=== PATIENT | female | born 1945 | race Caucasian/White ===

== ENCOUNTER 2018-07-18 12:03 | Inpatient (IN) | payer MEDICARE, OTHER, SELFPAY ==
[2018-07-18 12:04] VITALS: BP 119/90; PULSE 65; RESP 17; TEMP 36.8; O2SAT 100; BMI 24.7
--- NOTE | 2018-07-18 13:07 | ED.DCSUM_ITS ---
- ER Visit Summary Date of Service: 07/18/18 Chief Complaint: Weakness History of Present Illness: The patient is a 72 F who presents with general weakness that is been getting worse over the past month. Patient states she had labs drawn yesterday and showed a low hemoglobin. Patient denies any melena or hematochezia. Patient denies any abdominal pain. Patient does admit to some nausea and vomiting. Patient denies any fevers or chills. Patient denies any chest pain but admits to occasional palpitations and some shortness of breath at times. Patient states her weakness and shortness of breath are worse with any exertion. Physical Examination: Vital signs are stable. Patient is afebrile. Patient is in no acute distress. Oral mucosa is pink and moist. Neck is supple. Trachea is midline. There is no JVD noted. Heart was regular rate and rhythm. Lungs are clear and equal bilateral. Abdomen is soft. Bowel sounds are normal. There is no tenderness. There is no guarding noted. Rectal exam showed brown stool. There is no tenderness or masses noted. Skin is warm dry. Cranial nerves II through XII are intact. There are no focal motor or sensory deficits noted. The remaining physical exam is within normal limits. Test Results: CBC showed hemoglobin of 6.8 and hematocrit 25.1. Comprehensive metabolic profile was within normal limits. INR and PTT were normal. Troponin was normal. Emergency Department Course and Treatment: Type and screen was ordered. Case was discussed with the hospitalist. She will admit the patient to her service. Patient was typed and crossed for 1 unit. Patient will be infused with 1 unit of packed red blood cells to be started in the emergency department. Disposition: Admit for observation Impression: Anemia This note was generated with [employer] dictation software. It may contain incorrect words, spelling, and punctuation that were not noted in review of the chart prior to signing ED Disposition - Plan for ED Patient: Disposition: Acute Care Hospital [facility] Diagnosis: Anemia Referrals: Ariadne Miranda MD [Primary Care Provider] -
[2018-07-18 13:39] LABS: International Normalized Ratio 1.1
[2018-07-18 13:40] LABS: Partial Thromboplast Time 31.4 Seconds (24.1-36.2)
[2018-07-18 13:46] LABS: Absolute Lymphocyte Count 0.87 X10^3/ul (0.83-4.51); Absolute Neutrophil Count 4.2 X10^3/uL (2.0-7.7); Basophil# 0.04 X10^3/uL; Basophil% 0.7 % (0-1); Eosinophil# 0.17 X10^3/uL; Eosinophils% 2.8 % (0-5); Hematocrit 25.1 % (37-47); Hemoglobin 6.8 g/dl (12.0-15.0); Lymphocyte # 0.87 X10^3/ul (4.0); Lymphocyte % 14.5 % (19-41); Mean Corp Hgb Conc 27.1 g/gl (32-36); Mean Corpuscular Hgb 16.6 pg (27.0-32.0); Mean Corpuscular Volume 61.4 fL (81-99); Monocyte# 0.73 X10^3/uL; Monocyte% 12.2 % (0-10); Neutrophil # 4.18 X10^3/uL (2.7-7.7); Neutrophil % 69.8 % (47-70); Platelet Count 255 K/mm3 (150-450); RBC Distribution Width CV 20.5 % (11.6-14.6); RBC Distribution Width SD 44.9 fl (35.1-43.9); Red Blood Count 4.09 M/mm3 (4.2-5.4)
[2018-07-18 13:48] LABS: Differential Indicated SCAN CRITERIA MET; POSITIVE COUNT NO; POSITIVE DIFFERENTIAL NO; POSITIVE MORPHOLOGY YES
[2018-07-18 13:56] LABS: ALB/GLOB Ratio 0.9 RATIO (0.9-2.4); AST(SGOT) 25 U/L (15-37); Alanine Aminotransfer ALT/SGPT 29 U/L (13-56); Albumin, Serum 3.5 g/dL (3.2-5.0); Alkaline Phosphatase 99 U/L (45-117); Anion Gap 5 (5-15); BUN 9 mg/dL (7-18); BUN/Creat Ratio 13.4 RATIO (10-20); Calcium,Total 8.9 mg/dL (8.5-10.1); Chloride 107 mmol/L (98-107); Creatinine, Serum 0.67 mg/dL (0.55-1.02); EST Glomerular Filtration Rate 92 mL/min (>60); Est Glom Filt Rate - Afr Amer 111 mL/min (>60); Estimated Creatinine Clearance 43.91 ml/min; Globulin 3.9 g/dL (2.2-4.2); Glucose 107 mg/dL (74-106); Potassium 3.7 mmol/L (3.5-5.1); Protein, Total 7.4 g/dL (6.4-8.2); Sodium Level 139 mmol/L (136-145)
[2018-07-18 14:19] LABS: Anisocytosis 3+; Hypochromasia 1+; Macrocytosis 1+; Microcytosis 2+; Ovalocyte 1+; Platelet Estimate ADEQUATE (ADEQ); Platelet Morphology LARGE; Target Cells 1+
[2018-07-18 15:01] VITALS: BP 168/103; PULSE 84; RESP 22; O2SAT 99
--- NOTE | 2018-07-18 15:15 | ED.RN ---
MD AWARE PT HAS NOT GIVEN UA, SAID TO GIVE THE PT SOMETHING TO DRINK.
[2018-07-18 16:06] LABS: Red Blood Cells-Urine 0 SEEN /hpf (0-5); Squamous Epithelial Cells - UA 0 SEEN /hpf (5-10)
[2018-07-18 16:09] LABS: Color, Urine Yellow (Yellow); Glucose, Dipstick Normal (Normal); Ketone-Dipstick Negative (Negative); Leukocyte Esterase-Dipstick 25 /ul (Negative); Nitrite-Dipstick Positive (Negative); Occult Blood-Urine Negative /ul (Negative); Protein-Dipstick Negative (Negative); Specific Gravity, Urine 1.015 (1.002-1.030); Urine Bilirubin Dipstick Negative (Negative); Urine Clarity Clear (Clear); Urine Urobilinogen Normal (Normal)
[2018-07-18 16:15] VITALS: BMI 24.7
[2018-07-18 16:16] LABS: Bacteria 3+ /hpf (None Seen); Mucous, Urine RARE /hpf (<or=2+)
[2018-07-18 16:17] LABS: White Blood Cells 0-5 SEEN /hpf (0-5)
--- NOTE | 2018-07-18 16:40 | HP.PCM_ITS ---
Problem List (1) Anemia Status: Acute Qualifiers: Anemia type: unspecified type Qualified Code(s): D64.9 - Anemia, unspecified (2) Depression Status: Chronic Qualifiers: Depression Type: unspecified Qualified Code(s): F32.9 - Major depressive disorder, single episode, unspecified (3) GERD (gastroesophageal reflux disease) Status: Chronic Qualifiers: Esophagitis presence: esophagitis presence not specified Qualified Code(s): K21.9 - Gastro-esophageal reflux disease without esophagitis (4) Multiple sclerosis Status: Chronic (5) Osteoporosis Status: Chronic Qualifiers: Osteoporosis type: unspecified Encounter type: subsequent encounter Fracture healing: with routine healing History of Present Illness Date of Admission: 07/18/18 Chief Complaint: Abnormal lab work The patient is a 72 year old F with past medical history of multiple sclerosis, osteoporosis on denosumab, depression who comes referred from her primary care doctor's office with abnormal blood work. Patient admits to having upper respiratory symptoms which she thought was the flu, a month ago. She attributes all her symptoms of generalized malaise, nausea, poor appetite, weight loss, dry and sore lips, intermittent palpitations, dizziness and shortness of breath with exertion. Her admitting vitals in ED showed blood pressure 119/90, temperature of 98.2 F, heart rate 65, respiratory rate 70, SPO2 100% on room air. Her white cell count is 6.0, hemoglobin 6.8, hemoglobin was 11.1 in 2017, platelet count was 255, INR 1.1, APTT 31.4, CMP unremarkable. Past Medical History Past Medical History (Chronic Problems): Chronic Problems Depression (Chronic) Muscle spasm (Chronic) GERD (gastroesophageal reflux disease) (Chronic) Neuropathic pain (Chronic) Multiple sclerosis (Chronic) Osteoporosis (Chronic) Allergies Sulfa (Sulfonamide Antibiotics) Adverse Reaction (Verified 07/18/18 16:14) Vomiting sulfamethoxazole [From Bactrim] Adverse Reaction (Verified 07/18/18 12:03) Vomiting trimethoprim [From Bactrim] Adverse Reaction (Verified 07/18/18 12:03) Vomiting Home Medications: Ambulatory Orders Medication Instructions Recorded Calcium Carbonate/Vitamin D3 1 each PO BID 10/21/16 [Caltrate 600 Plus D3 Tablet] Gabapentin [Neurontin] 100 mg PO QHS 10/21/16 Glucosa [place] 2Kcl/Chondroitin [place] 2 each PO DAILY 10/21/16 [Glucosamine-Chondroitin Tablet] Lactobacillus Rhamnosus GG 1 each PO DAILY 10/21/16 [Culturelle] Pantoprazole Sodium [Protonix] 40 mg PO BID 10/21/16 Venlafaxine XR [Effexor Xr] 150 mg PO DAILY 10/21/16 Albuterol Sulfate [Ventolin Hfa] 2 inhaler PO Q4H PRN PRN 07/18/18 Bmx Liquid 5 ml PO PRN PRN 07/18/18 Cholecalciferol (VIT D3) [Vitamin 1,000 unit PO DAILY 07/18/18 D] Denosumab [Prolia] 60 mg SQ 07/18/18 Multivitamins,Therapeutic 1 tablet PO DAILY 07/18/18 [Multivitamin] Potassium Chloride 10 meq PO DAILY 07/18/18 Surgical History: cataract, tonsillectomy, - - Left IM nailing for left hip fracture Psychiatric History: Depression 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 Paternal History Items: - - father with rheumatoid arthritis, scleroderma Review of Systems Constitutional: Reports: Weakness, Fatigue. Denies: Anorexia, Chills, Fever, Malaise, Weight Change Eyes: Denies: Blurred vision, Cataracts, Conjunctivae Inflammation, Double vision, Eyelid Inflammation HEENT: Denies: Difficulty Hearing, Difficulty Swallowing, Head Aches, Hearing Changes, Sinus Congestion, Sinus Drainage Cardiovascular: Reports: Light Headedness. Denies: Chest Pain, Claudication, Orthopnea, Palpitations Respiratory: Reports: Shortness of Breath, Shortness of breath at rest, Shortness of breath upon exertion. Denies: Cough, Sputum production Gastrointestinal: Denies: Abdominal Pain, Hematemesis, Hematochezia, Nausea, Melena, Vomiting Genitourinary: Denies: Dysuria, Frequency, Incontinence Gynecological: Denies: Breast symptoms, Excessively long or heavy periods, Vaginal discharge, Vaginal itching Musculoskeletal: Denies: Joint Pain, Joint stiffness, Joint swelling, Joint Tenderness Skin: Denies: Pruritis, Rash, Wounds Neurological: Denies: Numbness, Tingling, Focal weakness Psychiatric: Denies: Anxiety, Depression, Homicidal Ideations, Suicidal Ideations Hematologic/ Lymphatic: Denies: Easy Bruising, Easy Bleeding VTE Information - Inpt Only VTE Present on Admission: No VTE Pharm Prophylaxis ordered?: Yes Patient Problems: Active and Suspected Problems Anemia (Acute) - Physical Exam General: Alert, Oriented x3, Cooperative, No apparent distress HEENT: Atraumatic, PERRLA, EOMI, Normocephalic Oral: Moist Mucosa, - - redness and peeling of lips Neck: Supple Lungs: Clear to auscultation, Normal air movement Cardiovascular: Regular rate, Regular Rhythm, Normal S1, Normal S2, No murmurs Abdomen: Bowel Sounds Present, Soft, Non Tender, Non-Distended, No Hepato- splenomegaly Extremities: No edema Skin: No rashes, No breakdown Musculoskeletal: No Tenderness to Palpation of Joints or Extremities Lymphatic: No Cervical, Supraclavicular, or Inguinal Adenopathy Neurological: Cranial nerves II-XII grossly intact, Neuro grossly intact Psych/Mental Status: Normal Affect, Appropriate Vital Signs Temp Pulse Resp BP Pulse Ox 98.2 F 84 22 H 168/103 H 99 07/18/18 12:04 07/18/18 15:01 07/18/18 15:01 07/18/18 15:01 07/18/18 15:01 Oxygen Delivery Method Room Air Weight: 65.317 kg Body Mass Index (BMI) 24.7 Microbiology Past 72 Hours 07/18/18 16:00 Stool Occult Blood (TENA) - Final Stool Laboratory Tests Past 24 Hrs 07/18/18 07/18/18 07/18/18 13:26 13:26 13:26 WBC 6.0 RBC 4.09 L Hgb 6.8 L Hct 25.1 L MCV 61.4 L MCH 16.6 L MCHC 27.1 L RDW 20.5 H RDW Differential 44.9 H Plt Count 255 Immature Gran % (Auto) 0.000 Neut % (Auto) 69.8 Lymph % (Auto) 14.5 L [place] % (Auto) 12.2 H Eos % (Auto) 2.8 Baso % (Auto) 0.7 Absolute Neuts (auto) 4.2 Absolute Lymphs (auto) 0.87 Total Counted Not Reportable Platelet Estimate ADEQUATE Plt Morphology Comment LARGE Hypochromasia 1+ Anisocytosis 3+ Microcytosis 2+ Macrocytosis 1+ Target Cells 1+ Ovalocytes 1+ PT 14.0 INR 1.1 APTT 31.4 Sodium 139 Potassium 3.7 Chloride 107 Carbon Dioxide 27.0 Anion Gap 5 BUN 9 Creatinine 0.67 Estim Creat Clear Calc 43.91 Est GFR (MDRD) Af Amer 111 Est GFR (MDRD) Non-Af 92 BUN/Creatinine Ratio 13.4 Glucose 107 H Calcium 8.9 Total Bilirubin 0.70 AST 25 ALT 29 Alkaline Phosphatase 99 Troponin I < 0.015 Total Protein 7.4 Albumin 3.5 Globulin 3.9 Albumin/Globulin Ratio 0.9 Urine Color Urine Clarity Urine pH Ur Specific [place] Urine Protein Urine Glucose (UA) Urine Ketones Urine Occult Blood Urine Nitrite Urine Bilirubin Urine Urobilinogen Ur Leukocyte Esterase Urine RBC Urine WBC Ur Squamous Epith Cells Urine Bacteria Urine Mucus Blood Type Antibody Screen 07/18/18 07/18/18 16:00 16:30 WBC RBC Hgb Hct MCV MCH MCHC RDW RDW Differential Plt Count Immature Gran % (Auto) Neut % (Auto) Lymph % (Auto) [place] % (Auto) Eos % (Auto) Baso % (Auto) Absolute Neuts (auto) Absolute Lymphs (auto) Total Counted Platelet Estimate Plt Morphology Comment Hypochromasia Anisocytosis Microcytosis Macrocytosis Target Cells Ovalocytes PT INR APTT Sodium Potassium Chloride Carbon Dioxide Anion Gap BUN Creatinine Estim Creat Clear Calc Est GFR (MDRD) Af Amer Est GFR (MDRD) Non-Af BUN/Creatinine Ratio Glucose Calcium Total Bilirubin AST ALT Alkaline Phosphatase Troponin I Total Protein Albumin Globulin Albumin/Globulin Ratio Urine Color Yellow Urine Clarity Clear Urine pH 6.0 Ur Specific [place] 1.015 Urine Protein Negative Urine Glucose (UA) Normal Urine Ketones Negative Urine Occult Blood Negative Urine Nitrite Positive H Urine Bilirubin Negative Urine Urobilinogen Normal Ur Leukocyte Esterase 25 H Urine RBC 0 SEEN Urine WBC 0-5 SEEN Ur Squamous Epith Cells 0 SEEN Urine Bacteria 3+ Urine Mucus RARE Blood Type Pending Antibody Screen Pending Assessment/Plan All Active Problems Anemia (Acute) Rib fractures (Acute) Fall (Acute) Closed fracture of left hip requiring operative repair (Acute) 72 year old F with past medical history of multiple sclerosis, osteoporosis on denosumab, depression who comes referred from her primary care doctor's office with abnormal blood work. 1. Severe anemia, symptomatic, unclear etiology, admitting Hb is 6.8, previous Hb 11.1, FOBT is negative Plan: Admit to Medsurg, Iron profile, Retic count, LDH, Vitamin B12, folate, direct Coomb's test, Transfuse 1 unit of packed RBC, trend H&H, continue on PPI BID Discussed with Hematology - Dr. See, recommends discharging patient if stable tomorrow morning, follow-up in the outpatient with him within a week 2. Multiple sclerosis 3. Osteoporosis, on denosumab 4. Depression, on Venlafaxine 5. DVT PPx- SCDs on account of severe anemia Code Visit Inpatient E&M: 97855 Init Hosp L3
--- NOTE | 2018-07-18 17:07 | CASEMGMT ---
RN CM Assessment Introduced role of RN CM to patient and Krzysztof at bedside.? Patient is alert, oriented and able?to participate in RN CM Assessment. ?Care providers, pharmacy, and demographics verified. Presentation: Generalized Weakness, SOB, Had labs drawn yesterday and showed low Hgb Admit Dx: Severe Anemia Re-Admit: No Barriers/Issues: None PCP: Ariadne Miranda Specialists: None Preferred Pharmacy: [facility] Insurance: [facility] A[facility], MMO Rx Benefit:?Yes LNOK: Krzysztof Robb LW/HPOA: Yes, HPOA- Krzysztof Robb Living Arrangements:? Lives with in a Condo, no steps to enter home ADL?s: Independent with ambulation and ADL's Transportation: Patient drives, Krzysztof to transport on [place] DME: None HHC: Past [facility] SNF: None Goal: Home and back to volunteering here at [facility] DC PLAN: Home with no anticipated needs identifies at this time. REN Santiago
[2018-07-18 17:11] VITALS: BMI 25.4
[2018-07-18 18:42] LABS: Hematocrit 25.5 % (37-47); Hemoglobin 6.8 g/dl (12.0-15.0); Immature Platelet Fraction 9.9 % (1.0-7.9); RET-HE 14.1 pg (30-35); Reticulocyte Count 1.23 % (0.5-1.5)
[2018-07-18 19:08] VITALS: BP 159/63; PULSE 88; RESP 18; TEMP 36.8; O2SAT 99
[2018-07-18 19:19] LABS: Ferritin 10 ng/mL (8-252); Iron 12 ug/dL (50-170); Iron Binding Capacity,Total 409 ug/dL (250-450); LDH 207 U/L (84-246); PERCENT IRON SATURATION 2.9 % (15.0-55.0)
[2018-07-18 19:40] LABS: Vitamin B12 531 pg/mL (211-911)
[2018-07-18 20:20] VITALS: BP 154/57; PULSE 96; RESP 18; TEMP 36.9; O2SAT 98
[2018-07-18 21:15] VITALS: BP 148/65; PULSE 86; RESP 16; TEMP 36.6; O2SAT 99
[2018-07-18] MEDS: Pantoprazole Sodium 40 MG Tablet PO (21:18)
[2018-07-18] MEDS: Gabapentin 100 MG Capsule PO (21:19)
[2018-07-18 22:15] VITALS: BP 138/76; BP 140/64; PULSE 79; PULSE 82; RESP 18; TEMP 36.9; TEMP 37.6; O2SAT 100
[2018-07-18 23:49] LABS: Hematocrit 27.4 % (37-47); Hemoglobin 7.7 g/dl (12.0-15.0)
[2018-07-19 05:09] VITALS: BP 143/67; PULSE 74; RESP 18; TEMP 37.5; O2SAT 100
[2018-07-19 05:46] LABS: Absolute Neutrophil Count 2.8 X10^3/uL (2.0-7.7); Basophil# 0.03 X10^3/uL; Basophil% 0.6 % (0-1); Eosinophils% 4.1 % (0-5); Hematocrit 28.5 % (37-47); Hemoglobin 8.1 g/dl (12.0-15.0); Lymphocyte % 26.6 % (19-41); Mean Corp Hgb Conc 28.4 g/gl (32-36); Mean Corpuscular Hgb 18.4 pg (27.0-32.0); Mean Corpuscular Volume 64.8 fL (81-99); Monocyte# 0.59 X10^3/uL; Monocyte% 12.1 % (0-10); Neutrophil # 2.77 X10^3/uL (2.7-7.7); Neutrophil % 56.6 % (47-70); Platelet Count 240 K/mm3 (150-450); RBC Distribution Width CV 23.9 % (11.6-14.6); RBC Distribution Width SD 54.8 fl (35.1-43.9); White Blood Count 4.9 K/mm3 (4.4-11.0)
[2018-07-19 05:47] LABS: Differential Indicated SCAN CRITERIA MET; POSITIVE COUNT NO; POSITIVE DIFFERENTIAL NO; POSITIVE MORPHOLOGY YES
[2018-07-19 05:51] LABS: Anion Gap 5 (5-15); BUN 8 mg/dL (7-18); BUN/Creat Ratio 12.7 RATIO (10-20); Calcium,Total 8.8 mg/dL (8.5-10.1); Chloride 109 mmol/L (98-107); Creatinine, Serum 0.63 mg/dL (0.55-1.02); EST Glomerular Filtration Rate 98 mL/min (>60); Est Glom Filt Rate - Afr Amer 119 mL/min (>60); Estimated Creatinine Clearance 43.91 ml/min; Glucose 99 mg/dL (74-106); Potassium 4.1 mmol/L (3.5-5.1); Sodium Level 140 mmol/L (136-145)
[2018-07-19 06:04] LABS: Anisocytosis 2+; Differential Comment SCANNED; Platelet Estimate ADEQUATE (ADEQ); Platelet Morphology LARGE
[2018-07-19 06:05] LABS: Hypochromasia 3+; Ovalocyte 1+; Polychromasia RARE; Target Cells RARE
[2018-07-19 07:50] VITALS: BP 138/66; PULSE 76; RESP 18; TEMP 37.7; O2SAT 95
[2018-07-19] MEDS: Venlafaxine XR 150 MG Capsule PO (08:06)
[2018-07-19] MEDS: Multivitamins,Therapeutic Tablet 1 TABLET PO (08:06)
[2018-07-19] MEDS: Calcium Carb/Vitamin D 1 TABLET Tablet PO ×2 (08:06→17:42)
[2018-07-19] MEDS: Pantoprazole Sodium 40 MG Tablet PO (08:07)
--- NOTE | 2018-07-19 12:34 | CHAPLAIN ---
Type of Pastoral Visit _x__ Initial Visit ___ Follow-up Visit ___ On-call Visit ___ General Patient Visit ___ Spiritual Assessment ___ Family Conference ___ Bereavement ___ Rapid Response ___ Code Blue ___ Other (describe below) Pastoral Care Referral From _x__ Patient ___ Family ___ Nurse ___ Physician ___ Forging Operator ___ Process Controller ___ Other (describe below) Sacrament/Intervention _x__ Active listening ___ Anointing ___ Anglican ___ Bereavement ___ Communion ___ Mei exploration ___ _x__ Life review _x__ Prayer ___ Reconciliation ___ Sacrament of Sick _x__ Supportive presence ___ Wedding ___ Other (describe below) Pastoral Comments
[2018-07-19 13:55] VITALS: BP 138/68; PULSE 81; RESP 18; TEMP 37.1; O2SAT 95
[2018-07-19 14:10] VITALS: BP 130/64; PULSE 88; RESP 18; TEMP 36.6; O2SAT 96
--- NOTE | 2018-07-19 14:10 | PCM.CONS.GEN ---
Problem List (1) Anemia Status: Acute Qualifiers: Anemia type: iron deficiency Iron deficiency anemia type: chronic blood loss Qualified Code(s): D50.0 - Iron deficiency anemia secondary to blood loss (chronic) Reason for Consult Date of Consultation: 07/19/18 History of Present Illness: The patient is a 72 year old F with past medical history of multiple sclerosis, osteoporosis on denosumab, depression who comes referred from her primary care doctor's office with abnormal blood work. Patient admits to having upper respiratory symptoms which she thought was the flu, a month ago. She attributes all her symptoms of generalized malaise, nausea, poor appetite, weight loss, dry and sore lips, intermittent palpitations, dizziness and shortness of breath with exertion. Her admitting vitals in ED showed blood pressure 119/90, temperature of 98.2 F, heart rate 65, respiratory rate 70, SPO2 100% on room air. Her white cell count is 6.0, hemoglobin 6.8, hemoglobin was 11.1 in 2017, platelet count was 255, INR 1.1, APTT 31.4, CMP unremarkable. The patient has never noticed any dark stools, she has had some nausea vomiting but nothing that has had coffee grounds in it. She is not complaining of any abdominal pain. Her last upper endoscopy was more than 10 years ago and she has not had a colonoscopy. Past Medical History Past Medical History (Chronic Problems): Chronic Problems Depression (Chronic) Muscle spasm (Chronic) GERD (gastroesophageal reflux disease) (Chronic) Neuropathic pain (Chronic) Multiple sclerosis (Chronic) Osteoporosis (Chronic) Allergies Sulfa (Sulfonamide Antibiotics) Adverse Reaction (Verified 07/18/18 16:14) Vomiting sulfamethoxazole [From Bactrim] Adverse Reaction (Verified 07/18/18 12:03) Vomiting trimethoprim [From Bactrim] Adverse Reaction (Verified 07/18/18 12:03) Vomiting Home Medications: Ambulatory Orders Medication Instructions Recorded Calcium Carbonate/Vitamin D3 1 each PO BID 10/21/16 [Caltrate 600 Plus D3 Tablet] Gabapentin [Neurontin] 100 mg PO QHS 10/21/16 Glucosa [place] 2Kcl/Chondroitin [place] 2 each PO DAILY 10/21/16 [Glucosamine-Chondroitin Tablet] Lactobacillus Rhamnosus GG 1 each PO DAILY 10/21/16 [Culturelle] Pantoprazole Sodium [Protonix] 40 mg PO BID 10/21/16 Venlafaxine XR [Effexor Xr] 150 mg PO DAILY 10/21/16 Albuterol Sulfate [Ventolin Hfa] 2 inhaler PO Q4H PRN PRN 07/18/18 Bmx Liquid 5 ml PO PRN PRN 07/18/18 Cholecalciferol (VIT D3) [Vitamin 1,000 unit PO DAILY 07/18/18 D] Denosumab [Prolia] 60 mg SQ 07/18/18 Multivitamins,Therapeutic 1 tablet PO DAILY 07/18/18 [Multivitamin] Potassium Chloride 10 meq PO DAILY 07/18/18 Surgical History: cataract, tonsillectomy, - - Left IM nailing for left hip fracture Psychiatric History: Depression DIRECT SELLING COUNSELOR History: No pertinent DIRECT SELLING COUNSELOR history Lives: Spouse/ Significant Other Smoking Status: Former smoker Tobacco Use: Cigarettes - *Family History Maternal History Items: - - mother with a stroke. Paternal History Items: - - father with rheumatoid arthritis, scleroderma Review of Systems Constitutional: Reports: Malaise, Fatigue Cardiovascular: Reports: Palpitations Respiratory: Denies: Cough, Hemoptysis, Shortness of breath at rest, Shortness of breath upon exertion, Wheezing Gastrointestinal: Denies: Abdominal Pain, Constipation, Diarrhea, Hematemesis, Nausea, Melena, Vomiting Patient Problems: Active and Suspected Problems Anemia (Acute) - Physical Exam General: Alert, Oriented x3 Lungs: Clear to auscultation Cardiovascular: Regular rate, Regular Rhythm, No murmurs Abdomen: Bowel Sounds Present, Soft, Non Tender, Non-Distended Vital Signs Temp Pulse Resp BP Pulse Ox 99.9 F H 76 18 138/66 H 95 07/19/18 07:50 07/19/18 07:50 07/19/18 07:50 07/19/18 07:50 07/19/18 07:50 Oxygen Delivery Method Room Air Weight: 147 lb 14.883 oz Body Mass Index (BMI) 25.4 Intake and Output for Last 24 Hours 07/17/18 07/18/18 07/19/18 23:59 23:59 23:59 Intake Total 650 / 650 730 / 730 Balance 650 / 650 730 / 730 Microbiology Past 72 Hours 07/18/18 16:00 Stool Occult Blood (TENA) - Final Stool Laboratory Tests Past 24 Hrs 07/18/18 07/18/18 07/18/18 13:26 13:26 13:26 WBC RBC Hgb 6.8 L Hct 25.5 L MCV MCH MCHC RDW RDW Differential Plt Count MPV Immature Gran % (Auto) Neut % (Auto) Lymph % (Auto) [place] % (Auto) Eos % (Auto) Baso % (Auto) Absolute Neuts (auto) Absolute Lymphs (auto) Total Counted Not Reportable Differential Comment Platelet Estimate ADEQUATE Immature Plt Fraction 9.9 H Plt Morphology Comment LARGE Polychromasia Hypochromasia 1+ Anisocytosis 3+ Microcytosis 2+ Macrocytosis 1+ Target Cells 1+ Ovalocytes 1+ Retic Count 1.23 Immature Retic Fraction 15.30 Retic Hgb Equivalent 14.1 L Sodium Potassium Chloride Carbon Dioxide Anion Gap BUN Creatinine Estim Creat Clear Calc Est GFR (MDRD) Af Amer Est GFR (MDRD) Non-Af BUN/Creatinine Ratio Glucose Calcium Iron 12 L TIBC 409 Iron Saturation 2.9 L Ferritin 10 Lactate Dehydrogenase 207 Vitamin B12 Folate 36.50 Urine Color Urine Clarity Urine pH Ur Specific [place] Urine Protein Urine Glucose (UA) Urine Ketones Urine Occult Blood Urine Nitrite Urine Bilirubin Urine Urobilinogen Ur Leukocyte Esterase Urine RBC Urine WBC Ur Squamous Epith Cells Urine Bacteria Urine Mucus Blood Type Antibody Screen Direct Antiglob Test Crossmatch 07/18/18 07/18/18 07/18/18 13:26 16:00 16:30 WBC RBC Hgb Hct MCV MCH MCHC RDW RDW Differential Plt Count MPV Immature Gran % (Auto) Neut % (Auto) Lymph % (Auto) [place] % (Auto) Eos % (Auto) Baso % (Auto) Absolute Neuts (auto) Absolute Lymphs (auto) Total Counted Differential Comment Platelet Estimate Immature Plt Fraction Plt Morphology Comment Polychromasia Hypochromasia Anisocytosis Microcytosis Macrocytosis Target Cells Ovalocytes Retic Count Immature Retic Fraction Retic Hgb Equivalent Sodium Potassium Chloride Carbon Dioxide Anion Gap BUN Creatinine Estim Creat Clear Calc Est GFR (MDRD) Af Amer Est GFR (MDRD) Non-Af BUN/Creatinine Ratio Glucose Calcium Iron TIBC Iron Saturation Ferritin Lactate Dehydrogenase Vitamin B12 Folate Urine Color Yellow Urine Clarity Clear Urine pH 6.0 Ur Specific [place] 1.015 Urine Protein Negative Urine Glucose (UA) Normal Urine Ketones Negative Urine Occult Blood Negative Urine Nitrite Positive H Urine Bilirubin Negative Urine Urobilinogen Normal Ur Leukocyte Esterase 25 H Urine RBC 0 SEEN Urine WBC 0-5 SEEN Ur Squamous Epith Cells 0 SEEN Urine Bacteria 3+ Urine Mucus RARE Blood Type O NEGATIVE Antibody Screen NEGATIVE Direct Antiglob Test NEG w/POLYSPECIFIC Crossmatch 07/18/18 07/18/18 07/18/18 16:30 16:30 18:45 WBC RBC Hgb Hct MCV MCH MCHC RDW RDW Differential Plt Count MPV Immature Gran % (Auto) Neut % (Auto) Lymph % (Auto) [place] % (Auto) Eos % (Auto) Baso % (Auto) Absolute Neuts (auto) Absolute Lymphs (auto) Total Counted Differential Comment Platelet Estimate Immature Plt Fraction Plt Morphology Comment Polychromasia Hypochromasia Anisocytosis Microcytosis Macrocytosis Target Cells Ovalocytes Retic Count Immature Retic Fraction Retic Hgb Equivalent Sodium Potassium Chloride Carbon Dioxide Anion Gap BUN Creatinine Estim Creat Clear Calc Est GFR (MDRD) Af Amer Est GFR (MDRD) Non-Af BUN/Creatinine Ratio Glucose Calcium Iron TIBC Iron Saturation Ferritin Lactate Dehydrogenase Vitamin B12 531 Folate Urine Color Urine Clarity Urine pH Ur Specific [place] Urine Protein Urine Glucose (UA) Urine Ketones Urine Occult Blood Urine Nitrite Urine Bilirubin Urine Urobilinogen Ur Leukocyte Esterase Urine RBC Urine WBC Ur Squamous Epith Cells Urine Bacteria Urine Mucus Blood Type Antibody Screen Direct Antiglob Test Crossmatch See Detail See Detail 07/18/18 07/19/18 07/19/18 23:27 05:20 05:20 WBC 4.9 RBC 4.40 Hgb 7.7 L 8.1 L Hct 27.4 L 28.5 L MCV 64.8 L MCH 18.4 L MCHC 28.4 L RDW 23.9 H RDW Differential 54.8 H Plt Count 240 MPV TNP Immature Gran % (Auto) 0.000 Neut % (Auto) 56.6 Lymph % (Auto) 26.6 [place] % (Auto) 12.1 H Eos % (Auto) 4.1 Baso % (Auto) 0.6 Absolute Neuts (auto) 2.8 Absolute Lymphs (auto) 1.30 Total Counted Not Reportable Differential Comment SCANNED Platelet Estimate ADEQUATE Immature Plt Fraction Plt Morphology Comment LARGE Polychromasia RARE Hypochromasia 3+ Anisocytosis 2+ Microcytosis Macrocytosis Target Cells RARE Ovalocytes 1+ Retic Count Immature Retic Fraction Retic Hgb Equivalent Sodium 140 Potassium 4.1 Chloride 109 H Carbon Dioxide 26.0 Anion Gap 5 BUN 8 Creatinine 0.63 Estim Creat Clear Calc 43.91 Est GFR (MDRD) Af Amer 119 Est GFR (MDRD) Non-Af 98 BUN/Creatinine Ratio 12.7 Glucose 99 Calcium 8.8 Iron TIBC Iron Saturation Ferritin Lactate Dehydrogenase Vitamin B12 Folate Urine Color Urine Clarity Urine pH Ur Specific [place] Urine Protein Urine Glucose (UA) Urine Ketones Urine Occult Blood Urine Nitrite Urine Bilirubin Urine Urobilinogen Ur Leukocyte Esterase Urine RBC Urine WBC Ur Squamous Epith Cells Urine Bacteria Urine Mucus Blood Type Antibody Screen Direct Antiglob Test Crossmatch Assessment/Plan All Active Problems Anemia (Acute) Rib fractures (Acute) Fall (Acute) Closed fracture of left hip requiring operative repair (Acute) At this point I am going to see the patient in an outpatient setting and then get her scheduled for both an upper and lower endoscopy.
--- NOTE | 2018-07-19 16:29 | DCINST_ITS ---
- Discharge Diagnoses Current Active Problems: Current Active and Chronic Problems Anemia (Acute) You will use the following diet at home:: No restrictions Your food should be the consistency of: Regular Your liquids should be the consistency of: Regular/Thin Discharge Activity: Return to Normal Activity Weight Bearing Status: Full weight bearing Allergies/Adverse Reactions: Allergies Sulfa (Sulfonamide Antibiotics) Adverse Reaction (Verified 07/18/18 16:14) Vomiting sulfamethoxazole [From Bactrim] Adverse Reaction (Verified 07/18/18 12:03) Vomiting trimethoprim [From Bactrim] Adverse Reaction (Verified 07/18/18 12:03) Vomiting Medications to take at Discharge Calcium Carbonate/Vitamin D3 [Caltrate 600 Plus D3 Tablet] 1 each PO BID 10/21/16 Gabapentin [Neurontin] 100 mg PO QHS 10/21/16 Glucosa [place] 2Kcl/Chondroitin [place] [Glucosamine-Chondroitin Tablet] 2 each PO DAILY 10/21/16 Lactobacillus Rhamnosus GG [Culturelle] 1 each PO DAILY 10/21/16 Pantoprazole Sodium [Protonix] 40 mg PO BID 10/21/16 Venlafaxine XR [Effexor Xr] 150 mg PO DAILY 10/21/16 Albuterol Sulfate [Ventolin Hfa] 2 inhaler PO Q4H PRN PRN 07/18/18 Bmx Liquid 5 ml PO PRN PRN 07/18/18 Cholecalciferol (VIT D3) [Vitamin D3] 1,000 unit PO DAILY 07/18/18 Denosumab [Prolia] 60 mg SQ 07/18/18 Multivitamins,Therapeutic [Multivitamin] 1 tablet PO DAILY 07/18/18 Potassium Chloride 10 meq PO DAILY 07/18/18 Ferrous Sulfate 325 mg PO BIDCM #60 tablet 07/19/18 The following prescriptions were given: Ferrous Sulfate 325 mg PO BIDCM #60 tablet Primary Care Physician: Ariadne Miranda MD [Primary Care Provider] - Please follow up with your Primary Care Physician in: in 2 weeks Test Results: Test results from this visit will be discussed in further detail at your follow- up appointment, if applicable. Please Follow Up With: Carlton Tyler MD When: in one week-call for appointment
[2018-07-19 17:32] VITALS: BP 140/61; PULSE 89; RESP 18; TEMP 37.4; O2SAT 94
[2018-07-19 18:30] VITALS: BP 138/66; PULSE 76; RESP 18; TEMP 37.7; O2SAT 95
--- NOTE | 2018-07-22 16:46 | PCM.DC.SUM ---
Discharge Date and Diagnosis Date of Admission: 07/18/18 Date of Discharge: 07/19/18 - Primary Discharge Diagnosis #1 severe anemia, iron deficiency, believed to be secondary to occult blood loss in the gastrointestinal tract requiring blood transfusion #2 multiple sclerosis #3 osteoporosis #4 depression - Secondary Discharge Diagnosis Chronic Problems Depression (Chronic) Muscle spasm (Chronic) GERD (gastroesophageal reflux disease) (Chronic) Neuropathic pain (Chronic) Multiple sclerosis (Chronic) Osteoporosis (Chronic) Hospital Course and Treatment Operations: None Procedures: Blood transfusion Summary of Care Provided: The patient is a 72 year old F was seen in the emergency room at [facility] with complaints of generalized weakness. Labs were done as an outpatient the day prior showed anemia and the patient was told to go to the emergency room for evaluation. Labs obtained in the emergency room showed the patient to have a hemoglobin of 6.8, conference of metabolic profile was within normal limits. Patient was admitted to [place] [address], she was given 2 units of packed red blood cells, and further labs were obtained which indicated she had an iron deficiency anemia felt to probably secondary to occult blood loss from the GI tract. Patient was seen in consultation by general surgery who recommended that the patient undergo an outpatient colonoscopy and EGD. Patient had never had a colonoscopy. On 07/18/2018, patient was seen and examined and felt to be in stable condition for discharge home. Physical exam: On examination she appeared in good health and spirits. Vital signs as documented. Skin warm and dry and without overt rashes. Neck without JVD. Lungs clear. Heart exam notable for regular rhythm, normal sounds and absence of murmurs, rubs or gallops. Abdomen unremarkable and without evidence of organomegaly, masses, or abdominal aortic enlargement. Extremities nonedematous. Neuro: Cranial nerves II through XII are grossly intact, no focal motor deficits were noted, sensation to light touch and pinprick is intact. Psych: Patient is alert and oriented x3, she does not appear anxious or depressed - Physical Exam Vital Signs Temp Pulse Resp BP Pulse Ox 99.9 F H 76 18 138/66 H 95 07/19/18 18:30 07/19/18 18:30 07/19/18 18:30 07/19/18 18:30 07/19/18 18:30 Oxygen Delivery Method Room Air Weight: 67.1 kg Body Mass Index (BMI) 25.4 Discharge Activity: Return to Normal Activity Weight Bearing Status: Full weight bearing Home Medications: Medications to take at Discharge Gabapentin [Neurontin] 100 mg PO QHS 10/21/16 Glucosa [place] 2Kcl/Chondroitin [place] [Glucosamine-Chondroitin Tablet] 1 tab PO BID 10/21/16 Lactobacillus Rhamnosus GG [Culturelle] 1 each PO DAILY 10/21/16 Pantoprazole Sodium [Protonix] 40 mg PO BID 10/21/16 Venlafaxine XR [Effexor Xr] 150 mg PO DAILY 10/21/16 Albuterol Sulfate [Ventolin Hfa] 2 inhaler PO Q4H PRN PRN 07/18/18 Bmx Liquid 5 ml PO PRN PRN 07/18/18 Cholecalciferol (VIT D3) [Vitamin D3] 1,000 unit PO BID 07/18/18 Denosumab [Prolia] 60 mg SQ UD 07/18/18 Multivitamins,Therapeutic [Multivitamin] 1 tablet PO DAILY 07/18/18 Potassium Chloride 10 meq PO DAILY 07/18/18 Ferrous Sulfate 325 mg PO BIDCM #60 tablet 07/19/18 Calcium Carbonate/Vitamin D3 [Calcium 500-Vit D3 200 Tablet] 1 tab PO DAILY 07/22/18 Following Prescrptions Were Given to Patient: Ferrous Sulfate 325 mg PO BIDCM #60 tablet Primary Care Physician: Ariadne Miranda MD [Primary Care Provider] - Please follow up with your Primary Care Physician in: in 2 weeks Please Follow Up With: Carlton Tyler MD When: in one week-call for appointment Disposition: Home Minutes spent on discharge:: 32 Patient Condition:: Stable Medical Necessity - Tobacco Use Smoking Status: Former smoker Tobacco Use: Cigarettes Meaningful Use Info Meaningful Use Diagnoses (Choose all that apply): None applicable Code Visit Inpatient E&M: 34122 Disch Hosp
== END 2018-07-19 18:23 | disposition home or self-care (01) | DRG 812 ==
LOC: ED 16:42 → MS3 17:15
PROVIDERS: Admitting Provider Internal Medicine; Emergency Provider Emergency Medicine; Family Provider Internal Medicine; PCP Internal Medicine; Referring Provider Internal Medicine; Visit Provider Internal Medicine
DX: D64.9 Anemia, unspecified (principal); G35 Multiple sclerosis; F32.9 Major depressive disorder, single episode, unspecified; M81.0 Age-related osteoporosis without current pathological fracture
CPT/HCPCS: 36415; 80048; 80053; 81001; 82274; 82607; 82728; 82746; 83540; 83550; 83615; 84484; 85014; 85018; 85025; 85045; 85610; 85730; 86850; 86880; 86900; 86920; 86922; 97802; 99285; J1756; J7040; P9016; P9612; A4216

== ENCOUNTER 2018-07-22 13:20 | Inpatient (IN) | payer MEDICARE, OTHER, SELFPAY ==
[2018-07-22 13:21] VITALS: BP 141/84; PULSE 82; RESP 17; TEMP 37.2; O2SAT 97; BMI 24.9
--- NOTE | 2018-07-22 15:00 | VDLE_ITS ---
Reason For Study: LUE pain/erythema Left Proximal Left jugular vein is spontaneous, widely patent, phasic, with no intraluminal echogenicity noted. Left subclavian vein is spontaneous, widely patent, phasic, with no intraluminal echogenicity noted. Left Arm Left axillary vein is spontaneous, patent, phasic, competent, compressible and demonstrates augmentation. Left brachial vein is compressible. Cephalic v is dilated and non-compressible from wrist to mid upper arm. Left basilic vein is compressible. Left Lower Arm Left radial vein is compressible. Left ulnar vein is compressible. Interpretation Summary There is no evidence of left upper extremity deep vein thrombosis. Superficial thrombophlebitis left cephalic vein from the wrist to the mid upper arm. Ordering Physician: Baljit Willard Referring Physician: Ariadne Miranda Performed By: Rosanna Waller RVT ?
--- NOTE | 2018-07-22 15:02 | ED.DCSUM_ITS ---
History of Present Illness Chief Complaint: Cellulitis Detail of Chief Complaint: After IV Informant: Patient, Family Onset: Days - First noted swelling Sunday late evening Context: Sudden Onset Timing: Continuous Quality: Tightness, redness Location: Proximal left forearm, elbow and arm volar surface Current Severity: Moderate Maximum Severity: Moderate Worsened by: IV infusion Relieved by: Nothing Associated Symptoms: No constitutional symptoms Narrative: Patient is a 72-year-old woman with past medical history of MS. She is presently on no medication for her MS. She was seen last week and had 2 units of blood transfused left upper extremity. She noted after leaving that the left arm was slightly red and swollen. The redness and swelling have gotten worse. She denies fever, chills night sweats. She is on no immunosuppressive therapy. She denies history rheumatic fever, murmur, SBE, or any infectious problems. She denies history of prior blood clot. Prior similar symptoms: No Recent Illness/Hospitalization: Yes - Past Medical History (1) Anemia Status: Chronic (2) Closed fracture of left hip requiring operative repair Status: Acute (3) Rib fractures Status: Acute (4) Depression Status: Chronic (5) GERD (gastroesophageal reflux disease) Status: Chronic (6) Multiple sclerosis Status: Chronic Past Medical History - Allergies and Home Meds Allergies/Adverse Reactions: Allergies Sulfa (Sulfonamide Antibiotics) Adverse Reaction (Verified 07/18/18 16:14) Vomiting sulfamethoxazole [From Bactrim] Adverse Reaction (Verified 07/18/18 12:03) Vomiting trimethoprim [From Bactrim] Adverse Reaction (Verified 07/18/18 12:03) Vomiting Primary Care Physician: Ariadne Miranda MD [Primary Care Provider] - Prior records reviewed: Yes Surgical History: cataract, tonsillectomy, - - Left IM nailing for left hip fracture Lives: Spouse/ Significant Other Smoking Status: Former smoker Alcohol: Rare Drugs: None - Family History Maternal Family History: Reports: - - mother with a stroke. Paternal Family History: Reports: - - father with rheumatoid arthritis, scleroderma Review of Systems General: Denies: Chills, Fever, Malaise, Subjective, Sweats, Weight loss Eyes: Denies: Visual changes - bilaterally, Diplopia ENT: Denies: Rhinorrhea, Sore throat Cardiovascular: Denies: Chest pain, Palpitations Respiratory: Denies: Dyspnea, Cough, Dyspnea on exertion Gastrointestinal: Denies: Abdominal pain, Nausea, Vomiting, Diarrhea, Melena, Hematochezia Genitourinary: Denies: Dysuria, Hematuria, Frequency Musculoskeletal: Denies: Back pain, Extremity Pain Skin: Reports: Rash - Left upper extremity. Denies: Abscess, Abrasions, Wounds Neurological: Denies: Headache, Weakness, Numbness Hematologic: Denies: Easy bruising, Easy bleeding Allergy: Denies: Uticaria, Swelling of the mouth Physical Exam Vital Signs/Narrative: Vital Signs Temp Pulse Resp BP Pulse Ox 07/22/18 13:21 98.9 F 82 17 141/84 H 97 Inital Vital Signs reviewed: Yes General: Well nourished, Well developed, No Acute Distress Head: Normocephalic, Atraumatic Eyes: Perrl, EOMI ENT: Moist mucous membranes, No rhinorrhea Neck: Supple, Nontender Cardiovascular: Regular rate, Regular rhythm, No murmurs, Normal S1, Normal S2 Respiratory: No distress, CTA bilaterally, Chest nontender Abdomen: Soft, Nontender, Nondistended, Normal bowel sounds Back: Nontender, Normal Inspection. Negative for: CVA tenderness Extremities: Tenderness, Edema, - - There is a palpable cord. Skin: Normal color, Rash - There is evidence of cellulitis involving the volar proximal left forearm, elbow and distal half of the left arm. Neurological: Alert, Oriented x3, Cranial nerves II-XII grossly intact, Normal Strength, Normal Sensation, Normal Gait Psychological: Normal affect, Normal Mood Diagnostic/Tx/Re-eval Laboratory Results 07/22/18 07/22/18 16:55 16:55 WBC 8.4 RBC 4.94 Hgb 9.8 L Hct 34.1 L MCV 69.0 L MCH 19.8 L MCHC 28.7 L RDW 28.4 H RDW Differential 67.1 H Plt Count 220 MPV TNP Immature Gran % (Auto) 0.200 Neut % (Auto) 68.9 Lymph % (Auto) 15.8 L Coke % (Auto) 13.0 H Eos % (Auto) 1.7 Baso % (Auto) 0.4 Absolute Neuts (auto) 5.8 Absolute Lymphs (auto) 1.32 Sodium 136 Potassium 3.9 Chloride 107 Carbon Dioxide 24.0 Anion Gap 5 BUN 8 Creatinine 0.60 Estim Creat Clear Calc 43.91 Est GFR (MDRD) Af Amer 127 Est GFR (MDRD) Non-Af 105 BUN/Creatinine Ratio 13.4 Glucose 90 Calcium 9.2 - Rhythm Strip Rhythm Strip: Sinus Rhythm Rate: 74 Ectopy: None - Medical Decision Making Concern patient has septic phlebitis. There is evidence of cellulitis. Since she is not tachycardic, febrile or tachypneic lactate was not ordered. She was administered 50 mg/kg of vancomycin. Venous duplex confirms superficial phlebitis from the wrist to mid left arm. The cephalic vein is dilated and noncompressible from wrist to mid upper arm. Patient's white count and electric panel is normal. Hospitalist was paged for admission ED Disposition - Plan for ED Patient: Disposition: Acute Care Hospital [facility] Diagnosis: Cellulitis of left upper extremity, Septic phlebitis of upper extremities Referrals: Ariadne Miranda MD [Primary Care Provider] -
[2018-07-22] MEDS: Vancomycin IV 1,000 MG/200 ML BAG 200 MG IV (16:59)
--- NOTE | 2018-07-22 17:05 | HP.PCM_ITS ---
Problem List (1) Cellulitis Status: Acute (2) Superficial thrombophlebitis of arm Status: Acute (3) Anemia Status: Chronic Qualifiers: Anemia type: iron deficiency Iron deficiency anemia type: chronic blood loss Qualified Code(s): D50.0 - Iron deficiency anemia secondary to blood loss (chronic) (4) GERD (gastroesophageal reflux disease) Status: Chronic Qualifiers: Esophagitis presence: esophagitis presence not specified Qualified Code(s): K21.9 - Gastro-esophageal reflux disease without esophagitis (5) Multiple sclerosis Status: Chronic (6) Osteoporosis Status: Chronic Qualifiers: Osteoporosis type: unspecified Encounter type: subsequent encounter Fracture healing: with routine healing History of Present Illness Date of Admission: 07/22/18 Chief Complaint: left arm swelling The patient is a 72 year old F with pmhx of MS, osteoporosis, anemia, who presents to the ER with c/o left arm swelling. The patient is being workup up for anemia as an outpatient by her PCP and was sent to the ER for blood transfu sions and Sunday with 1 unit transfused per day. On Sunday the patient started having swelling, pain, and redness of the left arm centered around the AC area where she had an IV for the blood. She came to the ER and it appeared cellulitic. Labs are pending. An ultrasound was performed which showed superficial vein thrombophlebitis. She has no fever or chills. She has no nausea/vomiting/diarrhea/cough/SOB. She otherwise feels well. She is hesitant about going home. [] Past Medical History Past Medical History (Chronic Problems): Chronic Problems Anemia (Chronic) Depression (Chronic) Muscle spasm (Chronic) GERD (gastroesophageal reflux disease) (Chronic) Neuropathic pain (Chronic) Multiple sclerosis (Chronic) Osteoporosis (Chronic) Allergies Sulfa (Sulfonamide Antibiotics) Adverse Reaction (Verified 07/18/18 16:14) Vomiting sulfamethoxazole [From Bactrim] Adverse Reaction (Verified 07/18/18 12:03) Vomiting trimethoprim [From Bactrim] Adverse Reaction (Verified 07/18/18 12:03) Vomiting Home Medications: Ambulatory Orders Medication Instructions Recorded Gabapentin [Neurontin] 100 mg PO QHS 10/21/16 Glucosa [place] 2Kcl/Chondroitin [place] 1 tab PO BID 10/21/16 [Glucosamine-Chondroitin Tablet] Lactobacillus Rhamnosus GG 1 each PO DAILY 10/21/16 [Culturelle] Pantoprazole Sodium [Protonix] 40 mg PO BID 10/21/16 Venlafaxine XR [Effexor Xr] 150 mg PO DAILY 10/21/16 Albuterol Sulfate [Ventolin Hfa] 2 inhaler PO Q4H PRN PRN 07/18/18 Bmx Liquid 5 ml PO PRN PRN 07/18/18 Cholecalciferol (VIT D3) [Vitamin 1,000 unit PO BID 07/18/18 D3] Denosumab [Prolia] 60 mg SQ UD 07/18/18 Multivitamins,Therapeutic 1 tablet PO DAILY 07/18/18 [Multivitamin] Potassium Chloride 10 meq PO DAILY 07/18/18 Ferrous Sulfate 325 mg PO BIDCM #60 tablet 07/19/18 Calcium Carbonate/Vitamin D3 1 tab PO DAILY 07/22/18 [Calcium 500-Vit D3 200 Tablet] Surgical History: cataract, tonsillectomy, - - Left IM nailing for left hip fracture Psychiatric History: No pertinent psych hx [employer] History: No pertinent [employer] history Lives: Spouse/ Significant Other Smoking Status: Former smoker Tobacco Use: Non-smoker Alcohol: Rare Drugs: None - *Family History Maternal History Items: - - mother with a stroke. Paternal History Items: - - father with rheumatoid arthritis, scleroderma Review of Systems Constitutional: Denies: Chills, Fever, Weight Change HEENT: Denies: Head Aches, Sinus Congestion, Sinus Drainage Cardiovascular: Denies: Chest Pain, Palpitations Respiratory: Denies: Cough, Shortness of breath at rest, Sputum production Gastrointestinal: Denies: Abdominal Pain, Nausea, Vomiting Genitourinary: Denies: Dysuria Musculoskeletal: Denies: Joint Pain, Joint Tenderness Skin: Reports: Rash. Denies: Wounds Neurological: Denies: Numbness, Tingling, Focal weakness Psychiatric: Denies: Anxiety, Depression, Homicidal Ideations, Suicidal Ideations Hematologic/ Lymphatic: Denies: Easy Bruising, Easy Bleeding VTE Information - Inpt Only VTE Present on Admission: No VTE Mechan Device Prophylaxis: SCD's VTE Pharm Prophylaxis ordered?: No Patient Problems: Active and Suspected Problems Superficial thrombophlebitis of arm (Acute) Cellulitis (Acute) - Physical Exam General: Alert, Oriented x3, Cooperative HEENT: Atraumatic, PERRLA, EOMI, Normocephalic Neck: Supple, No JVD, Negative Carotid Bruits Lungs: Clear to auscultation, Normal air movement Cardiovascular: Regular rate, No murmurs Abdomen: Bowel Sounds Present, Soft, Non Tender Extremities: No edema, Capillary Refill Less than 3 Seconds Skin: No rashes, No breakdown, - - erythematous annular rash with warmth and tenderness surrounding the AC, left side, demarcated. Mild induraton at AC. No lymphatic stranding. No palpable veins proximally or distally. No numbness or tingling. All distal areas warm. Musculoskeletal: No Tenderness to Palpation of Joints or Extremities Neurological: Cranial nerves II-XII grossly intact Psych/Mental Status: Normal Affect, Appropriate, Alert and oriented to time, place, person, mood and affect Vital Signs Temp Pulse Resp BP Pulse Ox 98.9 F 82 17 141/84 H 97 07/22/18 13:21 07/22/18 13:21 07/22/18 13:21 07/22/18 13:21 07/22/18 13:21 Oxygen Delivery Method Room Air Weight: 145 lb Body Mass Index (BMI) 24.9 Assessment/Plan All Active Problems Superficial thrombophlebitis of arm (Acute) Cellulitis (Acute) Rib fractures (Acute) Fall (Acute) Closed fracture of left hip requiring operative repair (Acute) 1. Acute cellulitis left arm 2/2 IV site reaction - continue vanco. Await blood counts. She appears nontoxic and has no fever. 2. Superficial thrombophlebitis 2/2 IV - continue cool compresses prn 3. Iron deficiency anemia - unclear etiology. Has colonoscopy arranged with Dr. Tyler as outpatient. Had 2 units PRBC last week. Await CBC. 4. Hx GERD, MS, Osteoporosis DVT ppx: SCDs DC planning: likely home tomorrow This patient was seen by Juan Alberto Mathew under the supervision of Dr. Espino.
[2018-07-22 17:24] LABS: Absolute Lymphocyte Count 1.32 X10^3/ul (0.83-4.51); Absolute Neutrophil Count 5.8 X10^3/uL (2.0-7.7); Basophil# 0.03 X10^3/uL; Basophil% 0.4 % (0-1); Eosinophil# 0.14 X10^3/uL; Eosinophils% 1.7 % (0-5); Hematocrit 34.1 % (37-47); Hemoglobin 9.8 g/dl (12.0-15.0); Lymphocyte # 1.32 X10^3/ul (4.0); Lymphocyte % 15.8 % (19-41); Mean Corp Hgb Conc 28.7 g/gl (32-36); Mean Corpuscular Hgb 19.8 pg (27.0-32.0); Monocyte# 1.09 X10^3/uL; Neutrophil # 5.78 X10^3/uL (2.7-7.7); Neutrophil % 68.9 % (47-70); Platelet Count 220 K/mm3 (150-450); RBC Distribution Width CV 28.4 % (11.6-14.6); RBC Distribution Width SD 67.1 fl (35.1-43.9); Red Blood Count 4.94 M/mm3 (4.2-5.4); White Blood Count 8.4 K/mm3 (4.4-11.0)
[2018-07-22 17:26] LABS: Anion Gap 5 (5-15); BUN 8 mg/dL (7-18); BUN/Creat Ratio 13.4 RATIO (10-20); Calcium,Total 9.2 mg/dL (8.5-10.1); Chloride 107 mmol/L (98-107); Differential Indicated SCAN CRITERIA MET; EST Glomerular Filtration Rate 105 mL/min (>60); Est Glom Filt Rate - Afr Amer 127 mL/min (>60); Estimated Creatinine Clearance 43.91 ml/min; Glucose 90 mg/dL (74-106); POSITIVE COUNT NO; POSITIVE DIFFERENTIAL NO; POSITIVE MORPHOLOGY YES; Potassium 3.9 mmol/L (3.5-5.1); Sodium Level 136 mmol/L (136-145)
[2018-07-22 18:34] VITALS: BP 146/86; PULSE 80; RESP 16; TEMP 36.8; O2SAT 99
[2018-07-22 18:38] VITALS: BMI 24.8
--- NOTE | 2018-07-22 18:46 | PCM.RX.CS ---
Consult Pharmacy has been consulted to manage selected antiobiotic: Vancomycin Type of Consult: New start Suspected Infection: Skin/Soft tissue Labs: Sodium 136 mmol/L (136-145) 07/22/18 16:55 Potassium 3.9 mmol/L (3.5-5.1) 07/22/18 16:55 Chloride 107 mmol/L (98-107) 07/22/18 16:55 Carbon Dioxide 24.0 mmol/L (21.0-32.0) 07/22/18 16:55 Anion Gap 5 (5-15) 07/22/18 16:55 BUN 8 mg/dL (7-18) 07/22/18 16:55 Creatinine 0.60 mg/dL (0.55-1.02) 07/22/18 16:55 Est GFR (MDRD) Af Amer 127 mL/min (>60) 07/22/18 16:55 Est GFR (MDRD) Non-Af 105 mL/min (>60) 07/22/18 16:55 BUN/Creatinine Ratio 13.4 RATIO (10-20) 07/22/18 16:55 Glucose 90 mg/dL (74-106) 07/22/18 16:55 Weight used for dosin lb 4.807 oz Estimated Creatinine Clearance: 43.9 Goal Trough: 10-15 mcg/mL Pharmacy Plan for Drug Dosing: Pharmacy Service will continue to monitor and adjust dosing as required. Loading dose of 1000mg given in ED 07/22 at 1554 Calculated dose of 750mg q24h to maintain trough of 10-15 start 07/23 at 1600 Trough will be obtained 07/24 at 1530 Follow-Up Labs: Trough Vancomycin - 07/24 AT 1530
[2018-07-22 18:54] VITALS: BMI 24.9
[2018-07-22 19:44] VITALS: BP 160/89; PULSE 82; RESP 16; TEMP 37.1; O2SAT 98
[2018-07-22 19:45] VITALS: BP 160/89; PULSE 82; RESP 16; TEMP 37.1; O2SAT 98
[2018-07-22] MEDS: Gabapentin 100 MG Capsule PO (22:10)
[2018-07-22] MEDS: Pantoprazole Sodium 40 MG Tablet PO (22:10)
[2018-07-23 01:57] VITALS: BP 118/62; PULSE 82; RESP 16; TEMP 37.2; O2SAT 97
[2018-07-23 06:54] LABS: Anion Gap 6 (5-15); BUN 8 mg/dL (7-18); Chloride 106 mmol/L (98-107); Creatinine, Serum 0.66 mg/dL (0.55-1.02); EST Glomerular Filtration Rate 93 mL/min (>60); Est Glom Filt Rate - Afr Amer 112 mL/min (>60); Estimated Creatinine Clearance 43.91 ml/min; Glucose 95 mg/dL (74-106); Potassium 4.2 mmol/L (3.5-5.1); Sodium Level 138 mmol/L (136-145)
[2018-07-23 07:11] LABS: Absolute Lymphocyte Count 1.48 X10^3/ul (0.83-4.51); Absolute Neutrophil Count 4.7 X10^3/uL (2.0-7.7); Basophil# 0.02 X10^3/uL; Basophil% 0.3 % (0-1); Eosinophils% 2.7 % (0-5); Hematocrit 34.3 % (37-47); Hemoglobin 9.9 g/dl (12.0-15.0); Lymphocyte # 1.48 X10^3/ul (4.0); Lymphocyte % 19.9 % (19-41); Mean Corp Hgb Conc 28.9 g/gl (32-36); Mean Corpuscular Volume 69.4 fL (81-99); Monocyte# 0.98 X10^3/uL; Monocyte% 13.2 % (0-10); Neutrophil # 4.73 X10^3/uL (2.7-7.7); Neutrophil % 63.8 % (47-70); Platelet Count 240 K/mm3 (150-450); RBC Distribution Width CV 28.9 % (11.6-14.6); RBC Distribution Width SD 69.5 fl (35.1-43.9); Red Blood Count 4.94 M/mm3 (4.2-5.4); White Blood Count 7.4 K/mm3 (4.4-11.0)
[2018-07-23 07:12] LABS: Differential Indicated SCAN CRITERIA MET; POSITIVE COUNT NO; POSITIVE DIFFERENTIAL NO; POSITIVE MORPHOLOGY YES
[2018-07-23 07:13] LABS: Platelet Estimate ADEQUATE (ADEQ)
[2018-07-23 07:14] LABS: Anisocytosis 1+; Hypochromasia RARE; Microcytosis 1+; Ovalocyte RARE; Polychromasia RARE
[2018-07-23 07:28] VITALS: BP 133/76; PULSE 77; RESP 18; TEMP 37.1; O2SAT 95
[2018-07-23] MEDS: Multivitamins,Therapeutic Tablet 1 TABLET PO (07:35)
[2018-07-23] MEDS: Pantoprazole Sodium 40 MG Tablet PO ×2 (07:35→22:06)
[2018-07-23] MEDS: Venlafaxine XR 150 MG Capsule PO (07:35)
[2018-07-23] MEDS: Ferrous Sulfate 325 MG Tablet PO ×2 (07:35→17:06)
[2018-07-23] MEDS: Senna Tablet 1 TABLET PO ×2 (09:51→22:12)
--- NOTE | 2018-07-23 11:41 | PCM.PN.HOSP ---
Patient Problems: Active and Suspected Problems Superficial thrombophlebitis of arm (Acute) Cellulitis (Acute) Cellulitis of left upper extremity (Acute) Septic phlebitis of upper extremities (Acute) Subjective: Patient is a 72-year-old lady with history of iron deficiency anemia who is currently undergoing evaluation as outpatient who presented with left arm swelling. Patient had apparently received blood transfusion a day prior to her admission and assessment of acute left arm cellulitis as well as superficial thrombophlebitis was made admitted to regular nursing floor for subsequent management Objective: GENERAL: cooperative HEENT: Atraumatic; EYES; Anicteric, Normal Conjunctiva NECK; supple, normal thyroid, RESPIRATORY: Diminished to auscultation bilaterally, CARDIOVASCULAR: Regular S1 S2, GI: soft, non-tender, normoactive bowel sounds, : No Renal angle tenderness; EXTREMITIES: Swelling and erythema left antecubital fossa MUSCULOSKELETAL: No Joint Tenderness; no muscle waisting NEURO: Awake; no lateralizing signs. SKIN: Described above PSYCH; Normal affect Vitals/I&O's: Vital Signs Temp Pulse Resp BP Pulse Ox 98.8 F 77 18 133/76 H 95 07/23/18 07:28 07/23/18 07:28 07/23/18 07:28 07/23/18 07:28 07/23/18 07:28 Oxygen Delivery Method Room Air Weight: 66.8 kg Body Mass Index (BMI) 24.8 Intake and Output for Last 24 Hours 07/21/18 07/22/18 07/23/18 23:59 23:59 23:59 Intake Total 600 / 600 Output Total 0 / 0 Balance 600 / 600 Laboratory Results 07/22/18 16:55: WBC 8.4, RBC 4.94, Hgb 9.8 L, Hct 34.1 L, MCV 69.0 L, MCH 19.8 L, MCHC 28.7 L, RDW 28.4 H, RDW Differential 67.1 H, Plt Count 220, MPV TNP, Immature Gran % (Auto) 0.200, Neut % (Auto) 68.9, Lymph % (Auto) 15.8 L, [place] % (Auto) 13.0 H, Eos % (Auto) 1.7, Baso % (Auto) 0.4, Absolute Neuts (auto) 5.8, Absolute Lymphs (auto) 1.32, Total Counted Not Reportable, Differential Comment 07/22/18 16:55: Sodium 136, Potassium 3.9, Chloride 107, Carbon Dioxide 24.0, Anion Gap 5, BUN 8, Creatinine 0.60, Estim Creat Clear Calc 43.91, Est GFR (MDRD) Af Amer 127, Est GFR (MDRD) Non-Af 105, BUN/Creatinine Ratio 13.4, Glucose 90, Calcium 9.2 07/23/18 06:00: WBC 7.4, RBC 4.94, Hgb 9.9 L, Hct 34.3 L, MCV 69.4 L, MCH 20.0 L, MCHC 28.9 L, RDW 28.9 H, RDW Differential 69.5 H, Plt Count 240, MPV TNP, Immature Gran % (Auto) 0.100, Neut % (Auto) 63.8, Lymph % (Auto) 19.9, [place] % (Auto) 13.2 H, Eos % (Auto) 2.7, Baso % (Auto) 0.3, Absolute Neuts (auto) 4.7, Absolute Lymphs (auto) 1.48, Total Counted Not Reportable, Platelet Estimate ADEQUATE, Polychromasia RARE, Hypochromasia RARE, Anisocytosis 1+, Microcytosis 1+, Ovalocytes RARE 07/23/18 06:00: Sodium 138, Potassium 4.2, Chloride 106, Carbon Dioxide 26.0, Anion Gap 6, BUN 8, Creatinine 0.66, Estim Creat Clear Calc 43.91, Est GFR (MDRD) Af Amer 112, Est GFR (MDRD) Non-Af 93, BUN/Creatinine Ratio 12.0, Glucose 95, Calcium 9.0 Current Medications Acetaminophen (Tylenol) 650 mg PO Q6H PRN PRN PRN Reason: Non-cardiac pain (mod-severe) Hydrocodone Bitart/Acetaminophen ([place] 5mg-325mg) 1 - 2 tablet PO Q6H PRN PRN PRN Reason: MOD-SEVERE PAIN (4-10/10) Al Hydroxide/Mg Hydroxide (Mylanta Ii) 15 - 30 ml PO Q4H PRN PRN PRN Reason: INDIGESTION Albuterol Sulfate (Ventolin Aerosols) 2.5 mg INHALATION Q2H PRN PRN PRN Reason: dyspnea, wheezing Ferrous Sulfate (Ferrous Sulfate) 325 mg PO BIDCM VIKAS Last Admin: 07/23/18 07:35 Dose: 325 mg Gabapentin (Neurontin) 100 mg PO QHS [facility] Last Admin: 07/22/18 22:10 Dose: 100 mg Hydralazine HCl (Apresoline Iv) 10 mg IV Q4H PRN PRN PRN Reason: SBP > 160 Vancomycin IV Pharmacy to Dose (1 ea/ Sodium Chloride) 500 mls @ 250 mls/hr IV X1 PRN; Protocol PRN Reason: Rx to Dose Vancomycin HCl 750 mg/ Sodium (Chloride) 265 mls @ 250 mls/hr IV Q24H [facility] Morphine Sulfate () 1 - 2 mg IV Q4H PRN PRN PRN Reason: PAIN Multivitamins (Multivitamin) 1 tablet PO DAILY [facility] Last Admin: 07/23/18 07:35 Dose: 1 tablet Ondansetron HCl (Zofran) 4 mg IV Q8H PRN PRN PRN Reason: NAUSEA/VOMITING Pantoprazole Sodium (Protonix) 40 mg PO BID [facility] Last Admin: 07/23/18 07:35 Dose: 40 mg Potassium Chloride (K-Dur) 10 meq PO DAILY [facility] Last Admin: 07/23/18 07:35 Dose: 10 meq Senna (Senokot) 1 tablet PO BID [facility] Last Admin: 07/23/18 09:51 Dose: 1 tablet Sodium Chloride () 5 - 15 ml IV UD PRN PRN Reason: SALINE FLUSH Venlafaxine HCl (Effexor Xr) 150 mg PO DAILY [facility] Last Admin: 07/23/18 07:35 Dose: 150 mg Medical Necessity - Tobacco Use Smoking Status: Former smoker Tobacco Use: Non-smoker Assessment/Plan All Active Problems Superficial thrombophlebitis of arm (Acute) Cellulitis (Acute) Cellulitis of left upper extremity (Acute) Septic phlebitis of upper extremities (Acute) Rib fractures (Acute) Fall (Acute) Closed fracture of left hip requiring operative repair (Acute) Patient is a 72-year-old lady with history of iron deficiency anemia who is currently undergoing evaluation as outpatient who presented with left arm swelling. Patient had apparently received blood transfusion a day prior to her admission and assessment of acute left arm cellulitis as well as superficial thrombophlebitis was made admitted to regular nursing floor for subsequent management 1. Cellulitis involving the left at the site of previous IV insertion. Admitted to regular nursing floor patient was started on vancomycin on admission added cefazolin 2. Superficial thrombophlebitis treated symptomatically with cold compress as well as NSAIDs and management as discussed above 3. Iron deficiency anemia currently undergoing outpatient workup. Patient is scheduled to undergo evaluation by Dr. Tyler for an outpatient colonoscopy patient receives blood transfusion as well as iron infusion as outpatient 4. Osteoporosis patient is on calcium with vitamin D 5. GERD 6. Depression with anxiety on SNRI 7. Multiple sclerosis 8. DVT prophylaxis SCDs for now Active Medications Acetaminophen (Tylenol) 650 mg PO Q6H PRN PRN PRN Reason: Non-cardiac pain (mod-severe) Hydrocodone Bitart/Acetaminophen ([place] 5mg-325mg) 1 - 2 tablet PO Q6H PRN PRN PRN Reason: MOD-SEVERE PAIN (-01/09) Al Hydroxide/Mg Hydroxide (Mylanta Ii) 15 - 30 ml PO Q4H PRN PRN PRN Reason: INDIGESTION Albuterol Sulfate (Ventolin Aerosols) 2.5 mg INHALATION Q2H PRN PRN PRN Reason: dyspnea, wheezing [facility] Last Admin: 07/23/18 07:35 Dose: 325 mg Gabapentin (Neurontin) 100 mg PO QHS [facility] Last Admin: 07/22/18 22:10 Dose: 100 mg Hydralazine HCl (Apresoline Iv) 10 mg IV Q4H PRN PRN PRN Reason: SBP > 160 Vancomycin IV Pharmacy to Dose (1 ea/ Sodium Chloride) 500 mls @ 250 mls/hr IV X1 PRN; Protocol PRN Reason: Rx to Dose Vancomycin HCl 750 mg/ Sodium (Chloride) 265 mls @ 250 mls/hr IV Q24H [facility] Morphine Sulfate () 1 - 2 mg IV Q4H PRN PRN PRN Reason: PAIN Multivitamins (Multivitamin) 1 tablet PO DAILY [facility] Last Admin: 07/23/18 07:35 Dose: 1 tablet Ondansetron HCl (Zofran) 4 mg IV Q8H PRN PRN PRN Reason: NAUSEA/VOMITING Pantoprazole Sodium (Protonix) 40 mg PO BID [facility] Last Admin: 07/23/18 07:35 Dose: 40 mg Potassium Chloride (K-Dur) 10 meq PO DAILY [facility] Last Admin: 07/23/18 07:35 Dose: 10 meq Senna (Senokot) 1 tablet PO BID [facility] Last Admin: 07/23/18 09:51 Dose: 1 tablet Sodium Chloride () 5 - 15 ml IV UD PRN PRN Reason: SALINE FLUSH Venlafaxine HCl (Effexor Xr) 150 mg PO DAILY [facility] Last Admin: 07/23/18 07:35 Dose: 150 mg Code Visit OBSV E&M: 49902 Subsequent observation care L3
--- NOTE | 2018-07-23 11:46 | PN_ITS ---
Patient Problems: Active and Suspected Problems Superficial thrombophlebitis of arm (Acute) Cellulitis (Acute) Cellulitis of left upper extremity (Acute) Septic phlebitis of upper extremities (Acute) Subjective: Patient is a 72-year-old lady with history of iron deficiency anemia who is currently undergoing evaluation as outpatient who presented with left arm swelling. Patient had apparently received blood transfusion a day prior to her admission and assessment of acute left arm cellulitis as well as superficial thrombophlebitis was made admitted to regular nursing floor for subsequent management Objective: GENERAL: cooperative HEENT: Atraumatic; EYES; Anicteric, Normal Conjunctiva NECK; supple, normal thyroid, RESPIRATORY: Diminished to auscultation bilaterally, CARDIOVASCULAR: Regular S1 S2, GI: soft, non-tender, normoactive bowel sounds, : No Renal angle tenderness; EXTREMITIES: Swelling and erythema left antecubital fossa MUSCULOSKELETAL: No Joint Tenderness; no muscle waisting NEURO: Awake; no lateralizing signs. SKIN: Described above PSYCH; Normal affect Vitals/I&O's: Vital Signs Temp Pulse Resp BP Pulse Ox 98.8 F 77 18 133/76 H 95 07/23/18 07:28 07/23/18 07:28 07/23/18 07:28 07/23/18 07:28 07/23/18 07:28 Oxygen Delivery Method Room Air Weight: 66.8 kg Body Mass Index (BMI) 24.8 Intake and Output for Last 24 Hours 07/21/18 07/22/18 07/23/18 23:59 23:59 23:59 Intake Total 600 / 600 Output Total 0 / 0 Balance 600 / 600 Laboratory Results 07/22/18 16:55: WBC 8.4, RBC 4.94, Hgb 9.8 L, Hct 34.1 L, MCV 69.0 L, MCH 19.8 L , MCHC 28.7 L, RDW 28.4 H, RDW Differential 67.1 H, Plt Count 220, MPV TNP, Immature Gran % (Auto) 0.200, Neut % (Auto) 68.9, Lymph % (Auto) 15.8 L, [place] % (Auto) 13.0 H, Eos % (Auto) 1.7, Baso % (Auto) 0.4, Absolute Neuts (auto) 5.8, Absolute Lymphs (auto) 1.32, Total Counted Not Reportable, Differential Comment 07/22/18 16:55: Sodium 136, Potassium 3.9, Chloride 107, Carbon Dioxide 24.0, Anion Gap 5, BUN 8, Creatinine 0.60, Estim Creat Clear Calc 43.91, Est GFR (MDRD) Af Amer 127, Est GFR (MDRD) Non-Af 105, BUN/Creatinine Ratio 13.4, Glucose 90, Calcium 9.2 07/23/18 06:00: WBC 7.4, RBC 4.94, Hgb 9.9 L, Hct 34.3 L, MCV 69.4 L, MCH 20.0 L , MCHC 28.9 L, RDW 28.9 H, RDW Differential 69.5 H, Plt Count 240, MPV TNP, Immature Gran % (Auto) 0.100, Neut % (Auto) 63.8, Lymph % (Auto) 19.9, [place] % (Auto) 13.2 H, Eos % (Auto) 2.7, Baso % (Auto) 0.3, Absolute Neuts (auto) 4.7, Absolute Lymphs (auto) 1.48, Total Counted Not Reportable, Platelet Estimate ADEQUATE, Polychromasia RARE, Hypochromasia RARE, Anisocytosis 1+, Microcytosis 1+, Ovalocytes RARE 07/23/18 06:00: Sodium 138, Potassium 4.2, Chloride 106, Carbon Dioxide 26.0, Anion Gap 6, BUN 8, Creatinine 0.66, Estim Creat Clear Calc 43.91, Est GFR (MDRD) Af Amer 112, Est GFR (MDRD) Non-Af 93, BUN/Creatinine Ratio 12.0, Glucose 95, Calcium 9.0 Current Medications Acetaminophen (Tylenol) 650 mg PO Q6H PRN PRN PRN Reason: Non-cardiac pain (mod-severe) Hydrocodone Bitart/Acetaminophen ([place] 5mg-325mg) 1 - 2 tablet PO Q6H PRN PRN PRN Reason: MOD-SEVERE PAIN (4-10/10) Al Hydroxide/Mg Hydroxide (Mylanta Ii) 15 - 30 ml PO Q4H PRN PRN PRN Reason: INDIGESTION Albuterol Sulfate (Ventolin Aerosols) 2.5 mg INHALATION Q2H PRN PRN PRN Reason: dyspnea, wheezing Ferrous Sulfate (Ferrous Sulfate) 325 mg PO BIDCM VIKAS Last Admin: 07/23/18 07:35 Dose: 325 mg Gabapentin (Neurontin) 100 mg PO QHS [facility] Last Admin: 07/22/18 22:10 Dose: 100 mg Hydralazine HCl (Apresoline Iv) 10 mg IV Q4H PRN PRN PRN Reason: SBP > 160 Vancomycin IV Pharmacy to Dose (1 ea/ Sodium Chloride) 500 mls @ 250 mls/hr IV X1 PRN; Protocol PRN Reason: Rx to Dose Vancomycin HCl 750 mg/ Sodium (Chloride) 265 mls @ 250 mls/hr IV Q24H [facility] Morphine Sulfate () 1 - 2 mg IV Q4H PRN PRN PRN Reason: PAIN Multivitamins (Multivitamin) 1 tablet PO DAILY [facility] Last Admin: 07/23/18 07:35 Dose: 1 tablet Ondansetron HCl (Zofran) 4 mg IV Q8H PRN PRN PRN Reason: NAUSEA/VOMITING Pantoprazole Sodium (Protonix) 40 mg PO BID [facility] Last Admin: 07/23/18 07:35 Dose: 40 mg Potassium Chloride (K-Dur) 10 meq PO DAILY [facility] Last Admin: 07/23/18 07:35 Dose: 10 meq Senna (Senokot) 1 tablet PO BID [facility] Last Admin: 07/23/18 09:51 Dose: 1 tablet Sodium Chloride () 5 - 15 ml IV UD PRN PRN Reason: SALINE FLUSH Venlafaxine HCl (Effexor Xr) 150 mg PO DAILY [facility] Last Admin: 07/23/18 07:35 Dose: 150 mg Medical Necessity - Tobacco Use Smoking Status: Former smoker Tobacco Use: Non-smoker Assessment/Plan All Active Problems Superficial thrombophlebitis of arm (Acute) Cellulitis (Acute) Cellulitis of left upper extremity (Acute) Septic phlebitis of upper extremities (Acute) Rib fractures (Acute) Fall (Acute) Closed fracture of left hip requiring operative repair (Acute) Patient is a 72-year-old lady with history of iron deficiency anemia who is currently undergoing evaluation as outpatient who presented with left arm swelling. Patient had apparently received blood transfusion a day prior to her admission and assessment of acute left arm cellulitis as well as superficial thrombophlebitis was made admitted to regular nursing floor for subsequent management 1. Cellulitis involving the left at the site of previous IV insertion. Admitted to regular nursing floor patient was started on vancomycin on admission added cefazolin 2. Superficial thrombophlebitis treated symptomatically with cold compress as well as NSAIDs and management as discussed above 3. Iron deficiency anemia currently undergoing outpatient workup. Patient is scheduled to undergo evaluation by Dr. Tyler for an outpatient colonoscopy patient receives blood transfusion as well as iron infusion as outpatient 4. Osteoporosis patient is on calcium with vitamin D 5. GERD 6. Depression with anxiety on SNRI 7. Multiple sclerosis 8. DVT prophylaxis SCDs for now Active Medications Acetaminophen (Tylenol) 650 mg PO Q6H PRN PRN PRN Reason: Non-cardiac pain (mod-severe) Hydrocodone Bitart/Acetaminophen ([place] 5mg-325mg) 1 - 2 tablet PO Q6H PRN PRN PRN Reason: MOD-SEVERE PAIN (-01/09) Al Hydroxide/Mg Hydroxide (Mylanta Ii) 15 - 30 ml PO Q4H PRN PRN PRN Reason: INDIGESTION Albuterol Sulfate (Ventolin Aerosols) 2.5 mg INHALATION Q2H PRN PRN PRN Reason: dyspnea, wheezing Ferrous S[facility]ate [facility]) [facility] Last Admin: 07/23/18 07:35 Dose: 325 mg Gabapentin (Neurontin) 100 mg PO QHS [facility] Last Admin: 07/22/18 22:10 Dose: 100 mg Hydralazine HCl (Apresoline Iv) 10 mg IV Q4H PRN PRN PRN Reason: SBP > 160 Vancomycin IV Pharmacy to Dose (1 ea/ Sodium Chloride) 500 mls @ 250 mls/hr IV X1 PRN; Protocol PRN Reason: Rx to Dose Vancomycin HCl 750 mg/ Sodium (Chloride) 265 mls @ 250 mls/hr IV Q24H [facility] Morphine Sulfate () 1 - 2 mg IV Q4H PRN PRN PRN Reason: PAIN Multivitamins (Multivitamin) 1 tablet PO DAILY [facility] Last Admin: 07/23/18 07:35 Dose: 1 tablet Ondansetron HCl (Zofran) 4 mg IV Q8H PRN PRN PRN Reason: NAUSEA/VOMITING Pantoprazole Sodium (Protonix) 40 mg PO BID [facility] Last Admin: 07/23/18 07:35 Dose: 40 mg Potassium Chloride (K-Dur) 10 meq PO DAILY [facility] Last Admin: 07/23/18 07:35 Dose: 10 meq Senna (Senokot) 1 tablet PO BID [facility] Last Admin: 07/23/18 09:51 Dose: 1 tablet Sodium Chloride () 5 - 15 ml IV UD PRN PRN Reason: SALINE FLUSH Venlafaxine HCl (Effexor Xr) 150 mg PO DAILY [facility] Last Admin: 07/23/18 07:35 Dose: 150 mg Code Visit OBSV E&M: 79803 Subsequent observation care L3
[2018-07-23] MEDS: 0.9% NaCl Peripheral Flush Adult/Peds IV ×4 (13:52→22:08)
[2018-07-23] MEDS: Cefazolin 1 GM/50 ML BAG IV ×2 (13:53→22:06)
[2018-07-23 13:55] VITALS: BP 131/69; PULSE 82; RESP 18; TEMP 37; O2SAT 99
--- NOTE | 2018-07-23 15:50 | CHAPLAIN ---
Type of Pastoral Visit _x__ Initial Visit ___ Follow-up Visit ___ On-call Visit ___ General Patient Visit ___ Spiritual Assessment ___ Family Conference ___ Bereavement ___ Rapid Response ___ Code Blue ___ Other (describe below) Pastoral Care Referral From _x__ Patient ___ Family ___ Nurse ___ Physician ___ Customer Solutions Representative ___ Tower Excavator Operator ___ Other (describe below) Sacrament/Intervention _x__ Active listening ___ Anointing ___ Jehovah'S Witness ___ Bereavement ___ Communion ___ Mei exploration ___ ___ Life review _x__ Prayer ___ Reconciliation ___ Sacrament of Sick _x__ Supportive presence ___ Wedding ___ Other (describe below) Pastoral Comments
[2018-07-23 20:07] VITALS: BP 144/68; PULSE 86; RESP 16; TEMP 37.1; O2SAT 94
[2018-07-23] MEDS: Gabapentin 100 MG Capsule PO (22:06)
[2018-07-24 03:35] VITALS: BP 126/86; PULSE 73; RESP 16; TEMP 36.8; O2SAT 97
[2018-07-24] MEDS: Cefazolin 1 GM/50 ML BAG IV (05:33)
[2018-07-24] MEDS: 0.9% NaCl Peripheral Flush Adult/Peds IV (05:33)
[2018-07-24 06:25] LABS: Anion Gap 8 (5-15); BUN 6 mg/dL (7-18); BUN/Creat Ratio 10.1 RATIO (10-20); Chloride 109 mmol/L (98-107); EST Glomerular Filtration Rate 105 mL/min (>60); Est Glom Filt Rate - Afr Amer 127 mL/min (>60); Estimated Creatinine Clearance 43.91 ml/min; Glucose 95 mg/dL (74-106); Magnesium 2.2 mg/dL (1.6-2.6); Potassium 4.2 mmol/L (3.5-5.1); Sodium Level 141 mmol/L (136-145)
[2018-07-24 06:31] LABS: Absolute Lymphocyte Count 1.23 X10^3/ul (0.83-4.51); Absolute Neutrophil Count 3.7 X10^3/uL (2.0-7.7); Basophil# 0.03 X10^3/uL; Basophil% 0.5 % (0-1); Eosinophil# 0.23 X10^3/uL; Eosinophils% 3.9 % (0-5); Hematocrit 35.1 % (37-47); Hemoglobin 10.2 g/dl (12.0-15.0); Lymphocyte # 1.23 X10^3/ul (4.0); Lymphocyte % 20.7 % (19-41); Mean Corp Hgb Conc 29.1 g/gl (32-36); Mean Corpuscular Hgb 20.2 pg (27.0-32.0); Mean Corpuscular Volume 69.6 fL (81-99); Monocyte# 0.71 X10^3/uL; Monocyte% 11.9 % (0-10); Neutrophil # 3.74 X10^3/uL (2.7-7.7); Neutrophil % 62.8 % (47-70); Platelet Count 216 K/mm3 (150-450); RBC Distribution Width SD 69.5 fl (35.1-43.9); Red Blood Count 5.04 M/mm3 (4.2-5.4)
[2018-07-24 06:39] LABS: Differential Indicated SCAN CRITERIA MET; POSITIVE COUNT NO; POSITIVE DIFFERENTIAL NO; POSITIVE MORPHOLOGY YES
[2018-07-24 07:02] LABS: Anisocytosis 2+; Differential Comment SCAN; Hypochromasia 1+; Microcytosis 1+; Platelet Estimate ADEQUATE (ADEQ); Platelet Morphology LARGE; Polychromasia 1+
[2018-07-24 07:19] VITALS: BP 136/75; PULSE 80; RESP 14; TEMP 37.1; O2SAT 92
--- NOTE | 2018-07-24 07:33 | PCM.DC ---
- Discharge Diagnoses Current Active Problems: Current Active and Chronic Problems Superficial thrombophlebitis of arm (Acute) Cellulitis (Acute) Cellulitis of left upper extremity (Acute) Septic phlebitis of upper extremities (Acute) You will use the following diet at home:: No restrictions Allergies/Adverse Reactions: Allergies Sulfa (Sulfonamide Antibiotics) Adverse Reaction (Verified 07/18/18 16:14) Vomiting sulfamethoxazole [From Bactrim] Adverse Reaction (Verified 07/18/18 12:03) Vomiting trimethoprim [From Bactrim] Adverse Reaction (Verified 07/18/18 12:03) Vomiting Medications to take at Discharge Gabapentin [Neurontin] 100 mg PO QHS 10/21/16 Glucosa [place] 2Kcl/Chondroitin [place] [Glucosamine-Chondroitin Tablet] 1 tab PO BID 10/21/16 Lactobacillus Rhamnosus GG [Culturelle] 1 each PO DAILY 10/21/16 Pantoprazole Sodium [Protonix] 40 mg PO BID 10/21/16 Venlafaxine XR [Effexor Xr] 150 mg PO DAILY 10/21/16 Albuterol Sulfate [Ventolin Hfa] 2 inhaler PO Q4H PRN PRN 07/18/18 Bmx Liquid 5 ml PO PRN PRN 07/18/18 Cholecalciferol (VIT D3) [Vitamin D3] 1,000 unit PO BID 07/18/18 Denosumab [Prolia] 60 mg SQ UD 07/18/18 Multivitamins,Therapeutic [Multivitamin] 1 tablet PO DAILY 07/18/18 Potassium Chloride 10 meq PO DAILY 07/18/18 Ferrous Sulfate 325 mg PO BIDCM #60 tablet 07/19/18 Calcium Carbonate/Vitamin D3 [Calcium 500-Vit D3 200 Tablet] 1 tab PO DAILY 07/22/18 Cephalexin [Keflex] 500 mg PO Q8 #15 capsule 07/24/18 The following prescriptions were given: Cephalexin [Keflex] 500 mg PO Q8 #15 capsule Primary Care Physician: Ariadne Miranda MD [Primary Care Provider] - Please follow up with your Primary Care Physician in: [place] 5-7 DAYS Test Results: Test results from this visit will be discussed in further detail at your follow-up appointment, if applicable. Please Follow Up With: Carlton Tyler MD When: @ 9AM 07/24/2018 Proposed Discharge Date: 07/24/18
[2018-07-24] MEDS: Pantoprazole Sodium 40 MG Tablet PO (07:37)
[2018-07-24] MEDS: Ferrous Sulfate 325 MG Tablet PO (07:37)
[2018-07-24] MEDS: Venlafaxine XR 150 MG Capsule PO (07:37)
[2018-07-24] MEDS: Multivitamins,Therapeutic Tablet 1 TABLET PO (07:37)
--- NOTE | 2018-07-24 07:37 | DS.PCM_ITS ---
Discharge Date and Diagnosis - Problem List Patient Problems: Active and Suspected Problems Superficial thrombophlebitis of arm (Acute) Cellulitis (Acute) Cellulitis of left upper extremity (Acute) Septic phlebitis of upper extremities (Acute) Date of Admission: 07/22/18 Date of Discharge: 07/24/18 - Primary Discharge Diagnosis Active and Suspected Problems Superficial thrombophlebitis of arm (Acute) Cellulitis (Acute) Cellulitis of left upper extremity (Acute) Septic phlebitis of upper extremities (Acute) - Secondary Discharge Diagnosis Chronic Problems Anemia (Chronic) Depression (Chronic) Muscle spasm (Chronic) GERD (gastroesophageal reflux disease) (Chronic) Neuropathic pain (Chronic) Multiple sclerosis (Chronic) Osteoporosis (Chronic) Hospital Course and Treatment Summary of Care Provided: Patient is a 72-year-old lady with history of iron deficiency anemia who is currently undergoing evaluation as outpatient who presented with left arm swelling. Patient had apparently received blood transfusion a day prior to her admission and assessment of acute left arm cellulitis as well as superficial thrombophlebitis was made admitted to regular nursing floor for subsequent management 1. Cellulitis involving the left at the site of previous IV insertion. Admitted to regular nursing floor patient was started on vancomycin on admission added cefazolin. Patient condition did improve with therapy discharged home advised to elevate the left. Prescription was written for cefazolin 500 mg p.o. 3 times daily for 5 days 2. Superficial thrombophlebitis treated symptomatically with cold compress as well as NSAIDs and management as discussed above 3. Iron deficiency anemia currently undergoing outpatient workup. Patient is scheduled to undergo evaluation by Dr. Tyler for an outpatient colonoscopy patient receives blood transfusion as well as iron infusion as outpatient 4. Osteoporosis patient is on calcium with vitamin D 5. GERD 6. Depression with anxiety on SNRI 7. Multiple sclerosis 8. DVT prophylaxis SCDs for now Patient Problems: Active and Suspected Problems Superficial thrombophlebitis of arm (Acute) Cellulitis (Acute) Cellulitis of left upper extremity (Acute) Septic phlebitis of upper extremities (Acute) Objective: GENERAL: cooperative HEENT: Atraumatic; EYES; Anicteric, Normal Conjunctiva NECK; supple, normal thyroid, RESPIRATORY: Diminished to auscultation bilaterally, CARDIOVASCULAR: Regular S1 S2, PSYCH; Normal affect - Physical Exam Vital Signs Temp Pulse Resp BP Pulse Ox 98.7 F 80 14 136/75 H 92 07/24/18 07:19 07/24/18 07:19 07/24/18 07:19 07/24/18 07:19 07/24/18 07:19 Oxygen Delivery Method Room Air Weight: 66.8 kg Body Mass Index (BMI) 24.8 Intake and Output for Last 24 Hours 07/22/18 07/23/18 07/24/18 23:59 23:59 23:59 Intake Total 1100 / 1100 Output Total 0 / 0 Balance 1100 / 1100 Laboratory Tests Past 24 Hrs 07/24/18 07/24/18 05:30 05:30 WBC 6.0 RBC 5.04 Hgb 10.2 L Hct 35.1 L MCV 69.6 L MCH 20.2 L MCHC 29.1 L RDW 29.0 H RDW Differential 69.5 H Plt Count 216 Immature Gran % (Auto) 0.200 Neut % (Auto) 62.8 Lymph % (Auto) 20.7 [place] % (Auto) 11.9 H Eos % (Auto) 3.9 Baso % (Auto) 0.5 Absolute Neuts (auto) 3.7 Absolute Lymphs (auto) 1.23 Total Counted Not Reportable Differential Comment SCAN Platelet Estimate ADEQUATE Plt Morphology Comment LARGE Polychromasia 1+ Hypochromasia 1+ Anisocytosis 2+ Microcytosis 1+ Sodium 141 Potassium 4.2 Chloride 109 H Carbon Dioxide 24.0 Anion Gap 8 BUN 6 L Creatinine 0.60 Estim Creat Clear Calc 43.91 Est GFR (MDRD) Af Amer 127 Est GFR (MDRD) Non-Af 105 BUN/Creatinine Ratio 10.1 Glucose 95 Calcium 9.0 Magnesium 2.2 Discharge Diet: No Restrictions Discharge Activity: Return to Normal Activity Home Medications: Medications to take at Discharge Gabapentin [Neurontin] 100 mg PO QHS 10/21/16 Glucosa [place] 2Kcl/Chondroitin [place] [Glucosamine-Chondroitin Tablet] 1 tab PO BID 10/21/16 Lactobacillus Rhamnosus GG [Culturelle] 1 each PO DAILY 10/21/16 Pantoprazole Sodium [Protonix] 40 mg PO BID 10/21/16 Venlafaxine XR [Effexor Xr] 150 mg PO DAILY 10/21/16 Albuterol Sulfate [Ventolin Hfa] 2 inhaler PO Q4H PRN PRN 07/18/18 Bmx Liquid 5 ml PO PRN PRN 07/18/18 Cholecalciferol (VIT D3) [Vitamin D3] 1,000 unit PO BID 07/18/18 Denosumab [Prolia] 60 mg SQ UD 07/18/18 Multivitamins,Therapeutic [Multivitamin] 1 tablet PO DAILY 07/18/18 Potassium Chloride 10 meq PO DAILY 07/18/18 Ferrous Sulfate 325 mg PO BIDCM #60 tablet 07/19/18 Calcium Carbonate/Vitamin D3 [Calcium 500-Vit D3 200 Tablet] 1 tab PO DAILY 07/22/18 Cephalexin [Keflex] 500 mg PO Q8 #15 capsule 07/24/18 Following Prescrptions Were Given to Patient: Cephalexin [Keflex] 500 mg PO Q8 #15 capsule Primary Care Physician: Ariadne Miranda MD [Primary Care Provider] - Please follow up with your Primary Care Physician in: [place] 5-7 DAYS Please Follow Up With: Carlton Tyler MD When: @ 9AM 07/24/2018 Disposition: Home Minutes spent on discharge:: 35 Patient Condition:: Stable Medical Necessity - Tobacco Use Smoking Status: Former smoker Tobacco Use: Non-smoker Meaningful Use Info Meaningful Use Diagnoses (Choose all that apply): None applicable Code Visit Inpatient E&M: 53175 Disch Hosp
[2018-07-24] MEDS: Senna Tablet 1 TABLET PO (07:39)
== END 2018-07-24 09:04 | disposition home or self-care (01) | DRG 300 ==
LOC: ED 17:33 → MS3 17:50
PROVIDERS: Admitting Provider Family Medicine; Emergency Provider Emergency Medicine; Family Provider Internal Medicine; PCP Internal Medicine; Referring Provider Family Medicine; Visit Provider Internal Medicine
DX: T81.72XA Complication of vein following a procedure, not elsewhere classified, initial encounter (principal); T80.1XXA Vascular complications following infusion, transfusion and therapeutic injection, initial encounter; I82.612 Acute embolism and thrombosis of superficial veins of left upper extremity; L03.114 Cellulitis of left upper limb; I80.8 Phlebitis and thrombophlebitis of other sites; Y84.8 Other medical procedures as the cause of abnormal reaction of the patient, or of later complication, without mention of misadventure at the time of the procedure; D50.9 Iron deficiency anemia, unspecified; G35 Multiple sclerosis; M81.0 Age-related osteoporosis without current pathological fracture; K21.9 Gastro-esophageal reflux disease without esophagitis; G62.9 Polyneuropathy, unspecified; F41.8 Other specified anxiety disorders
CPT/HCPCS: 36415; 80048; 83735; 85025; 93971; 99285; J7040; J7050; A4216

== ENCOUNTER 2018-07-31 09:01 | Day surgery (SDC) | payer MEDICARE, OTHER, SELFPAY ==
[2018-07-24 09:35] VITALS: BMI 24.8
--- NOTE | 2018-07-26 07:51 | HP_ITS ---
Intake Vital Signs 07/24/18 Body Mass Index (BMI) 24.8 07/24/18 Height 5 ft 3 in 07/24/18 Weight: 145 lb 07/24/18 Body Mass Index (BMI) 25.7 07/24/18 Blood Pressure 112/76 07/24/18 Respiratory Rate 18 Intake Visit Reasons: Seen [facility] anemia Discuss Upper & Lower Scope Chief Complaint: LUE CELLULITIS Medical Recruiter Required: No Is patient in pain?: No Allergies Sulfa (Sulfonamide Antibiotics) Adverse Reaction (Verified 07/25/18 10:33) Vomiting sulfamethoxazole [From Bactrim] Adverse Reaction (Verified 07/25/18 10:33) Vomiting trimethoprim [From Bactrim] Adverse Reaction (Verified 07/25/18 10:33) Vomiting Medications Gabapentin [Neurontin] 100 mg PO QHS 10/21/16 [History Confirmed 07/25/18] Glucosa [place] 2Kcl/Chondroitin [place] [Glucosamine-Chondroitin Tablet] 1 tab PO BID 10/21/16 [History Confirmed 07/25/18] Lactobacillus Rhamnosus GG [Culturelle] 1 ea PO DAILY 10/21/16 [History Confirmed 07/25/18] Pantoprazole Sodium [Protonix] 40 mg PO BID 10/21/16 [History Confirmed 07/25/18] Venlafaxine XR [Effexor Xr] 150 mg PO DAILY 10/21/16 [History Confirmed 07/25/18] Albuterol Sulfate [Ventolin Hfa] 2 inhaler PO Q4H PRN PRN 07/18/18 [History Confirmed 07/25/18] Cholecalciferol (VIT D3) [Vitamin D3] 500 unit PO BID 07/18/18 [History Confirmed 07/25/18] Denosumab [Prolia] 60 mg SQ UD 07/18/18 [History Confirmed 07/25/18] Multivitamins,Therapeutic [Multivitamin] 1 tab PO DAILY 07/18/18 [History Confirmed 07/25/18] Potassium Chloride 10 meq PO DAILY 07/18/18 [History Confirmed 07/25/18] Ferrous Sulfate 325 mg PO BIDCM #60 tab 07/19/18 [Rx Confirmed 07/25/18] Calcium Carbonate/Vitamin D3 [Calcium 500-Vit D3 200 Tablet] 1 tab PO DAILY 07/22/18 [History Confirmed 07/25/18] Cephalexin [Keflex] 500 mg PO Q8 #15 cap 07/24/18 [Rx Confirmed 07/25/18] [facility] Medical History Anemia (Chronic) Superficial thrombophlebitis of arm (Acute) Cellulitis (Acute) Cellulitis of left upper extremity (Acute) Septic phlebitis of upper extremities (Acute) Depression (Chronic) Muscle spasm (Chronic) GERD (gastroesophageal reflux disease) (Chronic) Neuropathic pain (Chronic) Rib fractures (Acute) Fall (Acute) Multiple sclerosis (Chronic) Osteoporosis (Chronic) Closed fracture of left hip requiring operative repair (Acute) Surgical History s/p left femur surgery (Acute) Social History Smoking Status: Former smoker HPI HPI HPI: TIAN FRANCISCO, is a 72 F who presents to the office today for HPI HPI Surgical H&P: Yes HPI: TIAN FRANCISCO, is a 72 F who presents to the office today for that evaluation endoscopy.. I originally saw this patient in [facility] on 07/19/2018. She was admitted to the hospital with a presumptive flu she was having malaise nausea poor appetite weight loss vomiting shortness of breath with exertion. She was noted to have a hemoglobin of 6.8. The patient had never noticed any dark stools, she had some nausea vomiting but nothing that was coffee grounds in nature. She is never been complaining of any abdominal pain. Her last upper endoscopy was more than 10 years ago and she has never had a colonoscopy. ROS General General: Yes fatigue and weakness; no weight change, appetite, colon cancer or breast cancer HEENT HEENT: Yes eye surgery; no difficulty swallowing, eye injury, swollen glands or hoarseness Endo Endocrine: No thyroid disease, diabetes mellitus, thyroid cancer, Hair loss, heat intolerance or cold intolerance Skin Skin: No rash or changing moles Breast Breast: No left breast lump, right breast lump, nipple discharge, breast pain, abnormal mammogram, abnormal US or breast enlargement Musc Musculoskeletal: Yes arthritis and joint pain; no back problems, rheumatoid arthritis or gout Cardio Cardiovascular: No murmur, pacemaker, heart disease, atrial fibrillation, high blood pressure, heart attack, heart stent, palpitations, shortness of breat with exertion or chest pain Psych Psychiatric: Yes depression and anxiety; no hearing voices Resp Respiratory: No shortness of breath, No sleep apnea, No cough, No COPD, No asthma, No emphysema, No wheezing Gastro Gastrointestinal: No abdominal pain, No nausea or vomiting, No diarrhea, Yes constipation, No blood in stool, No acid reflux, No hemorrhoids, No ulcers, No gallbladder problem, No black,tarry stools Ghassan Hematologic: No blood thinners, No blood disorders, No bleeding, Yes anemia, No blood clots Neuro Neurologic: No system reviewed and no additional complaints, except as docu, No as per HPI, No abnormal walking, No abnormal hearing, No abnormal movements, No abnormal speech, No behavioral changes, No burning sensations, No confusion, No seizure-like activity, No unsteadiness, No dizziness, No localized weakness, No frequent falls, No headache(s), No lack of coordination, No loss of vision, No memory loss, Yes numbness, No other visual disturbances, No radiating pain, No restless legs, No sensory deficit, Yes fainting, No tingling, No tremor(s), Yes weakness, No other Exam Const General: no acute distress, well developed, well hydrated Orientation: oriented to person, oriented to place, oriented to time [facility] Head: normocephalic, atraumatic Ears: external ears normal Mouth: moist mucous membranes Eyes Sclera: sclerae normal Pupils: normal by confrontation Neck Neck: no lymphadenopathy noted Neck mass: No Thyroid: thyroid normal, symmetrical Chest Chest palpation & inspection: normal inspection of the chest Breast Palpation: No nipple discharge Resp Effort & Inspection: normal respiratory effort Auscultation: clear to auscultation bilaterally Percussion: percussion normal Cardio Rate: regular rate Rhythm: regular rhythm Heart Sounds: no murmurs GI Palpation: soft, no hepatosplenomegaly, no masses, nontender Rectal Exam: other Other: Rectal exam deferred. Extrem General: normal to inspection, no clubbing, cyanosis or edema Assessment & Plan Problems 1. Iron deficiency anemia due to chronic blood loss D50.0 Plan I have discussed the above with the patient. I have offered the patient colonoscopy as well EGD for evaluation. I have explained the risks/benefits of the procedure and described the procedure. I have discussed the risks with the patient, including but not limited to: infection, bleeding, perforation of the GI tract requiring emergency surgery, inability to complete the procedure, injury to any internal organs, complications of anesthesia, etc. - the patient understands and agrees to proceed. I have answered all the patient's questions to the patient's satisfaction and the patient has no further questions. The patient has been given instructions for the colon cleansing preparation. Coding Level of Care Code Off vis,est,level 3 Diagnoses Iron deficiency anemia due to chronic blood loss D50.0 ??Anemia type: iron deficiency ??Iron deficiency anemia type: chronic blood loss I have re-examined the patient. There are no clinical changes since date of exam.
[2018-07-31 09:30] VITALS: BP 127/66; PULSE 90; RESP 16; TEMP 36.9; O2SAT 97; BMI 24.3
--- NOTE | 2018-07-31 10:00 | EGD_PTH ---
PATIENT: TIAN FRANCISCO LOC: EN U#:[id number] AGE/SX: 72/F ROOM: RE07/31/[address]: Dr. Carlton Tyler MD : 1945 BED: DIS: 07/31/2018 SPEC #: [id number] RECD: 07/31/18 13:05 STATUS: ALYSHA ISAURO #: [id number] PEGGY: 07/31/18 10:[address]: Carlton Tyler DEPT: SURGICAL PATHOLOGY RECD BY: Roman Martinez ENTERED: 07/31/18 13:57 SP TYPE: EGD BIOPSY OT DR: Dr. Ariadne Miranda MD Tissues: A - Gastric mucous membrane B - POLYP Procedures: Surgery Specimen Level IV HEADER OPERATION: Colonoscopy, EGD ([facility] [place]) PRE-OP DIAGNOSIS: Iron deficiency anemia TISSUE SUBMITTED: A. Antrum biopsy, histo and H. Pylori, B. Biopsy of fundic gland polyp MICROSCOPIC DIAGNOSIS A. Antrum body: Gastric fundic gland polyp. Minimal chronic gastritis. B. Fundic gland polyp, biopsy: Gastric fundic mucosa showing features compatible with gastric fundic gland polyp. CE:alex 08/01/18 COMMENT A. The results of immunohistochemistry for Helicobacter pylori will be reported separately ([id number]). MICROSCOPIC DESCRIPTION Slides are reviewed. GROSS DESCRIPTION A - Received in fixative is one container labeled with the patient's name and designated antrum body, histo and H. pylori. The specimen consists of one irregular fragment of light noriega soft tissue that measures 0.7 x 0.2 x 0.1 cm. The specimen is totally submitted in one cassette. B - Received in fixative is one container labeled with the patient's name and designated biopsy fundic gland. The specimen consists of one irregular fragment of light noriega soft tissue that measures 0.5 x 0.3 x 0.1 cm. The specimen is totally submitted in one cassette. / SJ:alex 07/31/18 TC:1 CPT: 36436 x2
--- NOTE | 2018-07-31 10:00 | IMM_PTH ---
PATIENT: TIAN FRANCISCO LOC: EN U#:[id number] AGE/SX: 72/F ROOM: RE07/31/[address]: Dr. Carlton Tyler MD : 1945 BED: DIS: 07/31/2018 SPEC #: [id number] RECD: 07/31/18 15:16 STATUS: SOUChelsie REQ #: [id number] PEGGY: 07/31/18 10:[address]: Carlton Tyler DEPT: IMMUNOHISTOCHEMISTRY RECD BY: Greer Dickerson ENTERED: 07/31/18 15:16 SP TYPE: IMMUNO OTHR DR: Dr. Ariadne Miranda MD Tissues: A - Stomach, NOS Procedures: H Pylori (initial) PHYSICIAN & INSTITUTION [place] [id number] SPECIMEN INFORMATION: Tissue Source: A - Antrum biopsy Clinical Info: Iron deficiency anemia Specimen Number: CPT code: 48225 METHODOLOGY: Deparaffinized sections of prefer/formalin-fixed tissue or PAP/DQ stained slides are incubated with monoclonal/polyclonal antibodies/oligonucleotide probes. Localization is made via biotin free immunoperoxidase method. Appropriate controls are performed and reacted as expected. Results on target cell population are indicated in the following table: RESULTS: ANTIBODY / CLONE RESULT Block A H Pylori (polyclonal) negative These tests were developed and their performance characteristics determined by [facility]. They may not have been cleared or approved by the U.S. Food and Drug Administration. The FDA has determined that such clearance or approval is not necessary. INTERPRETATION: A. Antrum biopsy: Immunohistochemical stain with appropriate control is negative for Helicobacter organisms. CE:alex 08/01/18
[2018-07-31 11:01] VITALS: BP 127/66; BP 133/72; PULSE 75; RESP 16; TEMP 36.1; O2SAT 100
[2018-07-31 11:05] VITALS: BP 123/73; BP 127/66; PULSE 75; RESP 16; O2SAT 100
--- NOTE | 2018-07-31 11:05 | OP.ENDO_ITS ---
07/31/2018 Ariadne Miranda [address] [id number] Re : Upper GI endoscopy procedure for Duyen Robb Dear Dr. Miranda This procedure was performed on Tuesday, July 31, 2018. My impressions and recommendations are as follows: Impressions : - Large hiatal hernia. No specimens collected. - A few gastric polyps. Resected and retrieved. - Normal stomach. Biopsied. - Normal examined duodenum. No specimens collected. - Large hiatal hernia. Recommendations : - Discharge patient to home. - Resume previous diet. - Continue present medications. - Await pathology results. - Repeat upper endoscopy (date not yet determined) per protocol. - Return to my office in 1 week. My findings are described in the full procedure note, which is enclosed. If I can be of further assistance, please feel free to contact me at Doctor phone number(s): , Fax: [phone], Work: . Sincerely, MD Carlton Brenner MD 07/31/2018 11:05:20 AM This report has been signed electronically.
--- NOTE | 2018-07-31 11:07 | OP.ENDO_ITS ---
07/31/2018 Ariadne Miranda [address] [id number] Re : Colonoscopy procedure for Duyen Robb Dear Dr. Miranda This procedure was performed on Tuesday, July 31, 2018. My impressions and recommendations are as follows: Impressions : - The entire examined colon is normal on direct and retroflexion views. - No specimens collected. Recommendations : - Discharge patient to home. - Resume previous diet. - Continue present medications. - Repeat colonoscopy in 10 years for screening purposes. - Return to my office in 1 week. My findings are described in the full procedure note, which is enclosed. If I can be of further assistance, please feel free to contact me at Doctor phone number(s): , Fax: [phone], Work: . Sincerely, MD Carlton Brenner MD 07/31/2018 11:07:40 AM This report has been signed electronically.
[2018-07-31 11:10] VITALS: BP 127/66; BP 128/70; PULSE 72; RESP 16; O2SAT 99
[2018-07-31 11:15] VITALS: BP 127/66; BP 132/74; PULSE 72; RESP 16; TEMP 36.1; O2SAT 99
[2018-07-31 11:48] VITALS: BP 127/66
== END 2018-07-31 11:49 | disposition home or self-care (01) ==
LOC: EN 09:01 → AC 09:02
PROVIDERS: Family Provider Internal Medicine; PCP Internal Medicine; Referring Provider Internal Medicine; Visit Provider Surgery
PROC: 0DJD8ZZ Inspection of Lower Intestinal Tract, Via Natural or Artificial Opening Endoscopic (ICD-10-PCS; CPT 45378; principal; 2018-07-31 09:55)
DX: K29.50 Unspecified chronic gastritis without bleeding (principal); K31.7 Polyp of stomach and duodenum; D50.0 Iron deficiency anemia secondary to blood loss (chronic); K44.9 Diaphragmatic hernia without obstruction or gangrene; K21.9 Gastro-esophageal reflux disease without esophagitis; F32.9 Major depressive disorder, single episode, unspecified; G35 Multiple sclerosis; F41.9 Anxiety disorder, unspecified; Z87.891 Personal history of nicotine dependence; Z79.51 Long term (current) use of inhaled steroids; Z79.899 Other long term (current) drug therapy
CPT/HCPCS: 43239; 45378; 88305; 88342; J7120

== ENCOUNTER 2021-09-24 09:33 | Outpatient (CLI) | payer MEDICARE, OTHER, SELFPAY ==
[2021-09-24 10:24] VITALS: BP 151/59; PULSE 74; RESP 16; TEMP 36.9; O2SAT 98
[2021-09-24 10:43] VITALS: BP 157/73; PULSE 72; RESP 16; TEMP 36.7; O2SAT 97
[2021-09-24 11:44] VITALS: BP 162/83; PULSE 72; RESP 18; TEMP 36.8; O2SAT 100
[2021-09-24 12:30] VITALS: BP 173/82; PULSE 71; RESP 18; TEMP 36.8; O2SAT 96
--- NOTE | 2021-09-24 14:43 | NURSING ---
BP taken manually 196/90.
--- NOTE | 2021-09-24 14:44 | NURSING ---
Charge nurse aware and she let warehouse technician know and they are going to contract provider of pt
--- NOTE | 2021-09-24 14:52 | NURSING ---
call from [facility], pt's B/P trending upward. Call made to Karina Zhong ROUTE AGENT , instructed by Marian to hold 2nd unit of blood, observe patient x1hr after completion of 1st unit, ok to DC as long as pt has no SxS of transfusion reaction, and no c/o. Have pt follow up Sunday for previously ordered CBC. [facility]iana NARANJO made aware.
--- NOTE | 2021-09-24 15:06 | NURSING ---
BP 186/90 HR 81 pulse ox 96%
== END 2021-09-24 15:14 | disposition home or self-care (01) ==
LOC: MEDOUTP 09:33 → PCU 09:35
PROVIDERS: PCP Internal Medicine; Referring Provider Nurse Practitioner; Visit Provider Nurse Practitioner
DX: D64.9 Anemia, unspecified (principal)
CPT/HCPCS: 36415; 36430; 86850; 86900; 86901; 86920; 86922; J7040; P9016

== ENCOUNTER 2021-11-21 09:17 | Day surgery (SDC) | payer MEDICARE, OTHER, SELFPAY ==
--- NOTE | 2021-11-21 | IMM_PTH ---
PATIENT: TIAN FRANCISCO LOC: EN U#:[id number] AGE/SX: 76/F ROOM: RE11/21/[address]: Dr. Jai Rowland DO : 1945 BED: DIS: 11/21/2021 SPEC #: [id number] RECD: 11/22/21 12:46 STATUS: ALYSHA RERosalinda #: [id number] PEGGY: 11/21/21 00:[address]: Jai Rowland DEPT: IMMUNOHISTOCHEMISTRY RECD BY: Greer Dickerson ENTERED: 11/22/21 12:47 SP TYPE: IMMUNO OTHR DR: Dr. Ariadne Miranda MD Tissues: B - Esophageal mucous membrane Procedures: P53 (initial) KI-67 (add) PHYSICIAN & INSTITUTION [place] [id number] SPECIMEN INFORMATION: Tissue Source: B ? Distal esophagus biopsy Clinical Info: GERD, anemia Specimen Number: [id number] CPT code: 55607, 68784 METHODOLOGY: Deparaffinized sections of prefer/formalin-fixed tissue or PAP/DQ stained slides are incubated with monoclonal/polyclonal antibodies/oligonucleotide probes. Localization is made via biotin free immunoperoxidase method. Appropriate controls are performed and reacted as expected. Results on target cell population are indicated in the following table: RESULTS: ANTIBODY / CLONE RESULT Block B P53 (DO-7) negative Ki-67 (30-9) positive, very low These tests were developed and their performance characteristics determined by [facility]. They may not have been cleared or approved by the U.S. Food and Drug Administration. The FDA has determined that such clearance or approval is not necessary. The above immunohistochemical/dualISH markers are ordered and reviewed by the Pathologist. INTERPRETATION: B. Distal esophagus, biopsy: Negative for dysplasia. MARIO:alex 11/23/2021
--- NOTE | 2021-11-21 | EGD_PTH ---
PATIENT: TIAN FRANCISCO LOC: PINO U#:[id number] AGE/SX: 76/F ROOM: RE11/21/[address]: Dr. Jai Rowland DO : 1945 BED: DIS: 11/21/2021 SPEC #: [id number] RECD: 11/21/21 14:07 STATUS: ALYSHA ISAURO #: [id number] PEGGY: 11/21/21 00:[address]: Jai Rowland DEPT: SURGICAL PATHOLOGY RECD BY: Reggie Duffy ENTERED: 11/21/21 14:08 SP TYPE: EGD BIOPSY CARLA DR: Dr. Ariadne Miranda MD Tissues: A - Duodenum, NOS B - Esophageal mucous membrane Procedures: Special Stain Group II Surgery Specimen Level IV Alcian Blue/PAS (control) HEADER OPERATION[place] [place] PRE-OP DIAGNOSIS: GERD, anemia TISSUE SUBMITTED: A ? Duodenum biopsy, B ? Distal esophagus biopsy MICROSCOPIC DIAGNOSIS A. Duodenum, biopsy: Fragments of duodenal mucosa with Jack gland hyperplasia. B. 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 Chronic inflammation. Negative for dysplasia. See comment. SJ:alex 11/22/2021 COMMENT B. Alcian blue/PAS stain with matched control is used in the evaluation of the specimen. Immunohistochemistry ([id number]) for P53 and Ki-67 will be performed and results will be reported separately. MICROSCOPIC DESCRIPTION Slides are reviewed. GROSS DESCRIPTION A - Received in fixative is one container labeled with the patient's name and designated duodenum biopsy. The specimen consists of two irregular fragments of light noriega soft tissue that in aggregate measure 0.6 x 0.3 x 0.1 cm. The specimen is totally submitted in one cassette. B - Received in fixative is one container labeled with the patient's name and designated distal esophagus. The specimen consists of two irregular fragments of light noriega soft tissue that in aggregate measure 0.6 x 0.3 x 0.1 cm. The specimen is totally submitted in one cassette. / MARIO:alex 11/21/2021 TC:3 CPT: 37458 x2, 75954
[2021-11-21 09:33] VITALS: BP 154/91; PULSE 86; RESP 16; TEMP 36.6; O2SAT 95; BMI 26.1
--- NOTE | 2021-11-21 09:42 | HP.PCM_ITS ---
History and Physical Date of Admission: 11/21/21 DUYEN FRANCISCO, is a 76 F who presents to the office today for chronic acid reflux Duyen has has acid reflux which is controlled with PPI therapy.? Better control of symptoms if she takes pantoprazole 40 mg twice a day, however she was concerned about side effects considering her history of osteoporosis, so she is now taking pantoprazole 40 mg QAM and famotidine 20 mg QPM, reflux is mostly controlled although was better on BID pantoprazole.? She notes symptoms if she eats tomato products. She denies nausea, vomiting, dysphagia, abdominal pain, diarrhea, constipation Hx of EGD and colonoscopy 07/31/[address] Tyler for iron deficiency anemia due to chronic blood loss--large hiatal hernia, fundic gland polyps, gastritis, negative for H pylori, normal colon. These were her first endoscopies.? Her past medical history notes a history of Anderson's esophagus in 2016, however she does not recall her prior EGD. She did see railroad dining car steward/stewardess Dr. West at [facility], she believes in 2019.? She required blood transfusion in 2019 when hemoglobin was in the 6 range.? There was no definite source for GI bleed.? She required a blood transfusion just over a month ago again.? She reports stool test negative for blood recently.? She denies hematemesis, hematuria, hematochezia, melena. Takes Aleve 1 tab QAM and 2 tabs QPM. She has multiple sclerosis but is no longer on treatment for that.? Comorbidities also include osteoporosis, vitamin D deficiency, depression Past surgical history left hip fracture surgery ROS Const Constitutional: Positive for fatigue ENT ENT: No difficulty swallowing Cardio Cardiology: Positive for leg pain with exertion Gastro GI: Positive for heartburn; No abdominal pain, belching, bloating, change in bowel habits, change in stool character, coffee ground emesis, constipation, cramping, diarrhea, difficulty swallowing, feeling full early, excessive flatus, incontinent of stools, Vomiting blood/hematemesis, Blood in stool, loose stools, Black,tarry stools, nausea/dyspepsia, pain with swallowing, vomiting or other Musc Musculoskeletal: Positive for abnormal gait, joint pain, back pain, joint swelling, muscle cramps, muscle weakness, stiffness, Arthritis and leg pain with exertion Skin Skin: No yellowing of the eye or itchy eyes Neuro Neurology: Positive for abnormal gait Psych Psychiatric: Positive for anxiety and Positive for depression Endo Endocrine: Positive for fatigue Aller/Imm Allergy/Immunologic: No itchy eyes Ghassan/Lymp Hematologic/Lymphatic: No easy bleeding or easy bruising Exam Const General: cooperative and comfortable Other: Uses a cane HENMT Head: normal to inspection Eyes General: appearance normal, both eyes and all related structures Resp Effort & Inspection: normal respiratory effort GI Inspection: normal to inspection Palpation: soft and nontender Quality Reporting Tobacco Screening ([facility] 138) Smoking Status: Former smoker Assessment and Plan Assessment and Plan (1) GERD (gastroesophageal reflux disease): ?Status:?Chronic ?Qualifiers: ?Esophagitis presence:?esophagitis presence not specified? Qualified Code(s):?K21.9 - Gastro-esophageal reflux disease without esophagitis ?Plan: 76-year-old female with GERD, large hiatal hernia, questionable history of Anderson's esophagus (although patient denies prior EGD when this diagnosis was made).? She has anemia, required recent blood transfusion.? Continue pantoprazole 40 mg every morning and famotidine 20 mg every afternoon Schedule EGD w/ f/u 2 wks later Will get capsule endoscopy to eval small bowel for bleed (2) Anemia: ?Status:?Chronic ?Qualifiers: ?Anemia type:?iron deficiency??Iron deficiency anemia type:?chronic blood loss? Qualified Code(s):?D50.0 - Iron deficiency anemia secondary to blood loss (chronic) ?Plan: She needed a blood transfusion just over a month ago, need to determine source of bleed [facility] and prior hematology note from Dr West I have re-examined the patient. There are no clinical changes since date of exam.
[2021-11-21] MEDS: Lactated Ringers 1,000 ML 15 ML IV (09:53)
[2021-11-21 10:44] VITALS: BP 115/67; BP 154/91; PULSE 71; RESP 14; TEMP 36.7; O2SAT 93
--- NOTE | 2021-11-21 10:44 | OP.EGD_ITS ---
Patient Name: Duyen Robb Procedure Date: 11/21/2021 10:14 AM Date of : 1945 Age: 76 Procedure: Upper GI endoscopy Indications: Iron deficiency anemia, Suspected esophageal reflux Providers: Jai Rowland DO Referring MD: Ariadne Miranda Medicines: Monitored Anesthesia Care Patient Profile: This is a 76 year old female. Refer to note in patient chart for documentation of history and physical. Patient has symptoms. Complications: No immediate complications. Procedure: Pre-Anesthesia Assessment: - Prior to the procedure, a History and Physical was performed, and patient medications and allergies were reviewed. The patient is competent. The risks and benefits of the procedure and the sedation options and risks were discussed with the patient. All questions were answered and informed consent was obtained. Patient identification and proposed procedure were verified by the physician in the pre-procedure area. Mental Status Examination: alert and oriented. Airway Examination: normal oropharyngeal airway and neck mobility. Respiratory Examination: clear to auscultation. CV Examination: normal. Prophylactic Antibiotics: The patient does not require prophylactic antibiotics. Prior Anticoagulants: The patient has taken no previous anticoagulant or antiplatelet agents. ASA Grade Assessment: II - A patient with mild systemic disease. After reviewing the risks and benefits, the patient was deemed in satisfactory condition to undergo the procedure. The anesthesia plan was to use moderate sedation / analgesia (conscious sedation). Immediately prior to administration of medications, the patient was re-assessed for adequacy to receive sedatives. The heart rate, respiratory rate, oxygen saturations, blood pressure, adequacy of pulmonary ventilation, and response to care were monitored throughout the procedure. The physical status of the patient was re-assessed after the procedure. After obtaining informed consent, the endoscope was passed under direct vision. Throughout the procedure, the patient's blood pressure, pulse, and oxygen saturations were monitored continuously. The Endoscope was introduced through the mouth, and advanced to the second part of duodenum. The upper GI endoscopy was accomplished without difficulty. The patient tolerated the procedure well. Scope In: 10:33:40 AM Scope Out: 10:39:29 AM Total Procedure Duration Time 0 hours 5 minutes 49 seconds Findings: The Z-line was irregular and was found 39 cm from the incisors. Biopsies were taken with a cold forceps for histology. Verification of patient identification for the specimen was done. Estimated blood loss was minimal. A large hiatal hernia was present. The exam of the stomach was otherwise normal. The cardia and gastric fundus were normal on retroflexion. Patchy mildly erythematous mucosa without active bleeding and with no stigmata of bleeding was found in the duodenal bulb. Biopsies were taken with a cold forceps for histology. Verification of patient identification for the specimen was done. Estimated blood loss was minimal. Impression: - Z-line irregular, 39 cm from the incisors. Biopsied. - Large hiatal hernia. - Erythematous duodenopathy. Biopsied. Recommendation: - Discharge patient to home. - Resume previous diet. - Continue present medications. - Await pathology results. Procedure Code(s): --- Professional --- 55526, Esophagogastroduodenoscopy, flexible, transoral; with biopsy, single or multiple CPT copyright 2017 [employer]. All rights reserved. The codes documented in this report are preliminary and upon liquefied petroleum gasfitter review may be revised to meet current compliance requirements. Jai Rowland DO 11/21/2021 10:43:54 AM This report has been signed electronically. Number of Addenda: 1 Note Initiated On: 11/21/2021 10:14 AM Addendum Number: 1 Addendum Date: 01/05/2022 6:09:11 AM MAC was used as sedation for this procedure. Jai Rowland DO 01/05/2022 6:09:15 AM This report has been signed electronically.
--- NOTE | 2021-11-21 10:45 | OP.CCLET_ITS ---
01/05/2022 Ariadne Miranda [address] [id number] Re : Upper GI endoscopy procedure for Duyen Robb Dear Dr. Miranda This procedure was performed on Sunday, November 21, 2021. My impressions and recommendations are as follows: Impressions : - Z-line irregular, 39 cm from the incisors. Biopsied. - Large hiatal hernia. - Erythematous duodenopathy. Biopsied. Recommendations : - Discharge patient to home. - Resume previous diet. - Continue present medications. - Await pathology results. My findings are described in the full procedure note, which is enclosed. If I can be of further assistance, please feel free to contact me at . Sincerely, Jai Rowland, 11/21/2021 10:43:54 AM This report has been signed electronically.
[2021-11-21 10:50] VITALS: BP 127/80; BP 154/91; PULSE 71; RESP 14; O2SAT 93
[2021-11-21 10:55] VITALS: BP 122/97; BP 154/91; PULSE 72; RESP 16; O2SAT 93
[2021-11-21 11:02] VITALS: BP 127/73; BP 154/91; PULSE 71; RESP 16; TEMP 36.8; O2SAT 92
[2021-11-21 11:22] VITALS: BP 154/91
== END 2021-11-21 11:35 | disposition home or self-care (01) ==
LOC: EN 09:18 → AC 09:19
PROVIDERS: PCP Internal Medicine; Referring Provider Internal Medicine; Visit Provider Internal Medicine Gastroenterology
PROC: 0DJ08ZZ Inspection of Upper Intestinal Tract, Via Natural or Artificial Opening Endoscopic (ICD-10-PCS; CPT 43235; principal; 2021-11-21 10:10)
DX: K22.70 Barrett's esophagus without dysplasia (principal); G35 Multiple sclerosis; K44.9 Diaphragmatic hernia without obstruction or gangrene; K31.89 Other diseases of stomach and duodenum; K21.9 Gastro-esophageal reflux disease without esophagitis; D50.0 Iron deficiency anemia secondary to blood loss (chronic); E55.9 Vitamin D deficiency, unspecified; M81.0 Age-related osteoporosis without current pathological fracture; F32.A Depression, unspecified; Z79.899 Other long term (current) drug therapy; Z87.891 Personal history of nicotine dependence
CPT/HCPCS: 43239; 88305; 88313; 88341; 88342; J7120; J2405

== ENCOUNTER → 2021-11-30 | Outpatient (CLI) | payer MEDICARE, OTHER, SELFPAY ==
--- NOTE | 2021-11-30 10:45 | RAD_ITS ---
STUDY: X-RAY - ABDOMEN/PELVIS REASON FOR EXAM: Female, 76 years old. Possible Retained Pillcam TECHNIQUE: PA or AP COMPARISON: None. FINDINGS: Normal visualized lung bases. There is an unremarkable bowel gas pattern. There is no demonstrated free abdominal air. The visualized liver, spleen and kidneys are grossly normal in size and morphology. Normal soft tissue structures. Status post ORIF left hip fracture. Status post ORIF left hip fracture with compression screw and interlocking intramedullary clif. RAD/Abdomen Single View IMPRESSION: Status post left hip open reduction internal fixation. No evidence of retained pill cam. Electronically Signed: Fabián Fernandez MD, TYRONE at 16:56 EDT ,
== END | disposition home or self-care (01) ==
LOC: RAD 10:43
PROVIDERS: PCP Internal Medicine; Visit Provider Internal Medicine Gastroenterology
DX: K21.9 Gastro-esophageal reflux disease without esophagitis (principal)
CPT/HCPCS: 74018

== ENCOUNTER → 2022-01-05 | Outpatient (CLI) | payer MEDICARE, OTHER, SELFPAY ==
--- NOTE | 2022-01-05 12:09 | NM_ITS ---
CLINICAL: 76-year-old female with history of clinically suspected gastroparesis. SEMI-SOLID PHASE 99m Tc SULFUR COLLOID GASTRIC EMPTYING STUDY COMPARISON: None available FINDINGS: The patient was administered 1.0 mCi of 99m Tc sulfur colloid mixed with oatmeal and consumed per os. Image acquisitions in the anterior-posterior projections were obtained for 60 minutes. There is prompt visualization of the stomach. There is no gastroesophageal reflux identified. The T ? emptying was calculated to be 38.87 minutes, (Normal: 12-56 minutes). NM/Gastric Emptying Study IMPRESSION: 1. NORMAL 99m Tc sulfur colloid semi-solid phase (oatmeal) gastric emptying imaging examination. A. There is normal and preserved semi-solid phase gastric emptying compared to normal controls. (Jeny et al, J Nucl Med Tech 38: 186, 2010). Electronically Signed: Guillermo Vegas, at 21:02 EDT ,
== END | disposition home or self-care (01) ==
LOC: NM 12:08
PROVIDERS: PCP Internal Medicine; Referring Provider Internal Medicine Gastroenterology; Visit Provider Internal Medicine Gastroenterology
DX: K31.84 Gastroparesis (principal)
CPT/HCPCS: 78264; A9541

== ENCOUNTER → 2022-01-12 | Outpatient (CLI) | payer MEDICARE, OTHER, SELFPAY ==
[2022-01-12 11:18] LABS: Absolute Lymphocyte Count 0.95 X10^3/uL (0.83-4.51); Absolute Neutrophil Count 3.8 X10^3/uL (2.0-7.7); Basophil# 0.04 X10^3/uL; Basophil% 0.7 % (0-1); Eosinophil# 0.24 X10^3/uL; Eosinophils% 4.2 % (0-5); Hematocrit 38.2 % (37-47); Hemoglobin 11.3 g/dL (12.0-15.0); Lymphocyte # 0.95 X10^3/ul (0.83-4.51); Lymphocyte % 16.6 % (19-41); Mean Corp Hgb Conc 29.6 g/dL (32-36); Mean Corpuscular Hgb 24.3 pg (27.0-32.0); Mean Corpuscular Volume 82.2 fL (81-99); Mean Platelet Vol. 11.3 fl (6.2-12.0); Monocyte# 0.65 X10^3/uL; Monocyte% 11.3 % (0-10); NRBC Flagged by Analyzer 0 % (0-5); Neutrophil # 3.84 X10^3/uL (2.7-7.7); Neutrophil % 66.9 % (47-70); Platelet Count 193 K/mm3 (150-450); RBC Distribution Width CV 16.8 % (11.6-14.6); Red Blood Count 4.65 M/mm3 (4.2-5.4); White Blood Count 5.7 K/mm3 (4.4-11.0)
[2022-01-12 11:52] LABS: Ferritin 10 ng/mL (8-252); Iron 26 ug/dL (50-170); Iron Binding Capacity,Total 469 ug/dL (250-450); PERCENT IRON SATURATION 5.5 % (15.0-55.0)
== END | disposition home or self-care (01) ==
LOC: LAB 11:01
PROVIDERS: Nurse Practitioner Adult Health; PCP Nurse Practitioner; Referring Provider Internal Medicine Gastroenterology; Visit Provider Internal Medicine Gastroenterology
DX: K21.9 Gastro-esophageal reflux disease without esophagitis (principal); D50.0 Iron deficiency anemia secondary to blood loss (chronic); K22.70 Barrett's esophagus without dysplasia
CPT/HCPCS: 36415; 82728; 83540; 83550; 85025

== ENCOUNTER 2022-12-22 22:44 | Emergency (ER) | payer MEDICARE, OTHER, SELFPAY ==
[2022-12-22 22:45] VITALS: BP 130/86; PULSE 91; RESP 16; TEMP 37.1; O2SAT 95; BMI 26.9
--- NOTE | 2022-12-22 23:26 | CT_ITS ---
INDICATION: head injury EXAMINATION: CT BRAIN - CT Head or Brain W/O Contrast Injection TECHNIQUE: Multiple axial images were obtained of the head without intravenous contrast. A radiation dose optimization technique was used for this scan. IV Contrast dosage and agent: None. RADIATION DOSAGE (If Supplied By Facility): CTDIvol = ( 44.99 ) mGy, DLP = ( 779.24 ) mGycm COMPARISON: None. FINDINGS: BRAIN: No acute bleed. No edema. Mild decreased attenuation in the periventricular white matter bilaterally. Lugo-white matter differentiation is maintained. Arterial calcifications. VENTRICLES AND SULCI: Not dilated. EXTRA-AXIAL: No hemorrhage, fluid collection, or mass. CALVARIUM / SKULL BASE: Unremarkable. FACE/SINUSES: The right and left maxillary sinuses are partially opacified with mucosal thickening and air-fluid levels. SOFT TISSUES: Unremarkable. CT/Brain/Head without Contrast IMPRESSION: No evidence of acute intracranial injury. Chronic microvascular ischemic disease. Air-fluid levels in the maxillary sinuses can be seen with acute sinusitis and trauma. If there is facial trauma, CT facial bones may be helpful to rule out fracture. Electronically Signed: Marla Wild MD at 0:20 EDT ,
[2022-12-22] MEDS: oxyCODONE 5 MG Tablet PO (23:30)
--- NOTE | 2022-12-22 23:34 | RAD_ITS ---
STUDY: X-RAY - PELVIS AND RIGHT HIP REASON FOR EXAM: Female, 77 years old. Acute pain after a fall TECHNIQUE: 3 views of the pelvis and hip. COMPARISON: None. FINDINGS: There is a non-specific bowel gas pattern. Normal visualized soft tissue structures. There is diffuse demineralization of the osseous structures. There is narrowing with cortical sclerosis and osteophyte formation of the sacroiliac joint consistent with degenerative osteoarthritic changes. Normal bilateral superior and inferior pubic rami. Normal pubic symphysis. Normal bilateral ischial tuberosities. Normal visualized femoral head. Normal acetabulum. There is moderate articular joint space narrowing of the hip. Similar arthritic changes noted in the left hip joint. Surgical hardware in the left femur free of complication RAD/HIP, UNI W/ Pelvis 2-3 Views IMPRESSION: Demineralization of the osseous structures with age consistent right hip and SI joint arthrosis. No demonstrated acute fracture. However, hip and pelvic fractures in patients of this age can be subtle, if there is strong clinical suspicion of a fracture, recommend further evaluation with CT Electronically Signed: Tyrell Pollock MD at 23:51 EDT ,
--- NOTE | 2022-12-23 01:01 | EDS_ITS ---
HPI History of Present Illness Chief Complaint: Fall Informant: patient and spouse/S.O. Narrative Narrative: Patient is a 77-year-old female with past medical history of multiple sclerosis and osteoporosis. She states that roughly 3 to 4 hours prior to arrival she was trying to move the pee pad for her dog when she lost her balance and fell. She states she struck her head but denies any loss of consciousness or history of bleeding disorder or blood thinner use. She states she could not get up after the fall and required help from her . She states that since that time she has had pain in the right hip and pelvic region and has concern for fracture and therefore comes in for evaluation. [facility] Medical History (Updated 12/23/22 @ 08:[address] Kendrick Lazaro, DO) Anemia Barretts esophagus Benign neoplasm of duodenum, jejunum, and ileum Cellulitis Cellulitis of left upper extremity Closed fracture of left hip requiring operative repair Depression Elevated blood sugar Fall GERD (gastroesophageal reflux disease) Hiatal hernia Multiple sclerosis Muscle spasm Neuropathic pain Osteoporosis Rib fractures Septic phlebitis of upper extremities Superficial thrombophlebitis of arm Vitamin D deficiency Vomiting Home Medications Lactobacillus rhamnosus GG 10 billion cell capsule 1 ea PO DAILY SUPPLEMENT 10/21/16 [History Last Taken 07/22/18] glucosamine sulf dipotassium Cl 500 mg-chondroitin sulf 400 mg tablet 1 tab PO BID SUPPLEMENT 10/21/16 [History Last Taken 07/22/18] pantoprazole 40 mg tablet,delayed release 40 mg PO BID gerd 10/21/16 [History Last Taken 07/31/18 40 MG] venlafaxine 150 mg capsule,extended release 24 hr 150 mg PO DAILY MENTAL HEALTH 10/21/16 [History Last Taken 07/22/18 150 MG] cholecalciferol (vitamin D3) 25 mcg (1,000 unit) tablet 500 unit PO BID supplement 07/18/18 [History Last Taken 07/22/18] denosumab 60 mg/mL subcutaneous syringe 60 mg SQ bone health 07/18/18 [History Last Taken 05/03/18] multivitamin with folic acid 400 mcg tablet 1 tab PO DAILY SUPPLEMENT 07/18/18 [History Last Taken 07/22/18] potassium chloride 10 mEq capsule,extended release 10 meq PO DAILY SUPPLEMENT 07/18/18 [History Last Taken 07/22/18] ferrous sulfate 325 mg (65 mg iron) tablet 325 mg PO BIDCM #60 tabs 07/19/18 [Rx Last Taken 07/24/18] calcium carbonate 500 mg-vitamin D3 5 mcg (200 unit) tablet 1 tab PO DAILY SUPPLEMENT 07/22/18 [History Last Taken 07/22/18] oxycodone 5 mg tablet 5 mg PO Q6H PRN pain 3 days #12 tabs 12/23/22 [Rx Last Taken Unknown] Allergy/AdvReac Type Severity Reaction Status Date / Time Sulfa (Sulfonamide AdvReac Vomiting Verified 01/12/22 10:14 Antibiotics) sulfamethoxazole AdvReac Vomiting Verified 01/12/22 10:14 [From Bactrim] trimethoprim [From Bactrim] AdvReac Vomiting Verified 01/12/22 10:14 Surgical History s/p left femur surgery Social History Smoking Status: Former smoker alcohol intake: current ROS ROS ED Constitutional Constitutional ED: Denies chills or fever(s) Eyes Eyes: Denies change in vision ENT ENT ED: Denies sore throat Cardiovascular Cardiovascular: Denies chest pain Respiratory/Chest Respiratory/Chest: Denies cough or dyspnea Gastrointestinal Gastrointestinal: Denies abdominal pain, diarrhea, nausea or vomiting Genitourinary Genitourinary ED: Denies dysuria Musculoskeletal Musculoskeletal: Reports other Details: Positive right hip and pelvis pain Integumentary Reports Abrasions Neurologic Neurologic: Reports headache(s) Hematologic/Lymphatic Hematologic/Lymphatic: Denies easy bleeding or easy bruising EXAM Physical Exam Const Vital Signs: 12/22/22 22:45 Temperature 98.7 F Temperature Source Temporal Pulse Rate 91 Respiratory Rate 16 Blood Pressure 130/86 H Blood Pressure Mean 100 Pulse Ox 95 Positive well nourished and well developed General Appearance ED: well developed HEENT HEENT Narrative: Patient has a 1 x 2 hematoma over top the occipital portion of the scalp without signs of depressed or basilar skull fracture Eyes PERRL and EOMs intact bilaterally Neck supple Neck Narrative: No bony deformity or step-off of the cervical spine no midline pain with palpation Chest Wall palpation of chest normal Chest Narrative: No bony deformity or crepitance noted Resp normal respiratory effort and clear to auscultation bilaterally Cardio regular rate and regular rhythm GI normal to inspection, nondistended, normoactive bowel sounds, non-tender, non- distended and no masses Auscultation: normoactive bowel sounds Palpation: soft Back/Spine Back/Spine Narrative: No bony deformity or step-off of the thoracic or lumbar spine no midline pain with palpation Extremity Extremity Narrative: Pelvis is stable there is no shortening or external rotation of either lower extremity. Patient has increased pain with palpation over top of the right greater trochanter region. There is also pain on palpation in the right and left inguinal regions of the pelvis concerning for pubic rami fracture. No obvious signs of trauma or pain on palpation to the long bones of the legs or upper extremities Neuro oriented x3 and CN's II-XII intact bilaterally Sensorium / Orientation: alert Psych mental status grossly normal Skin no rashes or lesions noted MDM MDM MDM Narrative Medical decision making narrative: Patient presented to the ER with stable vitals. She reported mechanical fall therefore there is no need for cardiac or syncope work-up. Differential diagnosis is for skull fracture versus epidural or subdural hematoma versus right hip fracture versus pubic rami fracture versus bone contusion. CT of the head was obtained which revealed no acute traumatic finding. Plain film x-rays also revealed no acute fracture or dislocation. Patient was given an oxycodone and then was road tested with a walker which she does use at home. Patient was able to ambulate with a steady gait using her walker and pain was controlled with oxycodone. Therefore at this time I do not feel there is a need for a CT scan as patient is able to ambulate with steady gait and pain is well controlled. Therefore she will be discharged home with symptomatic care and can follow-up with her physician on an outpatient basis if necessary if symptoms persist History & Record Review Discussion w/independent historian: Patient and Significant other Radiography Diagnostic Testing: Clinical Impression(s) from Imaging Studies Brain CT 12/22/22 23:26 IMPRESSION: No evidence of acute intracranial injury. Chronic microvascular ischemic disease. Air-fluid levels in the maxillary sinuses can be seen with acute sinusitis and trauma. If there is facial trauma, CT facial bones may be helpful to rule out fracture. Electronically Signed: Marla Wild MD at 0:20 EDT , Hip/Pelvis X-Ray 12/22/22 23:34 IMPRESSION: Demineralization of the osseous structures with age consistent right hip and SI joint arthrosis. No demonstrated acute fracture. However, hip and pelvic fractures in patients of this age can be subtle, if there is strong clinical suspicion of a fracture, recommend further evaluation with CT Electronically Signed: Tyrell Pollock MD at 23:51 EDT , Right hip with 1 view pelvis x-ray as interpreted by the emergency medicine physician reveals osteoporotic changes with arthritis but no acute fracture or dislocation Discharge Plan Triage Chief Complaint: Fall ED Provider: Kendrick Lazaro Dx/Rx/DC Orders Clinical Impression: Contusion of hip, Osteoporosis, Accidental fall, Multiple sclerosis Instructions: Osteoporosis Bone Loss, Bone Contusion Prescriptions: New oxycodone 5 mg tablet 5 mg PO Q6H PRN (Reason: pain) 3 Days Qty: 12 0RF No Action venlafaxine 150 MG capsule 150 mg PO DAILY Patient Comments: ANTIDEPRESSANT pantoprazole 40 MG tablet 40 mg PO BID Patient Comments: [employer] Lactobacillus rhamnosus GG 1 EACH capsule 1 ea PO DAILY Patient Comments: [employer] glucosamine doherty 2KCl-chondroit 1 EACH tablet 1 tab PO BID Patient Comments: [facility] potassium chloride 10 MEQ capsule, extended release 10 meq PO DAILY denosumab 60 MG/ML syringe 60 mg SQ UD Patient Comments: Pt gets injection q6 months-due in October cholecalciferol (vitamin D3) 1,000 UNIT tablet 500 unit PO BID multivitamin with folic acid 1 TABLET tablet 1 tab PO DAILY ferrous sulfate 325 MG tablet 325 mg PO BIDCM Qty: 60 0RF calcium carbonate-vitamin D3 1 EACH tablet 1 tab PO DAILY Primary Care Provider: TRACE SANCHEZ Referrals: TRACE SANCHEZ NP-C [Primary Care Provider] - Activity Restrictions/Additional Instructions: Please use your walker to help with ambulation. Take the oxycodone as directed for improved pain control and you may take Tylenol and/or Motrin on top of this if needed. Symptoms should improve over the next few days but if pain persist please return to the ER or see your family doctor to discuss need for CT or MRI to assess for potential fracture that was not seen on x-ray. Disposition Disposition: Home, Self Care Discharge Date/Time: 12/23/22 01:30
== END 2022-12-23 01:30 | disposition home or self-care (01) ==
PROVIDERS: Emergency Provider Emergency Medicine; PCP Nurse Practitioner; Visit Provider Emergency Medicine
DX: S70.01XA Contusion of right hip, initial encounter (principal); G35 Multiple sclerosis; M81.0 Age-related osteoporosis without current pathological fracture; Z87.891 Personal history of nicotine dependence; W19.XXXA Unspecified fall, initial encounter
CPT/HCPCS: 70450; 73502; 99284

== ENCOUNTER 2022-12-27 14:09 | Emergency (ER) | payer MEDICARE, OTHER, SELFPAY ==
[2022-12-27 14:10] VITALS: BP 138/88; PULSE 95; RESP 16; TEMP 36.9; O2SAT 94; BMI 26.4
--- NOTE | 2022-12-27 14:28 | CT_ITS ---
STUDY: CT PELVIS WITHOUT CONTRAST REASON FOR EXAM: Female, 77 years old. Pelvic pain following injury. RADIATION DOSAGE (If Supplied By Facility): CTDIvol = ( 20.23 ) mGy, DLP = ( 717.39 ) mGycm TECHNIQUE: Transaxial imaging of the pelvis was performed with oral contrast, and without intravenous administration of contrast material. Individualized dose optimization techniques were used for this CT. COMPARISON: None. FINDINGS: Distended urinary bladder. Normal visualized small intestine. Normal visualized colon. There is no pelvic fluid. There is no pelvic mass lesion or lymphadenopathy. There is diffuse atherosclerotic calcification of the pelvic arteries. Normal abdominal wall. There is evidence of a healed fracture of the right superior pubic ramus and inferior pubic ramus. Prior intramedullary clif and screw fixation of the left intertrochanteric fracture. No acute fracture is seen. Degenerative changes of the sacroiliac joints. CT/Pelvis without IV Contrast IMPRESSION: No acute fracture is seen. Healed right superior and inferior pubic rami fractures. Electronically Signed: Freddie Gold MD at 15:16 EDT ,
--- NOTE | 2022-12-27 14:28 | CM.ED ---
Social Work SW performed chart review; LW and HCPOA documents on file as of 2016. Patient's HCPOA is patient's , Krzysztof and alternate is patient's daughter, Zehra. Isabella DIAZ, MARIAMA
--- NOTE | 2022-12-27 14:30 | EX.ED.GENINJ ---
HPI History of Present Illness Chief Complaint: Back Informant: patient and spouse/S.O. Narrative Narrative: Patient represents with pelvic pain after a fall on Sunday. Patient went home from work Sunday. She felt fine. She used her foot to move something on the ground. When she did this she just lost her balance and fell. She fell back onto the left hip area. She did roll back and hit her head but never lost consciousness. She was seen and evaluated here. X-rays were normal. She went home. She has been taking oxycodone. She does not think it is really helping. Her and her states that she cannot bear weight. He has to lift her up out of the bed or chair. He has now gotten a wheelchair. If he gets or standing with a walker she can very slowly rotate and get in position over a toilet. But he has to lower her. The only thing she can really do is stand and then very slowly rotate. She states if she moves right or left leg forward to her back she gets a lot of pain that makes it hard to stand. The pain is in the left inguinal area and the left SI joint. No nausea vomiting. No change in bowel habits. No urinary difficulties. No fevers or chills. She is not hurting anywhere else. Her head neck or back are actually not hurting. It is her lower left pelvis anteriorly and posteriorly. She is on no blood thinners. She has had no repeat falls. [facility] Medical History Anemia Barretts esophagus Benign neoplasm of duodenum, jejunum, and ileum Cellulitis Cellulitis of left upper extremity Closed fracture of left hip requiring operative repair Depression Elevated blood sugar Fall GERD (gastroesophageal reflux disease) Hiatal hernia Multiple sclerosis Muscle spasm Neuropathic pain Osteoporosis Rib fractures Septic phlebitis of upper extremities Superficial thrombophlebitis of arm Vitamin D deficiency Vomiting Home Medications glucosamine sulf dipotassium Cl 500 mg-chondroitin sulf 400 mg tablet 1 tab PO BID SUPPLEMENT 10/21/16 [History Last Taken 12/27/22] pantoprazole 40 mg tablet,delayed release 40 mg PO BID ACID REFLUX 10/21/16 [History Last Taken 12/27/22] venlafaxine 150 mg capsule,extended release 24 hr 150 mg PO DAILY DEPRESSION 10/21/16 [History Last Taken 12/27/22] cholecalciferol (vitamin D3) 25 mcg (1,000 unit) tablet 1,000 unit PO DAILY SUPPLEMENT 07/18/18 [History Last Taken 12/27/22] denosumab 60 mg/mL subcutaneous syringe 60 mg subcut UD OSTEOPEROSIS 07/18/18 [History Last Taken 05/03/18] multivitamin with folic acid 400 mcg tablet 1 tab PO DAILY SUPPLEMENT 07/18/18 [History Last Taken 12/27/22] potassium chloride 10 mEq capsule,extended release 10 meq PO DAILY SUPPLEMENT 07/18/18 [History Last Taken 12/27/22] calcium carbonate 500 mg-vitamin D3 5 mcg (200 unit) tablet 1 tab PO DAILY SUPPLEMENT 07/22/18 [History Last Taken 12/27/22] oxycodone 5 mg tablet 5 mg PO Q6H PRN PAIN 3 days #12 tabs 12/23/22 [Rx Last Taken Unknown] acetaminophen 650 mg tablet,extended release (Arthritis Pain Reliever) 1,300 mg PO BID PAIN 12/27/22 [History Last Taken 12/26/22] ascorbic acid (vitamin C) 1,000 mg tablet (C-1000) 1 g PO DAILY 12/27/22 [History Last Taken 12/27/22] gabapentin 100 mg capsule 100 mg PO QHS PRN RESTLESS LEGS 12/27/22 [History Last Taken Unknown] oxycodone-acetaminophen 5 mg-325 mg tablet 1 tab PO Q6H PRN PRN Pain 3 days #12 TABLETS 12/27/22 [Rx Last Taken Unknown] vitamin B complex (B Complex-Vitamin B12 tablet) 1 tab PO DAILY SUPPLEMENT 12/27/22 [History Last Taken 12/27/22] vitamin E 400 unit tablet 45 mg PO DAILY SUPPLEMENT 12/27/22 [History Last Taken 12/27/22] Allergy/AdvReac Type Severity Reaction Status Date / Time Sulfa (Sulfonamide AdvReac Vomiting Verified 12/27/22 14:14 Antibiotics) sulfamethoxazole AdvReac Vomiting Verified 12/27/22 14:14 [From Bactrim] trimethoprim [From Bactrim] AdvReac Vomiting Verified 12/27/22 14:14 Surgical History s/p left femur surgery Social History Smoking Status: Former smoker alcohol intake: current ROS ROS ED ROS Narrative A complete review of systems was performed and is negative except as documented in the history of present illness. Some specific details below. Constitutional: No recent fevers or chills. Days. Other than the areas of pain she feels fine. EYE: No visual complaints or pain. No visual field cut. ENT: No difficulty swallowing. No swelling. No pain. To her head but states it does not hurt. CV: No chest pain or palpitations. Was mechanical and not syncopal. Respiratory: No dyspnea. No hemoptysis. No difficulty taking breaths. GI: Being drinking and moving bowels normally. : No frequency dysuria or hematuria. Incontinence or retention. Musculoskeletal: See history of present illness. Skin: No rash. Nondiaphoretic. Neuro: No weakness or numbness. Endocrine: No polyuria or polydipsia. EXAM Physical Exam Narrative Exam Narrative: Patient awake alert sitting comfortably in the bed pleasant and a very good detailed informant. HEENT shows no sign of trauma. Neck is supple and nontender. Heart is regular. Lungs are clear and saturations are normal at 94% on room air. Abdomen is soft nondistended normal bowel sounds and nontender. She does have a little bit of tenderness over the pubic bones on the left but not markedly. Back: No tenderness along the cervical thoracic or lumbar spine. She does have some tenderness on the left SI region. Extremities: No tenderness or bruising. I can rotate her hips well. Note she does have history of prior femoral clif on the left but she is not having any pain with motion or palpation there. Const Vital Signs: 12/27/22 14:10 Temperature 98.4 F Temperature Source Temporal Pulse Rate 95 Respiratory Rate 16 Blood Pressure 138/88 H Blood Pressure Mean 104 Pulse Ox 94 Oxygen Delivery Method Room Air MDM MDM MDM Narrative Medical decision making narrative: CBC is overall normal. Patient's electrolytes show no marked abnormalities. Patient's urine shows some bacteria and nitrites but she has no symptoms. This will be sent for culture but not acutely treated. My independent her potation patient's CT of the pelvis does show a left sided pubic rami fracture. Final reading was negative. We contacted radiology and they did amend the results. We attempted to walk the patient but this did not go well. Contacted the hospitalist about admission. Hospitalist talk to the patient. Because the patient has no illness that would require admission she would have to come in and is observation status. This was clarified with other people. Because she is in observation, she cannot stay for 3 midnights as an admission. Because she cannot be here for 3 midnights, she cannot get rehab covered by her Medicare. Because of this her and her have chosen to go home and manage this to the best of their ability at home. I will write for some more pain meds. They do have a wheelchair available. Lab Data Attestation: I reviewed the patient's lab results. Labs: Laboratory Results - last 24 hr 12/27/22 12/27/22 14:40 15:25 WBC 6.9 RBC 4.73 Hgb 14.3 Hct 44.3 MCV 93.7 MCH 30.2 MCHC 32.3 RDW Std Deviation 41.1 RDW Coeff of Kamla 11.8 Plt Count 239 MPV 10.9 Immature Gran % (Auto) 0.400 Neut % (Auto) 70.8 H Lymph % (Auto) 16.9 L [place] % (Auto) 9.6 Eos % (Auto) 1.7 Baso % (Auto) 0.6 Absolute Neuts (auto) 4.9 Absolute Lymphs (auto) 1.16 Nucleated RBC % 0 Sodium 136 Potassium 4.3 Chloride 104 Carbon Dioxide 28.0 Anion Gap 4 L BUN 11 Creatinine 0.67 Estim Creat Clear Calc 40.68 Est GFR (MDRD) Af Amer 109 Est GFR (MDRD) Non-Af 90 BUN/Creatinine Ratio 16.4 Glucose 96 Calcium 10.3 H Urine Color Yellow Urine Clarity Sl. Cloudy Urine pH 6.0 Ur Specific [place] 1.015 Urine Protein Negative Urine Glucose (UA) Normal Urine Ketones Negative Urine Occult Blood Negative Urine Nitrite Positive H Urine Bilirubin Negative Urine Urobilinogen Normal Ur Leukocyte Esterase 100 H Urine RBC 0 SEEN Urine WBC 0-5 SEEN Ur Squamous Epith Cells 0 SEEN Urine Bacteria 3+ Urine Mucus 0 SEEN Radiography Diagnostic Testing: Clinical Impression(s) from Imaging Studies Pelvis CT 12/27/22 14:28 IMPRESSION: No acute fracture is seen. Healed right superior and inferior pubic rami fractures. Electronically Signed: Freddie Gold MD at 15:16 EDT , ADDENDUM: 12/27/22 1542 IMPRESSION: undefined Discharge Plan Triage Chief Complaint: Back Other Complaint: Fall ED Provider: Beau Smith Dx/Rx/DC Orders Clinical Impression: Fall at home, Closed fracture of ramus of left pubis Instructions: ED Pelvic Fracture Prescriptions: New oxycodone-acetaminophen [oxycodone-acetaminophen] 5-325 mg tablet 1 tab PO Q6H PRN PRN (Reason: Pain) 3 Days Qty: 12 0RF No Action venlafaxine 150 MG capsule 150 mg PO DAILY pantoprazole 40 MG tablet 40 mg PO BID glucosamine doherty 2KCl-chondroit 1 EACH tablet 1 tab PO BID potassium chloride 10 MEQ capsule, extended release 10 meq PO DAILY denosumab 60 MG/ML syringe 60 mg subcut UD Patient Comments: PT STATES THAT THEY DECIDED TO STOP THIS INJECTION DUE TO COMPLICATIONS FROM IT. cholecalciferol (vitamin D3) 1,000 UNIT tablet 1,000 unit PO DAILY multivitamin with folic acid 1 TABLET tablet 1 tab PO DAILY calcium carbonate-vitamin D3 1 EACH tablet 1 tab PO DAILY oxycodone 5 mg tablet 5 mg PO Q6H PRN (Reason: PAIN ) 3 Days Qty: 12 0RF gabapentin 100 mg capsule 100 mg PO QHS PRN (Reason: RESTLESS LEGS) Patient Comments: PT STATES TAKES NEEDED FOR RESTLESS LEGS BUT DOESN'T TYPICALLY NEED IT. ascorbic acid (vitamin C) [C-1000] 1,000 mg tablet 1 g PO DAILY vitamin B complex [B Complex-Vitamin B12] Tablet 1 tab PO DAILY acetaminophen [Arthritis Pain Reliever] 650 mg tablet extended release 1,300 mg PO BID vitamin E 400 unit tablet 45 mg PO DAILY Primary Care Provider: TRACE SANCHEZ Referrals: TRACE SANCHEZ NP-C [Primary Care Provider] - 3-5 Days Disposition Disposition: Home, Self Care
[2022-12-27 14:55] LABS: Absolute Lymphocyte Count 1.16 X10^3/uL (0.83-4.51); Absolute Neutrophil Count 4.9 X10^3/uL (2.0-7.7); Basophil# 0.04 X10^3/uL; Basophil% 0.6 % (0-1); Eosinophil# 0.12 X10^3/uL; Eosinophils% 1.7 % (0-5); Hematocrit 44.3 % (37-47); Hemoglobin 14.3 g/dL (12.0-15.0); Lymphocyte # 1.16 X10^3/ul (0.83-4.51); Lymphocyte % 16.9 % (19-41); Mean Corp Hgb Conc 32.3 g/dL (32-36); Mean Corpuscular Hgb 30.2 pg (27.0-32.0); Mean Corpuscular Volume 93.7 fL (81-99); Mean Platelet Vol. 10.9 fl (6.2-12.0); Monocyte# 0.66 X10^3/uL; Monocyte% 9.6 % (0-10); NRBC Flagged by Analyzer 0 % (0-5); Neutrophil # 4.86 X10^3/uL (2.7-7.7); Neutrophil % 70.8 % (47-70); Platelet Count 239 K/mm3 (150-450); RBC Distribution Width CV 11.8 % (11.6-14.6); RBC Distribution Width SD 41.1 fl (35.1-43.9); Red Blood Count 4.73 M/mm3 (4.2-5.4); White Blood Count 6.9 K/mm3 (4.4-11.0)
[2022-12-27 15:08] LABS: Anion Gap 4 (5-15); BUN 11 mg/dL (7-18); BUN/Creat Ratio 16.4 RATIO (10-20); Calcium,Total 10.3 mg/dL (8.5-10.1); Chloride 104 mmol/L (98-107); Creatinine, Serum 0.67 mg/dL (0.55-1.02); EST Glomerular Filtration Rate 90 mL/min (>60); Est Glom Filt Rate - Afr Amer 109 mL/min (>60); Estimated Creatinine Clearance 40.68 ml/min; Glucose 96 mg/dL (74-106); Potassium 4.3 mmol/L (3.5-5.1); Sodium Level 136 mmol/L (136-145)
[2022-12-27 15:35] LABS: Mucous, Urine 0 SEEN /hpf (<or=2+); Red Blood Cells-Urine 0 SEEN /hpf (0-5); Squamous Epithelial Cells - UA 0 SEEN /hpf (5-10)
[2022-12-27 15:42] LABS: Color, Urine Yellow (Yellow); Glucose, Dipstick Normal (Normal); Ketone-Dipstick Negative (Negative); Leukocyte Esterase-Dipstick 100 /ul (Negative); Nitrite-Dipstick Positive (Negative); Occult Blood-Urine Negative /ul (Negative); Protein-Dipstick Negative (Negative); Specific Gravity, Urine 1.015 (1.002-1.030); Urine Bilirubin Dipstick Negative (Negative); Urine Clarity Sl. Cloudy (Clear); Urine Urobilinogen Normal (Normal)
[2022-12-27] MEDS: Morphine 4 MG/ML Syringe IV (16:00)
[2022-12-27] MEDS: Ondansetron 4 MG/2 ML Vial IV (16:00)
[2022-12-27 16:33] LABS: Bacteria 3+ /hpf (None Seen); White Blood Cells 0-5 SEEN /hpf (0-5)
--- NOTE | 2022-12-27 17:24 | ED.RN ---
pt had output of 1400 ml of urine with straight cath. pt states that she did not feel the urge to void at that time.
[2022-12-27 19:59] VITALS: BP 146/72; PULSE 91; RESP 15
== END 2022-12-27 20:00 | disposition home or self-care (01) ==
PROVIDERS: Emergency Provider Emergency Medicine; PCP Nurse Practitioner; Visit Provider Emergency Medicine
DX: S32.592A Other specified fracture of left pubis, initial encounter for closed fracture (principal); E55.9 Vitamin D deficiency, unspecified; K21.9 Gastro-esophageal reflux disease without esophagitis; F32.A Depression, unspecified; Z87.891 Personal history of nicotine dependence; Z79.899 Other long term (current) drug therapy; W19.XXXA Unspecified fall, initial encounter
CPT/HCPCS: 72192; 80048; 81001; 85025; 87077; 87086; 87088; 87186; 96374; 96375; 99285; A4216; J2405

== ENCOUNTER → 2023-02-20 | Outpatient (CLI) | payer MEDICARE, OTHER, SELFPAY ==
[2023-02-20 11:27] LABS: Absolute Lymphocyte Count 1.19 X10^3/uL (0.83-4.51); Absolute Neutrophil Count 6.6 X10^3/uL (2.0-7.7); Basophil# 0.05 X10^3/uL; Basophil% 0.6 % (0-1); Eosinophils% 2.3 % (0-5); Hematocrit 44.2 % (37-47); Hemoglobin 14.4 g/dL (12.0-15.0); Lymphocyte # 1.19 X10^3/ul (0.83-4.51); Lymphocyte % 13.6 % (19-41); Mean Corp Hgb Conc 32.6 g/dL (32-36); Mean Corpuscular Hgb 30.6 pg (27.0-32.0); Mean Platelet Vol. 10.8 fl (6.2-12.0); Monocyte# 0.69 X10^3/uL; Monocyte% 7.9 % (0-10); NRBC Flagged by Analyzer 0 % (0-5); Neutrophil % 75.5 % (47-70); Platelet Count 251 K/mm3 (150-450); RBC Distribution Width CV 12.9 % (11.6-14.6); RBC Distribution Width SD 44.5 fl (35.1-43.9); White Blood Count 8.7 K/mm3 (4.4-11.0)
[2023-02-20 11:31] LABS: Erythrocyte Sedimentation Rate 8 mm/hr (0-30)
[2023-02-20 11:59] LABS: AST(SGOT) 17 U/L (15-37); Alanine Aminotransfer ALT/SGPT 15 U/L (13-56); Albumin, Serum 3.9 g/dL (3.2-5.0); Alkaline Phosphatase 120 U/L (45-117); Anion Gap 6 (5-15); BUN 9 mg/dL (7-18); BUN/Creat Ratio 12.1 RATIO (10-20); CRP < 2.90 mg/L (0.0-3.0); Calcium,Total 9.6 mg/dL (8.5-10.1); Chloride 105 mmol/L (98-107); Creatinine, Serum 0.75 mg/dL (0.55-1.02); EST Glomerular Filtration Rate 80 mL/min (>60); Est Glom Filt Rate - Afr Amer 97 mL/min (>60); Globulin 3.8 g/dL (2.2-4.2); Glucose 103 mg/dL (74-106); Potassium 3.9 mmol/L (3.5-5.1); Protein, Total 7.7 g/dL (6.4-8.2); Sodium Level 138 mmol/L (136-145)
[2023-02-20 12:42] LABS: Hepatitis B Surface Antibody Non-Reactive; Hepatitis B Surface Antigen Non-Reactive (Nonreactive); Hepatitis C Antibody Non-Reactive (Nonreactive)
[2023-02-20 13:10] LABS: Rheumatoid Factor < 10.0 IU/mL (<15)
[2023-02-21 12:09] LABS: ANTINUCLEAR ANTIBODIES DIRECT Positive (Negative); CCP IgG Antibodies 4 units (0-19)
== END | disposition home or self-care (01) ==
LOC: LAB 11:07
PROVIDERS: PCP Nurse Practitioner; Visit Provider Internal Medicine Rheumatology
DX: M06.4 Inflammatory polyarthropathy (principal); G35 Multiple sclerosis; M19.041 Primary osteoarthritis, right hand; M18.12 Unilateral primary osteoarthritis of first carpometacarpal joint, left hand; M47.897 Other spondylosis, lumbosacral region; M81.0 Age-related osteoporosis without current pathological fracture; K22.70 Barrett's esophagus without dysplasia; G25.81 Restless legs syndrome; F32.A Depression, unspecified; K44.9 Diaphragmatic hernia without obstruction or gangrene
CPT/HCPCS: 36415; 80053; 85025; 85652; 86038; 86140; 86200; 86431; 86706; 86803; 87340

== ENCOUNTER 2023-03-09 11:15 | Outpatient (CLI) | payer MEDICARE, OTHER, SELFPAY ==
[2023-03-09 14:05] LABS: Partial Thromboplast Time 30.4 Seconds (24.1-36.2)
[2023-03-09 14:16] LABS: Phosphorus 3.6 mg/dL (2.5-4.9)
[2023-03-09 14:19] LABS: EXAGEN MAILED SPECIMEN
== END 2023-03-09 23:59 | disposition home or self-care (01) ==
LOC: LAB 11:19
PROVIDERS: PCP Nurse Practitioner; Referring Provider Internal Medicine Rheumatology; Visit Provider Internal Medicine Rheumatology
DX: M06.4 Inflammatory polyarthropathy (principal); G35 Multiple sclerosis; M19.041 Primary osteoarthritis, right hand; M18.12 Unilateral primary osteoarthritis of first carpometacarpal joint, left hand; M47.897 Other spondylosis, lumbosacral region; M81.0 Age-related osteoporosis without current pathological fracture; K22.70 Barrett's esophagus without dysplasia; G25.81 Restless legs syndrome; F32.A Depression, unspecified; K44.9 Diaphragmatic hernia without obstruction or gangrene
CPT/HCPCS: 36415; 81002; 82570; 84100; 84156; 85610; 85670; 85730

== ENCOUNTER → 2023-03-12 | Outpatient (CLI) | payer MEDICARE, OTHER, SELFPAY ==
[2023-03-12 12:51] LABS: Color, Urine Yellow (Yellow); Glucose, Dipstick Normal (Normal); Ketone-Dipstick Negative (Negative); Leukocyte Esterase-Dipstick 500 /ul (Negative); Nitrite-Dipstick Positive (Negative); Occult Blood-Urine 10 /ul (Negative); Protein, Urine (Random) 7.9 mg/dL (<11.9); Protein-Dipstick Negative (Negative); Protein:Creat Ratio 128 mg/g CRE (0-200); Specific Gravity, Urine 1.015 (1.002-1.030); Urine Bilirubin Dipstick Negative (Negative); Urine Clarity Sl. Cloudy (Clear); Urine Urobilinogen Normal (Normal)
== END | disposition home or self-care (01) ==
LOC: LABSPEC 11:10
PROVIDERS: PCP Nurse Practitioner; Referring Provider Internal Medicine Rheumatology; Visit Provider Internal Medicine Rheumatology
DX: M06.4 Inflammatory polyarthropathy (principal); G35 Multiple sclerosis; M19.041 Primary osteoarthritis, right hand; M18.12 Unilateral primary osteoarthritis of first carpometacarpal joint, left hand; M47.897 Other spondylosis, lumbosacral region; M81.0 Age-related osteoporosis without current pathological fracture; K22.70 Barrett's esophagus without dysplasia; G25.81 Restless legs syndrome; F32.A Depression, unspecified; K44.9 Diaphragmatic hernia without obstruction or gangrene
CPT/HCPCS: 81002; 82570; 84156

== ENCOUNTER → 2023-05-09 | Outpatient (CLI) | payer MEDICARE, OTHER, SELFPAY ==
[2023-05-09 12:08] LABS: PTHIN 37.8 pg/mL (18.4-80.1)
[2023-05-09 12:14] LABS: Vitamin D,25 Hydroxy 75.6 ng/mL
[2023-05-09 14:19] LABS: Color, Urine Yellow (Yellow); Glucose, Dipstick Normal (Normal); Ketone-Dipstick Negative (Negative); Leukocyte Esterase-Dipstick 100 /ul (Negative); Nitrite-Dipstick Positive (Negative); Occult Blood-Urine 10 /ul (Negative); Protein-Dipstick Negative (Negative); Urine Bilirubin Dipstick Negative (Negative); Urine Clarity Clear (Clear); Urine Urobilinogen Normal (Normal)
[2023-05-09 15:04] LABS: Calcium, Urine (Random) < 5.0 mg/dL (Not Estab.)
[2023-05-09 19:02] LABS: AST(SGOT) 26 U/L (15-37); Alanine Aminotransfer ALT/SGPT 14 U/L (13-56); Albumin, Serum 3.9 g/dL (3.2-5.0); Alkaline Phosphatase 123 U/L (45-117); Anion Gap 8 (5-15); BUN 6 mg/dL (7-18); BUN/Creat Ratio 7.4 RATIO (10-20); Calcium,Total 10.2 mg/dL (8.5-10.1); Chloride 110 mmol/L (98-107); Creatinine, Serum 0.82 mg/dL (0.55-1.02); EST Glomerular Filtration Rate 72 mL/min (>60); Est Glom Filt Rate - Afr Amer 87 mL/min (>60); Free T3 2.8 pg/mL (2.18-3.98); Globulin 3.8 g/dL (2.2-4.2); Glucose 99 mg/dL (74-106); Magnesium 1.9 mg/dL (1.6-2.6); Potassium 3.9 mmol/L (3.5-5.1); Protein, Total 7.7 g/dL (6.4-8.2); Sodium Level 138 mmol/L (136-145); T4 Free Direct 1.03 ng/dL (0.76-1.46); Thyroid Stim Hormone (TSH) 0.73 uIU/mL (0.358-3.74)
[2023-05-12 15:08] LABS: Vitamin D 1,25-Dihydroxy 55.5 pg/mL (24.8-81.5)
== END | disposition home or self-care (01) ==
PROVIDERS: PCP Nurse Practitioner; Referring Provider Internal Medicine Endocrinology, Diabetes & Metabolism; Visit Provider Internal Medicine Endocrinology, Diabetes & Metabolism
DX: E55.9 Vitamin D deficiency, unspecified (principal); G35 Multiple sclerosis; M06.4 Inflammatory polyarthropathy; M81.0 Age-related osteoporosis without current pathological fracture; N39.0 Urinary tract infection, site not specified; Z87.81 Personal history of (healed) traumatic fracture; Z79.899 Other long term (current) drug therapy
CPT/HCPCS: 80053; 81002; 82306; 82340; 82570; 82652; 83735; 83970; 84439; 84443; 84481; 87077; 87086; 87088; 87186

== ENCOUNTER 2023-08-06 12:21 | Inpatient (IN) | payer MEDICARE, OTHER, SELFPAY ==
[2023-08-06] VITALS (7 sets, daily range): BP systolic 128–196; BP diastolic 74–110; PULSE 84–92; RESP 16–18; TEMP 36.6–36.9; O2SAT 92–98; BMI 25.9; BMI 26.1
--- NOTE | 2023-08-06 12:41 | EX.ED.DYSGE1 ---
HPI <MARILEE Berumen - Last Filed: 08/06/23 14:36> History of Present Illness Chief Complaint: Fall Narrative Narrative: Patient is a 77-year-old female with history of osteoporosis, multiple sclerosis, frequent falls, depression presents the emergency department after mechanical fall. Patient is working here at the [facility] [employer] [facility]?, she lost her balance falling to her right side landing on her right hip. She states she did slightly hit her head however the most of the pain is in her right hip, right leg and she was unable to get up on her own. Patient denies being on any blood thinners. Patient is here for evaluation. [facility] <MARILEE Berumen - Last Filed: 08/06/23 14:36> [facility] Medical History (Updated 08/06/23 @ 15:09 by Samara Alberto) Anemia Anxiety Barretts esophagus Benign neoplasm of duodenum, jejunum, and ileum Cellulitis Cellulitis of left upper extremity Closed fracture of left hip requiring operative repair Depression DVT (deep venous thrombosis) Elevated blood sugar Fall Former smoker GERD (gastroesophageal reflux disease) Hiatal hernia Hypertension Multiple sclerosis Muscle spasm Neuropathic pain Osteoporosis Rib fractures Seizures Septic phlebitis of upper extremities Superficial thrombophlebitis of arm Vitamin D deficiency Vomiting Home Medications glucosamine sulf dipotassium Cl 500 mg-chondroitin sulf 400 mg tablet 1 tab PO BID SUPPLEMENT 10/21/16 [History Last Taken 12/27/22] pantoprazole 40 mg tablet,delayed release 40 mg PO BID ACID REFLUX 10/21/16 [History Last Taken 12/27/22] venlafaxine 150 mg capsule,extended release 24 hr 150 mg PO DAILY DEPRESSION 10/21/16 [History Last Taken 12/27/22] cholecalciferol (vitamin D3) 25 mcg (1,000 unit) tablet 1,000 unit PO DAILY SUPPLEMENT 07/18/18 [History Last Taken 12/27/22] multivitamin with folic acid 400 mcg tablet 1 tab PO DAILY SUPPLEMENT 07/18/18 [History Last Taken 12/27/22] potassium chloride 10 mEq capsule,extended release 10 meq PO DAILY SUPPLEMENT 07/18/18 [History Last Taken 12/27/22] calcium carbonate 500 mg-vitamin D3 5 mcg (200 unit) tablet 1 tab PO DAILY SUPPLEMENT 07/22/18 [History Last Taken 12/27/22] acetaminophen 650 mg tablet,extended release (Arthritis Pain Reliever) 1,300 mg PO BID PAIN 12/27/22 [History Last Taken 12/26/22] ascorbic acid (vitamin C) 1,000 mg tablet (C-1000) 1 g PO DAILY 12/27/22 [History Last Taken 12/27/22] gabapentin 100 mg capsule 100 mg PO QHS PRN RESTLESS LEGS 12/27/22 [History Last Taken Unknown] Allergy/AdvReac Type Severity Reaction Status Date / Time Sulfa (Sulfonamide AdvReac Vomiting Verified 08/06/23 12:28 Antibiotics) sulfamethoxazole AdvReac Vomiting Verified 08/06/23 12:28 [From Bactrim] trimethoprim [From Bactrim] AdvReac Vomiting Verified 08/06/23 12:28 Surgical History s/p left femur surgery Social History Smoking Status: Former smoker alcohol intake: current ROS <MARILEE Berumen - Last Filed: 08/06/23 14:36> ROS ED ROS Narrative Constitutional: Negative for fever, chills, weight loss, weakness Eyes: Negative for vision loss, vision change, double vision ENT: Negative for any sore throat, ear pain, congestion Cardiovascular: Negative for any chest pain, tightness, palpitations Respiratory: Negative for any cough, sputum production, hemoptysis, dyspnea, dyspnea on exertion, orthopnea Gastrointestinal: Negative for any abdominal pain, nausea, vomiting, diarrhea, constipation, blood in stool, blood in vomit : Negative for any urinary frequency, dysuria, retention, blood in urine Muscle skeletal: Negative for any neck pain, back pain. Positive for right hip, right femur pain Neurological: Negative for any headache, syncope, dizziness Skin: Negative for any rashes, itching, abrasions, lacerations Psychiatric: Negative for any depression, anxiety, stress, suicidal ideation, homicidal ideation Hematologic: Negative for any excessive bruising, easy bleeding EXAM <MARILEE Berumen - Last Filed: 08/06/23 14:36> Physical Exam Narrative Exam Narrative: Vital signs reviewed. HEET: Head normocephalic atraumatic, TMs clear bilaterally. Posterior pharynx is clear, moist mucous membranes. Nares clear bilaterally. Pupils are equal round reactive to light. Negative for any hemotympanum, septal hematoma. Neck: Supple with no lymphadenopathy or tenderness. No signs of meningismus. Cardiac: Regular rate and rhythm no murmurs gallops or rubs, equal peripheral pulses bilaterally. Respiratory: Lungs clear to auscultation bilaterally. No chest tenderness. Abdomen: Soft, nontender, nondistended. No abdominal bruit or pulsatile masses. No hepatosplenomegaly Extremities: No peripheral edema, patient's right leg does have some shortening, rotation. Positive logroll test. Patient does have +2 pedal pulse. Patient is unable to move and anytime movement does happen it hurts into the mid femur as well as to the right groin. Neuro: Cranial nerves II through XII intact, no focal neurological deficits. Skin: Clean dry and intact with no rash, purpura, petechiae, vesicles or pustules. Backs/flank: No CVA tenderness, no midline spinal tenderness, no deformity. Psych: Normal mood and affect. No SI, HI or acute psychosis. Const Vital Signs: 08/06/23 12:22 08/06/23 12:28 Temperature 98.4 F Temperature Source Oral Pulse Rate 84 Respiratory Rate 16 Respiratory Effort Normal Non-Labored Respiratory Depth Normal Respiratory Pattern Normal Blood Pressure 196/106 H Blood Pressure Mean 136 Pulse Ox 97 97 Oxygen Delivery Method Room Air Room Air <Dr. Pascual Vasquez DO - Last Filed: 08/06/23 15:16> Physical Exam Const Vital Signs: 08/06/23 12:22 08/06/23 12:28 Temperature 98.4 F Temperature Source Oral Pulse Rate 84 Respiratory Rate 16 Respiratory Effort Normal Non-Labored Respiratory Depth Normal Respiratory Pattern Normal Blood Pressure 196/106 H Blood Pressure Mean 136 Pulse Ox 97 97 Oxygen Delivery Method Room Air Room Air [facility] <MARILEE Berumen - Last Filed: 08/06/23 14:36> [facility] Lab Data Labs: Laboratory Results - last 24 hr 08/06/23 08/06/23 08/06/23 13:10 13:10 14:00 WBC Cancelled 8.3 Corrected WBC Cancelled RBC Cancelled 4.64 Hgb Cancelled 13.4 Hct Cancelled 42.8 MCV Cancelled 92.2 MCH Cancelled 28.9 MCHC Cancelled 31.3 L RDW Std Deviation Cancelled 43.4 RDW Coeff of Kamla Cancelled 12.9 Plt Count Cancelled 222 MPV Cancelled 11.2 Immature Gran % (Auto) Cancelled 0.500 Neut % (Auto) Cancelled 81.6 H Lymph % (Auto) Cancelled 10.2 L [place] % (Auto) Cancelled 5.9 Eos % (Auto) Cancelled 1.2 Baso % (Auto) Cancelled 0.6 Absolute Neuts (auto) Cancelled 6.7 Absolute Lymphs (auto) Cancelled 0.84 Total Counted Cancelled Neutrophils % (Manual) Cancelled Band Neutrophils % Cancelled Lymphocytes % (Manual) Cancelled Monocytes % (Manual) Cancelled Eosinophils % (Manual) Cancelled Basophils % (Manual) Cancelled Metamyelocytes % Cancelled Myelocytes % Cancelled Promyelocytes % Cancelled Blast Cells % Cancelled Plasma Cell % (Manual) Cancelled Other Cells % Cancelled Nucleated RBC % Cancelled 0 Nucleated RBCs/100 WBC Cancelled Differential Comment Cancelled Diff Path Review Cancelled Hypersegmented Neuts Cancelled Atypical Lymphocytes Cancelled Reactive Lymphocytes Cancelled Smudge Cells Cancelled Toxic Granulation Cancelled Toxic Vacuolation Cancelled Dohle Bodies Cancelled Vanessa Rods Cancelled Platelet Estimate Cancelled Plt Morphology Comment Cancelled RBC Morphology Cancelled Cancelled Polychromasia Cancelled Hypochromasia Cancelled Basophilic Stippling Cancelled Anisocytosis Cancelled Microcytosis Cancelled Macrocytosis Cancelled Spherocytes Cancelled Sickle Cells Cancelled Target Cells Cancelled Tear Drop Cells Cancelled Ovalocytes Cancelled Stomatocytes Cancelled Cuevas-Nambe Bodies Cancelled Rashawn Cells Cancelled Bite Cells Cancelled Crenated Cell Cancelled Acanthocytes (Spur) Cancelled Rouleaux Cancelled Schistocytes Cancelled PT 13.9 INR 1.1 Sodium 139 Potassium 3.6 Chloride 110 H Carbon Dioxide 24.0 Anion Gap 5 BUN 9 Creatinine 0.65 Estim Creat Clear Calc 56.02 Est GFR (MDRD) Af Amer 113 Est GFR (MDRD) Non-Af 93 BUN/Creatinine Ratio 13.8 Glucose 124 H Calcium 9.5 Radiography Diagnostic Testing: Clinical Impression(s) from Imaging Studies Femur X-Ray 08/06/23 13:30 IMPRESSION: Nondisplaced comminuted right intertrochanteric fracture with cephalic migration of the distal fracture fragment. Soft tissue swelling. Electronically Signed: Freddie Gold MD at 13:56 EDT , Pelvis X-Ray 08/06/23 13:30 IMPRESSION: Acute comminuted nondisplaced fracture of the intertrochanteric region of the right femur with cephalic migration of the distal fracture fragments. Electronically Signed: Freddie Gold MD at 13:54 EDT , Chest X-Ray 08/06/23 13:44 IMPRESSION: Mild degree of increased markings at the lung bases suggesting mild scarring. Scattered calcified granulomatous disease. Small hiatal hernia. Electronically Signed: Freddie Gold MD at 13:55 EDT , Treatment and Re-Evaluation :: Differential diagnosis includes however is not limited to: Pelvic fracture, hip fracture, femur fracture, hematoma, bone bruise, concussion Patient appears to be in no obvious respiratory distress, patient's vital signs are stable. Patient presents to the emergency department with complaints of pain to the right hip, right leg. Physical examination is concerning for a hip fracture, pelvic fracture or femur fracture. Patient has higher risk secondary to osteoporosis. Patient is prone to fall secondary to her multiple sclerosis. Patient received x-rays of the right hip, this will include the pelvis as well as the femur secondary to her osteoporosis. Patient be given IV fluids Zofran and morphine. Patient's patient reevaluation was feeling better after pain medicine. Patient's x-rays of the pelvis does show acute comminuted nondisplaced fracture of the intertrochanteric region of the right femur with cephalic migration of the distal fracture fragments. Secondary to this fracture, I did reach out to Dr. Ortega from orthopedics, he states that surgery be likely tomorrow. I will admit to the hospitalist. I did order basic laboratory values as well. Patient was made aware and will follow up and will be admitted to the hospital. Patient's x-ray of the femur shows nondisplaced comminuted right intertrochanteric fracture. Chest x-ray shows some lung markings however no acute process. I spoke with Dr. Ortega, patient will be admitted to medicine. Spoke with hospitalist. I spoke with the patient as well as the patient's family, all in agreement. Chemistries were unremarkable. PT/INR was unremarkable. Patient is stable for discharge. <Dr. Pascual Vasquez, DO - Last Filed: 08/06/23 15:16> [facility] Narrative Medical decision making narrative: Differential diagnosis includes however is not limited to: Pelvic fracture, hip fracture, femur fracture, hematoma, bone bruise, concussion Patient appears to be in no obvious respiratory distress, patient's vital signs are stable. Patient presents to the emergency department with complaints of pain to the right hip, right leg. Physical examination is concerning for a hip fracture, pelvic fracture or femur fracture. Patient has higher risk secondary to osteoporosis. Patient is prone to fall secondary to her multiple sclerosis. Patient received x-rays of the right hip, this will include the pelvis as well as the femur secondary to her osteoporosis. Patient be given IV fluids Zofran and morphine. Patient's patient reevaluation was feeling better after pain medicine. Patient's x-rays of the pelvis does show acute comminuted nondisplaced fracture of the intertrochanteric region of the right femur with cephalic migration of the distal fracture fragments. Secondary to this fracture, I did reach out to Dr. Ortega from orthopedics, he states that surgery be likely tomorrow. I will admit to the hospitalist. I did order basic laboratory values as well. Patient was made aware and will follow up and will be admitted to the hospital. Patient's x-ray of the femur shows nondisplaced comminuted right intertrochanteric fracture. Chest x-ray shows some lung markings however no acute process. I spoke with Dr. Ortega, patient will be admitted to medicine. Spoke with hospitalist. I spoke with the patient as well as the patient's family, all in agreement. Chemistries were unremarkable. PT/INR was unremarkable. This patient was seen with a PA/CHAIR FRAME BUILDER Individually assessed they patient including history and physical. I have reviewed everything on the chart that is available and agree with the documentation provided by the PA/CHAIR FRAME BU[employer]DER including discussion about the assessment, treatment plan, discussion, and return precautions. Patient presenting after fall. 25. X-rays of the right hip show nondisplaced intertrochanteric fracture on my interpretation. Radiology interprets this and agrees. Due to this basic lab work was obtained and is unremarkable. Chest x-ray obtained on my interpretation shows no acute process. Case was discussed with orthopedics and patient will be admitted to the hospital for hip fracture and surgical repair. Lab Data Attestation: I reviewed the patient's lab results. Labs: Laboratory Results - last 24 hr 08/06/23 08/06/23 08/06/23 13:10 13:10 14:00 WBC Cancelled 8.3 Corrected WBC Cancelled RBC Cancelled 4.64 Hgb Cancelled 13.4 Hct Cancelled 42.8 MCV Cancelled 92.2 MCH Cancelled 28.9 MCHC Cancelled 31.3 L RDW Std Deviation Cancelled 43.4 RDW Coeff of Kamla Cancelled 12.9 Plt Count Cancelled 222 MPV Cancelled 11.2 Immature Gran % (Auto) Cancelled 0.500 Neut % (Auto) Cancelled 81.6 H Lymph % (Auto) Cancelled 10.2 L [place] % (Auto) Cancelled 5.9 Eos % (Auto) Cancelled 1.2 Baso % (Auto) Cancelled 0.6 Absolute Neuts (auto) Cancelled 6.7 Absolute Lymphs (auto) Cancelled 0.84 Total Counted Cancelled Neutrophils % (Manual) Cancelled Band Neutrophils % Cancelled Lymphocytes % (Manual) Cancelled Monocytes % (Manual) Cancelled Eosinophils % (Manual) Cancelled Basophils % (Manual) Cancelled Metamyelocytes % Cancelled Myelocytes % Cancelled Promyelocytes % Cancelled Blast Cells % Cancelled Plasma Cell % (Manual) Cancelled Other Cells % Cancelled Nucleated RBC % Cancelled 0 Nucleated RBCs/100 WBC Cancelled Differential Comment Cancelled Diff Path Review Cancelled Hypersegmented Neuts Cancelled Atypical Lymphocytes Cancelled Reactive Lymphocytes Cancelled Smudge Cells Cancelled Toxic Granulation Cancelled Toxic Vacuolation Cancelled Dohle Bodies Cancelled Vanessa Rods Cancelled Platelet Estimate Cancelled Plt Morphology Comment Cancelled RBC Morphology Cancelled Cancelled Polychromasia Cancelled Hypochromasia Cancelled Basophilic Stippling Cancelled Anisocytosis Cancelled Microcytosis Cancelled Macrocytosis Cancelled Spherocytes Cancelled Sickle Cells Cancelled Target Cells Cancelled Tear Drop Cells Cancelled Ovalocytes Cancelled Stomatocytes Cancelled Cuevas-Nambe Bodies Cancelled [place] Cells Cancelled Bite Cells Cancelled Crenated Cell Cancelled Acanthocytes (Spur) Cancelled Rouleaux Cancelled Schistocytes Cancelled PT 13.9 INR 1.1 Sodium 139 Potassium 3.6 Chloride 110 H Carbon Dioxide 24.0 Anion Gap 5 BUN 9 Creatinine 0.65 Estim Creat Clear Calc 56.02 Est GFR (MDRD) Af Amer 113 Est GFR (MDRD) Non-Af 93 BUN/Creatinine Ratio 13.8 Glucose 124 H Calcium 9.5 Radiography Diagnostic Testing: Clinical Impression(s) from Imaging Studies Femur X-Ray 08/06/23 13:30 IMPRESSION: Nondisplaced comminuted right intertrochanteric fracture with cephalic migration of the distal fracture fragment. Soft tissue swelling. Electronically Signed: rFeddie Gold MD at 13:56 EDT , Pelvis X-Ray 08/06/23 13:30 IMPRESSION: Acute comminuted nondisplaced fracture of the intertrochanteric region of the right femur with cephalic migration of the distal fracture fragments. Electronically Signed: Freddie Gold MD at 13:54 EDT , Chest X-Ray 08/06/23 13:44 IMPRESSION: Mild degree of increased markings at the lung bases suggesting mild scarring. Scattered calcified granulomatous disease. Small hiatal hernia. Electronically Signed: Freddie Gold MD at 13:55 EDT , Discharge Plan Dx/Rx/DC Orders Clinical Impression: Closed intertrochanteric fracture, History of multiple sclerosis, History of osteoporosis, Fall Disposition Disposition: Acute Care Hospital [facility] Discharge Date/Time: 08/06/23 15:12
[2023-08-06] MEDS: 0.9% Normal Saline (1000mL) 1,000 ML 125 ML IV ×2 (13:19→23:44)
[2023-08-06] MEDS: Ondansetron 4 MG/2 ML Vial IV (13:19)
[2023-08-06] MEDS: Morphine 4 MG/ML Syringe IV ×2 (13:19→15:31)
--- NOTE | 2023-08-06 13:30 | RAD_ITS ---
STUDY: X-RAY - RIGHT FEMUR REASON FOR STUDY: Female, 77 years old. Fall TECHNIQUE: 4 view(s) of the femur. COMPARISON: None. FINDINGS: Nondisplaced comminuted right intertrochanteric fracture with cephalic migration of the distal fracture fragment. Soft tissue swelling. RAD/Femur Min 2 Views IMPRESSION: Nondisplaced comminuted right intertrochanteric fracture with cephalic migration of the distal fracture fragment. Soft tissue swelling. Electronically Signed: Freddie Gold MD at 13:56 EDT ,
--- NOTE | 2023-08-06 13:30 | RAD_ITS ---
STUDY: X-RAY - PELVIS REASON FOR EXAM: Female, 77 years old. Pain following a fall. TECHNIQUE: One view of the pelvis was obtained. COMPARISON: Comparison is made with prior study dated December 22, 2022. FINDINGS: There is a non-specific bowel gas pattern. Normal visualized soft tissue structures. There is narrowing with cortical sclerosis and osteophyte formation of the sacroiliac joint consistent with degenerative osteoarthritic changes. Healed right superior and inferior pubic rami fractures. There are degenerative changes of the pubic symphysis with articular narrowing and sclerosis. Normal ischial tuberosities. There is evidence of a comminuted nondisplaced right intertrochanteric fracture with a cephalic migration of the distal fracture fragment. Prior ORIF of the left intertrochanteric fracture. RAD/Pelvis 1 or 2 Views IMPRESSION: Acute comminuted nondisplaced fracture of the intertrochanteric region of the right femur with cephalic migration of the distal fracture fragments. Electronically Signed: Freddie Gold MD at 13:54 EDT ,
--- NOTE | 2023-08-06 13:44 | RAD_ITS ---
STUDY: X-RAY CHEST REASON FOR EXAM: Female, 77 years old. HIP FX, PRE OP TECHNIQUE: Single AP portable view of the chest. COMPARISON: Comparison is made with prior study dated October 27, 2016. FINDINGS: EKG electrodes are seen. Scattered calcified granulomas. Stable mild increased linear markings at the lung bases suggest some mild bibasilar scarring. There is no demonstrated pleural abnormality. Normal size heart. Normal mediastinum and marcus. Normal visualized pulmonary arteries. There is atherosclerotic calcification of the aortic arch with tortuosity. There are diffuse degenerative changes of the visualized thoracic spine. There is degenerative osteoarthritis of the bilateral shoulders. Small hiatal hernia. RAD/Chest 1 View IMPRESSION: Mild degree of increased markings at the lung bases suggesting mild scarring. Scattered calcified granulomatous disease. Small hiatal hernia. Electronically Signed: Freddie Gold MD at 13:55 EDT ,
--- NOTE | 2023-08-06 13:56 | HP.PCM_ITS ---
HPI - General General Date of Admission: 08/06/23 Date of Service: 08/06/23 Chief Complaint: mechanical fall HPI Narrative TIAN FRANCISCO, is a 77 F with a PMH as outlined who presents via the ED on 08/06/2023 with a complaint of mechanical fall. She was working at the [employer] at [facility] and lost her balance, falling on her right side. She landed on her right hip. She subsequently had pain in her right hip and right leg and was unable to weight-bear on the affected leg. She does have a history of left hip replacement due to osteoporosis. Pain is well-controlled at time of review. She denied any fever or chills, palpitations, nausea vomiting or any other symptoms. Review of systems otherwise negative. Vitals in the ED with temperature of 98.4 Fahrenheit, pulse rate of 84 and blood pressure 196/106 with respirate rate of 16. She was saturating at 97% on room air. EKG showed normal sinus rhythm with no acute ST changes and evidence of left ventricular hypertrophy. Chest x-ray showed mild degree of increased markings at the lung base suggesting mild scarring and scattered calcified granulomatous disease with a small hiatal hernia. Pelvic x-ray showed an acute comminuted nondisplaced fracture of the intertrochanteric region of the right femur with cephalad migration of the distal fracture fragments. She has been a dmitted to be managed for debility due to right comminuted femoral fracture as a result of mechanical fall. [facility] Medical History (Updated 08/06/23 @ 16:[address] Derek Ortega, DO) Anemia Anxiety Barretts esophagus Benign neoplasm of duodenum, jejunum, and ileum Cellulitis Cellulitis of left upper extremity Closed fracture of left hip requiring operative repair Depression DVT (deep venous thrombosis) Elevated blood sugar Fall Former smoker GERD (gastroesophageal reflux disease) Hiatal hernia Hypertension Multiple sclerosis Muscle spasm Neuropathic pain Osteoporosis Rib fractures Seizures Septic phlebitis of upper extremities Superficial thrombophlebitis of arm Vitamin D deficiency Vomiting Home Medications glucosamine sulf dipotassium Cl 500 mg-chondroitin sulf 400 mg tablet 1 tab PO BID SUPPLEMENT 10/21/16 [History Last Taken 12/27/22] pantoprazole 40 mg tablet,delayed release 40 mg PO BID ACID REFLUX 10/21/16 [History Last Taken 12/27/22] venlafaxine 150 mg capsule,extended release 24 hr 150 mg PO DAILY DEPRESSION 10/21/16 [History Last Taken 12/27/22] cholecalciferol (vitamin D3) 25 mcg (1,000 unit) tablet 1,000 unit PO DAILY SUPPLEMENT 07/18/18 [History Last Taken 12/27/22] multivitamin with folic acid 400 mcg tablet 1 tab PO DAILY SUPPLEMENT 07/18/18 [History Last Taken 12/27/22] potassium chloride 10 mEq capsule,extended release 10 meq PO DAILY SUPPLEMENT 07/18/18 [History Last Taken 12/27/22] calcium carbonate 500 mg-vitamin D3 5 mcg (200 unit) tablet 1 tab PO DAILY SUPPLEMENT 07/22/18 [History Last Taken 12/27/22] acetaminophen 650 mg tablet,extended release (Arthritis Pain Reliever) 1,300 mg PO BID PAIN 12/27/22 [History Last Taken 12/26/22] ascorbic acid (vitamin C) 1,000 mg tablet (C-1000) 1 g PO DAILY supplement 12/27/22 [History Last Taken 12/27/22] gabapentin 100 mg capsule 100 mg PO QHS PRN RESTLESS LEGS 12/27/22 [History Last Taken Unknown] Allergy/AdvReac Type Severity Reaction Status Date / Time Sulfa (Sulfonamide AdvReac Vomiting Verified 08/06/23 12:28 Antibiotics) sulfamethoxazole AdvReac Vomiting Verified 08/06/23 12:28 [From Bactrim] trimethoprim [From Bactrim] AdvReac Vomiting Verified 08/06/23 12:28 Surgical History s/p left femur surgery Social History Smoking Status: Former smoker alcohol intake: current Vital Signs Vital Signs Vital Signs: 08/06/23 12:22 08/06/23 12:28 Temperature 98.4 F Temperature Source Oral Pulse Rate 84 Respiratory Rate 16 Respiratory Effort Normal Non-Labored Respiratory Depth Normal Respiratory Pattern Normal Blood Pressure 196/106 H Blood Pressure Mean 136 Pulse Ox 97 97 Oxygen Delivery Method Room Air Room Air Weight Weight: 151 lb 3.794 oz Body Mass Index (BMI) 25.9 Physical Exam Const alert, oriented x3, no apparent distress and well nourished General Appearance: cooperative and well developed HEENT normocephalic, head/scalp atraumatic, moist oral mucous membranes and oropharynx normal Eyes PERRL and EOMs intact bilaterally Neck no lymphadenopathy and supple Lymph Lymphatic: no lymphadenopathy noted and no lymphedema noted Resp normal respiratory effort, normal air movement and clear to auscultation bila terally Cardio regular rate, regular rhythm, S1 normal heart sound, S2 normal heart sound and no murmurs GI normal to inspection, nondistended, normoactive bowel sounds, soft to palpation, non-tender and non-distended Extremity Extremity Narrative: Right lower extremity shortened and externally rotated. Skin General Skin Exam: no breakdown Neuro CN's II-XII intact bilaterally, no focal motor deficits, no sensory deficits noted and deep tendon reflexes 2+ bilaterally Motor Exam: general weakness Psych thought process normal, cooperative and affect normal Appearance: appropriate Results Lab / Micro Data 08/06/23 14:00 08/06/23 17:11 Labs: Laboratory Results - last 24 hr 08/06/23 13:10: WBC Cancelled, Corrected WBC Cancelled, RBC Cancelled, Hgb Cancelled, Hct Cancelled, MCV Cancelled, MCH Cancelled, MCHC Cancelled, RDW Std Deviation Cancelled, RDW Coeff of Kamla Cancelled, Plt Count Cancelled, MPV Cancelled, Immature Gran % (Auto) Cancelled, Neut % (Auto) Cancelled, Lymph % (Auto) Cancelled, [place] % (Auto) Cancelled, Eos % (Auto) Cancelled, Baso % (Auto) Cancelled, Absolute Neuts (auto) Cancelled, Absolute Lymphs (auto) Cancelled, Total Counted Cancelled, Neutrophils % (Manual) Cancelled, Band Neutrophils % Cancelled, Lymphocytes % (Manual) Cancelled, Monocytes % (Manual) Cancelled, Eosinophils % (Manual) Cancelled, Basophils % (Manual) Cancelled, Metamyelocytes % Cancelled, Myelocytes % Cancelled, Promyelocytes % Cancelled, Blast Cells % Cancelled, Plasma Cell % (Manual) Cancelled, Other Cells % Cancelled, Nucleated RBC % Cancelled, Nucleated RBCs/100 WBC Cancelled, Differential Comment Cancelled, Diff Path Review Cancelled, Hypersegmented Neuts Cancelled, Atypical Lymphocytes Cancelled, Reactive Lymphocytes Cancelled, Smudge Cells Cancelled, Toxic Granulation Cancelled, Toxic Vacuolation Cancelled, Dohle Bodies Cancelled, Vanessa Rods Cancelled, Platelet Estimate Cancelled, Plt Morphology Comment Cancelled, RBC Morphology Cancelled 08/06/23 13:10: RBC Morphology Cancelled, Polychromasia Cancelled, Hypochromasia Cancelled, Basophilic Stippling Cancelled, Anisocytosis Cancelled, Microcytosis Cancelled, Macrocytosis Cancelled, Spherocytes Cancelled, Sickle Cells Cancelled, Target Cells Cancelled, Tear Drop Cells Cancelled, Ovalocytes Cancelled, Stomatocytes Cancelled, [place]ue[place] Bodies Cancelled, [place] Cells Cancelled, Bite Cells Cancelled, Crenated Cell Cancelled, Acanthocytes (Spur) Cancelled, Rouleaux Cancelled, Schistocytes Cancelled Imaging Radiology Impression Pelvis X-Ray 08/06/23 13:30 IMPRESSION: Acute comminuted nondisplaced fracture of the intertrochanteric region of the right femur with cephalic migration of the distal fracture fragments. Electronically Signed: Freddie Gold MD at 13:54 EDT , Chest X-Ray 08/06/23 13:44 IMPRESSION: Mild degree of increased markings at the lung bases suggesting mild scarring. Scattered calcified granulomatous disease. Small hiatal hernia. Electronically Signed: Freddie Gold MD at 13:55 EDT , Assessment & Plan Assessment/Plan (1) Closed intertrochanteric fracture: (2) Fall: PLAN: Plan #Right comminuted intertrochanteric fracture due ot mechanical fall * admit to med surg * had a mechanical fall today and landed on her right hip> was unable to weight bear * Imaging showed a right comminuted intrtrochanteric fracture * consult orthopedic surgery * PO tylenol, PO oxycodone nad IV morphine prn for pain * hydrate gently with iVF NS @ 125cc/hr x 2 bags * keep NPO past midnight * fall precautions * NSQP score:she is at below average risk for serious complication (8/15), any complication (9/4%) and cardiac comlication (1%) * EKG showed no acute ST changes. * #Debility due to mechanical fall: as above # Elevated blood pressure: Blood pressure was in the 190s systolic. Likely due to pain. IV hydralazine as needed. #History of osteoporosis: Has already had her left hip replaced previously. But due to suboptimal subcu shots #Depression: On venlafaxine DVT prophylaxis: Lovenox CODE STATUS: Full code * Patient and counseled extensively about different types of CODE STATUS including full code, DNR CCA and DNR CCA. Patient elects to be full code. * Total [id number] time 16 minutes. Charges/Coding Visit Charges Inpatient E&M: 22384 Init Hosp L3 Procedures Hospitalists Procedures: 90904 Advncd Care Plan 30 Min
[2023-08-06 14:14] LABS: Absolute Lymphocyte Count 0.84 X10^3/uL (0.83-4.51); Absolute Neutrophil Count 6.7 X10^3/uL (2.0-7.7); Basophil# 0.05 X10^3/uL; Basophil% 0.6 % (0-1); Eosinophils% 1.2 % (0-5); Hematocrit 42.8 % (37-47); Hemoglobin 13.4 g/dL (12.0-15.0); Lymphocyte # 0.84 X10^3/ul (0.83-4.51); Lymphocyte % 10.2 % (19-41); Mean Corp Hgb Conc 31.3 g/dL (32-36); Mean Corpuscular Hgb 28.9 pg (27.0-32.0); Mean Corpuscular Volume 92.2 fL (81-99); Mean Platelet Vol. 11.2 fl (6.2-12.0); Monocyte# 0.49 X10^3/uL; Monocyte% 5.9 % (0-10); NRBC Flagged by Analyzer 0 % (0-5); Neutrophil # 6.73 X10^3/uL (2.7-7.7); Neutrophil % 81.6 % (47-70); Platelet Count 222 K/mm3 (150-450); RBC Distribution Width CV 12.9 % (11.6-14.6); RBC Distribution Width SD 43.4 fl (35.1-43.9); Red Blood Count 4.64 M/mm3 (4.2-5.4); White Blood Count 8.3 K/mm3 (4.4-11.0)
[2023-08-06 14:31] LABS: Anion Gap 5 (5-15); BUN 9 mg/dL (7-18); BUN/Creat Ratio 13.8 RATIO (10-20); Calcium,Total 9.5 mg/dL (8.5-10.1); Chloride 110 mmol/L (98-107); Creatinine, Serum 0.65 mg/dL (0.55-1.02); EST Glomerular Filtration Rate 93 mL/min (>60); Est Glom Filt Rate - Afr Amer 113 mL/min (>60); Estimated Creatinine Clearance 56.02 ml/min; Glucose 124 mg/dL (74-106); International Normalized Ratio 1.1; Potassium 3.6 mmol/L (3.5-5.1); Prothrombin Time (Protime)PT. 13.9 SECONDS (11.7-14.9); Sodium Level 139 mmol/L (136-145)
[2023-08-06] MEDS: 0.9% Saline Lock 10 ML Syringe IV (15:30)
[2023-08-06] MEDS: cloNIDine HCl 0.1 MG Tablet PO (15:30)
--- NOTE | 2023-08-06 15:47 | CHAPLAIN ---
Type of Pastoral Visit _x__ Initial Visit ___ Follow-up Visit ___ On-call Visit ___ General Patient Visit ___ Spiritual Assessment ___ Family Conference ___ Bereavement ___ Rapid Response ___ Code Blue ___ Other (describe below) Pastoral Care Referral From _x__ Patient ___ Family ___ Nurse ___ Physician ___ Flight Surgeon ___ Ambulatory Care Coordinator ___ Other (describe below) Sacrament/Intervention _x__ Active listening ___ Anointing ___ Orthodox ___ Bereavement ___ Communion ___ Mei exploration ___ ___ Life review ___ Prayer ___ Reconciliation ___ Sacrament of Sick _x__ Supportive presence ___ Wedding ___ Other (describe below) Pastoral Comments 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
--- NOTE | 2023-08-06 16:01 | CT_ITS ---
STUDY: CT BRAIN WITHOUT CONTRAST REASON FOR EXAM: Female, 77 years old. mechanical fall RADIATION DOSAGE (If Supplied By Facility): CTDIvol = ( 44.99 ) mGy, DLP = ( 796.11 ) mGycm TECHNIQUE: Transaxial CT imaging of the brain was performed without administration of intravenous contrast material. Individualized dose optimization techniques were used for this CT. COMPARISON: No relevant priors. FINDINGS: Normal soft tissue structures. Normal calvarium. Normal size ventricles and extra-axial spaces for the patient''s age. There are areas of decreased attenuation within the white matter tracts of the supratentorial brain, consistent with microvascular disease changes. There are small punctate calcifications of the basal ganglia which are seen in the aging brain as a normal variant. Normal brainstem. Normal cerebellum. There is no intracranial hemorrhage. There are no findings of an acute ischemic infarction. Normal visualized paranasal sinuses. CT/Brain/Head without Contrast IMPRESSION: Chronic involutional changes of the brain. No acute abnormalities. Electronically Signed: Moi Kline MD at 16:36 EDT ,
--- NOTE | 2023-08-06 16:40 | CON.PCM.OR_ITS ---
HPI Consult Data Date of Consult: 08/06/23 HPI Narrative Reason for Consultation: Right intertrochanteric hip fracture HPI Narrative: TIAN FRANCISCO, is a 77 F who works at the [employer]? at [employer]. She was working earlier today lost her balance and fell onto her right side. She believes she hit her head. She denies any LOC, syncopal or presyncopal symptoms. Of note, of her multiple comorbidities, patient has a history of osteoporosis and multiple sclerosis. Patient uses a front wheel walker due to her balance issues. She was brought to the emergency department where x-rays revealed a displaced right intertrochanteric femur fracture. She was admitted under the service to hospitalist. I saw patient in consultation. At time my examination, patient denies any fevers, chills, nausea vomiting, chest pain or shortness of breath. She denies any antecedent right hip or groin pain. [facility] Medical History (Updated 08/06/23 @ 16:[address] Derek Ortega, ) Anemia Anxiety Barretts esophagus Benign neoplasm of duodenum, jejunum, and ileum Cellulitis Cellulitis of left upper extremity Closed fracture of left hip requiring operative repair Depression DVT (deep venous thrombosis) Elevated blood sugar Fall Former smoker GERD (gastroesophageal reflux disease) Hiatal hernia Hypertension Multiple sclerosis Muscle spasm Neuropathic pain Osteoporosis Rib fractures Seizures Septic phlebitis of upper extremities Superficial thrombophlebitis of arm Vitamin D deficiency Vomiting Home Medications glucosamine sulf dipotassium Cl 500 mg-chondroitin sulf 400 mg tablet 1 tab PO BID SUPPLEMENT 10/21/16 [History Last Taken 12/27/22] pantoprazole 40 mg tablet,delayed release 40 mg PO BID ACID REFLUX 10/21/16 [History Last Taken 12/27/22] venlafaxine 150 mg capsule,extended release 24 hr 150 mg PO DAILY DEPRESSION 10/21/16 [History Last Taken 12/27/22] cholecalciferol (vitamin D3) 25 mcg (1,000 unit) tablet 1,000 unit PO DAILY SUPPLEMENT 07/18/18 [History Last Taken 12/27/22] multivitamin with folic acid 400 mcg tablet 1 tab PO DAILY SUPPLEMENT 07/18/18 [History Last Taken 12/27/22] potassium chloride 10 mEq capsule,extended release 10 meq PO DAILY SUPPLEMENT 07/18/18 [History Last Taken 12/27/22] calcium carbonate 500 mg-vitamin D3 5 mcg (200 unit) tablet 1 tab PO DAILY SUPPLEMENT 07/22/18 [History Last Taken 12/27/22] acetaminophen 650 mg tablet,extended release (Arthritis Pain Reliever) 1,300 mg PO BID PAIN 12/27/22 [History Last Taken 12/26/22] ascorbic acid (vitamin C) 1,000 mg tablet (C-1000) 1 g PO DAILY supplement 12/27/22 [History Last Taken 12/27/22] gabapentin 100 mg capsule 100 mg PO QHS PRN RESTLESS LEGS 12/27/22 [History Last Taken Unknown] Allergy/AdvReac Type Severity Reaction Status Date / Time Sulfa (Sulfonamide AdvReac Vomiting Verified 08/06/23 12:28 Antibiotics) sulfamethoxazole AdvReac Vomiting Verified 08/06/23 12:28 [From Bactrim] trimethoprim [From Bactrim] AdvReac Vomiting Verified 08/06/23 12:28 Surgical History s/p left femur surgery Social History Smoking Status: Former smoker alcohol intake: current ROS ROS Narrative 12 point review systems obtained, negative unless otherwise noted in HPI. Vital Signs Vital Signs Vital Signs: 08/06/23 12:22 08/06/23 12:28 08/06/23 15:09 Temperature 98.4 F 98.2 F Temperature Source Oral Pulse Rate 84 90 Respiratory Rate 16 17 Respiratory Effort Normal Non-Labored Respiratory Depth Normal Respiratory Pattern Normal Blood Pressure 196/106 H 183/100 H Blood Pressure Mean 136 127 Blood Pressure Source Blood Pressure Position Blood Pressure Location Pulse Ox 97 97 98 Oxygen Delivery Method Room Air Room Air 08/06/23 15:00 08/06/23 15:40 08/06/23 15:30 Temperature 97.8 F 97.9 F Temperature Source Oral Temporal Pulse Rate 84 90 Respiratory Rate 18 18 Respiratory Effort Normal Respiratory Depth Normal Respiratory Pattern Normal Blood Pressure 188/110 H 166/94 H Blood Pressure Mean 136 118 Blood Pressure Source Monitor Monitor Blood Pressure Position Semi-Fowlers Semi-Fowlers Blood Pressure Location Right Arm Left Arm Pulse Ox 94 94 Oxygen Delivery Method Room Air Room Air Room Air Weight Weight: 152 lb 1.903 oz Body Mass Index (BMI) 26.1 Physical Exam Narrative General -A&Ox3, NAD, appears stated age. Vital signs stable, afebrile. Respiratory -normal work of breathing, no intercostal retractions. CV -pulses regular, brisk capillary refill ?4 limbs. Abdomen-soft, nontender, nondistended. No guarding, rigidity, rebound tenderne ss. Musculoskeletal/neurologic -full range of motion nontender throughout bilateral upper extremities, left lower extremity with full sensation and strength in all dermatomes and myotomes. No midline cervical tenderness. Right lower extremity-no obvious deformity. Pain with logroll of the right lo wer extremity. Nontender throughout the right knee femoral shaft, tibial shaft and left foot/ankle. Brisk capillary refill. Sensation intact light touch L3- S1 dermatomes. DF, PF, EHL intact. DP, PT 2+. Pelvis is stable, nontender. Skin is intact without lacerations, abrasions. No ecchymosis noted. Lab / Micro Data 08/06/23 14:00 08/06/23 14:00 Labs: Laboratory Results - last 24 hr 08/06/23 13:10: WBC Cancelled, Corrected WBC Cancelled, RBC Cancelled, Hgb Cancelled, Hct Cancelled, MCV Cancelled, MCH Cancelled, MCHC Cancelled, RDW Std Deviation Cancelled, RDW Coeff of Kamla Cancelled, Plt Count Cancelled, MPV Cancelled, Immature Gran % (Auto) Cancelled, Neut % (Auto) Cancelled, Lymph % (Auto) Cancelled, [place] % (Auto) Cancelled, Eos % (Auto) Cancelled, Baso % (Auto) Cancelled, Absolute Neuts (auto) Cancelled, Absolute Lymphs (auto) Cancelled, Total Counted Cancelled, Neutrophils % (Manual) Cancelled, Band Neutrophils % Cancelled, Lymphocytes % (Manual) Cancelled, Monocytes % (Manual) Cancelled, Eosinophils % (Manual) Cancelled, Basophils % (Manual) Cancelled, Metamyelocytes % Cancelled, Myelocytes % Cancelled, Promyelocytes % Cancelled, Blast Cells % Cancelled, Plasma Cell % (Manual) Cancelled, Other Cells % Cancelled, Nucleated RBC % Cancelled, Nucleated RBCs/100 WBC Cancelled, Differential Comment Cancelled, Diff Path Review Cancelled, Hypersegmented Neuts Cancelled, Atypical Lymphocytes Cancelled, Reactive Lymphocytes Cancelled, Smudge Cells Cancelled, Toxic Granulation Cancelled, Toxic Vacuolation Cancelled, Dohle Bodies Cancelled, Vanessa Rods Cancelled, Platelet Estimate Cancelled, Plt Morphology Comment Cancelled, RBC Morphology Cancelled 08/06/23 13:10: RBC Morphology Cancelled, Polychromasia Cancelled, Hypochromasia Cancelled, Basophilic Stippling Cancelled, Anisocytosis Cancelled, Microcytosis Cancelled, Macrocytosis Cancelled, Spherocytes Cancelled, Sickle Cells Cancelled, Target Cells Cancelled, Tear Drop Cells Cancelled, Ovalocytes Cancelled, Stomatocytes Cancelled, [place] Bodies Cancelled, [place] Cells Cancelled, Bite Cells Cancelled, Crenated Cell Cancelled, Acanthocytes (Spur) Cancelled, Rouleaux Cancelled, Schistocytes Cancelled 08/06/23 14:00: WBC 8.3, RBC 4.64, Hgb 13.4, Hct 42.8, MCV 92.2, MCH 28.9, MCHC 31.3 L, RDW Std Deviation 43.4, RDW Coeff of Kamla 12.9, Plt Count 222, MPV 11.2, Immature Gran % (Auto) 0.500, Neut % (Auto) 81.6 H, Lymph % (Auto) 10.2 L, [place] % (Auto) 5.9, Eos % (Auto) 1.2, Baso % (Auto) 0.6, Absolute Neuts (auto) 6.7, Absolute Lymphs (auto) 0.84, Nucleated RBC % 0, PT 13.9, INR 1.1, Sodium 139, Potassium 3.6, Chloride 110 H, Carbon Dioxide 24.0, Anion Gap 5, BUN 9, Creatinine 0.65, Estim Creat Clear Calc 56.02, Est GFR (MDRD) Af Amer 113, Est GFR (MDRD) Non-Af 93, BUN/Creatinine Ratio 13.8, Glucose 124 H, Calcium 9.5 Imaging Radiology Impression Femur X-Ray 08/06/23 13:30 IMPRESSION: Nondisplaced comminuted right intertrochanteric fracture with cephalic migration of the distal fracture fragment. Soft tissue swelling. Electronically Signed: Freddie Gold MD at 13:56 EDT , Pelvis X-Ray 08/06/23 13:30 IMPRESSION: Acute comminuted nondisplaced fracture of the intertrochanteric region of the right femur with cephalic migration of the distal fracture fragments. Electronically Signed: Freddie Gold MD at 13:54 EDT , Chest X-Ray 08/06/23 13:44 IMPRESSION: Mild degree of increased markings at the lung bases suggesting mild scarring. Scattered calcified granulomatous disease. Small hiatal hernia. Electronically Signed: Freddie Gold MD at 13:55 EDT , Brain CT 08/06/23 16:01 IMPRESSION: Chronic involutional changes of the brain. No acute abnormalities. Electronically Signed: Moi Kline MD at 16:36 EDT , Assessment & Plan Assessment/Plan (1) Closed intertrochanteric fracture: QUALIFIERS: Encounter type: initial encounter Fracture alignment: displaced Laterality: right Qualified Code(s): S72.141A - Displaced inte rtrochanteric fracture of right femur, initial encounter for closed fracture PLAN: Patient sustained a right intertrochanteric proximal femur fracture. -Closed, neurovascularly intact -Recommending surgical intervention in the form of right femur cephalomedullary nailing -I discussed the procedure-its risks, benefits and alternative. Risks include but are not limited to bleeding, infection, loss of life or limb, risk of anesthesia, persistent pain or disability, need for additional surgery, nonunion, malunion, failure of orthopedic hardware, neurovascular injury, DVT or PE. Patient expressed understanding these risks and wished to proceed with surgery. -Maintenance IV fluids, clear liquid diet after midnight n.p.o. at 2 hours prior to surgery -Type and screen -2 g Ancef on-call to the OR -Bedrest, heel protectors -Plan to proceed with surgery tomorrow afternoon when OR becomes available Thank you for this consultation.
[2023-08-06] MEDS: amLODIPine 10 MG Tablet PO (17:20)
[2023-08-06 17:53] LABS: Vitamin D,25 Hydroxy 72.6 ng/mL
[2023-08-06 17:56] LABS: ALB/GLOB Ratio 0.9 RATIO (0.9-2.4); AST(SGOT) 16 U/L (15-37); Alanine Aminotransfer ALT/SGPT 12 U/L (13-56); Albumin, Serum 3.4 g/dL (3.2-5.0); Alkaline Phosphatase 121 U/L (45-117); Anion Gap 5 (5-15); BUN 8 mg/dL (7-18); BUN/Creat Ratio 10.7 RATIO (10-20); Calcium,Total 9.2 mg/dL (8.5-10.1); Chloride 110 mmol/L (98-107); Creatinine, Serum 0.75 mg/dL (0.55-1.02); EST Glomerular Filtration Rate 80 mL/min (>60); Est Glom Filt Rate - Afr Amer 97 mL/min (>60); Estimated Creatinine Clearance 56.17 ml/min; Globulin 3.6 g/dL (2.2-4.2); Glucose 171 mg/dL (74-106); Potassium 3.7 mmol/L (3.5-5.1); Sodium Level 138 mmol/L (136-145)
[2023-08-06] MEDS: oxyCODONE 5 MG Tablet PO (21:07)
[2023-08-06] MEDS: Acetaminophen 325 MG Tablet 650 MG PO (21:08)
[2023-08-06] MEDS: Senna/Docusate Sodium 1 Tablet 2 TABLET PO (21:09)
[2023-08-07] VITALS (21 sets, daily range): BP systolic 119–178; BP diastolic 56–84; PULSE 74–98; RESP 16–92; TEMP 36.8–38.9; O2SAT 16–98; BMI 26.1
[2023-08-07] MEDS: oxyCODONE 5 MG Tablet PO ×3 (01:47→21:26)
[2023-08-07] MEDS: Acetaminophen 325 MG Tablet 650 MG PO (04:52)
--- NOTE | 2023-08-07 06:00 | EKG12_ITS ---
Test Reason : PRE-OP Blood Pressure : / mmHG Vent. Rate : 081 BPM Atrial Rate : 081 BPM P-R Int : 188 ms QRS Dur : 140 ms QT Int : 458 ms P-R-T Axes : 034 -56 -36 degrees QTc Int : 532 ms Normal sinus rhythm Right bundle branch block Left anterior fascicular block Bifascicular block T wave abnormality, consider lateral ischemia Abnormal ECG Confirmed by Andrea Hood ([id number]), fashion editor ZOIE LAY ([id number]) on 08/07/2023 10:08:25 AM Referred By: TREY Confirmed By:Andrea Hood
[2023-08-07] MEDS: 0.9% Normal Saline (1000mL) 1,000 ML 125 ML IV (06:17)
[2023-08-07 07:24] LABS: Absolute Neutrophil Count 5.7 X10^3/uL (2.0-7.7); Basophil# 0.03 X10^3/uL; Basophil% 0.4 % (0-1); Eosinophil# 0.04 X10^3/uL; Eosinophils% 0.6 % (0-5); Hematocrit 37.8 % (37-47); Hemoglobin 11.8 g/dL (12.0-15.0); Lymphocyte % 9.8 % (19-41); Mean Corp Hgb Conc 31.2 g/dL (32-36); Mean Corpuscular Hgb 28.9 pg (27.0-32.0); Mean Corpuscular Volume 92.4 fL (81-99); Mean Platelet Vol. 10.8 fl (6.2-12.0); Monocyte# 0.62 X10^3/uL; Monocyte% 8.7 % (0-10); NRBC Flagged by Analyzer 0 % (0-5); Neutrophil # 5.72 X10^3/uL (2.7-7.7); Neutrophil % 80.1 % (47-70); Platelet Count 188 K/mm3 (150-450); RBC Distribution Width CV 12.9 % (11.6-14.6); RBC Distribution Width SD 43.9 fl (35.1-43.9); Red Blood Count 4.09 M/mm3 (4.2-5.4); White Blood Count 7.1 K/mm3 (4.4-11.0)
[2023-08-07 07:53] LABS: Anion Gap 5 (5-15); BUN 5 mg/dL (7-18); BUN/Creat Ratio 9.1 RATIO (10-20); Chloride 111 mmol/L (98-107); Creatinine, Serum 0.55 mg/dL (0.55-1.02); EST Glomerular Filtration Rate 113 mL/min (>60); Est Glom Filt Rate - Afr Amer 137 mL/min (>60); Estimated Creatinine Clearance 56.17 ml/min; Glucose 129 mg/dL (74-106); Potassium 3.9 mmol/L (3.5-5.1); Sodium Level 139 mmol/L (136-145)
[2023-08-07] MEDS: amLODIPine 10 MG Tablet PO (08:02)
--- NOTE | 2023-08-07 09:10 | CASEMGMT ---
Social Work- SW verified that pt has HCPOA scanned into her chart, naming Roma Leo, daughter, HCPOA. NORMA Lopez
--- NOTE | 2023-08-07 11:15 | CASEMGMT ---
JOSE A KAT Assessment: Face to Face with pt for initial transition planning/care coordination assessment. JOSE A KAT introduced self and role at [facility], pt voices understanding and consents to assessment. Pt is A&O x4 and answers all questions appropriately at this time. Pt lying in bed with oxygen on in no distress. Care providers, pharmacy, and demographics verified/updated. Admitting Dx:R hip fx d/t mechanical fall PCP:Karina Zhong, COMPUTER GRAPHIC DESIGNER Specialists:ezekiel Sen Preferred Pharmacy:[facility] Insurance:OBWC; MCR, MMO Prescription Benefit: yes LNOK:Krzysztof Robb, ; Zehra Leo, dtr Living Arrangements: Pt lives with in a single story condo with 2 steps to enter through the garage with a grab bar and 3 steps to enter through the front. Pt reports prior to fall she was I in ADL's and IADL's. Pt denies concerns at home. Transportation: Pt drives self and denies concerns with transportation. DME:cane, FWW, shower bench HHC/SNF:[facility] in the past and denies SNF stays. Pt states she is interested in [facility], she is aware this is not a possibility as they do not accept workers comp. Pt is interested in staying at [facility], pt may qualify for IR pending bed availability and pt would like this if needed. Pt aware therapy will work with her after surgery and make recommendations. SW updated. Pt states she did not complete FROI for Workers Comp, JOSE A KAT to verify. Pt states no further concerns/needs. CM to follow. Advised pt to ask CM if any further question/concerns/needs arise, voices understanding. Pt Goal:[facility] IR Plan:TBD pending surgery and therapy evals.
--- NOTE | 2023-08-07 12:10 | NURSING ---
pt to surgery
--- NOTE | 2023-08-07 12:34 | CHAPLAIN ---
Type of Pastoral Visit _x__ Initial Visit ___ Follow-up Visit ___ On-call Visit ___ General Patient Visit ___ Spiritual Assessment ___ Family Conference ___ Bereavement ___ Rapid Response ___ Code Blue ___ Other (describe below) Pastoral Care Referral From _x__ Patient ___ Family ___ Nurse ___ Physician ___ Finishing Department Supervisor ___ Cook Pie ___ Other (describe below) Sacrament/Intervention _x__ Active listening ___ Anointing ___ Bahai ___ Bereavement ___ Communion ___ Mei exploration ___ ___ Life review _x__ Prayer ___ Reconciliation ___ Sacrament of Sick _x__ Supportive presence ___ Wedding ___ Other (describe below) Pastoral Comments patient is a known acquaintance from hospital; pt welcomes presence and prayer for support; pt admits to apprehension and feelings of fear but I know I'll come through it alright; pt acknowledges good support from friends and co-workers; pt has some tears as she talks about the situation and unknown future;
--- NOTE | 2023-08-07 13:15 | CASEMGMT ---
Addendum entered by Agnes Mora 08/07/23 15:20: Received FROI from ER, completed rest of form and faxed to the [facility]. Filed form in pt chart. Original Note: RN CM to pt surgical holding room, pt lying in bed with family present at bedside. Pt asks to answer questions and RN CM write on FROI, pt signed. Pt agreeable to complete with family present. Gave form to ER charge nurse for completion by physician.
--- NOTE | 2023-08-07 13:35 | PCM.PN.HOSP ---
Reason for Visit Reason for Visit: Mechanical fall with resultant right hip pain Subjective Subjective Patient is a 77-year-old white female who presents emergency department after a rapid response was called in the hospital for a fall. The patient works at the [employer] at [facility] and lost her balance while working and fell onto her right side. When she fell she landed on her right hip and subsequently had immediate right hip pain and the inability to ambulate or bear weight. She does have a history of a left hip arthroplasty due to osteoarthritis. Vital signs on presentation the emergency department were unremarkable other than marked blood pressure elevation related the pain. Blood pressure was initially 196/106 but improved with time and treatment of her pain. EKG was unremarkable for any acute findings but did show evidence of LVH. Her chest x-ray was overtly unremarkable. Pelvic x-ray showed a comminuted nondisplaced fracture of the the left femur in the intertrochanteric region with cephalad migration of the distal fracture fragment. Her CBC was unremarkable. Coags were normal. Her chemistry panel was unremarkable other than mild hyperglycemia with a blood glucose level of 124. She was admitted to the medical floor and consultation to Dr. Ortega was made with plans to take her to the OR today for a right femoral cephalomedullary nailing. Patient currently states that the only time she is really having that is if she moves around otherwise she is pain-free. States she would like to go to the TCU. Patient denies any chest pain or shortness of breath. She states when she fell she just had a mechanical fall when she lost her balance. Objective Data Objective Data Vital Signs: Vital Signs Temp Pulse Resp BP Pulse Ox O2 Del Method O2 Flow Rate 99.2 F H 81 16 147/70 H 94 Nasal Cannula 3 08/07/23 11:17 08/07/23 12:14 08/07/23 11:17 08/07/23 11:17 08/07/23 11:17 08/07/23 11:17 08/07/23 11:17 Oxygen Flow Rate (L/min) 3 Oxygen Delivery Method Nasal Cannula Weight: 69 kg Body Mass Index (BMI) 26.1 Intake & Output: Intake and Output for Last 24 Hours 08/05/23 08/06/23 08/07/23 23:59 23:59 23:59 Intake Total 1200 / 1200 1554.17 / 1554.17 Output Total 200 / 200 Balance 1200 / 1200 1354.17 / 1354.17 Lab / Micro Data 08/07/23 07:04 08/07/23 07:04 Labs: Laboratory Results - last 24 hr 08/06/23 13:10: WBC Cancelled, Corrected WBC Cancelled, RBC Cancelled, Hgb Cancelled, Hct Cancelled, MCV Cancelled, MCH Cancelled, MCHC Cancelled, RDW Std Deviation Cancelled, RDW Coeff of Kamla Cancelled, Plt Count Cancelled, MPV Cancelled, Immature Gran % (Auto) Cancelled, Neut % (Auto) Cancelled, Lymph % (Auto) Cancelled, [place] % (Auto) Cancelled, Eos % (Auto) Cancelled, Baso % (Auto) Cancelled, Absolute Neuts (auto) Cancelled, Absolute Lymphs (auto) Cancelled, Total Counted Cancelled, Neutrophils % (Manual) Cancelled, Band Neutrophils % Cancelled, Lymphocytes % (Manual) Cancelled, Monocytes % (Manual) Cancelled, Eosinophils % (Manual) Cancelled, Basophils % (Manual) Cancelled, Metamyelocytes % Cancelled, Myelocytes % Cancelled, Promyelocytes % Cancelled, Blast Cells % Cancelled, Plasma Cell % (Manual) Cancelled, Other Cells % Cancelled, Nucleated RBC % Cancelled, Nucleated RBCs/100 WBC Cancelled, Differential Comment Cancelled, Diff Path Review Cancelled, Hypersegmented Neuts Cancelled, Atypical Lymphocytes Cancelled, Reactive Lymphocytes Cancelled, Smudge Cells Cancelled, Toxic Granulation Cancelled, Toxic Vacuolation Cancelled, Dohle Bodies Cancelled, Vanessa Rods Cancelled, Platelet Estimate Cancelled, Plt Morphology Comment Cancelled, RBC Morphology Cancelled 08/06/23 13:10: RBC Morphology Cancelled, Polychromasia Cancelled, Hypochromasia Cancelled, Basophilic Stippling Cancelled, Anisocytosis Cancelled, Microcytosis Cancelled, Macrocytosis Cancelled, Spherocytes Cancelled, Sickle Cells Cancelled, Target Cells Cancelled, Tear Drop Cells Cancelled, Ovalocytes Cancelled, Stomatocytes Cancelled, [place] Bodies Cancelled, Mccoll Cells Cancelled, Bite Cells Cancelled, Crenated Cell Cancelled, Acanthocytes (Spur) Cancelled, Rouleaux Cancelled, Schistocytes Cancelled 08/06/23 14:00: WBC 8.3, RBC 4.64, Hgb 13.4, Hct 42.8, MCV 92.2, MCH 28.9, MCHC 31.3 L, RDW Std Deviation 43.4, RDW Coeff of Kamla 12.9, Plt Count 222, MPV 11.2, Immature Gran % (Auto) 0.500, Neut % (Auto) 81.6 H, Lymph % (Auto) 10.2 L, [place] % (Auto) 5.9, Eos % (Auto) 1.2, Baso % (Auto) 0.6, Absolute Neuts (auto) 6.7, Absolute Lymphs (auto) 0.84, Nucleated RBC % 0, PT 13.9, INR 1.1, Sodium 139, Potassium 3.6, Chloride 110 H, Carbon Dioxide 24.0, Anion Gap 5, BUN 9, Creatinine 0.65, Estim Creat Clear Calc 56.02, Est GFR (MDRD) Af Amer 113, Est GFR (MDRD) Non-Af 93, BUN/Creatinine Ratio 13.8, Glucose 124 H, Calcium 9.5 08/06/23 17:11: Sodium 138, Potassium 3.7, Chloride 110 H, Carbon Dioxide 23.0, Anion Gap 5, BUN 8, Creatinine 0.75, Estim Creat Clear Calc 56.17, Est GFR (MDRD) Af Amer 97, Est GFR (MDRD) Non-Af 80, BUN/Creatinine Ratio 10.7, Glucose 171 H, Calcium 9.2, Total Bilirubin 0.50, AST 16, ALT 12 L, Alkaline Phosphatase 121 H, Total Protein 7.0, Albumin 3.4, Globulin 3.6, Albumin/Globulin Ratio 0.9, Vitamin D 25-Hydroxy 72.6, Blood Type O NEGATIVE, Antibody Screen NEGATIVE 08/07/23 07:04: WBC 7.1, RBC 4.09 L, Hgb 11.8 L, Hct 37.8, MCV 92.4, MCH 28.9, MCHC 31.2 L, RDW Std Deviation 43.9, RDW Coeff of Kamla 12.9, Plt Count 188, MPV 10.8, Immature Gran % (Auto) 0.400, Neut % (Auto) 80.1 H, Lymph % (Auto) 9.8 L, [place] % (Auto) 8.7, Eos % (Auto) 0.6, Baso % (Auto) 0.4, Absolute Neuts (auto) 5.7, Absolute Lymphs (auto) 0.70 L, Nucleated RBC % 0, Sodium 139, Potassium 3.9, Chloride 111 H, Carbon Dioxide 23.0, Anion Gap 5, BUN 5 L, Creatinine 0.55, Estim Creat Clear Calc 56.17, Est GFR (MDRD) Af Amer 137, Est GFR (MDRD) Non-Af 113, BUN/Creatinine Ratio 9.1 L, Glucose 129 H, Calcium 9.0 Radiography Diagnostic Testing: Radiology Impression Femur X-Ray 08/06/23 13:30 IMPRESSION: Nondisplaced comminuted right intertrochanteric fracture with cephalic migration of the distal fracture fragment. Soft tissue swelling. Electronically Signed: Freddie Gold MD at 13:56 EDT , Pelvis X-Ray 08/06/23 13:30 IMPRESSION: Acute comminuted nondisplaced fracture of the intertrochanteric region of the right femur with cephalic migration of the distal fracture fragments. Electronically Signed: Freddie Gold MD at 13:54 EDT , Chest X-Ray 08/06/23 13:44 IMPRESSION: Mild degree of increased markings at the lung bases suggesting mild scarring. Scattered calcified granulomatous disease. Small hiatal hernia. Electronically Signed: Freddie Gold MD at 13:55 EDT , Brain CT 08/06/23 16:01 IMPRESSION: Chronic involutional changes of the brain. No acute abnormalities. Electronically Signed: Moi Kline MD at 16:36 EDT , Physical Exam Const alert, oriented x3, no apparent distress, average body habitus and well nourished Constitutional Narrative: Elderly, white female, appears to be frail at baseline, nontoxic, pleasant and appears comfortable at this time HEENT head/scalp atraumatic and moist oral mucous membranes HEENT Narrative: Mallampati 2, no thrush Head and Scalp: normocephalic Resp normal respiratory effort, no retractions, no use of accessory muscles and clear to auscultation bilaterally Auscultation: Negative for rales, rhonchi or wheezes Cardio regular rate, regular rhythm, S1 normal heart sound, S2 normal heart sound, no murmurs, no rub, no gallops and no clicks GI normal to inspection, nondistended, normoactive bowel sounds, soft to palpation and non-tender Extremity no clubbing, cyanosis or edema Extremity Narrative: Right lower extremity is shortened and externally rotated Neuro oriented x3 and no focal motor deficits Neuro Narrative: Unable to move right lower extremity this time due to pain in the hip region Speech: speech normal Psych affect normal Psych Narrative: Very pleasant, eye contact is good and patient interacts appropriately Assessment & Plan Assessment/Plan (1) Closed intertrochanteric fracture: QUALIFIERS: Encounter type: initial encounter Fracture alignment: displaced Laterality: right Qualified Code(s): S72.141A - Displaced intertrochanteric fracture of right femur, initial encounter for closed fracture (2) Fall: (3) Elevated blood pressure reading: PLAN: Plan Right closed intertrochanteric fracture -Plan is for OR later today with orthopedic surgery -Transition Tylenol from as needed to scheduled 1 g every 8 hours -Continue as needed morphine -Continue as needed oxycodone -Continue scheduled bowel regimen -PT/OT consultation postoperatively -Check vitamin D level -Anticipate patient will be weightbearing as tolerated -Discharge DVT prophylaxis per orthopedic surgery Mechanical fall -Continue PT/OT Abnormal EKG -EKG from this morning showed some lateral T wave flattening and a right bundle branch block -patient is asymptomatic with no chest pain or shortness of breath and has no cardiac history Elevated blood pressure -Patient without diagnosis of hypertension but had markedly elevated blood pressure in the emergency department -patient was given clonidine x 1 dose and started on amlodipine 10 mg daily -Blood pressure is better today -For now we will continue to monitor and uptitrate or add medications as needed -Continue as needed hydralazine Mild anemia -Hemoglobin 11.8 -Appears like hemoglobin has been running between 13 and 14 -Suspect related to fall and IV fluids -discontinue LR -Repeat CBC in a.m. -Will follow postoperatively GERD/Anderson's esophagus -Continue Protonix 40 mg Restless leg syndrome/neuropathic pain -Continue home gabapentin Multiple sclerosis -patient does not appear to be in any baseline medication -Likely contributes to her falls and generalized weakness Osteoporosis -Continued outpatient follow-up Depression -Continue home venlafaxine DVT prophylaxis Enoxaparin 40 mg subcu daily CODE STATUS Full code Charges/Coding Visit Charges Inpatient E&M: 59255 Subs Hosp L2
[2023-08-07 14:04] LABS: Troponin-I HS 44 pg/mL (3.0-54.0)
--- NOTE | 2023-08-07 14:19 | RAD_ITS ---
STUDY: X-RAY - RIGHT FEMUR REASON FOR STUDY: Female, 77 years old. PAIN TECHNIQUE: 2 view(s) of the femur. COMPARISON: 08/06/2023 FINDINGS: 128 seconds of fluoroscopy of the right hip was utilized operating room during open reduction internal fixation of fracture of the intertrochanteric femur with a femoral neck compression screw and a long intramedullary clif in 8 images are limited for interpretation. . RAD/Femur Min 2 Views IMPRESSION: Fluoroscopy during open reduction internal fixation of fracture of the intertrochanteric femur. Electronically Signed: Guillermo Tavarez MD at 19:46 EDT ,
[2023-08-07] MEDS: Cefazolin 2 GM in 0.9% Normal Saline (100mL Bag) 100 ML IV ×2 (14:30→21:00)
[2023-08-07] MEDS: TRANEXAMIC ACID 1,000 MG in 0.9% Normal Saline (100mL Bag) 100 ML 440 MG IV (15:06)
[2023-08-07] MEDS: hydrALAZINE 20 MG/ML Vial 10 MG IV (16:22)
--- NOTE | 2023-08-07 16:42 | EKG12_ITS ---
Test Reason : postop Blood Pressure : / mmHG Vent. Rate : 092 BPM Atrial Rate : 092 BPM P-R Int : 150 ms QRS Dur : 134 ms QT Int : 386 ms P-R-T Axes : 027 -59 -31 degrees QTc Int : 477 ms Normal sinus rhythm Right bundle branch block Left anterior fascicular block Bifascicular block Abnormal ECG When compared with ECG of 07-AUG-2023 05:29, QT has shortened Confirmed by GORGE BILLY, STEPHANE ([id number]), videotape editor SYDNEE THOMAS ([id number]) on 08/08/2023 1:12:20 PM Referred By: Nitin Confirmed By:STEPHANE PENNINGTON MD
--- NOTE | 2023-08-07 17:09 | OP.PCM_ITS ---
Report of Operation Date of Procedure: 08/07/23 Description of Surgical Findings:: Preoperative diagnosis: Right intertrochanteric proximal femur fracture Postoperative diagnosis: Right intertrochanteric proximal femur fracture Procedure: Treatment of intertrochanteric hip fracture with intramedullary nail right femur Surgeon: Derek Ortega DO Anesthesia: General endotracheal Anesthesiologist: Dr. 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 Rapid response was called. Patient was unable to ambulate was brought to the emergency department. X-rays revealed a displaced right intertrochanteric femur fracture. Patient does not have a history of multiple sclerosis and osteoporosis. Patient was admitted under the service to hospitalist. Orthopedics was consulted for surgical recommendations.I recommended cephalomedullary nail fixation of her right intertrochanteric proximal femur fracture. The risks, benefits, alternatives to procedure reviewed with the patient. The risks of the surgery included bleeding, infection, loss of life or limb, malunion, nonunion, damage to vital structures, neurovascular injury, failure of orthopedic hardware, need for additional surgery, persistent pain or disability, risk of anesthesia. The patient expressed understanding of these risks and agreed to proceed with surgery. Blood consent was also obtained. Description of procedure: Patient was seen in preoperative holding area. She was identified by name, medical record number, date of . The operative extremity was marked with a surgical marker. We confirmed informed consent with the patient and questions were answered to her satisfaction. Patient was brought to the operative suite, and general anesthesia was induced on her hospital bed. Endotracheal tube was secured. After adequate anesthesia, patient was transferred to a fracture table with all bony prominences being well-padded. A perineal post was placed to secure the patient on the table. We then applied a ski boot which was well-padded to the operative extremity. The well leg was dropped into extension and secured to the axial post of the fracture table with a pillow and Coban. The right arm was brought across patient's chest with a blanket on her chest. We then performed a closed reduction maneuver with external rotation, traction, internal rotation and adduction. Fluoroscopic images were obtained. Fracture appeared to be acceptably reduced following closed reduction. We then prepped and draped the right lower extremity in normal, sterile orthopedic fashion. A timeout was performed with all parties in attendance in agreement with the side, site, and operation be performed. 2 g Ancef and 1 g IV TXA was administered prior to incision. No concerns were voiced and we elected to proceed. I first used fluoroscopy to wander the level of the fracture and planned incision for insertion of the cephalomedullary nail device. In line with the long axis of the femur, 4 fingerbreadths proximal to the tip of the greater trochanter, a full-thickness skin incision was planned.. Skin was sharply incised with 10 blade scalpel, carried into the subcutaneous tissues. The IT band was encountered and split and planned trajectory of the nail placement. The greater trochanter was then able to be palpated digitally. I then placed a threaded guidewire just medial to the tip of the greater trochanter and in the anterior third of it on the lateral. Opening reamer was then placed over top of the guidewire after placement was confirmed on C arm. Reduction was again confirmed. Ball-tipped guidewire was then placed. I sequentially reamed to a final diameter of 11.5 mm. We measured the length of the nail to be 380 mm. A 10 x 380 mm 125 degree nail was selected. Intramedullary device was then impacted to appropriate depth. Rotation was confirmed on the lateral projection. Drill sleeve was placed through the targeting guide. We drilled the pin for the lag screw at an appropriate position and depth, tip to apex distance less than 25 mm on AP and lateral combined. Depth gauge was used to measure the length of the screw, 95 mm. We then used the cannulated drill to drill to an appropriate depth. Drill was removed, drill pin left in place. Lag screw was placed over top of the drill pin and tightened to an appropriate depth. Setscrew was then placed and tightened, and then turned back a quarter turn to allow the lag screw to slide. I then proceeded with interlocking screw placement distally utilizing perfect tejon technique. Stab incision was made and blunt dissection was carried down to the bone. I drilled bicortically through the oblong slot in the nail. Screw was measured and placed in standard fashion with excellent bicortical purchase. Instruments were removed as well as the outrigger for the nail. Final fluoroscopic images were obtained at the hip. Final fluoroscopic images were obtained. We irrigated the wounds copiously with normal saline solution. Hemostasis was excellent at this point. We then closed the deeper layers, IT band with 0 Vicryl. Intradermal buried stitches of 2-0 Vicryl were utilized and skin finally reapproximated with skin clint. Sterile compression dressing of Xeroform, 4 x 4's, and Tegaderm was applied. Patient tolerated procedure well without complication. She was transferred back to her hospital bed and subsequently to PACU in stable condition. Intraoperative medications: 2 g Ancef IV, 1 g IV TXA Post Operative Plan: Weightbearing: Weightbearing as tolerated right lower extremity with a walker Antibiotics: Ancef 2 g x 3 doses postoperatively, 1 dose given preoperatively DVT Prophylaxis: Lovenox to start tomorrow morning Cline: None Dressing: Dry sterile dressing changes daily and as needed for saturation X-Rays: 2 weeks postop in the office Follow-up: 2 weeks post-operatively with me in the office
[2023-08-07] MEDS: Calcium Carbonate 500 MG Tablet PO (17:23)
[2023-08-07] MEDS: Acetaminophen 500 MG Tablet 1000 MG PO (18:50)
[2023-08-07] MEDS: Senna/Docusate Sodium 1 Tablet 2 TABLET PO (21:00)
[2023-08-07] MEDS: Pantoprazole Sodium 40 MG Tablet PO (21:39)
[2023-08-07] MEDS: Magnesium Sulfate 1 GM in Dextrose 5%-Water (100mL Bag) 100 ML IV (22:40)
[2023-08-07 23:33] LABS: Magnesium 1.5 mg/dL (1.6-2.6)
[2023-08-08] VITALS (17 sets, daily range): BP systolic 109–142; BP diastolic 51–70; PULSE 76–102; RESP 16–20; TEMP 36.7–37.3; O2SAT 83–98
[2023-08-08] MEDS: oxyCODONE 5 MG Tablet PO ×5 (02:10→20:16)
[2023-08-08] MEDS: Acetaminophen 500 MG Tablet 1000 MG PO ×3 (02:10→18:13)
[2023-08-08] MEDS: Cefazolin 2 GM in 0.9% Normal Saline (100mL Bag) 100 ML IV ×2 (06:02→13:54)
[2023-08-08] MEDS: 0.9% Saline Lock 10 ML Syringe IV ×4 (06:02→20:15)
[2023-08-08] MEDS: Senna/Docusate Sodium 1 Tablet 2 TABLET PO ×2 (07:38→20:15)
[2023-08-08] MEDS: Enoxaparin 40 MG/0.4 ML Syringe SC (07:38)
[2023-08-08] MEDS: amLODIPine 10 MG Tablet PO (07:39)
[2023-08-08] MEDS: Calcium Carbonate 500 MG Tablet PO ×3 (07:41→16:09)
[2023-08-08] MEDS: Pantoprazole Sodium 40 MG Tablet PO ×2 (07:41→20:16)
[2023-08-08 08:35] LABS: Absolute Lymphocyte Count 0.65 X10^3/uL (0.83-4.51); Absolute Neutrophil Count 9.6 X10^3/uL (2.0-7.7); Basophil# 0.01 X10^3/uL; Basophil% 0.1 % (0-1); Hematocrit 32.5 % (37-47); Lymphocyte # 0.65 X10^3/ul (0.83-4.51); Lymphocyte % 5.6 % (19-41); Mean Corp Hgb Conc 30.8 g/dL (32-36); Mean Corpuscular Hgb 28.9 pg (27.0-32.0); Mean Corpuscular Volume 93.9 fL (81-99); Mean Platelet Vol. 11.9 fl (6.2-12.0); NRBC Flagged by Analyzer 0 % (0-5); Platelet Count 202 K/mm3 (150-450); RBC Distribution Width SD 44.6 fl (35.1-43.9); Red Blood Count 3.46 M/mm3 (4.2-5.4); White Blood Count 11.7 K/mm3 (4.4-11.0)
[2023-08-08 09:10] LABS: Anion Gap 5 (5-15); BUN 8 mg/dL (7-18); BUN/Creat Ratio 11.3 RATIO (10-20); Calcium,Total 9.1 mg/dL (8.5-10.1); Chloride 109 mmol/L (98-107); Creatinine, Serum 0.71 mg/dL (0.55-1.02); EST Glomerular Filtration Rate 85 mL/min (>60); Est Glom Filt Rate - Afr Amer 102 mL/min (>60); Estimated Creatinine Clearance 56.17 ml/min; Glucose 166 mg/dL (74-106); Potassium 3.9 mmol/L (3.5-5.1); Sodium Level 138 mmol/L (136-145)
--- NOTE | 2023-08-08 12:02 | CASEMGMT ---
Social Work SW met with pt and spouse and introduced self and role of SW. Pt is requesting placement for short term rehab prior to return home. Pt is aware that TCU is unable to accept Workers Comp. Pt stating she does not want to go to a SNF. SW spoke with pt regarding an Inpatient Rehab Unit. A list of [facility] providers including quality and resource use data and consistent with the patient?s preferred geographic region, medical needs, and insurance network were provided from the [employer] Guide. Pt's preferred provider is [facility]. Referral made to [facility] and they are able to accept pt. C9 will be needed for admission to [facility]. SW will work on submitting C9 to Workers Comp. Plan: [facility], pending approval from Workers NORMA Ferrell
--- NOTE | 2023-08-08 13:41 | PCM.PN.HOSP ---
Reason for Visit Reason for Visit: Right hip pain after mechanical fall Subjective Subjective Patient states overall her pain is much better. She had just gotten up with therapy to go to the bathroom and had significant difficulty. We did discuss that were not quite sure on her discharge plan as of yet since this is a Workmen's Comp. case it makes things a more complicated. She would like to go home if possible however at this point I am not sure that that is going to be feasible. Objective Data Objective Data Vital Signs: Vital Signs Temp Pulse Resp BP Pulse Ox O2 Del Method O2 Flow Rate 98.2 F 96 16 127/59 H 94 Nasal Cannula 2 08/08/23 11:17 08/08/23 11:17 08/08/23 11:17 08/08/23 11:17 08/08/23 13:07 08/08/23 13:07 08/08/23 13:07 Oxygen Flow Rate (L/min) 2 Oxygen Delivery Method Nasal Cannula Weight: 69 kg Body Mass Index (BMI) 26.1 Intake & Output: Intake and Output for Last 24 Hours 08/06/23 08/07/23 08/08/23 23:59 23:59 23:59 Intake Total 1200 / 1200 1983.1983.17 462 / 462 Output Total 200 / 700 900 / 900 Balance 1200 / 1200 1784.17 / 1284.17 -438 / -438 Lab / Micro Data 08/08/23 07:15 08/08/23 07:15 Labs: Laboratory Results - last 24 hr 08/07/23 07:04: Troponin I High Sens 44 08/07/23 22:55: Magnesium 1.5 L 08/08/23 07:15: WBC 11.7 H, RBC 3.46 L, Hgb 10.0 L, Hct 32.5 L, MCV 93.9, MCH 28.9, MCHC 30.8 L, RDW Std Deviation 44.6 H, RDW Coeff of Kamla 13.0, Plt Count 202, MPV 11.9, Immature Gran % (Auto) 0.300, Neut % (Auto) 82.0 H, Lymph % (Auto) 5.6 L, [place] % (Auto) 12.0 H, Eos % (Auto) 0.0, Baso % (Auto) 0.1, Absolute Neuts (auto) 9.6 H, Absolute Lymphs (auto) 0.65 L, Nucleated RBC % 0, Sodium 138, Potassium 3.9, Chloride 109 H, Carbon Dioxide 24.0, Anion Gap 5, BUN 8, Creatinine 0.71, Estim Creat Clear Calc 56.17, Est GFR (MDRD) Af Amer 102, Est GFR (MDRD) Non-Af 85, BUN/Creatinine Ratio 11.3, Glucose 166 H, Calcium 9.1 Radiography Diagnostic Testing: Radiology Impression Femur X-Ray 08/07/23 14:19 IMPRESSION: Fluoroscopy during open reduction internal fixation of fracture of the intertrochanteric femur. Electronically Signed: Guillermo Tavarez MD at 19:46 EDT , Physical Exam Const alert, oriented x3, no apparent distress, average body habitus and well nourished Constitutional Narrative: Elderly, white female, frail, sitting up in a chair at the bedside, family at bedside, nontoxic, pleasant and appears comfortable at this time General Appearance: cooperative and well developed HEENT normocephalic, head/scalp atraumatic, moist oral mucous membranes and oropharynx normal HEENT Narrative: Mallampati 2, no thrush Resp normal respiratory effort, normal air movement, no retractions, no use of accessory muscles and clear to auscultation bilaterally Auscultation: Negative for rales, rhonchi or wheezes Cardio regular rate, regular rhythm, S1 normal heart sound, S2 normal heart sound, no murmurs, no rub, no gallops and no clicks GI normal to inspection, nondistended, normoactive bowel sounds, soft to palpation and non-tender Extremity no clubbing, cyanosis or edema Skin General Skin Exam: no breakdown Neuro oriented x3, moves all extremities and no focal motor deficits Neuro Narrative: Able to move right leg with some pain Speech: speech normal Psych thought process normal, cooperative and affect normal Psych Narrative: Very pleasant, eye contact is good and patient interacts appropriately Appearance: appropriate Assessment & Plan Assessment/Plan (1) Closed intertrochanteric fracture: QUALIFIERS: Encounter type: initial encounter Fracture alignment: displaced Laterality: right Qualified Code(s): S72.141A - Displaced intertrochanteric fracture of right femur, initial encounter for closed fracture (2) Fall: (3) Elevated blood pressure reading: PLAN: Plan Right closed intertrochanteric fracture -Unknown if this fracture is related osteoporosis or not -Postop day 1 cephalomedullary nail right hip -Continue Tylenol from as needed to scheduled 1 g every 8 hours -Continue as needed morphine -Continue as needed oxycodone -Continue scheduled bowel regimen -PT/OT following -Vitamin D level is pending -Weightbearing as tolerated -Ortho would like Lovenox subcu for DVT prophylaxis -Plan is discharge to rehab once medically stable and okay from insurance standpoint Postoperative hypoxia -Continue to encourage incentive spirometry -Lasix 20 mg IV push x 1 dose -Currently on 2 L-wean as able Mechanical fall -Continue PT/OT Abnormal EKG -EKG from this morning showed some lateral T wave flattening and a right bundle branch block -Patient has been asymptomatic her entire hospitalization -Consider outpatient stress test when this acute event is over Elevated blood pressure -Patient without diagnosis of hypertension but had markedly elevated blood pressure in the emergency department -patient was given clonidine x 1 dose and started on amlodipine 10 mg daily -Blood pressure is better today -For now we will continue to monitor and uptitrate or add medications as needed -Continue as needed hydralazine Mild anemia -Relatively stable -Appears like hemoglobin has been running between 13 and 14 -Suspect related to fall and IV fluids -Repeat CBC in a.m. -Will follow postoperatively GERD/Anderson's esophagus -Continue Protonix 40 mg Restless leg syndrome/neuropathic pain -Continue home gabapentin Multiple sclerosis -patient does not appear to be in any baseline medication -Likely contributes to her falls and generalized weakness Osteoporosis -Continued outpatient follow-up Depression -Continue home venlafaxine DVT prophylaxis Enoxaparin 40 mg subcu daily CODE STATUS Full code Charges/Coding Visit Charges Inpatient E&M: 15121 Subs Hosp L2
[2023-08-08] MEDS: Furosemide 20 MG/2 ML VIAL IV (13:54)
[2023-08-08 14:36] LABS: Vitamin D,25 Hydroxy 66.8 ng/mL
--- NOTE | 2023-08-08 17:16 | PCM.PN.ORT ---
Subjective Subjective Patient seen and examined. Out of bed with nursing staff and PT. She states her pain is well-controlled. She denies any fevers, chills, nausea vomiting, chest pain or shortness of breath. Objective Data Objective Data Vital Signs: Vital Signs Temp Pulse Resp BP Pulse Ox O2 Del Method O2 Flow Rate 98.2 F 91 16 131/66 H 97 Nasal Cannula 2 08/08/23 16:02 08/08/23 16:05 08/08/23 16:02 08/08/23 16:02 08/08/23 16:02 08/08/23 16:02 08/08/23 16:02 Oxygen Flow Rate (L/min) 2 Oxygen Delivery Method Nasal Cannula Weight: 152 lb 1.903 oz Body Mass Index (BMI) 26.1 Intake & Output: Intake and Output for Last 24 Hours 08/06/23 08/07/23 08/08/23 23:59 23:59 23:59 Intake Total 1200 / 1200 1984.17 / 1983.17 1022 / 1022 Output Total 200 / 700 1600 / 1600 Balance 1200 / 1200 1784.17 / 1284.17 -578 / -578 Lab / Micro Data 08/08/23 07:15 08/08/23 07:15 Labs: Laboratory Results - last 24 hr 08/07/23 22:55: Magnesium 1.5 L 08/08/23 07:15: WBC 11.7 H, RBC 3.46 L, Hgb 10.0 L, Hct 32.5 L, MCV 93.9, MCH 28.9, MCHC 30.8 L, RDW Std Deviation 44.6 H, RDW Coeff of Kamla 13.0, Plt Count 202, MPV 11.9, Immature Gran % (Auto) 0.300, Neut % (Auto) 82.0 H, Lymph % (Auto) 5.6 L, [place] % (Auto) 12.0 H, Eos % (Auto) 0.0, Baso % (Auto) 0.1, Absolute Neuts (auto) 9.6 H, Absolute Lymphs (auto) 0.65 L, Nucleated RBC % 0, Sodium 138, Potassium 3.9, Chloride 109 H, Carbon Dioxide 24.0, Anion Gap 5, BUN 8, Creatinine 0.71, Estim Creat Clear Calc 56.17, Est GFR (MDRD) Af Amer 102, Est GFR (MDRD) Non-Af 85, BUN/Creatinine Ratio 11.3, Glucose 166 H, Calcium 9.1, Vitamin D 25-Hydroxy 66.8 Radiography Diagnostic Testing: Radiology Impression Femur X-Ray 08/07/23 14:19 IMPRESSION: Fluoroscopy during open reduction internal fixation of fracture of the intertrochanteric femur. Electronically Signed: Guillermo Tavarez MD at 19:46 EDT , Physical Exam Narrative General - A&Ox3, NAD. VSS/AF Right lower extremity -incisional dressing C/D/I. SILT Sural, Saphenous, SPN, DPN, Tibial N. distributions. DP, PT 2+. BCR. DF, PF, EHL 5/5. No calf TTP. Assessment & Plan Assessment/Plan (1) Closed intertrochanteric fracture: QUALIFIERS: Encounter type: initial encounter Fracture alignment: displaced Laterality: right Qualified Code(s): S72.141A - Displaced intertrochanteric fracture of right femur, initial encounter for closed fracture PLAN: POD#1 s/p R Femur CMN -Patient doing well. Will continue to mobilize with therapy. Stable for discharge to SNF once pre-CERT approved for my standpoint. - Pain control - Medicine following for medical management - PT/OT - WBAT RLE - DVT PPX -Multimodal with Lovenox, SCDs, CLAUDETTE bean, early mobilization - Case management - D/C planning
[2023-08-08] MEDS: Venlafaxine XR 150 MG Capsule PO (20:15)
[2023-08-09] VITALS (10 sets, daily range): BP systolic 110–132; BP diastolic 53–66; PULSE 82–100; RESP 14–18; TEMP 36.8–37.1; O2SAT 84–97
[2023-08-09] MEDS: Acetaminophen 500 MG Tablet 1000 MG PO ×3 (03:44→18:11)
[2023-08-09 07:27] LABS: Hemoglobin 8.7 g/dL (12.0-15.0); Mean Corp Hgb Conc 31.1 g/dL (32-36); Mean Corpuscular Hgb 29.2 pg (27.0-32.0); Mean Platelet Vol. 11.5 fl (6.2-12.0); Platelet Count 147 K/mm3 (150-450); RBC Distribution Width CV 13.2 % (11.6-14.6); RBC Distribution Width SD 45.5 fl (35.1-43.9); Red Blood Count 2.98 M/mm3 (4.2-5.4); White Blood Count 6.8 K/mm3 (4.4-11.0)
[2023-08-09 08:02] LABS: Anion Gap 4 (5-15); BUN 16 mg/dL (7-18); BUN/Creat Ratio 25.9 RATIO (10-20); Calcium,Total 9.2 mg/dL (8.5-10.1); Chloride 108 mmol/L (98-107); Creatinine, Serum 0.62 mg/dL (0.55-1.02); EST Glomerular Filtration Rate 99 mL/min (>60); Est Glom Filt Rate - Afr Amer 120 mL/min (>60); Estimated Creatinine Clearance 56.17 ml/min; Glucose 104 mg/dL (74-106); Potassium 3.9 mmol/L (3.5-5.1); Sodium Level 139 mmol/L (136-145)
[2023-08-09] MEDS: Venlafaxine XR 150 MG Capsule PO (09:32)
[2023-08-09] MEDS: Calcium Carbonate 500 MG Tablet PO ×3 (09:32→16:49)
[2023-08-09] MEDS: Pantoprazole Sodium 40 MG Tablet PO ×2 (09:32→22:12)
[2023-08-09] MEDS: Senna/Docusate Sodium 1 Tablet 2 TABLET PO ×2 (09:32→22:12)
[2023-08-09] MEDS: amLODIPine 10 MG Tablet PO (09:32)
[2023-08-09] MEDS: Enoxaparin 40 MG/0.4 ML Syringe SC (09:33)
[2023-08-09] MEDS: Furosemide 40 MG/4 ML Vial IV (09:38)
[2023-08-09] MEDS: oxyCODONE 5 MG Tablet PO ×2 (09:38→20:06)
[2023-08-09] MEDS: 0.9% Saline Lock 10 ML Syringe IV (09:46)
--- NOTE | 2023-08-09 11:22 | CASEMGMT ---
Addendum entered by Margarette Smith 08/09/23 12:32: Social Work ALEXANDRIA spoke with Ruchi at [facility] now clinic who is [facility] coordinator. Ruchi now requesting FROI, C9 and clinical information. All information collected and faxed to Ruchi. ALEXANDRIA explained that pt is currently hospitalized from fall, hip fracture and repair and that she is medically ready for discharge to [facility] Inpatient Rehab and [facility] approval is needed prior to discharge to . Ruchi states she will work on this case. NORMA Kirk Original Note: Social Work ALEXANDRIA spoke with Ruchi at [facility] who is [facility] coordinator. Ruchi states a [facility] claim number has not been obtained for pt yet. Ruchi requested C9 be sent to her and she will submit the information for approval. C9 completed and faxed to Ruchi. Plan: [facility], pending [facility] approval NORMA Kirk
[2023-08-09 12:09] LABS: Hemoglobin 10.1 g/dL (12.0-15.0)
--- NOTE | 2023-08-09 12:43 | CT_ITS ---
STUDY: CTA CHEST REASON FOR EXAM: Female, 77 years old. Hypoxia RADIATION DOSAGE (If Supplied By Facility): CTDIvol = ( 14.26 ) mGy, DLP = ( 193.54 ) mGycm TECHNIQUE: The examination was performed with the intravenous administration of IV 100mL Isovue-370. Post-processing of the angiographic images was performed, with multiplanar reformation and 3D reconstruction. Individualized dose optimization techniques were used for this CT. COMPARISON: Comparison is made with prior chest radiograph dated August 06, 2023. FINDINGS: Intraluminal filling defects in keeping with pulmonary emboli seen in branches of the right upper lobe pulmonary artery. Localized filling defects also seen in the distal portion of the right pulmonary artery as it bifurcates into the right upper lobe branches and intermediate stem pulmonary artery. There is also evidence of a small filling defects in the distal branches of the left lower lobe pulmonary artery. There is atherosclerotic calcification of the aortic arch with tortuosity. There is no demonstrated aortic dissection. Normal heart and pericardium. Normal mediastinum. Normal hilar regions. Normal visualized trachea and bronchi. The lungs are well expanded. Increased markings are seen at the lung bases suggestive of bibasilar atelectasis and/or scarring. Normal pleura. Normal chest wall structures. There are degenerative changes of thoracic spine. Large hiatal hernia. CT/CTA Chest W/WO Contrast IMPRESSION: Pulmonary emboli is seen in the branches of the right upper lobe pulmonary artery as well as the distal portion of the right pulmonary artery and left lower lobe pulmonary arterial branches. Increased markings at the lung bases suggestive of atelectasis and/or scarring. Electronically Signed: Freddie Gold MD at 13:47 EDT ,
--- NOTE | 2023-08-09 12:50 | PCM.PN.ORT ---
Subjective Subjective Patient seen and examined. She reports weakness in her right leg but suspects this is related to her MS in the setting of the acute trauma/surgery. Denies any fevers, chills, nausea or vomiting, chest pain or shortness of breath. Pain controlled. Objective Data Objective Data Vital Signs: Vital Signs Temp Pulse Resp BP Pulse Ox O2 Del Method O2 Flow Rate 98.4 F 98 14 127/53 H 94 Nasal Cannula 2 08/09/23 10:00 08/09/23 10:00 08/09/23 10:00 08/09/23 10:00 08/09/23 10:00 08/09/23 10:00 08/09/23 10:00 Oxygen Flow Rate (L/min) 2 Oxygen Delivery Method Nasal Cannula Weight: 152 lb 1.903 oz Body Mass Index (BMI) 26.1 Intake & Output: Intake and Output for Last 24 Hours 08/07/23 08/08/23 08/09/23 23:59 23:59 23:59 Intake Total 1983.17 / 1983.17 1022 / 1022 Output Total 200 / 700 1600 / 1600 Balance 1784.17 / 1284.17 -578 / -578 Lab / Micro Data 08/09/23 11:54 08/09/23 06:48 Labs: Laboratory Results - last 24 hr 08/08/23 07:15: Vitamin D 25-Hydroxy 66.8 08/09/23 06:48: WBC 6.8, RBC 2.98 L, Hgb 8.7 L, Hct 28.0 L, MCV 94.0, MCH 29.2, MCHC 31.1 L, RDW Std Deviation 45.5 H, RDW Coeff of Kamla 13.2, Plt Count 147 L, MPV 11.5, Sodium 139, Potassium 3.9, Chloride 108 H, Carbon Dioxide 27.0, Anion Gap 4 L, BUN 16, Creatinine 0.62, Estim Creat Clear Calc 56.17, Est GFR (MDRD) Af Amer 120, Est GFR (MDRD) Non-Af 99, BUN/Creatinine Ratio 25.9 H, Glucose 104, Calcium 9.2 08/09/23 11:54: Hgb 10.1 L Physical Exam Narrative General - A&Ox3, NAD. VSS/AF Right lower extremity -incisional dressing C/D/I. SILT Sural, Saphenous, SPN, DPN, Tibial N. distributions. DP, PT 2+. BCR. DF, PF, EHL 5/5. No calf TTP. Assessment & Plan Assessment/Plan (1) Closed intertrochanteric fracture: QUALIFIERS: Encounter type: initial encounter Fracture alignment: displaced Laterality: right Qualified Code(s): S72.141A - Displaced intertrochanteric fracture of right femur, initial encounter for closed fracture PLAN: POD#2 s/p R Femur CMN -Patient doing well. Continue to mobilize. Stable for discharge from my standpoint once precertification obtained. - Pain control - Medicine following for medical management - PT/OT - WBAT RLE - DVT PPX -Multimodal with Lovenox, SCDs, CLAUDETTE bean, early mobilization - Case management - D/C planning I will sign off at this time. Please not hesitate to call if any questions or concerns arise. Patient may shower postoperative day #5 if no drainage. Okay to leave incisions open to air after postoperative day #5. Continue Lovenox x 28 days upon discharge. Follow-up in 2 weeks for staple removal and x-rays.
[2023-08-09] MEDS: APIXABAN 5 MG TABLET 10 MG PO (22:12)
[2023-08-10] VITALS (15 sets, daily range): BP systolic 101–131; BP diastolic 56–70; PULSE 76–90; RESP 16–18; TEMP 36.7–37.6; O2SAT 93–97
[2023-08-10] MEDS: Acetaminophen 500 MG Tablet 1000 MG PO ×3 (03:03→18:54)
[2023-08-10] MEDS: oxyCODONE 5 MG Tablet PO ×3 (03:03→21:15)
[2023-08-10 07:15] LABS: Hematocrit 27.4 % (37-47); Hemoglobin 8.6 g/dL (12.0-15.0); Mean Corp Hgb Conc 31.4 g/dL (32-36); Mean Corpuscular Hgb 29.6 pg (27.0-32.0); Mean Corpuscular Volume 94.2 fL (81-99); Mean Platelet Vol. 11.5 fl (6.2-12.0); Platelet Count 176 K/mm3 (150-450); RBC Distribution Width CV 13.2 % (11.6-14.6); RBC Distribution Width SD 45.4 fl (35.1-43.9); Red Blood Count 2.91 M/mm3 (4.2-5.4); White Blood Count 7.4 K/mm3 (4.4-11.0)
[2023-08-10 07:37] LABS: Anion Gap 3 (5-15); BUN 13 mg/dL (7-18); BUN/Creat Ratio 23.7 RATIO (10-20); Chloride 104 mmol/L (98-107); Creatinine, Serum 0.55 mg/dL (0.55-1.02); EST Glomerular Filtration Rate 114 mL/min (>60); Est Glom Filt Rate - Afr Amer 138 mL/min (>60); Estimated Creatinine Clearance 56.17 ml/min; Glucose 118 mg/dL (74-106); Magnesium 1.8 mg/dL (1.6-2.6); Potassium 3.7 mmol/L (3.5-5.1); Sodium Level 136 mmol/L (136-145)
--- NOTE | 2023-08-10 09:14 | CASEMGMT ---
Addendum entered by Noemy Payan 08/10/23 11:37: Social Work SW did let pt know that we are still working on getting authorization from Worker's Comp, however it may not happen today. SW explained if we do not get authorization today pt will be here through the weekend. Pt states understanding. Jania in HR is working to see if she can get the precert today. SW will continue to follow. CHEYENNE Frye Original Note: Social Work SW called Ruchi at [facility] to see if we have the authorization from [facility] for pt to go to in rehab today. Ruchi is not in today, and as per the [facility], there is not anyone who helps with [facility] claims when she is out. SW called Jania in HR and left a message, as she has been involved as well with this situation. SW will await call back from Jania to see if she can help in any way to get this precert. CHEYENNE Frye
[2023-08-10] MEDS: Calcium Carbonate 500 MG Tablet PO ×3 (09:21→16:40)
[2023-08-10] MEDS: Venlafaxine XR 150 MG Capsule PO (09:21)
[2023-08-10] MEDS: APIXABAN 5 MG TABLET 10 MG PO ×2 (09:22→21:11)
[2023-08-10] MEDS: amLODIPine 10 MG Tablet PO (09:22)
[2023-08-10] MEDS: Pantoprazole Sodium 40 MG Tablet PO ×2 (09:23→21:09)
[2023-08-10] MEDS: Senna/Docusate Sodium 1 Tablet 2 TABLET PO ×2 (09:23→21:09)
--- NOTE | 2023-08-10 10:00 | CASEMGMT ---
Addendum entered and electronically signed by Kimberley Fong RN 08/10/23 16:19: Zora Maya, Dock Loader with [employer] collaborated with Meghna Haley, Unit Technician Speciality Case Management to coordinate the processing of the FROI and C9. C9 approval with disclaimer received via fax for pt's acute rehabilitation inpatient stay. This form was communicated via secure email to ALEXANDRIA Salguero and Germaine, Medical Technologist Microbiology for acute rehab. Valery Fong MBA, RN, ACM Original Note: CM Director: Notified by ALEXANDRIA Salguero of difficulty contacting Ruchi who is not in the office on this date. This Director discussed situation with Jania, HR rep. including challenges to obtain a claim number and subsequent authorization for acute rehab stay. Supporting documentation, FROI, and C9 sent confidentially to Jania to facilitate claim number and authorization being obtained. Valery Fong MBA, RN, ACM
[2023-08-10 12:40] LABS: Hemoglobin 9.4 g/dL (12.0-15.0)
--- NOTE | 2023-08-10 14:24 | CHAPLAIN ---
Type of Pastoral Visit ___ Initial Visit _x__ Follow-up Visit ___ On-call Visit ___ General Patient Visit ___ Spiritual Assessment ___ Family Conference ___ Bereavement ___ Rapid Response ___ Code Blue ___ Other (describe below) Pastoral Care Referral From _x__ Patient ___ Family ___ Nurse ___ Physician ___ Fur Polisher ___ Instrument Setter ___ Other (describe below) Sacrament/Intervention _x__ Active listening ___ Anointing ___ Zoroastrian ___ Bereavement ___ Communion ___ Mei exploration ___ ___ Life review ___ Prayer ___ Reconciliation ___ Sacrament of Sick _x__ Supportive presence ___ Wedding ___ Other (describe below) Pastoral Comments follow up to check on patient and her needs; she had a visitor; she expressed 'this is a better day';
--- NOTE | 2023-08-10 16:10 | PCM.PN.HOSP ---
Reason for Visit Reason for Visit: Right hip pain Subjective Subjective Patient states her pain is better controlled. Denies any significant shortness of breath. Anxious to get to rehab but understands we are waiting on Workmen's Comp. Objective Data Objective Data Vital Signs: Vital Signs Temp Pulse Resp BP Pulse Ox O2 Del Method O2 Flow Rate 99.2 F H 86 18 101/70 97 Nasal Cannula 2 08/10/23 15:23 08/10/23 15:23 08/10/23 15:23 08/10/23 15:23 08/10/23 15:23 08/10/23 15:23 08/10/23 15:23 Oxygen Flow Rate (L/min) 2 Oxygen Delivery Method Nasal Cannula Weight: 69 kg Body Mass Index (BMI) 26.1 Intake & Output: Intake and Output for Last 24 Hours 08/08/23 08/09/23 08/10/23 23:59 23:59 23:59 Intake Total 1022 / 1022 200 / 200 1000 / 1000 Output Total 1600 / 1600 Balance -578 / -578 200 / 200 1000 / 1000 Lab / Micro Data 08/10/23 12:23 08/10/23 06:10 Labs: Laboratory Results - last 24 hr 08/10/23 06:10: WBC 7.4, RBC 2.91 L, Hgb 8.6 L, Hct 27.4 L, MCV 94.2, MCH 29.6, MCHC 31.4 L, RDW Std Deviation 45.4 H, RDW Coeff of Kamla 13.2, Plt Count 176, MPV 11.5, Sodium 136, Potassium 3.7, Chloride 104, Carbon Dioxide 29.0, Anion Gap 3 L, BUN 13, Creatinine 0.55, Estim Creat Clear Calc 56.17, Est GFR (MDRD) Af Amer 138, Est GFR (MDRD) Non-Af 114, BUN/Creatinine Ratio 23.7 H, Glucose 118 H, Calcium 9.0, Magnesium 1.8 08/10/23 12:23: Hgb 9.4 L Physical Exam Const alert, oriented x3, no apparent distress, average body habitus and well nourished Constitutional Narrative: Elderly, white female, frail, sitting up in a chair at the bedside, watching television, nontoxic, pleasant and appears comfortable at this time HEENT normocephalic, head/scalp atraumatic, moist oral mucous membranes and oropharynx normal HEENT Narrative: Dentures in place, Mallampati 2, no thrush Resp normal respiratory effort, normal air movement, no retractions, no use of accessory muscles and clear to auscultation bilaterally Auscultation: Negative for rales, rhonchi or wheezes Cardio regular rate, regular rhythm, S1 normal heart sound, S2 normal heart sound, no murmurs, no rub, no gallops and no clicks GI normal to inspection, nondistended, normoactive bowel sounds, soft to palpation and non-tender Extremity no clubbing, cyanosis or edema Neuro oriented x3, moves all extremities and no focal motor deficits Speech: speech normal Psych thought process normal, cooperative and affect normal Psych Narrative: Very pleasant, eye contact is good and patient interacts appropriately Assessment & Plan Assessment/Plan (1) Closed intertrochanteric fracture: QUALIFIERS: Encounter type: initial encounter Fracture alignment: displaced Laterality: right Qualified Code(s): S72.141A - Displaced intertrochanteric fracture of right femur, initial encounter for closed fracture (2) Fall: (3) Elevated blood pressure reading: PLAN: Plan Right closed intertrochanteric fracture -Unknown if this fracture is related osteoporosis or not -Postop day 2 cephalomedullary nail right hip -Continue Tylenol from as needed to scheduled 1 g every 8 hours -Discontinue as needed morphine -Continue as needed oxycodone -Continue scheduled bowel regimen -PT/OT following -Vitamin D level is pending -Weightbearing as tolerated -Ortho would like Lovenox subcu for DVT prophylaxis -Plan is discharge to rehab once medically stable and okay from insurance standpoint Hypoxia secondary to bilateral pulmonary embolus -Continue to encourage incentive spirometry -Remains on 2 L but oxygen saturations seem to be improving -Eliquis 10 mg twice daily started on 08/09/2023--> will need a total of 7 days at this dose and then transition to Eliquis 5 mg p.o. twice daily Mechanical fall -Continue PT/OT -Plan is for discharge to rehab Abnormal EKG -EKG from this morning showed some lateral T wave flattening and a right bundle branch block -Patient has been asymptomatic her entire hospitalization -Consider outpatient stress test when this acute event is over Hypertension -Patient without diagnosis of hypertension but had markedly elevated blood pressure in the emergency department -Continue amlodipine 10 mg daily -Blood pressure is well-controlled with amlodipine -Continue as needed hydralazine Mild anemia -Relatively stable -Appears like hemoglobin has been running between 13 and 14 -Hemoglobin did drop some from baseline however appears to be stable -Likely related to fracture and surgical intervention with no signs of acute bleeding -Repeat CBC in a.m. GERD/Anderson's esophagus -Continue Protonix 40 mg Restless leg syndrome/neuropathic pain -Continue home gabapentin Multiple sclerosis -patient does not appear to be in any baseline medication -Likely contributes to her falls and generalized weakness Osteoporosis -Continued outpatient follow-up Depression -Continue home venlafaxine DVT prophylaxis -Eliquis 10 mg p.o. twice daily CODE STATUS Full code Charges/Coding Visit Charges Inpatient E&M: 87992 Subs Hosp L2
[2023-08-10] MEDS: Bisacodyl 5 MG Tablet PO (16:45)
--- NOTE | 2023-08-10 16:56 | CASEMGMT ---
Social Work Pt approved for by Worker's Comp for rehab and can go to rehab on Sunday. SW let physician and pt know. SW will place green sheet on chart in anticipation of discharge to rehab Sunday. CHEYENNE Frye
[2023-08-11] MEDS: Acetaminophen 500 MG Tablet 1000 MG PO ×3 (03:56→18:24)
[2023-08-11 03:57] VITALS: BP 129/64; PULSE 85; RESP 16; TEMP 37.1; O2SAT 97
[2023-08-11 04:01] VITALS: PULSE 81
[2023-08-11 07:05] LABS: Hematocrit 27.4 % (37-47); Hemoglobin 8.4 g/dL (12.0-15.0); Mean Corp Hgb Conc 30.7 g/dL (32-36); Mean Corpuscular Hgb 28.8 pg (27.0-32.0); Mean Corpuscular Volume 93.8 fL (81-99); Platelet Count 195 K/mm3 (150-450); RBC Distribution Width CV 13.2 % (11.6-14.6); Red Blood Count 2.92 M/mm3 (4.2-5.4); White Blood Count 6.6 K/mm3 (4.4-11.0)
[2023-08-11] MEDS: Calcium Carbonate 500 MG Tablet PO ×3 (08:42→18:24)
[2023-08-11] MEDS: Senna/Docusate Sodium 1 Tablet 2 TABLET PO ×2 (08:42→21:32)
[2023-08-11] MEDS: APIXABAN 5 MG TABLET 10 MG PO ×2 (08:43→21:31)
[2023-08-11] MEDS: amLODIPine 10 MG Tablet PO (08:43)
[2023-08-11] MEDS: Venlafaxine XR 150 MG Capsule PO (08:43)
[2023-08-11] MEDS: Pantoprazole Sodium 40 MG Tablet PO ×2 (08:44→21:31)
[2023-08-11 09:57] VITALS: BP 132/60; PULSE 85; RESP 18; TEMP 36.8; O2SAT 98
--- NOTE | 2023-08-11 11:05 | PCM.PN.HOSP ---
Reason for Visit Reason for Visit: Right hip pain after mechanical fall Subjective Subjective Patient notes she feels better and better every day. Has been weaned to 1.5 L of oxygen. Is complaining of a little bit of right-sided back pain. No lesions noted and no ecchymosis. I do wonder if it is related to her fall as it is on the same side of her fall. She states it is not severe. It is not on the same side of the pulmonary embolus on the right as that was upper lobe. Frustrated about awaiting admission to rehab Objective Data Objective Data Vital Signs: Vital Signs Temp Pulse Resp BP Pulse Ox O2 Del Method O2 Flow Rate 98.8 F 81 16 129/64 H 97 Nasal Cannula 2 08/11/23 03:57 08/11/23 04:01 08/11/23 03:57 08/11/23 03:57 08/11/23 03:57 08/11/23 03:57 08/11/23 03:57 Oxygen Flow Rate (L/min) 2 Oxygen Delivery Method Nasal Cannula Weight: 69 kg Body Mass Index (BMI) 26.1 Intake & Output: Intake and Output for Last 24 Hours 08/09/23 08/10/23 08/11/23 23:59 23:59 23:59 Intake Total 200 / 200 1000 / 1000 300 / 300 Balance 200 / 200 1000 / 1000 300 / 300 Lab / Micro Data 08/11/23 06:45 08/10/23 06:10 Labs: Laboratory Results - last 24 hr 08/10/23 12:23: Hgb 9.4 L 08/11/23 06:45: WBC 6.6, RBC 2.92 L, Hgb 8.4 L, Hct 27.4 L, MCV 93.8, MCH 28.8, MCHC 30.7 L, RDW Std Deviation 45.0 H, RDW Coeff of Kamla 13.2, Plt Count 195, MPV 11.0 Physical Exam Const alert, oriented x3, no apparent distress, average body habitus and well nourished; Negative for healthy appearing Constitutional Narrative: Elderly, white female, frail, sitting up in a chair at the bedside, watching television, nontoxic, pleasant and appears comfortable at this time, she is just finishing up breakfast HEENT normocephalic, head/scalp atraumatic, moist oral mucous membranes and oropharynx normal HEENT Narrative: Dentures in place, Mallampati 2, no thrush Resp normal respiratory effort, normal air movement, no retractions, no use of accessory muscles and clear to auscultation bilaterally Auscultation: Negative for rales, rhonchi or wheezes Cardio regular rate, regular rhythm, S1 normal heart sound, S2 normal heart sound, no murmurs, no rub, no gallops and no clicks GI normal to inspection, nondistended, normoactive bowel sounds, soft to palpation and non-tender Extremity no clubbing, cyanosis or edema Neuro oriented x3, moves all extremities and no focal motor deficits Neuro Narrative: Improve mobility with right lower extremity as time goes on postoperatively Speech: speech normal Motor Exam: general weakness Psych thought process normal, cooperative and affect normal Psych Narrative: Very pleasant, eye contact is good and patient interacts appropriately Assessment & Plan Assessment/Plan (1) Closed intertrochanteric fracture: QUALIFIERS: Encounter type: initial encounter Fracture alignment: displaced Laterality: right Qualified Code(s): S72.141A - Displaced intertrochanteric fracture of right femur, initial encounter for closed fracture (2) Fall: (3) Elevated blood pressure reading: PLAN: Plan Right closed intertrochanteric fracture -Unknown if this fracture is related osteoporosis or not -Postop day 3 cephalomedullary nail right hip -Continue Tylenol from as needed to scheduled 1 g every 8 hours -Discontinue as needed morphine -Continue as needed oxycodone -Continue scheduled bowel regimen -PT/OT following -Vitamin D level was normal at 66.8 -Weightbearing as tolerated -Patient is medically stable and awaiting discharge to rehab Hypoxia secondary to bilateral pulmonary embolus -Continue to encourage incentive spirometry -Has been weaned to 1.5 L -Eliquis 10 mg twice daily started on 08/09/2023--> will need a total of 7 days at this dose and then transition to Eliquis 5 mg p.o. twice daily Anemia -Appears like hemoglobin has been running between 13 and 14 -Hemoglobin is dropping some -Will repeat at noon -Check stool guaiac if further drop and if positive we will have to have GI see her Mechanical fall -Continue PT/OT -Plan is for discharge to rehab Abnormal EKG -EKG from this morning showed some lateral T wave flattening and a right bundle branch block -Patient has been asymptomatic her entire hospitalization -Consider outpatient stress test when this acute event is over Hypertension -Patient without diagnosis of hypertension but had markedly elevated blood pressure in the emergency department -Continue amlodipine 10 mg daily -Blood pressure is well-controlled with amlodipine -Continue as needed hydralazine Mild anemia -Relatively stable -Hemoglobin did drop some from baseline however appears to be stable -Likely related to fracture and surgical intervention with no signs of acute bleeding -Repeat CBC in a.m. GERD/Anderson's esophagus -Continue Protonix 40 mg Restless leg syndrome/neuropathic pain -Continue home gabapentin Multiple sclerosis -patient does not appear to be in any baseline medication -Likely contributes to her falls and generalized weakness Osteoporosis -Continued outpatient follow-up -Vitamin D level is appropriate at 66.8 Depression -Continue home venlafaxine DVT prophylaxis -Eliquis 10 mg p.o. twice daily CODE STATUS Full code Charges/Coding Visit Charges Inpatient E&M: 16354 Subs Hosp L2
[2023-08-11] MEDS: Polyethylene Glycol 3350 17 GM PACKET PO (12:33)
[2023-08-11 18:00] VITALS: BP 113/41; PULSE 88; RESP 17; TEMP 36.6; O2SAT 94
[2023-08-11 21:29] VITALS: BP 120/75; PULSE 87; RESP 15; TEMP 36.8; O2SAT 95
[2023-08-11 22:56] VITALS: RESP 15
--- NOTE | 2023-08-11 23:41 | NURSING ---
PT SLEEPING SOUNDLY. PULSE OX NOTED AT 84% ON ROOM AIR. APPLIED 2L N/C AT THIS TIME. POX INCREASED TO 94-95%. WILL CONTINUE TO MONITOR.
[2023-08-12 02:00] VITALS: PULSE 79
[2023-08-12 03:46] VITALS: BP 133/74; PULSE 84; RESP 15; TEMP 37.6; O2SAT 95
[2023-08-12] MEDS: Acetaminophen 500 MG Tablet 1000 MG PO ×2 (03:48→11:47)
[2023-08-12 05:51] LABS: Hematocrit 26.6 % (37-47); Hemoglobin 8.3 g/dL (12.0-15.0); Mean Corp Hgb Conc 31.2 g/dL (32-36); Mean Corpuscular Hgb 28.8 pg (27.0-32.0); Mean Corpuscular Volume 92.4 fL (81-99); Mean Platelet Vol. 10.7 fl (6.2-12.0); Platelet Count 209 K/mm3 (150-450); RBC Distribution Width CV 13.2 % (11.6-14.6); RBC Distribution Width SD 44.7 fl (35.1-43.9); Red Blood Count 2.88 M/mm3 (4.2-5.4); White Blood Count 6.6 K/mm3 (4.4-11.0)
[2023-08-12 06:15] LABS: Anion Gap 5 (5-15); BUN 11 mg/dL (7-18); BUN/Creat Ratio 22.2 RATIO (10-20); Calcium,Total 9.2 mg/dL (8.5-10.1); Chloride 105 mmol/L (98-107); EST Glomerular Filtration Rate 128 mL/min (>60); Est Glom Filt Rate - Afr Amer 155 mL/min (>60); Estimated Creatinine Clearance 56.17 ml/min; Glucose 113 mg/dL (74-106); Potassium 3.9 mmol/L (3.5-5.1); Sodium Level 138 mmol/L (136-145)
[2023-08-12 06:57] VITALS: O2SAT 94
[2023-08-12] MEDS: APIXABAN 5 MG TABLET 10 MG PO (09:17)
[2023-08-12] MEDS: Calcium Carbonate 500 MG Tablet PO ×2 (09:17→11:47)
[2023-08-12] MEDS: amLODIPine 10 MG Tablet PO (09:17)
[2023-08-12] MEDS: Senna/Docusate Sodium 1 Tablet 2 TABLET PO (09:18)
[2023-08-12] MEDS: Venlafaxine XR 150 MG Capsule PO (09:18)
[2023-08-12] MEDS: Pantoprazole Sodium 40 MG Tablet PO (09:18)
[2023-08-12 09:38] VITALS: BP 140/68; PULSE 88; RESP 16; TEMP 36.9; O2SAT 98
[2023-08-12 10:15] LABS: Hemoglobin 9.2 g/dL (12.0-15.0)
--- NOTE | 2023-08-12 10:55 | PCM.DC.SUM ---
Providers Date of Admission: 08/06/23 Primary Care Physician: TRACE SANCHEZ, [employer] OPERATOR-C Consultations 08/06/23 14:49 Consult: Orthopedics Routine Consulting Provider: Derek Ortega Reason for Consult: right hip fracture due to mechanical fall EMERGENT Consult: No MD Notified: Yes Date Notified: 08/06/23 Time Notified: 14:17 Method of Notification: Text Reason For Visit: RIGHT HIP FRACTURE DUE TO MECHANICAL FALL Diagnosis Discharge Diagnosis (1) Closed intertrochanteric fracture: Status: Acute Code(s): S72.143A - Displaced intertrochanteric fracture of unspecified femur, initial encounter for closed fracture Qualifiers: Encounter type: initial encounter Fracture alignment: displaced Laterality: right Qualified Code(s): S72.141A - Displaced intertrochanteric fracture of right femur, initial encounter for closed fracture (2) Fall: Status: Acute Code(s): W19.XXXA - Unspecified fall, initial encounter (3) Elevated blood pressure reading: Status: Acute Code(s): R03.0 - Elevated blood-pressure reading, without diagnosis of hypertension Medications at Discharge Home Medications glucosamine sulf dipotassium Cl 500 mg-chondroitin sulf 400 mg tablet 1 tab PO BID SUPPLEMENT 10/21/16 pantoprazole 40 mg tablet,delayed release 40 mg PO BID ACID REFLUX 10/21/16 venlafaxine 150 mg capsule,extended release 24 hr 150 mg PO DAILY DEPRESSION 10/21/16 cholecalciferol (vitamin D3) 25 mcg (1,000 unit) tablet 1,000 unit PO DAILY SUPPLEMENT 07/18/18 multivitamin with folic acid 400 mcg tablet 1 tab PO DAILY SUPPLEMENT 07/18/18 potassium chloride 10 mEq capsule,extended release 10 meq PO DAILY SUPPLEMENT 07/18/18 calcium carbonate 500 mg-vitamin D3 5 mcg (200 unit) tablet 1 tab PO DAILY SUPPLEMENT 07/22/18 ascorbic acid (vitamin C) 1,000 mg tablet (C-1000) 1 g PO DAILY supplement 12/27/22 gabapentin 100 mg capsule 100 mg PO QHS PRN RESTLESS LEGS 12/27/22 acetaminophen 500 mg tablet 1,000 mg (2 x 500 mg) PO Q8H #0 tabs 08/12/23 amlodipine 10 mg tablet 10 mg PO DAILY #0 tabs 08/12/23 apixaban 5 mg tablet (Eliquis) 10 mg (2 x 5 mg) PO BID #0 tabs 08/12/23 bisacodyl 5 mg tablet,delayed release 5 mg PO DAILY PRN Constipation #0 tabs 08/12/23 oxycodone 5 mg tablet 5 mg PO Q4H PRN PRN Pain Score 4-10 #0 tabs 08/12/23 sennosides 8.6 mg-docusate sodium 50 mg tablet (Stool Softener-Stimulant Laxative) 2 tab PO BID #1 TAB 08/12/23 Hospital Course Operations - (Right hip cephalomedullary nail) Procedures EKG and - (Chest x-ray/hip and pelvic x-rays/CT brain/CTA chest) Summary of Care Provided Minutes Spent on Discharge: 38 Hospital Course: Mrs. Robb is a 77-year-old white female who presents emergency department after a rapid response was called in the hospital for a fall. The patient works at the [employer] at [facility] and lost her balance while working and fell onto her right side. When she fell she landed on her right hip and subsequently had immediate right hip pain and the inability to ambulate or bear weight. She does have a history of a left hip arthroplasty due to osteoarthritis. Vital signs on presentation the emergency department were unremarkable other than marked blood pressure elevation related the pain. Blood pressure was initially 196/106 but improved with time and treatment of her pain. EKG was unremarkable for any acute findings but did show evidence of LVH. Her chest x-ray was overtly unremarkable. Pelvic x-ray showed a comminuted nondisplaced fracture of the the left femur in the intertrochanteric region with cephalad migration of the distal fracture fragment. Her CBC was unremarkable. Coags were normal. Her chemistry panel was unremarkable other than mild hyperglycemia with a blood glucose level of 124. She was admitted to the medical floor and Dr. Ortega from orthopedic surgery evaluated the patient on the medical floor and she was taken to the OR on 08/07/2023 for a right hip cephalomedullary nailing. She was noted to have some intermittent low-grade temperatures as well as hypoxemia just before surgery and following surgery. We did try to diurese her postoperatively as there was some concern for volume overload however this did not resolve her hypoxia and a CTA of her chest was obtained on 08/09/2023 which demonstrated bilateral pulmonary emboli noted in the branches of the right upper lobe pulmonary artery as well as the distal portion of the right pulmonary artery and the left lower lobe pulmonary arterial branches along with increased lung markings at the bases suggestive of atelectasis or scarring. Given these findings she was started on Eliquis 10 mg p.o. twice daily we monitored her hemoglobin closely. She did have somewhat of a drop in hemoglobin but her hemoglobin is stabilized at the time of discharge and it was thought to be more related to her surgery and any other etiology. A guaiac was ordered but not able to be collected prior to discharge. Hemoglobin at the time of discharge was 9.2. Baseline hemoglobin appears around between 13 and 14. I had a suspect this PE may have been present prior to surgery given the fact that she was having some low-grade temperatures and hypoxia at the time of her admission. She never had any chest pain or shortness of breath associated. EKG was done and was found to have a new right bundle branch block as well as some nonspecific T wave changes in the lateral leads. She can follow-up with outpatient cardiology if need be for noninvasive testing. We did check a vitamin D level and it was found to be 66.8. She did well with therapy and with her history of multiple sclerosis it was felt she would do well with rehab. She was accepted at rehab and we received approval for discharge on 08/12/2023 for admission into acute rehab here at [facility]. She remains on 1 to 2 L of oxygen and this can be weaned as able. She will need a follow-up CBC in 3 to 5 days to recheck her hemoglobin since she is anticoagulated fully with Eliquis. She remains on Eliquis 10 mg p.o. twice daily and will need to be on this dosing through 08/16/2023. On 08/17/2023 she can transition to 5 mg p.o. twice daily and given this is her first episode and it seems to be provoked can be stopped after 3 months. She was also found to have fairly persistent elevated blood pressure and was started on amlodipine 10 mg p.o. daily which seemed to control her blood pressure much better. She was discharged on this medication as well. She was discharged to rehab in stable condition on 08/12/2023. Discharge diagnoses: Closed right intertrochanteric fracture -Unknown if this is related to osteoporosis or not Hypoxia Bilateral pulmonary emboli Anemia Mechanical fall Abnormal EKG Hypertension GERD Anderson's esophagus Restless leg syndrome MS Osteoporosis Depression Physical Exam Const alert, oriented x3, no apparent distress, average body habitus, no limitations and well nourished; Negative for healthy appearing Constitutional Narrative: Elderly, white female, frail, sitting up in a chair at the bedside, watching television, nontoxic, pleasant and appears comfortable at this time, she is just finishing up breakfast General Appearance: cooperative, comfortable, well kempt and well developed Orientation / Consciousness: awake, oriented to person, oriented to place and oriented to time Exam Limitations: no limitations HEENT normocephalic, head/scalp atraumatic, moist oral mucous membranes and oropharynx normal HEENT Narrative: Mild hearing loss, Mallampati 2, no thrush, dentures in place Eyes PERRL and EOMs intact bilaterally Eyes Narrative: Conjunctiva mildly pale, no scleral icterus Neck no lymphadenopathy and supple Neck Narrative: Trachea midline, no thyroid enlargement Resp normal respiratory effort, normal air movement, no retractions, no use of accessory muscles and clear to auscultation bilaterally Auscultation: Negative for rales, rhonchi or wheezes Cardio regular rate, regular rhythm, S1 normal heart sound, S2 normal heart sound, no murmurs, no rub, no gallops and no clicks GI normal to inspection, nondistended, normoactive bowel sounds, soft to palpation and non-tender Extremity no clubbing, cyanosis or edema Extremity Narrative: Pedal pulses are 2+, no calf tenderness Skin no rashes or lesions noted, no wounds, skin turgor normal and no jaundice Neuro oriented x3, CN's II-XII intact bilaterally, moves all extremities and no focal motor deficits Neuro Narrative: Decreased movement right lower extremity compared to left due to pain postoperatively Speech: speech normal Motor Exam: general weakness Psych thought process normal, cooperative and affect normal Psych Narrative: Very pleasant, eye contact is good and patient interacts appropriately Appearance: appropriate Weight / BMI Weight Weight: 69 kg Body Mass Index (BMI) 26.1 ABG / Lab / Microbiology Data 08/12/23 10:08 08/12/23 05:36 Laboratory: Laboratory Results - last 24 hr 08/11/23 11:51: Hgb 9.0 L 08/12/23 05:36: WBC 6.6, RBC 2.88 L, Hgb 8.3 L, Hct 26.6 L, MCV 92.4, MCH 28.8, MCHC 31.2 L, RDW Std Deviation 44.7 H, RDW Coeff of Kamla 13.2, Plt Count 209, MPV 10.7, Sodium 138, Potassium 3.9, Chloride 105, Carbon Dioxide 28.0, Anion Gap 5, BUN 11, Creatinine 0.50 L, Estim Creat Clear Calc 56.17, Est GFR (MDRD) Af Amer 155, Est GFR (MDRD) Non-Af 128, BUN/Creatinine Ratio 22.2 H, Glucose 113 H, Calcium 9.2 08/12/23 10:08: Hgb 9.2 L D/C Instructions Discharge Diet: Low fat / Low cholesterol Discharge Activity: Return to Normal Activity Weight Bearing Status: Weight bearing as tolerated Keep extremity elevated above heart level: Operative Extremity Meaningful Use Info Meaningful Use Meaningful Use Diagnoses (Choose all that apply): None applicable Ischemic Stroke Statin Dosing Therapy Reference: STATIN DOSE THERAPY REFERENCE: * Patients > 75 years receive moderate or high dose statin therapy. * Patients 75 years or YOUNGER should receive HIGH intensity statin dose unless contraindicated. You will be required to document reason for non-treatment if statin daily dose does not meet guidelines. HIGH DOSE STATIN THERAPY DAILY Atorvastatin > than or = to 40 mg Rosuvastatin > than or = to 20 mg Amlodipine + Atorvastatin > than or = to 2.5/40 mg Ezetimibe + Simvastatin 10/80 mg Simvastatin 80mg Discharge Plan Admission Admit Date/Time: 08/06/23 14:13 Primary Reason for Your Visit: Right hip pain after a fall Attending Provider: Collette Martinez Primary Care Provider: TRACE SANCHEZ Consulting Providers: Jennifer Montes De Oca; Derek Ortega Discharge Orders/Prescriptions Prescriptions: New sennosides-docusate sodium [Stool Softener-Stimulant Laxat] 8.6-50 mg Tablet 2 tab PO BID Qty: 1 0RF acetaminophen 500 mg Tablet 1,000 mg PO Q8H Qty: 0 0RF amlodipine 10 mg Tablet 10 mg PO DAILY Qty: 0 0RF bisacodyl 5 mg Tablet,Delayed Release (Dr/Ec) 5 mg PO DAILY PRN (Reason: Constipation) Qty: 0 0RF oxycodone 5 mg Tablet 5 mg PO Q4H PRN PRN (Reason: Pain Score 4-10) Qty: 0 0RF Eliquis 5 mg Tablet 10 mg PO BID Qty: 0 0RF Rx Instructions: 10 mg p.o. twice daily through 08/16/2023 and then transition to 5 mg twice daily Continued venlafaxine 150 MG capsule 150 mg PO DAILY pantoprazole 40 MG tablet 40 mg PO BID glucosamine doherty 2KCl-chondroit 1 EACH tablet 1 tab PO BID cholecalciferol (vitamin D3) 1,000 UNIT tablet 1,000 unit PO DAILY multivitamin with folic acid 1 TABLET tablet 1 tab PO DAILY calcium carbonate-vitamin D3 1 EACH tablet 1 tab PO DAILY gabapentin 100 mg capsule 100 mg PO QHS PRN (Reason: RESTLESS LEGS) Patient Comments: PT STATES TAKES NEEDED FOR RESTLESS LEGS BUT DOESN'T TYPICALLY NEED IT. ascorbic acid (vitamin C) [C-1000] 1,000 mg tablet 1 g PO DAILY Held potassium chloride 10 MEQ capsule, extended release 10 meq PO DAILY Hold Instructions: Until discharge from rehab Discontinued acetaminophen [Arthritis Pain Reliever] 650 mg tablet extended release 1,300 mg PO BID Referrals / Follow Up: Derek Ortega DO [Med Staff - Active Staff] - Within 2 Weeks TRACE SANCHEZ NP-C [Primary Care Provider] - Within 1 Week (After discharge from rehab) Disposition Disposition (needs filled in before D/C Order can be placed): Inpatient Rehab Unit/Facility Charges/Coding Visit Charges Inpatient E&M: 54472 Disch Hosp >30min
[2023-08-12] MEDS: Polyethylene Glycol 3350 17 GM PACKET PO (11:47)
== END 2023-08-12 14:05 | DRG 480 ==
LOC: ED 13:59 → MS3 14:23
PROVIDERS: Anesthesiology; Internal Medicine; Nurse Practitioner; Student in an Organized Health Care Education/Training Program; Admitting Provider Student in an Organized Health Care Education/Training Program; Emergency Provider Student in an Organized Health Care Education/Training Program; PCP Nurse Practitioner; Visit Provider Internal Medicine
PROC: 0QS636Z Reposition Right Upper Femur with Intramedullary Internal Fixation Device, Percutaneous Approach (ICD-10-PCS; CPT 27245; principal; 2023-08-07 13:00)
DX: S72.141A Displaced intertrochanteric fracture of right femur, initial encounter for closed fracture (principal); I26.99 Other pulmonary embolism without acute cor pulmonale; G35 Multiple sclerosis; G25.81 Restless legs syndrome; I10 Essential (primary) hypertension; F32.A Depression, unspecified; G62.9 Polyneuropathy, unspecified; I45.10 Unspecified right bundle-branch block; K22.70 Barrett's esophagus without dysplasia; D64.9 Anemia, unspecified; W01.0XXA Fall on same level from slipping, tripping and stumbling without subsequent striking against object, initial encounter; R53.81 Other malaise; M81.0 Age-related osteoporosis without current pathological fracture; Z87.891 Personal history of nicotine dependence; R73.9 Hyperglycemia, unspecified; R09.02 Hypoxemia; Y93.89 Activity, other specified; Y99.0 Civilian activity done for income or pay; Y92.238 Other place in hospital as the place of occurrence of the external cause; R29.6 Repeated falls; Z79.899 Other long term (current) drug therapy
CPT/HCPCS: 36415; 70450; 71045; 71275; 72170; 73552; 76000; 80048; 80053; 82306; 83735; 84484; 85018; 85025; 85027; 85610; 86850; 86900; 86901; 93005; 97110; 97116; 97162; 97166; 97530; 97535; 99283; C1776; J7030; Q9967; A4216; J1940; J2405

== ENCOUNTER 2023-08-12 14:40 | Inpatient (IN) | payer MEDICARE, OTHER, SELFPAY ==
[2023-08-12 14:26] VITALS: BP 169/76; PULSE 90; RESP 22; TEMP 36.4; O2SAT 95; BMI 26.1
[2023-08-12] MEDS: Magnesium Hydroxide 30 ML UDC PO (15:09)
[2023-08-12 19:43] VITALS: BP 134/69; PULSE 95; RESP 20; TEMP 36.3; O2SAT 90
[2023-08-12] MEDS: APIXABAN 5 MG TABLET 10 MG PO (21:52)
[2023-08-12] MEDS: Pantoprazole Sodium 40 MG Tablet PO (21:53)
[2023-08-12] MEDS: Acetaminophen 500 MG Tablet 1000 MG PO (21:53)
[2023-08-12] MEDS: Senna/Docusate Sodium 1 Tablet 2 TABLET PO (21:53)
[2023-08-12 22:00] VITALS: PULSE 90; RESP 18; O2SAT 93
[2023-08-13] MEDS: Bisacodyl 10 MG Suppository RC (04:59)
[2023-08-13] MEDS: Acetaminophen 500 MG Tablet 1000 MG PO ×3 (05:00→21:02)
[2023-08-13] MEDS: 0.9% Saline Lock 10 ML Syringe IV ×2 (05:01→21:43)
--- NOTE | 2023-08-13 05:52 | NURSING ---
Pt voided 300ml and bs for 989ml. Pt denies bladder pressure to empty bladder. Str Cathed 1200ml and BS post cath was 0. Pt tolerated well.
[2023-08-13 06:50] LABS: Hematocrit 28.2 % (37-47); Hemoglobin 8.8 g/dL (12.0-15.0); Mean Corp Hgb Conc 31.2 g/dL (32-36); Mean Corpuscular Hgb 29.3 pg (27.0-32.0); Mean Platelet Vol. 11.2 fl (6.2-12.0); Platelet Count 253 K/mm3 (150-450); RBC Distribution Width CV 13.5 % (11.6-14.6); RBC Distribution Width SD 46.1 fl (35.1-43.9); White Blood Count 6.9 K/mm3 (4.4-11.0)
[2023-08-13 07:14] LABS: ALB/GLOB Ratio 0.8 RATIO (0.9-2.4); AST(SGOT) 23 U/L (15-37); Alanine Aminotransfer ALT/SGPT 13 U/L (13-56); Albumin, Serum 2.6 g/dL (3.2-5.0); Alkaline Phosphatase 103 U/L (45-117); Anion Gap 5 (5-15); BUN 12 mg/dL (7-18); BUN/Creat Ratio 22.3 RATIO (10-20); Chloride 103 mmol/L (98-107); Creatinine, Serum 0.54 mg/dL (0.55-1.02); EST Glomerular Filtration Rate 117 mL/min (>60); Est Glom Filt Rate - Afr Amer 141 mL/min (>60); Estimated Creatinine Clearance 56.21 ml/min; Globulin 3.4 g/dL (2.2-4.2); Glucose 115 mg/dL (74-106); Magnesium 1.8 mg/dL (1.6-2.6); Phosphorus 2.7 mg/dL (2.5-4.9); Potassium 3.8 mmol/L (3.5-5.1); Sodium Level 135 mmol/L (136-145)
[2023-08-13] MEDS: APIXABAN 5 MG TABLET 10 MG PO ×2 (09:08→21:02)
[2023-08-13] MEDS: Pantoprazole Sodium 40 MG Tablet PO ×2 (09:09→21:01)
[2023-08-13] MEDS: Calcium Carb/Vitamin D 1 TABLET Tablet PO (09:09)
[2023-08-13] MEDS: amLODIPine 10 MG Tablet PO (09:09)
[2023-08-13] MEDS: Venlafaxine XR 150 MG Capsule PO (09:09)
[2023-08-13] MEDS: Ascorbic Acid 500 MG Tablet 1000 MG PO (09:09)
[2023-08-13] MEDS: Senna/Docusate Sodium 1 Tablet 2 TABLET PO ×2 (09:09→21:02)
[2023-08-13] MEDS: Multivitamins,Therapeutic Tablet 1 TABLET PO (09:09)
[2023-08-13] MEDS: Cholecalciferol (VIT D3) 25 MCG TABLET (1,000 UNITS) PO (09:09)
[2023-08-13 09:34] VITALS: BP 154/80; PULSE 96; RESP 16; TEMP 36.8; O2SAT 93
--- NOTE | 2023-08-13 09:36 | CASEMGMT ---
Social Work As per the letter from [employer], they will reimburse at contracted fee schedule. the letter also states This medical payment authorization is based upon a claim or additional condition that is currently being adjudicated by [facility]. Please see the letter for any further details. CHEYENNE Frye
[2023-08-13 10:00] VITALS: PULSE 88; RESP 16; O2SAT 94
--- NOTE | 2023-08-13 10:15 | HP.PCM_ITS ---
[facility] - General General Date of Admission: 08/12/23 Date of Service: 08/13/23 Chief Complaint: Debility secondary to hip fracture [facility] Narrative TIAN FRANCISCO, is a 77-year-old F with a past medical history of multiple sclerosis, anxiety/depression, GERD, hiatal hernia, Anderson's esophagus, benign neoplasm of the duodenum, jejunum and ileum, hypertension, osteoporosis, seizure disorder, restless leg and vitamin D deficiency who fell at work on 08/06/2023 and subsequently was unable to bear weight on her right lower extremity. Imaging showed an acute comminuted nondisplaced fracture of the intertrochanteric region of the right femur with cephalad migration of the distal fracture fragments. She was admitted to the hospitalist service and Dr. Ortega from orthopedics was consulted. She was taken to the OR on 08/07/2023 for intramedullary nail placement in the right femur. Postoperative course was remarkable for acute blood loss anemia (stable at the time of discharge) and BL PE's (she denies any hx of DVT/PE in the past). She was started on the starting dose of Eliquis. She was transferred to the acute inpatient rehab unit at [facility] on 08/12/2023 for 3 hours of therapy daily to restore function/independence at or near her level prior to the hip fracture. She was diagnosed with MS in 1997. She had MRI's at that time that showed demyelination. Was on a medication for many years but, her neurologist retired and and quit taking the medication. She saw a neurologist in [place] about 6 months ago but, she has not been back for follow up. She could not remember the name today. She recently saw a social work administrator in [place] who told she does not think she has MS she thinks she has SLE? Wanted to prescribe steroids which the patient has not taken. Her father had RA. She has been diagnosed with osteoporosis in the past and was taking Prolia but, she developed osteonecrosis of the jaw and cataracts. She stopped Prolia 6 months ago. Has not seen an manager research and development. Her PCP is Dr. Miranda. She tells me that she has fallen at least 5 times in the past month. She can not tell me how she fell or why she fell. She denies lightheadedness, tells me that she did not trip. She denies any pain in the R hip prior to the fall. She remembers turning suddenly and then she was on the floor. Does not use an AD to ambulate. She is c/o poor appetite. Systolic blood pressures are mildly elevated but the diastolics are always within normal limits. [facility] Medical History (Updated 08/13/23 @ 16:[address] 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 Hx of iron deficiency anemia Hip fracture, right Anxiety Former smoker Hypertension DVT (deep venous thrombosis) Seizures Vitamin D deficiency Benign neoplasm of duodenum, jejunum, and ileum Barretts esophagus Elevated blood sugar Vomiting Hiatal hernia Septic phlebitis of upper extremities Cellulitis of left upper extremity Cellulitis Superficial thrombophlebitis of arm Depression Muscle spasm GERD (gastroesophageal reflux disease) Neuropathic pain Rib fractures Closed fracture of left hip requiring operative repair Home Medications ?Medication ?Instructions ?Recorded ?Last Taken ?Type glucosamine sulf dipotassium Cl 1 tab PO BID SUPPLEMENT 10/21/16 12/27/22 History 500 mg-chondroitin sulf 400 mg tablet pantoprazole 40 mg tablet,delayed 40 mg PO BID ACID REFLUX 10/21/16 12/27/22 History release venlafaxine 150 mg 150 mg PO DAILY DEPRESSION 10/21/16 12/27/22 History capsule,extended release 24 hr cholecalciferol (vitamin D3) 25 1,000 unit PO DAILY SUPPLEMENT 07/18/18 12/27/22 History mcg (1,000 unit) tablet multivitamin with folic acid 400 1 tab PO DAILY SUPPLEMENT 07/18/18 12/27/22 History mcg tablet calcium carbonate 500 mg-vitamin 1 tab PO DAILY SUPPLEMENT 07/22/18 12/27/22 History D3 5 mcg (200 unit) tablet ascorbic acid (vitamin C) 1,000 mg 1 g PO DAILY supplement 12/27/22 12/27/22 History tablet (C-1000) gabapentin 100 mg capsule 100 mg PO QHS PRN RESTLESS LEGS 12/27/22 Unknown History acetaminophen 500 mg tablet 1,000 mg (2 x 500 mg) PO Q8H pain 08/12/23 Unknown Rx #0 tabs amlodipine 10 mg tablet 10 mg PO DAILY bp #0 tabs 08/12/23 Unknown Rx apixaban 5 mg tablet (Eliquis) 10 mg (2 x 5 mg) PO BID blood 08/12/23 Unknown Rx thinner #0 tabs bisacodyl 5 mg tablet,delayed 5 mg PO DAILY PRN Constipation #0 08/12/23 Unknown Rx release tabs oxycodone 5 mg tablet 5 mg PO Q4H PRN PRN Pain Score 08/12/23 Unknown Rx 4-10 #0 tabs sennosides 8.6 mg-docusate sodium 2 tab PO BID stool softeners #1 TAB 08/12/23 Unknown Rx 50 mg tablet (Stool Softener-Stimulant Laxative) Allergy/AdvReac Type Severity Reaction Status Date / Time Sulfa (Sulfonamide AdvReac Vomiting Verified 08/06/23 12:28 Antibiotics) sulfamethoxazole (From AdvReac Vomiting Verified 08/06/23 12:28 Bactrim) trimethoprim (From Bactrim) AdvReac Vomiting Verified 08/06/23 12:28 Family History (Updated 08/13/23 @ 15:[address] Steff Hua DO) Father Rheumatoid arthritis Surgical History s/p left femur surgery Social History Smoking Status: Former smoker alcohol intake: current ROS Constitutional Constitutional: Reports anorexia, poor appetite and weakness; Denies change in weight, chills, fatigue, fever(s) or night sweats Eyes Eyes: Denies blurry vision, change in vision, eye pain or loss of vision ENT HEENT: Reports dry mouth and other; Denies abnormal hearing, dysphagia, headache(s), hearing loss, nasal congestion or sore throat Cardiovascular Cardiovascular: Denies chest pain, dyspnea on exertion, edema, lightheadedness, orthopnea, palpitations, paroxysmal nocturnal dyspnea or syncope Respiratory/Chest Respiratory/Chest: Denies cough, dyspnea, shortness of breath at rest, shortness of breath with exertion or wheezing Gastrointestinal Gastrointestinal: Reports constipation; Denies abdominal pain, diarrhea, dyspepsia, hematemesis, hematochezia, nausea or vomiting Genitourinary Genitourinary: Denies dysuria, hematuria, nocturia, urinary frequency, urinary hesitancy, urinary incontinence or urinary urgency Musculoskeletal Musculoskeletal: Denies back pain, joint pain, joint swelling or neck pain Integumentary Integumentary: Denies alopecia, jaundice, non-healing lesions, pruritus or rash Neurologic Neurologic: Reports other Details: Spasms in the RLE....more so at night. This preceded the fall/fracture. Also has numbness in the R leg, around the knee. ; Denies confusion, disequilibrium, dizziness, focal weakness, headache(s), paresthesias, seizures or tremor(s) Psychiatric Psychiatric: Reports anxiety and depression; Denies homicidal ideation or suicidal ideation Endocrine Endocrinology: Denies change in body appearance, polydipsia or polyuria Hematologic/Lymphatic Hematologic/Lymphatic: Denies easy bleeding, easy bruising or lymphadenopathy Allergic/Immunologic Allergic/Immunologic: Denies rhinitis, eczemia or asthma Vital Signs Vital Signs Vital Signs: 08/12/23 14:26 08/12/23 16:08 08/12/23 19:43 Temperature 97.5 F L 97.3 F L Temperature Source Oral Temporal Pulse Rate 90 95 Respiratory Rate 22 H 20 H Respiratory Effort Normal Non-Labored Respiratory Depth Normal Respiratory Pattern Normal Blood Pressure 169/76 H 134/69 H Blood Pressure Mean 107 90 Blood Pressure Source Monitor Monitor Blood Pressure Position Sitting Semi-Fowlers Blood Pressure Location Right Arm Right Arm Pulse Ox 95 90 Oxygen Delivery Method Room Air Room Air Room Air 08/12/23 22:00 08/13/23 04:15 08/13/23 07:44 Temperature Temperature Source Pulse Rate 90 Respiratory Rate 18 Respiratory Effort Normal Non-Labored Respiratory Depth Normal Respiratory Pattern Normal Blood Pressure Blood Pressure Mean Blood Pressure Source Blood Pressure Position Blood Pressure Location Pulse Ox 93 Oxygen Delivery Method Room Air Room Air Room Air 08/13/23 09:34 Temperature 98.2 F Temperature Source Temporal Pulse Rate 96 Respiratory Rate 16 Respiratory Effort Respiratory Depth Respiratory Pattern Blood Pressure 154/80 H Blood Pressure Mean 104 Blood Pressure Source Monitor Blood Pressure Position Sitting Blood Pressure Location Left Arm Pulse Ox 93 Oxygen Delivery Method Room Air Weight Weight: 152 lb 5.431 oz Body Mass Index (BMI) 26.1 Physical Exam Const alert Constitutional Narrative: Seems anxious. Having some memory difficulties today. Pleasant, does not appear to be in any distress. General Appearance: cooperative and well developed; Negative for ill appearing HEENT normocephalic and head/scalp atraumatic Mouth: dry mucous membranes Eyes PERRL, EOMs intact bilaterally, conjunctivae normal and no scleral icterus Eyes Narrative: No discharge from the eye and no mattering of the eyelids. No nystagmus and she denies vertigo and diplopia. No change in vision recently. General Eye: normal appearance of both eyes Neck supple Chest Chest: symmetrical chest wall rise Resp normal respiratory effort, no use of accessory muscles and clear to auscultation bilaterally Effort and Inspection: able to speak in complete sentences Cardio regular rate, regular rhythm, S1 normal heart sound, S2 normal heart sound, no rub and no gallops Cardio Narrative: She has a systolic MM at the second RICS with radiation to the apex. GI normal to inspection, nondistended, normoactive bowel sounds, soft to palpation and non-tender GI Narrative: No guarding with palpation. Extremity no calf tenderness and no pedal edema Extremity Narrative: both feet are warm to touch. She can feel me touch her legs with a pin and it feels sharp but, the R leg tingles. She also has intact sensation to pinprick in the UE's but, she has tingling in her fingertips. Both feet are warm. Skin no jaundice Skin Narrative: No rashes. No breakdown. Incisions are intact with no dehiscence and there is no erythema or DC. Neuro CN's II-XII intact bilaterally and moves all extremities Neuro Narrative: Reports tingling in the RLE and both hands. The tingling in the RLE is new in the past couple months. The deficits in her thought process and memory is recent. Other hospital employess has noticed a change in her in the past month.......she is unsteady on her feet and people have been worried about her falling. Psych Psych Narrative: Seems to be anxious. Is having difficulty with thought processing and memory. Appearance: grossly normal, appropriate and well kempt Results Lab / Micro Data 08/13/23 05:58 08/13/23 05:58 Labs: Laboratory Results - last 24 hr 08/13/23 05:58: WBC 6.9, RBC 3.00 L, Hgb 8.8 L, Hct 28.2 L, MCV 94.0, MCH 29.3, MCHC 31.2 L, RDW Std Deviation 46.1 H, RDW Coeff of Kamla 13.5, Plt Count 253, MPV 11.2, Sodium 135 L, Potassium 3.8, Chloride 103, Carbon Dioxide 27.0, Anion Gap 5, BUN 12, Creatinine 0.54 L, Estim Creat Clear Calc 56.21, Est GFR (MDRD) Af Amer 141, Est GFR (MDRD) Non-Af 117, BUN/Creatinine Ratio 22.3 H, Glucose 115 H, Calcium 9.0, Phosphorus 2.7, Magnesium 1.8, Total Bilirubin 1.40 H, AST 23, ALT 13, Alkaline Phosphatase 103, Total Protein 6.0 L, Albumin 2.6 L, Globulin 3.4, Albumin/Globulin Ratio 0.8 L Assessment & Plan Assessment/Plan (1) Debility: (2) Fall: QUALIFIERS: Encounter type: subsequent encounter Qualified Code(s): W19.XXXD - Unspecified fall, subsequent encounter (3) Closed intertrochanteric fracture: QUALIFIERS: Encounter type: initial encounter Fracture alignment: displaced Laterality: right Qualified Code(s): S72.141A - Displaced intertrochanteric fracture of right femur, initial encounter for closed fracture (4) History of open reduction and internal fixation (ORIF) procedure: (5) Pulmonary embolism during current hospitalization: (6) Acute on chronic anemia: (7) Elevated blood pressure reading: (8) Muscle spasm: (9) GERD (gastroesophageal reflux disease): QUALIFIERS: Esophagitis presence: esophagitis presence not specified Qualified Code(s): K21.9 - Gastro-esophageal reflux disease without esophagitis (10) Barretts esophagus: QUALIFIERS: Anderson's esophagus type: without dysplasia Qualified Code(s): K22.70 - Anderson's esophagus without dysplasia PLAN: Last distal esophageal biopsy was in 2021. 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 (13) History of multiple sclerosis: PLAN: Not on tx for several years. (14) Depression: QUALIFIERS: Depression Type: unspecified Qualified Code(s): F32.9 - Major depressive disorder, single episode, unspecified PLAN: Continue venfaxaline (15) Neuropathic pain: (16) Memory difficulties: PLAN: Order a speech therapy consult. PLAN: Plan PLAN PT for gait stability OT for ADL's ST for evaluation for cognition Analgesics as needed Bowel protocol Fall precautions Assess for Anxiety/Depression GI prophylaxis -pantoprazole DVT prophylaxis with-on full dose apixaban for pulmonary emboli Follow up with Dr. Miranda, Dr. Eduardo Garcia for osteoporosis, neurology and possibly rheumatology (for a second opinion - I do not think she has SLE, she has had a + MANISH in the past but, no dsDNA was done) following DC from Rehab AM lab including CMP, CBC, Mag and Phos - all personally reviewed. BL LE venous US - where are the PE's coming from? Check iron studies Check a hemoccult stool I am concerned she may be having a flare of her relapsing and remitting MS. May need to get a neurology consult. Will try and figure out which neurologist she saw in [place]. She used to follow up with Dr. Leblanc at the [facility] but, has not been there since Dr. Leblanc .......tells me that it has been years. Having a difficult time figuring out what has been going on with her in the past 6 months and her memory is poor. She is confusing the names of the physicians she has seen recently and when she saw people and what was done. Repeats herself frequently and is upset that she can not remember things. Will try and get some hx from her [facility]. Obtain records from Dr. Miranda and Dr. Baldwin........she could not remember Dr. Baldwin's name (called her Dr. Armenta) but, she told me she saw a social work administrator at [facility] that told her she thinks she has SLE and not MS........She tells me that it was the social work administrator who gave her the name of the neurologist in [place] to follow up with........she was only seen once and then she missed the follow up appt because she had to work. 70 minutes spent reviewing past diagnostic tests, lab results, vital sign trends, medical history, medications, all additional paperwork sent by the previous hospital, and ordering medications, examining the the patient and completing documentation. Charges/Coding Visit Charges Inpatient E&M: 47370 Init Hosp L3
--- NOTE | 2023-08-13 11:45 | CPS ---
dc'ing incentive. Patient had all of the 6 instructions when she was on MS3.
[2023-08-13 15:40] VITALS: BP 130/63; BP 151/77; BP 161/73; PULSE 86; PULSE 90; PULSE 91
--- NOTE | 2023-08-13 15:41 | REHABEVAL_ITS ---
Admission Information Primary Diagnosis:: Debility secondary to right hip fracture/ORIF Status Changes from Prescreening?: No changes Identified Actual Problem List:: Falls, Pain, ALteration in Cmfrt, Cognitve Impr/Memory Loss, Depression, Bowel, Constipation, Alteration in Nutrition, Mobility Impaired, Self Care Deficit, BP, Hypertension, Fluid Change-Dehydration and Alteration-Leisure Activ. Potential Problem List:: DVT, Bleeding, Infection, UTI, Aspiration, Falls, Skin Integrity and Depression Risk of Complications DVT: CLAUDETTE Hose and - (Apixaban) Bleeding: Monitor Lab Values, Nursing to Teach Precautions for anti-coagulation therapy., Wound, if applicable, to be assessed every shift. and Stroke patients assessed for lethargy or change in status. Infection: Clinical Staff to Monitor for S/S of infection: and S/S of infection include fever, redness, warmth, etc. Urinary Tract Infection: Monitor for frequency, burning, discomfort, or incontinence. and Nursing will obtain urine sample for urinalysis and C&S when ordered. Aspiration: Clinical staff will monitor for coughing, drooling, congestion., Speech will evaluate swallowing and dsyphasia. and Nursing will monitor patient swallowing during meals. Falls: Patient will be evaluated for Fall Precautions and Patient will be placed on Fall Precautions as indicated per protocol. Skin Breakdown: Nursing will assess skin daily using assessment tool. and Nursing will place on Skin Breakdown Precautions as indicated. Pain: Clinical staff will assess patient's pain level per protocol., Medications will be given, if needed, and the pain level reassessed. and Other methods: Massage, distraction, decrease stimulus, etc. used PRN. Plan of Care Patient requires physician specializing in physical medicine and rehab oversight to provide close medical supervision of rehab issues including: Pain Management, Sleep Problems, Bowel and Bladder, Medical and co-morbidity Management, DVT prophylaxis, Rehabilitation Leadership and Coordination of treatment team Patient needs Physical Therapy: For a minimum of 1 hour and At least 5 out of 7 days Patient needs Physical Therapy to improve:: Mobility, Strengthening, Transfers, Stretching, ROM, Endurance, Stairs, Gait and Balance Patient needs Occupational Therapy: For a minimum of 1 hour and At least 5 out of 7 days Patient needs Occupational Therapy to improve ADL's incl.: Eating, Grooming, Bathing, Dressing, Toileting, Toilet transfers, Community Reintegration, Higher functioning activities, Household tasks, Adaptive Equipment, Splinting and Other activities as determined Patient requires speech therapy: For a minimum of 1 hour and At least 5 out of 7 days Patient requires speech therapy for: Swallowing, Cognition, Language Skills and Compensatory Strategies Patient requires 24/ Rehabilitation Nursing for: Pain Issues, Identifying and preventing risk factors, Monitoring and reporting current medical conditions, Assisting with ambulation, transfer, and all ADL's, Teaching patients about disease process and medications, Family teaching, Providing safe environment, Bowel and Bladder Issues, Skin integrity and Medication Management Patient needs Warehouse Packaging Supervisor/ Case Management for: Discharge Planning, Arranging Home Equipment or Services and Family Interventions Patient needs Dietary and Nutrition Services for: Adequate Nutrition, Nutritional Supplements and Nutritional Education Goals Goals Patient will remain: free from falls Patient will perform eating at: MOD I level of assist. Patient will perform bed mobility at: MOD I level of assist. Patient will complete transfers from bed to chair at: - (Supervision) Patient will ambulate: - (225 feet with a wheeled walker on various surfaces at supervision) Patient will complete upper body dressing at: MOD I level of assist. Patient will complete lower body dressing at: MOD I level of assist. (With adaptive equipment as needed to increase independence with self-care.) Patient will complete toilet transfer at: MOD I level of assist. Patient will complete toileting at: MOD I level of assist. Patient will perform bathing at: MOD I level of assist. Patient will perform Tub/Shower transfer at: - (Supervision for the first 1 to 2 weeks post discharge.) Patient will complete grooming at: MOD I level of assist. Patient will achieve: - (2 steps with 1 handrail at min/contact-guard assist to allow access to her home.) Patient will have pain level of: of 3 or less Patient's skin will: remain intact Patient will receive: adequate nutrition. Discharge Planning Pt Prognosis for Sig. Practical Improv. w/in Reasonable Time: Good Estimated Length of stay (days): 21 Anticipated D/C Destination: Home with Home Health Was Preadmission Assessment Accurate?: Yes
--- NOTE | 2023-08-13 15:42 | VDLE_ITS ---
Reason For Study: BLE PAin RIGHT LEFT GSV is normal. GSV is normal. CFV is compressible, spontaneous, phasic, CFV is compressible, spontaneous, phasic, competent and demonstrates normal competent, and demonstrates normal augmentation. augmentation. FV is compressible, spontaneous, phasic, FV is compressible, spontaneous, phasic, competent and demonstrates normal competent and demonstrates normal augmentation. augmentation. POP V is compressible, spontaneous, phasic, POP V is compressible, spontaneous, phasic, competent and demonstrates normal competent and demonstrates normal augmentation. augmentation. T/P Trunk is compressible. T/P Trunk is compressible. PTV is compressible. PTV is compressible. RT PerV is compressible. LT PerV is compressible. Procedure This is a venous duplex using B-mode, color flow and spectral Doppler. Exam performed portable in patient room. The exam was diagnostic. A preliminary report was called and/or faxed to Dr. Hua. VL/Venous Duplex US - Luis Extrem Interpretation Summary Deep veins of the bilateral lower extremities are patent and compressible segme ntally. There is no evidence of bilateral lower extremity deep vein thrombosis. The bilateral great saphenous veins appear patent and compressible segmentally. Ordering Physician: Steff Hua Referring Physician: Karina Zhong Performed By: Myke Shaw RVT
[2023-08-13 16:29] LABS: Ferritin 73 ng/mL (8-252); Iron 42 ug/dL (50-170); Iron Binding Capacity,Total 312 ug/dL (250-450); PERCENT IRON SATURATION 13.5 % (15.0-55.0)
[2023-08-13 16:33] LABS: Hemoglobin A1c 5.3 % (3.8-5.6)
--- NOTE | 2023-08-13 17:49 | CASEMGMT ---
Social Work SW met with pt and completed psychosocial assessment. Contachts verified and pt has a HCPOA and living will on file at [facility] naming her spouse Krzysztof. Pt notified of Medicare coverage and that team meeting in on . Pt plans to return home with her spouse after rehab stay. Pt independent prior and hopes to return to independent lifestyle. SW to follow for support and dc planning. NORMA Kirk
--- NOTE | 2023-08-13 19:00 | NURSING ---
Patient is alert and reported that she had 2 bowel movements during the day even though no staff has verified or marked this in her I/O. Due to patient being alert, this nurse added in x2 BM's for patient on her record.
[2023-08-13 19:52] VITALS: BP 120/63; PULSE 85; RESP 16; O2SAT 92
[2023-08-13 20:35] VITALS: PULSE 85; RESP 16; TEMP 36.7; O2SAT 92
[2023-08-13] MEDS: Baclofen 10 MG Tablet 5 MG PO (21:02)
[2023-08-14] MEDS: traMADol 50 MG Tablet 25 MG PO ×2 (06:06→12:59)
[2023-08-14] MEDS: Acetaminophen 500 MG Tablet 1000 MG PO ×3 (06:06→21:57)
[2023-08-14] MEDS: Ascorbic Acid 500 MG Tablet 1000 MG PO (08:32)
[2023-08-14] MEDS: Venlafaxine XR 150 MG Capsule PO (08:32)
[2023-08-14] MEDS: APIXABAN 5 MG TABLET 10 MG PO ×2 (08:32→21:57)
[2023-08-14] MEDS: Cholecalciferol (VIT D3) 25 MCG TABLET (1,000 UNITS) PO (08:32)
[2023-08-14] MEDS: Calcium Carb/Vitamin D 1 TABLET Tablet PO (08:32)
[2023-08-14] MEDS: Multivitamins,Therapeutic Tablet 1 TABLET PO (08:32)
[2023-08-14] MEDS: Senna/Docusate Sodium 1 Tablet 2 TABLET PO ×2 (08:32→21:57)
[2023-08-14] MEDS: amLODIPine 10 MG Tablet PO (08:33)
[2023-08-14] MEDS: Pantoprazole Sodium 40 MG Tablet PO ×2 (08:33→21:57)
[2023-08-14 09:39] VITALS: BP 126/59; PULSE 79; RESP 16; TEMP 36.8; O2SAT 97
--- NOTE | 2023-08-14 09:59 | PCM.PROGNOTE ---
Subjective Subjective Afebrile VSS - Maintaining appropriate oxygen saturation on RA Oral intake - FOOD good FLUIDS fair. Urine output is exceeding oral fluid intake. Fluid balance on 08/13/2023 was -835 and overnight she was -1400. Discussed with nursing - no problems that need addressed Reviewed the THERAPY notes Medication list reviewed. Iron studies show a low serum iron at 42 and a decreased iron saturation at 13.5. Ferritin is 73 which is normal but ferritin is also an acute phase reactant and it is likely elevated somewhat due to recent fracture and surgery. Slept well last night. Denies chest pain, hemoptysis, cough, shortness of breath, palpitations, nausea/vomiting/heartburn, dysuria and calf pain. Having regular bowel movements. Objective Data Objective Data Vital Signs: Vital Signs Temp Pulse Resp BP Pulse Ox O2 Del Method 98.2 F 79 16 126/59 H 97 Room Air 08/14/23 09:39 08/14/23 09:39 08/14/23 09:39 08/14/23 09:39 08/14/23 09:39 08/14/23 09:39 Oxygen Delivery Method Room Air Weight: 152 lb 5.431 oz Body Mass Index (BMI) 26.1 Intake & Output: Intake and Output for Last 24 Hours 08/12/23 08/13/23 08/14/23 23:59 23:59 23:59 Intake Total 1310 / 1310 940 / 940 Output Total 750 / 750 1775 / 1775 1400 / 1400 Balance 560 / 560 -835 / -835 -1400 / -1400 Lab / Micro Data 08/13/23 05:58 08/13/23 05:58 Labs: Laboratory Results - last 24 hr 08/13/23 05:58: Hemoglobin A1c 5.3, Iron 42 L, TIBC 312, Iron Saturation 13.5 L, Ferritin 73 Physical Exam Const alert Constitutional Narrative: Continues to have problems with short-term memory. She was seen by speech therapy today and a Becat was done. Her score was 40 out of 50 which indicates mild cognitive impairment. General Appearance: cooperative Resp normal respiratory effort and clear to auscultation bilaterally Cardio regular rate, regular rhythm and no gallops GI normal to inspection, nondistended, normoactive bowel sounds, soft to palpation and non-tender GI Narrative: No guarding with palpation Extremity no calf tenderness General Extremity: Negative for edema Skin Rashes: no rashes Wound Narrative: Incisions are intact with no nolan-incisional erythema and no discharge. Assessment & Plan Assessment/Plan (1) Debility: (2) Fall: QUALIFIERS: Encounter type: subsequent encounter Qualified Code(s): W19.XXXD - Unspecified fall, subsequent encounter (3) Closed intertrochanteric fracture: QUALIFIERS: Encounter type: initial encounter Fracture alignment: displaced Laterality: right Qualified Code(s): S72.141A - Displaced intertrochanteric fracture of right femur, initial encounter for closed fracture (4) History of open reduction and internal fixation (ORIF) procedure: (5) Pulmonary embolism during current hospitalization: (6) Acute on chronic anemia: (7) Elevated blood pressure reading: (8) Muscle spasm: (9) GERD (gastroesophageal reflux disease): QUALIFIERS: Esophagitis presence: esophagitis presence not specified Qualified Code(s): K21.9 - Gastro-esophageal reflux disease without esophagitis (10) Barretts esophagus: QUALIFIERS: Anderson's esophagus type: without dysplasia Qualified Code(s): K22.70 - Anderson's esophagus without dysplasia (11) History of osteoporosis: (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 Has not been getting treated for MS and had numbness in the RLE and muscle spasms even prior to the recent fall. She also has cognitive impairment. May need to get a teleneurology consult. With the recent surgery I would not want to put her at risk for infection by giving high dose steroids. she is also having urine retention. Will discuss with the patient. She has had at least 5 falls in the past month. (14) Depression: QUALIFIERS: Depression Type: unspecified Qualified Code(s): F32.9 - Major depressive disorder, single episode, unspecified (15) Neuropathic pain: (16) Memory difficulties: PLAN: Plan 1. Continue therapy 2. Test dose of iron sucrose 100 mg IV today. Plan on 600 mg of IV iron and then start oral iron with vitamin C. Patient routinely takes Protonix 40 mg twice daily which likely impairs iron absorption as she is chronically iron deficient. 3. Consider a teleneurology consult vs having her follow up with Dr. Sharp shortly after DC from rehab. 4. Insert Cline catheter for urine retention and check a UA to r/o UTI. Charges/Coding Visit Charges Inpatient E&M: 08593 Subs Hosp L1
[2023-08-14] MEDS: 0.9% Saline Lock 10 ML Syringe IV (12:00)
[2023-08-14] MEDS: Sodium Ferric Gluconat 125 MG in 0.9% Normal Saline 100 ML 110 MG IV (12:00)
[2023-08-14] MEDS: 0.9% Normal Saline (250mL Bag) 250 ML 15 ML IV (12:00)
[2023-08-14 14:59] LABS: Mucous, Urine 0 SEEN /hpf (<or=2+); Red Blood Cells-Urine 0 SEEN /hpf (0-5); Squamous Epithelial Cells - UA 0 SEEN /hpf (5-10)
[2023-08-14 15:01] LABS: Color, Urine Yellow (Yellow); Glucose, Dipstick Normal (Normal); Ketone-Dipstick Negative (Negative); Leukocyte Esterase-Dipstick 500 /ul (Negative); Nitrite-Dipstick Positive (Negative); Occult Blood-Urine 10 /ul (Negative); Protein-Dipstick Negative (Negative); Urine Bilirubin Dipstick Negative (Negative); Urine Clarity Sl. Cloudy (Clear); Urine Urobilinogen Normal (Normal); Urine pH 6.5 (5.0 - 8.0)
[2023-08-14 15:06] LABS: Bacteria 4+ /hpf (None Seen); White Blood Cells 25-50 SEEN /hpf (0-5)
[2023-08-14 21:50] VITALS: BP 91/67; PULSE 96; RESP 16; TEMP 36.7; O2SAT 96
[2023-08-14] MEDS: Baclofen 10 MG Tablet 5 MG PO (21:57)
[2023-08-15 06:00] VITALS: BMI 26.1
[2023-08-15] MEDS: traMADol 50 MG Tablet 25 MG PO ×2 (06:39→12:51)
[2023-08-15] MEDS: Acetaminophen 500 MG Tablet 1000 MG PO ×3 (06:39→21:40)
[2023-08-15 07:20] VITALS: BP 145/64; PULSE 79; RESP 16; TEMP 36.9; O2SAT 92
[2023-08-15] MEDS: Cholecalciferol (VIT D3) 25 MCG TABLET (1,000 UNITS) PO (09:18)
[2023-08-15] MEDS: Venlafaxine XR 150 MG Capsule PO (09:18)
[2023-08-15] MEDS: Pantoprazole Sodium 40 MG Tablet PO ×2 (09:18→21:41)
[2023-08-15] MEDS: amLODIPine 10 MG Tablet PO (09:18)
[2023-08-15] MEDS: Calcium Carb/Vitamin D 1 TABLET Tablet PO (09:18)
[2023-08-15] MEDS: APIXABAN 5 MG TABLET 10 MG PO ×2 (09:18→21:41)
[2023-08-15] MEDS: Multivitamins,Therapeutic Tablet 1 TABLET PO (09:18)
[2023-08-15] MEDS: Ascorbic Acid 500 MG Tablet 1000 MG PO (09:18)
[2023-08-15] MEDS: Senna/Docusate Sodium 1 Tablet 2 TABLET PO ×2 (09:18→21:40)
[2023-08-15 21:30] VITALS: BP 111/54; PULSE 82; RESP 16; TEMP 37.2; O2SAT 92
[2023-08-15] MEDS: Baclofen 10 MG Tablet 5 MG PO (21:40)
[2023-08-16] MEDS: Acetaminophen 500 MG Tablet 1000 MG PO ×3 (05:29→22:05)
[2023-08-16] MEDS: Magnesium Hydroxide 30 ML UDC PO (05:30)
[2023-08-16] MEDS: traMADol 50 MG Tablet 25 MG PO ×2 (06:14→14:01)
[2023-08-16] MEDS: 0.9% Saline Lock 10 ML Syringe IV ×2 (07:09→22:06)
[2023-08-16 07:27] VITALS: BP 127/53; PULSE 75; RESP 16; TEMP 36.4; O2SAT 97
[2023-08-16] MEDS: Pantoprazole Sodium 40 MG Tablet PO ×2 (09:00→22:06)
[2023-08-16] MEDS: Senna/Docusate Sodium 1 Tablet 2 TABLET PO ×2 (09:00→22:06)
[2023-08-16] MEDS: APIXABAN 5 MG TABLET 10 MG PO ×2 (09:00→22:05)
[2023-08-16] MEDS: amLODIPine 10 MG Tablet PO (09:00)
[2023-08-16] MEDS: Venlafaxine XR 150 MG Capsule PO (09:00)
[2023-08-16] MEDS: Calcium Carb/Vitamin D 1 TABLET Tablet PO (09:00)
[2023-08-16] MEDS: Multivitamins,Therapeutic Tablet 1 TABLET PO (09:01)
[2023-08-16] MEDS: Cholecalciferol (VIT D3) 25 MCG TABLET (1,000 UNITS) PO (09:01)
[2023-08-16] MEDS: Ascorbic Acid 500 MG Tablet 1000 MG PO (09:01)
--- NOTE | 2023-08-16 09:15 | NURSING ---
spoke with Meron at Dr Ortega office new order to remove clint on 08/11. F/U in office on dc
--- NOTE | 2023-08-16 10:57 | PCM.PROGNOTE ---
Subjective Subjective Duyen was seen on team rounds today. Her Brant was present in the room. Afebrile VSS - Maintaining appropriate oxygen saturation on RA Oral intake - FOOD good FLUIDS good Discussed with nursing - no problems that need addressed Reviewed the THERAPY notes Medication list reviewed. Urine grew greater than 100,000 pansensitive E. coli. It was a cath specimen. Duricef started. Duyen denies vertigo, lightheadedness, chest pain, shortness of breath, cough, nausea/vomiting/abdominal pain, suprapubic pain and calf tenderness. Objective Data Objective Data Vital Signs: Vital Signs Temp Pulse Resp BP Pulse Ox O2 Del Method 97.5 F L 75 16 127/53 H 97 Room Air 08/16/23 07:27 08/16/23 07:27 08/16/23 07:27 08/16/23 07:27 08/16/23 07:27 08/16/23 07:27 Oxygen Delivery Method Room Air Weight: 152 lb 5.431 oz Body Mass Index (BMI) 26.1 Intake & Output: Intake and Output for Last 24 Hours 08/14/23 08/15/23 08/16/23 23:59 23:59 23:59 Intake Total 1470 / 1470 1530 / 1530 900 / 900 Output Total 2550 / 2550 2150 / 2150 900 / 900 Balance -1080 / -1080 -620 / -620 0 / 0 Lab / Micro Data 08/13/23 05:58 08/13/23 05:58 Micro: Microbiology 08/14/23 14:30 Urine Catheter - Cline Urine Culture - Final Presumptive E. coli Physical Exam Const alert General Appearance: cooperative Resp normal respiratory effort and clear to auscultation bilaterally Cardio regular rate, regular rhythm and no gallops GI normal to inspection, nondistended, normoactive bowel sounds, soft to palpation and non-tender GI Narrative: No guarding with palpation Extremity no calf tenderness General Extremity: Negative for edema Skin Rashes: no rashes Wound Narrative: Incisions are intact with no nolan-incisional erythema and no discharge. Assessment & Plan Assessment/Plan (1) Urine retention: (2) Acute cystitis: QUALIFIERS: Hematuria presence: without hematuria Qualified Code(s): N30.00 - Acute cystitis without hematuria PLAN: Plan 1. Continue therapy 2. Give iron sucrose 200 mg IV daily x 2 doses. 3. Following IV iron start ferrous sulfate 325 mg q. OD with 1000 mg of vitamin C. 4. Recheck a BMP and CBC on Sunday 5. Continues to have constipation with senna so will add MiraLAX daily. Have nursing give her a laxative today and obtain a stool for Hemoccult. 6. She is agreeable to following up with Dr. Sharp post DC. She will be discharged home 08/29 and nursing will get her an appt to follow up with Dr. Sharp [facility] following DC for suspected MS flare with cognitive dysfunction, R leg muscle spasms and numbness and urine retention. 7. May need to go home with a Cline catheter. 8. Duricef started and will treat for 7 days for E. coli acute cystitis. Charges/Coding Visit Charges Inpatient E&M: 70799 Subs Hosp L2
--- NOTE | 2023-08-16 12:49 | CASEMGMT ---
Social Work IDT met with patient and , Brant at bedside to complete Teams meeting. Discussed patient progress with therapy (PT/OT/ST) and nursing. Patient continues to require assistance with therapy for lower extremity. Patient is ambulating 65ft with contact guard. Patient cognitive evaluation with ST () on B-cat; presenting mild cognitive issues. SW educated patient of Medicare insurance coverage and benefits; approved 18 days- anticipates discharge on 08/29. Patient has goal to return home with . SW discussed home health care services and outpatient therapy. Patient is hoping to complete outpatient therapy. Family training is encouraged to support patient care. Physician is recommending outpatient neurology appointment post discharge. SW will continue to monitor to assist with discharge planning. MARIAMA Trinidad
[2023-08-16] MEDS: Polyethylene Glycol 3350 17 GM PACKET PO (13:55)
--- NOTE | 2023-08-16 15:16 | CHAPLAIN ---
Type of Pastoral Visit ___ Initial Visit _x__ Follow-up Visit ___ On-call Visit ___ General Patient Visit ___ Spiritual Assessment ___ Family Conference ___ Bereavement ___ Rapid Response ___ Code Blue ___ Other (describe below) Pastoral Care Referral From _x__ Patient ___ Family ___ Nurse ___ Physician ___ Track Subway Repair Supervisor ___ Maintenance Pipefitter ___ Other (describe below) Sacrament/Intervention _x__ Active listening ___ Anointing ___ Adventism ___ Bereavement ___ Communion ___ Mei exploration ___ ___ Life review ___ Prayer ___ Reconciliation ___ Sacrament of Sick ___ Supportive presence ___ Wedding ___ Other (describe below) Pastoral Comments patient had been seen in [facility] before and 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
[2023-08-16] MEDS: Bisacodyl 5 MG Tablet 10 MG PO (15:54)
[2023-08-16 22:00] VITALS: BP 134/50; PULSE 73; RESP 16; TEMP 36.5; O2SAT 96
[2023-08-16] MEDS: Cefadroxil 500 MG CAPSULE PO (22:05)
[2023-08-16] MEDS: Baclofen 10 MG Tablet 5 MG PO (22:05)
--- NOTE | 2023-08-17 03:32 | NURSING ---
Reviewed and agree with Leo MEI, documentation and assessment charting.
[2023-08-17] MEDS: traMADol 50 MG Tablet 25 MG PO ×2 (05:56→12:32)
[2023-08-17] MEDS: Acetaminophen 500 MG Tablet 1000 MG PO ×3 (05:56→22:16)
[2023-08-17] MEDS: 0.9% Saline Lock 10 ML Syringe IV ×3 (05:58→22:21)
[2023-08-17 07:45] VITALS: BP 131/55; PULSE 74; RESP 18; TEMP 36.8; O2SAT 94
[2023-08-17] MEDS: Cholecalciferol (VIT D3) 25 MCG TABLET (1,000 UNITS) PO (07:52)
[2023-08-17] MEDS: Calcium Carb/Vitamin D 1 TABLET Tablet PO (07:52)
[2023-08-17] MEDS: Multivitamins,Therapeutic Tablet 1 TABLET PO (07:53)
[2023-08-17] MEDS: Senna/Docusate Sodium 1 Tablet 2 TABLET PO ×2 (07:53→22:16)
[2023-08-17] MEDS: APIXABAN 5 MG TABLET PO ×2 (07:53→22:13)
[2023-08-17] MEDS: Venlafaxine XR 150 MG Capsule PO (07:53)
[2023-08-17] MEDS: amLODIPine 10 MG Tablet PO (07:53)
[2023-08-17] MEDS: Pantoprazole Sodium 40 MG Tablet PO ×2 (07:53→22:15)
[2023-08-17] MEDS: Cefadroxil 500 MG CAPSULE PO ×2 (07:53→22:13)
[2023-08-17] MEDS: Polyethylene Glycol 3350 17 GM PACKET PO (07:54)
[2023-08-17] MEDS: Sodium Ferric Gluconat/Sucrose 250 MG in 0.9% Normal Saline (250mL Bag) 250 ML 135 MG IV (10:22)
[2023-08-17 19:40] VITALS: O2SAT 95
[2023-08-17 22:00] VITALS: BP 130/54; PULSE 77; RESP 17; TEMP 37.2; O2SAT 93
[2023-08-17] MEDS: Baclofen 10 MG Tablet 5 MG PO (22:14)
--- NOTE | 2023-08-18 03:30 | NURSING ---
Reviewed and agree with Barby MEI, documentation and assessment charting.
[2023-08-18] MEDS: Acetaminophen 500 MG Tablet 1000 MG PO ×3 (05:56→22:00)
[2023-08-18] MEDS: traMADol 50 MG Tablet 25 MG PO ×2 (06:45→13:01)
[2023-08-18] MEDS: Venlafaxine XR 150 MG Capsule PO (08:45)
[2023-08-18] MEDS: Multivitamins,Therapeutic Tablet 1 TABLET PO (08:45)
[2023-08-18] MEDS: amLODIPine 10 MG Tablet PO (08:45)
[2023-08-18] MEDS: APIXABAN 5 MG TABLET PO ×2 (08:46→21:58)
[2023-08-18] MEDS: Senna/Docusate Sodium 1 Tablet 2 TABLET PO (08:46)
[2023-08-18] MEDS: Polyethylene Glycol 3350 17 GM PACKET PO (08:46)
[2023-08-18] MEDS: Calcium Carb/Vitamin D 1 TABLET Tablet PO (08:46)
[2023-08-18] MEDS: Pantoprazole Sodium 40 MG Tablet PO ×2 (08:46→21:59)
[2023-08-18] MEDS: Cefadroxil 500 MG CAPSULE PO ×2 (08:47→21:58)
[2023-08-18] MEDS: Cholecalciferol (VIT D3) 25 MCG TABLET (1,000 UNITS) PO (08:47)
[2023-08-18 08:53] VITALS: BP 139/60; PULSE 73; RESP 16; TEMP 36.6; O2SAT 94
[2023-08-18 19:15] VITALS: BP 160/52; PULSE 85; RESP 18; TEMP 36.8; O2SAT 97
[2023-08-18] MEDS: Baclofen 10 MG Tablet 5 MG PO (21:59)
[2023-08-18] MEDS: 0.9% Saline Lock 10 ML Syringe IV (22:47)
[2023-08-19] MEDS: Acetaminophen 500 MG Tablet 1000 MG PO ×3 (06:48→21:48)
[2023-08-19] MEDS: traMADol 50 MG Tablet 25 MG PO ×2 (06:48→14:18)
[2023-08-19 08:12] VITALS: BP 149/64; PULSE 80; RESP 16; TEMP 36.8; O2SAT 96
[2023-08-19] MEDS: Senna/Docusate Sodium 1 Tablet 2 TABLET PO (08:13)
[2023-08-19] MEDS: Calcium Carb/Vitamin D 1 TABLET Tablet PO (08:14)
[2023-08-19] MEDS: Cholecalciferol (VIT D3) 25 MCG TABLET (1,000 UNITS) PO (08:14)
[2023-08-19] MEDS: Venlafaxine XR 150 MG Capsule PO (08:14)
[2023-08-19] MEDS: Cefadroxil 500 MG CAPSULE PO ×2 (08:14→21:49)
[2023-08-19] MEDS: Multivitamins,Therapeutic Tablet 1 TABLET PO (08:15)
[2023-08-19] MEDS: amLODIPine 10 MG Tablet PO (08:15)
[2023-08-19] MEDS: APIXABAN 5 MG TABLET PO ×2 (08:15→21:49)
[2023-08-19] MEDS: Pantoprazole Sodium 40 MG Tablet PO ×2 (08:15→21:48)
[2023-08-19] MEDS: Ascorbic Acid 500 MG Tablet 1000 MG PO (14:18)
[2023-08-19] MEDS: Ferrous Sulfate 325 MG Tablet PO (14:18)
[2023-08-19 19:57] VITALS: BP 120/62; PULSE 72; RESP 18; TEMP 36.9; O2SAT 94
[2023-08-19] MEDS: Baclofen 10 MG Tablet 5 MG PO (21:48)
[2023-08-20] MEDS: Acetaminophen 500 MG Tablet 1000 MG PO ×3 (05:03→22:01)
[2023-08-20] MEDS: 0.9% Saline Lock 10 ML Syringe IV (05:06)
[2023-08-20 05:59] LABS: Hematocrit 34.1 % (37-47); Hemoglobin 10.5 g/dL (12.0-15.0); Mean Corp Hgb Conc 30.8 g/dL (32-36); Mean Corpuscular Hgb 29.4 pg (27.0-32.0); Mean Corpuscular Volume 95.5 fL (81-99); Mean Platelet Vol. 10.5 fl (6.2-12.0); Platelet Count 382 K/mm3 (150-450); RBC Distribution Width CV 15.1 % (11.6-14.6); RBC Distribution Width SD 51.4 fl (35.1-43.9); Red Blood Count 3.57 M/mm3 (4.2-5.4); White Blood Count 5.8 K/mm3 (4.4-11.0)
[2023-08-20 06:49] LABS: Anion Gap 7 (5-15); BUN 11 mg/dL (7-18); BUN/Creat Ratio 22.1 RATIO (10-20); Calcium,Total 9.7 mg/dL (8.5-10.1); Chloride 107 mmol/L (98-107); EST Glomerular Filtration Rate 128 mL/min (>60); Est Glom Filt Rate - Afr Amer 154 mL/min (>60); Estimated Creatinine Clearance 56.21 ml/min; Glucose 93 mg/dL (74-106); Potassium 4.1 mmol/L (3.5-5.1); Sodium Level 139 mmol/L (136-145)
[2023-08-20] MEDS: traMADol 50 MG Tablet 25 MG PO (06:56)
[2023-08-20 07:29] VITALS: BP 138/65; PULSE 63; RESP 17; TEMP 36.9; O2SAT 95
[2023-08-20] MEDS: APIXABAN 5 MG TABLET PO ×2 (09:14→22:00)
[2023-08-20] MEDS: Pantoprazole Sodium 40 MG Tablet PO ×2 (09:15→22:01)
[2023-08-20] MEDS: Calcium Carb/Vitamin D 1 TABLET Tablet PO (09:15)
[2023-08-20] MEDS: Cholecalciferol (VIT D3) 25 MCG TABLET (1,000 UNITS) PO (09:15)
[2023-08-20] MEDS: amLODIPine 10 MG Tablet PO (09:15)
[2023-08-20] MEDS: Venlafaxine XR 150 MG Capsule PO (09:15)
[2023-08-20] MEDS: Cefadroxil 500 MG CAPSULE PO ×2 (09:15→22:03)
[2023-08-20] MEDS: Multivitamins,Therapeutic Tablet 1 TABLET PO (09:15)
--- NOTE | 2023-08-20 12:02 | PCM.PROGNOTE ---
Subjective Subjective Afebrile VSS -systolic blood pressures are elevated and over the past 3 days have ranged from 130/54 to 160/52. Heart rate is within normal limits. Maintaining appropriate oxygen saturation on RA Oral intake - FOOD good FLUIDS good Discussed with nursing - no problems that need addressed Reviewed the THERAPY notes Medication list reviewed. Her only antihypertensive is amlodipine and she takes 10 mg daily. She is c/o R low back pain......along the iliac crest. Denies lightheadedness, cephalgia, chest pain, shortness of breath, cough, night sweats, shaking chills, nausea/vomiting/abdominal pain, dysuria, suprapubic pain and calf tenderness. Sleeping well at night. All lab drawn this morning was personally reviewed. The white blood cell count is normal at 5.8 and hemoglobin is 10.5, up from 8.8 on 08/13/2023. Platelets are within normal limits. Sodium is 135 and the potassium is 4.1. The BUN is stable at 11 with a creatinine of 0.5. Objective Data Objective Data Vital Signs: Vital Signs Temp Pulse Resp BP Pulse Ox O2 Del Method 98.5 F 63 17 138/65 H 95 Room Air 08/20/23 07:29 08/20/23 07:29 08/20/23 07:29 08/20/23 07:29 08/20/23 07:29 08/20/23 07:29 Oxygen Delivery Method Room Air Weight: 152 lb 5.431 oz Body Mass Index (BMI) 26.1 Intake & Output: Intake and Output for Last 24 Hours 08/18/23 08/19/23 08/20/23 23:59 23:59 23:59 Intake Total 2069 / 2069 1999 / 1999 400 / 400 Output Total 2400 / 2400 2099 / 2099 1050 / 1050 Balance -330 / -330 -100 / -100 -650 / -650 Lab / Micro Data 08/20/23 05:01 08/20/23 05:01 Labs: Laboratory Results - last 24 hr 08/20/23 05:01: WBC 5.8, RBC 3.57 L, Hgb 10.5 L, Hct 34.1 L, MCV 95.5, MCH 29.4, MCHC 30.8 L, RDW Std Deviation 51.4 H, RDW Coeff of Kamla 15.1 H, Plt Count 382, MPV 10.5, Sodium 139, Potassium 4.1, Chloride 107, Carbon Dioxide 25.0, Anion Gap 7, BUN 11, Creatinine 0.50 L, Estim Creat Clear Calc 56.21, Est GFR (MDRD) Af Amer 154, Est GFR (MDRD) Non-Af 128, BUN/Creatinine Ratio 22.1 H, Glucose 93, Calcium 9.7 Micro: Microbiology 08/16/23 20:54 Stool Stool Occult Blood (TENA) - Final Occult Blood Positive 08/14/23 14:30 Urine Catheter - Cline Urine Culture - Final Presumptive E. coli Physical Exam Const alert General Appearance: cooperative Resp normal respiratory effort and clear to auscultation bilaterally Cardio regular rate, regular rhythm and no gallops GI normal to inspection, nondistended, normoactive bowel sounds, soft to palpation and non-tender GI Narrative: No guarding with palpation Extremity no calf tenderness General Extremity: Negative for edema Skin Rashes: no rashes Wound Narrative: Incisions are intact with no nolan-incisional erythema and no discharge. Assessment & Plan Assessment/Plan (1) Debility: (2) Closed right hip fracture: QUALIFIERS: Encounter type: subsequent encounter Fracture healing: with routine healing Qualified Code(s): S72.001D - Fracture of unspecified part of neck of right femur, subsequent encounter for closed fracture with routine healing (3) History of open reduction and internal fixation (ORIF) procedure: (4) Memory difficulties: (5) Urine retention: (6) Acute cystitis: QUALIFIERS: Hematuria presence: without hematuria Qualified Code(s): N30.00 - Acute cystitis without hematuria (7) Pulmonary embolism during current hospitalization: (8) Muscle spasm: (9) Hypertension: QUALIFIERS: Hypertension type: primary hypertension Qualified Code(s): I10 - Essential (primary) hypertension PLAN: Plan 1. Continue therapy 2. Add lisinopril 2.5 mg-goal blood pressure is less than 130/80. 3. I suspect the urine retention, cognitive difficulties, LLE spasms and paresthesias and possibly the constipation are related to untreated MS. She is going to follow up with Dr. Sharp from neurology post [place]. Charges/Coding Visit Charges Inpatient E&M: 02011 Subs Hosp L1
[2023-08-20] MEDS: Lisinopril 2.5 MG Tablet PO (12:43)
[2023-08-20 19:38] VITALS: BP 110/58; PULSE 70; RESP 15; TEMP 36.3; O2SAT 97
[2023-08-20] MEDS: Baclofen 10 MG Tablet 5 MG PO (21:58)
[2023-08-20] MEDS: Senna/Docusate Sodium 1 Tablet 2 TABLET PO (22:04)
[2023-08-21] MEDS: Acetaminophen 500 MG Tablet 1000 MG PO ×3 (06:13→23:33)
[2023-08-21] MEDS: 0.9% Saline Lock 10 ML Syringe IV ×3 (06:15→23:36)
[2023-08-21 07:31] VITALS: BP 127/64; PULSE 74; RESP 17; TEMP 36.6; O2SAT 96
[2023-08-21] MEDS: amLODIPine 10 MG Tablet PO (07:53)
[2023-08-21] MEDS: Venlafaxine XR 150 MG Capsule PO (07:53)
[2023-08-21] MEDS: APIXABAN 5 MG TABLET PO ×2 (07:54→23:34)
[2023-08-21] MEDS: Calcium Carb/Vitamin D 1 TABLET Tablet PO (07:54)
[2023-08-21] MEDS: Multivitamins,Therapeutic Tablet 1 TABLET PO (07:54)
[2023-08-21] MEDS: Pantoprazole Sodium 40 MG Tablet PO ×2 (07:55→23:33)
[2023-08-21] MEDS: Cholecalciferol (VIT D3) 25 MCG TABLET (1,000 UNITS) PO (07:56)
[2023-08-21] MEDS: Cefadroxil 500 MG CAPSULE PO ×2 (07:56→23:34)
[2023-08-21] MEDS: Lisinopril 2.5 MG Tablet PO (07:56)
--- NOTE | 2023-08-21 12:07 | PCM.PROGNOTE ---
Subjective Subjective Afebrile VSS -blood pressure is better today with the addition of lisinopril to her drug regimen. Heart rate is within normal limits. Maintaining appropriate oxygen saturation on RA Oral intake - FOOD good FLUIDS good Discussed with nursing - no problems that need addressed. Cline was discontinued yesterday. She is still retaining. Has been straight cath'd twice. Can not evacuate even with bearing down. Reviewed the THERAPY notes Medication list reviewed. Duyen denies lightheadedness, vertigo, CP, SOB at rest, SOB with exertion, cough, nausea, vomiting, abd pain, diarrhea, dysuria, calf pain and ankle swelling. Objective Data Objective Data Vital Signs: Vital Signs Temp Pulse Resp BP Pulse Ox O2 Del Method 97.8 F 74 17 127/64 H 96 Room Air 08/21/23 07:31 08/21/23 07:31 08/21/23 07:31 08/21/23 07:31 08/21/23 07:31 08/21/23 07:31 Oxygen Delivery Method Room Air Weight: 152 lb 5.431 oz Body Mass Index (BMI) 26.1 Intake & Output: Intake and Output for Last 24 Hours 08/19/23 08/20/23 08/21/23 23:59 23:59 23:59 Intake Total 1999 / 1999 1000 / 1000 Output Total 2100 / 2100 1900 / 1900 950 / 950 Balance -100 / -100 -900 / -900 -950 / -950 Lab / Micro Data 08/20/23 05:01 08/20/23 05:01 Micro: Microbiology 08/16/23 20:54 Stool Stool Occult Blood (TENA) - Final Occult Blood Positive 08/14/23 14:30 Urine Catheter - Cline Urine Culture - Final Presumptive E. coli Physical Exam Const alert and oriented x3 Constitutional Narrative: Not having trouble with word finding like she was having at admission. Speech is more fluid. General Appearance: cooperative HEENT normocephalic and head/scalp atraumatic Eyes PERRL, EOMs intact bilaterally, conjunctivae normal and no scleral icterus Eyes Narrative: No discharge from the eye and no mattering of the eyelids. No nystagmus and she denies vertigo and diplopia. No change in vision recently. General Eye: normal appearance of both eyes Neck supple Chest Chest: symmetrical chest wall rise Resp normal respiratory effort and clear to auscultation bilaterally Effort and Inspection: able to speak in complete sentences Cardio regular rate, regular rhythm and no gallops Cardio Narrative: She has a systolic MM at the second RICS with radiation to the apex. GI normal to inspection, nondistended, normoactive bowel sounds, soft to palpation and non-tender GI Narrative: No guarding with palpation Extremity no calf tenderness Extremity Narrative: both feet are warm to touch. She can feel me touch her legs with a pin and it feels sharp but, the R leg tingles. She also has intact sensation to pinprick in the UE's but, she has tingling in her fingertips. Both feet are warm. General Extremity: Negative for edema Skin no jaundice Skin Narrative: No rashes. No breakdown. Incisions are intact with no dehiscence and there is no erythema or DC. Rashes: no rashes Wound Narrative: Incisions are intact with no nolan-incisional erythema and no discharge. Neuro CN's II-XII intact bilaterally and moves all extremities Neuro Narrative: Reports tingling in the RLE and both hands. The tingling in the RLE is new in the past couple months. The deficits in her thought process and memory is recent. Other hospital employess has noticed a change in her in the past month.......she is unsteady on her feet and people have been worried about her falling. Psych Psych Narrative: Seems to be anxious. Is having difficulty with thought processing and memory. Appearance: grossly normal, appropriate and well kempt Assessment & Plan Assessment/Plan (1) Debility: (2) Closed right hip fracture: QUALIFIERS: Encounter type: subsequent encounter Fracture healing: with routine healing Qualified Code(s): S72.001D - Fracture of unspecified part of neck of right femur, subsequent encounter for closed fracture with routine healing (3) History of open reduction and internal fixation (ORIF) procedure: (4) Memory difficulties: (5) Urine retention: (6) Acute cystitis: QUALIFIERS: Hematuria presence: without hematuria Qualified Code(s): N30.00 - Acute cystitis without hematuria (7) Pulmonary embolism during current hospitalization: (8) Muscle spasm: (9) Hypertension: QUALIFIERS: Hypertension type: primary hypertension Qualified Code(s): I10 - Essential (primary) hypertension PLAN: Plan 1. Continue therapy 2. Continue to check postvoid residuals. Straight cath if the residual is greater than 300 cc. Charges/Coding Visit Charges Inpatient E&M: 33524 Subs Hosp L1
[2023-08-21] MEDS: Ascorbic Acid 500 MG Tablet 1000 MG PO (12:40)
[2023-08-21] MEDS: Ferrous Sulfate 325 MG Tablet PO (12:40)
[2023-08-21] MEDS: Tamsulosin HCl 0.4 MG Capsule PO (17:42)
[2023-08-21 19:31] VITALS: BP 120/63; PULSE 70; RESP 15; TEMP 37; O2SAT 98
[2023-08-21 22:00] VITALS: O2SAT 96
[2023-08-21] MEDS: Baclofen 10 MG Tablet 5 MG PO (23:34)
[2023-08-22 06:00] VITALS: BMI 25.3
[2023-08-22] MEDS: Acetaminophen 500 MG Tablet 1000 MG PO ×3 (06:32→22:08)
[2023-08-22] MEDS: 0.9% Saline Lock 10 ML Syringe IV (06:40)
[2023-08-22] MEDS: amLODIPine 10 MG Tablet PO (08:36)
[2023-08-22] MEDS: Pantoprazole Sodium 40 MG Tablet PO ×2 (08:36→22:08)
[2023-08-22] MEDS: Lisinopril 2.5 MG Tablet PO (08:36)
[2023-08-22] MEDS: Venlafaxine XR 150 MG Capsule PO (08:36)
[2023-08-22] MEDS: Cholecalciferol (VIT D3) 25 MCG TABLET (1,000 UNITS) PO (08:36)
[2023-08-22] MEDS: Cefadroxil 500 MG CAPSULE PO ×2 (08:37→22:06)
[2023-08-22] MEDS: Calcium Carb/Vitamin D 1 TABLET Tablet PO (08:37)
[2023-08-22] MEDS: Multivitamins,Therapeutic Tablet 1 TABLET PO (08:37)
[2023-08-22 10:00] VITALS: BP 112/63; PULSE 82; RESP 16; TEMP 36.7; O2SAT 98
[2023-08-22] MEDS: APIXABAN 5 MG TABLET PO ×2 (10:43→22:07)
[2023-08-22] MEDS: Tamsulosin HCl 0.4 MG Capsule PO (16:39)
[2023-08-22 19:35] VITALS: BP 118/75; PULSE 81; RESP 16; TEMP 36.3; O2SAT 95
[2023-08-22 22:00] VITALS: PULSE 81; RESP 16; O2SAT 95
[2023-08-22] MEDS: Baclofen 10 MG Tablet 5 MG PO (22:07)
[2023-08-23] MEDS: Acetaminophen 500 MG Tablet 1000 MG PO ×3 (06:45→21:21)
[2023-08-23 08:03] VITALS: BP 120/68; PULSE 83; RESP 18; TEMP 36.6; O2SAT 93
[2023-08-23] MEDS: Pantoprazole Sodium 40 MG Tablet PO ×2 (08:27→21:22)
[2023-08-23] MEDS: APIXABAN 5 MG TABLET PO ×2 (08:27→21:20)
[2023-08-23] MEDS: Lisinopril 2.5 MG Tablet PO (08:27)
[2023-08-23] MEDS: Cholecalciferol (VIT D3) 25 MCG TABLET (1,000 UNITS) PO (08:27)
[2023-08-23] MEDS: amLODIPine 10 MG Tablet PO (08:27)
[2023-08-23] MEDS: Calcium Carb/Vitamin D 1 TABLET Tablet PO (08:27)
[2023-08-23] MEDS: Venlafaxine XR 150 MG Capsule PO (08:27)
[2023-08-23] MEDS: Cefadroxil 500 MG CAPSULE PO (08:28)
[2023-08-23] MEDS: Multivitamins,Therapeutic Tablet 1 TABLET PO (08:28)
--- NOTE | 2023-08-23 11:44 | PCM.PROGNOTE ---
Subjective Subjective Duyen was seen in team rounds today. Her Brant was present in the room for rounds. Afebrile VSS - Maintaining appropriate oxygen saturation on RA Oral intake - FOOD fair to good FLUIDS good The last 2 postvoid residuals were 203 and 215. Postvoid residual today is 226. She has had no postvoid residuals greater than 300 since discontinuation of the Cline catheter. She tells me that she is urinating more easily and more often than she has in quite a while. She was started on Flomax. Discussed with nursing - no problems that need addressed. Reviewed the THERAPY notes Medication list reviewed. Duyen denies lightheadedness, cephalgia, chest pain, shortness of breath, palpitations, nausea/vomiting/abdominal pain, dysuria/suprapubic pain and calf tenderness. Objective Data Objective Data Vital Signs: Vital Signs Temp Pulse Resp BP Pulse Ox O2 Del Method 97.9 F 83 18 120/68 93 Room Air 08/23/23 08:03 08/23/23 08:03 08/23/23 08:03 08/23/23 08:03 08/23/23 08:03 08/23/23 08:03 Oxygen Delivery Method Room Air Weight: 147 lb 7.828 oz Body Mass Index (BMI) 25.3 Intake & Output: Intake and Output for Last 24 Hours 08/21/23 08/22/23 08/23/23 23:59 23:59 23:59 Intake Total 1140 / 1140 1740 / 1740 420 / 420 Output Total 1800 / 1800 1400 / 1400 900 / 900 Balance -660 / -660 340 / 340 -480 / -480 Lab / Micro Data 08/27/23 04:47 08/27/23 04:47 Micro: Microbiology 08/16/23 20:54 Stool Stool Occult Blood (TENA) - Final Occult Blood Positive 08/14/23 14:30 Urine Catheter - Cline Urine Culture - Final Presumptive E. 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 GI normal to inspection, nondistended, normoactive bowel sounds, soft to palpation and non-tender GI Narrative: No guarding with palpation Extremity no calf tenderness General Extremity: Negative for edema Skin no jaundice Skin Narrative: No rashes. No breakdown. Incisions are intact with no dehiscence and there is no erythema or DC. Rashes: no rashes Assessment & Plan Assessment/Plan (1) Debility: (2) Closed right hip fracture: QUALIFIERS: Encounter type: subsequent encounter Fracture healing: with routine healing Qualified Code(s): S72.001D - Fracture of unspecified part of neck of right femur, subsequent encounter for closed fracture with routine healing (3) History of open reduction and internal fixation (ORIF) procedure: (4) Memory difficulties: (5) Urine retention: (6) Acute cystitis: QUALIFIERS: Hematuria presence: without hematuria Qualified Code(s): N30.00 - Acute cystitis without hematuria (7) Pulmonary embolism during current hospitalization: (8) Muscle spasm: (9) Hypertension: QUALIFIERS: Hypertension type: primary hypertension Qualified Code(s): I10 - Essential (primary) hypertension PLAN: Plan 1. Continue therapy 2. Continue to check postvoid residuals for the next 48 hours. 3. Recheck a CBC, BMP and a magnesium on Sunday Charges/Coding Visit Charges Inpatient E&M: 08763 Subs Hosp L2
[2023-08-23] MEDS: 0.9% Saline Lock 10 ML Syringe IV (11:58)
[2023-08-23] MEDS: Ascorbic Acid 500 MG Tablet 1000 MG PO (11:58)
[2023-08-23] MEDS: Ferrous Sulfate 325 MG Tablet PO (11:58)
--- NOTE | 2023-08-23 13:12 | CASEMGMT ---
Addendum entered by Thiago Llanos 08/24/23 09:02: [place] [facility] prearrangement of outpatient appointments. Original Note: Social Work- Teams Meeting IDT met with patient at bedside to complete Teams meeting. Discussed patient improvement with therapy (PT/OT/ST) and nursing. Patient is ambulating 114ft with therapy. Patient's cognition has improved with ST. Patient scored increased to 43/50 on B-cat within normal range of cognition. Patient has improved with muscle strengthening. PT recommends for outpatient therapy; outpatient OT needs. Patient to follow up with neurology outpatient. SW will continue to support patient for care. Patient educated on Medicare approved days for 18 days; anticipated discharge 08/29. Patient to discharge home with outpatient therapy at [facility]. will provide transportation to [facility]. MARIAMA Trinidad
[2023-08-23] MEDS: Tamsulosin HCl 0.4 MG Capsule PO (17:14)
[2023-08-23] MEDS: Baclofen 10 MG Tablet 5 MG PO (21:21)
[2023-08-23] MEDS: Senna/Docusate Sodium 1 Tablet 2 TABLET PO (21:23)
[2023-08-23 22:00] VITALS: BP 117/56; PULSE 79; RESP 16; TEMP 35.8; O2SAT 95
[2023-08-24] MEDS: Acetaminophen 500 MG Tablet 1000 MG PO ×3 (05:35→21:24)
[2023-08-24 08:00] VITALS: BP 131/57; PULSE 82; RESP 18; TEMP 37; O2SAT 94
[2023-08-24] MEDS: Pantoprazole Sodium 40 MG Tablet PO ×2 (08:55→21:24)
[2023-08-24] MEDS: Multivitamins,Therapeutic Tablet 1 TABLET PO (08:55)
[2023-08-24] MEDS: Venlafaxine XR 150 MG Capsule PO (08:55)
[2023-08-24] MEDS: Cholecalciferol (VIT D3) 25 MCG TABLET (1,000 UNITS) PO (08:55)
[2023-08-24] MEDS: APIXABAN 5 MG TABLET PO ×2 (08:55→21:24)
[2023-08-24] MEDS: amLODIPine 10 MG Tablet PO (08:55)
[2023-08-24] MEDS: Lisinopril 2.5 MG Tablet PO (08:55)
[2023-08-24] MEDS: Calcium Carb/Vitamin D 1 TABLET Tablet PO (08:55)
[2023-08-24] MEDS: Tamsulosin HCl 0.4 MG Capsule PO (16:58)
[2023-08-24 20:00] VITALS: BP 128/59; PULSE 86; RESP 20; TEMP 36.6; O2SAT 93
[2023-08-24] MEDS: Baclofen 10 MG Tablet 5 MG PO (21:24)
[2023-08-25] MEDS: Acetaminophen 500 MG Tablet 1000 MG PO ×3 (06:10→21:59)
[2023-08-25 07:30] VITALS: BP 120/61; PULSE 84; RESP 16; TEMP 36.9; O2SAT 97
[2023-08-25] MEDS: Senna/Docusate Sodium 1 Tablet 2 TABLET PO (08:45)
[2023-08-25] MEDS: Lisinopril 2.5 MG Tablet PO (08:46)
[2023-08-25] MEDS: Pantoprazole Sodium 40 MG Tablet PO ×2 (08:46→22:00)
[2023-08-25] MEDS: Venlafaxine XR 150 MG Capsule PO (08:46)
[2023-08-25] MEDS: Cholecalciferol (VIT D3) 25 MCG TABLET (1,000 UNITS) PO (08:46)
[2023-08-25] MEDS: Calcium Carb/Vitamin D 1 TABLET Tablet PO (08:46)
[2023-08-25] MEDS: APIXABAN 5 MG TABLET PO ×2 (08:46→22:00)
[2023-08-25] MEDS: amLODIPine 10 MG Tablet PO (08:47)
[2023-08-25] MEDS: Multivitamins,Therapeutic Tablet 1 TABLET PO (08:48)
[2023-08-25] MEDS: Ascorbic Acid 500 MG Tablet 1000 MG PO (12:11)
[2023-08-25] MEDS: Ferrous Sulfate 325 MG Tablet PO (12:11)
[2023-08-25] MEDS: Tamsulosin HCl 0.4 MG Capsule PO (17:18)
[2023-08-25 20:00] VITALS: BP 126/74; PULSE 70; RESP 17; TEMP 36.6; O2SAT 93
[2023-08-25] MEDS: Baclofen 10 MG Tablet 5 MG PO (21:58)
[2023-08-26] MEDS: Acetaminophen 500 MG Tablet 1000 MG PO ×3 (05:45→21:39)
[2023-08-26 07:00] VITALS: BP 155/74; PULSE 81; RESP 18; TEMP 36.8; O2SAT 94
[2023-08-26] MEDS: APIXABAN 5 MG TABLET PO ×2 (08:25→21:38)
[2023-08-26] MEDS: Venlafaxine XR 150 MG Capsule PO (08:25)
[2023-08-26] MEDS: Calcium Carb/Vitamin D 1 TABLET Tablet PO (08:25)
[2023-08-26] MEDS: amLODIPine 10 MG Tablet PO (08:25)
[2023-08-26] MEDS: Pantoprazole Sodium 40 MG Tablet PO ×2 (08:25→21:39)
[2023-08-26] MEDS: Cholecalciferol (VIT D3) 25 MCG TABLET (1,000 UNITS) PO (08:25)
[2023-08-26] MEDS: Multivitamins,Therapeutic Tablet 1 TABLET PO (08:26)
[2023-08-26] MEDS: Lisinopril 2.5 MG Tablet PO (08:26)
[2023-08-26] MEDS: Tamsulosin HCl 0.4 MG Capsule PO (17:08)
[2023-08-26] MEDS: Baclofen 10 MG Tablet 5 MG PO (21:38)
[2023-08-26] MEDS: Senna/Docusate Sodium 1 Tablet 2 TABLET PO (21:50)
[2023-08-26 22:00] VITALS: BP 132/71; PULSE 89; RESP 17; TEMP 36.3; O2SAT 96
[2023-08-27 05:27] LABS: Hematocrit 36.5 % (37-47); Hemoglobin 11.2 g/dL (12.0-15.0); Mean Corp Hgb Conc 30.7 g/dL (32-36); Mean Corpuscular Hgb 29.2 pg (27.0-32.0); Mean Corpuscular Volume 95.3 fL (81-99); Mean Platelet Vol. 10.7 fl (6.2-12.0); Platelet Count 299 K/mm3 (150-450); RBC Distribution Width CV 14.7 % (11.6-14.6); RBC Distribution Width SD 51.8 fl (35.1-43.9); Red Blood Count 3.83 M/mm3 (4.2-5.4); White Blood Count 4.3 K/mm3 (4.4-11.0)
[2023-08-27 06:07] LABS: Anion Gap 7 (5-15); BUN 14 mg/dL (7-18); BUN/Creat Ratio 23.9 RATIO (10-20); Calcium,Total 10.2 mg/dL (8.5-10.1); Chloride 108 mmol/L (98-107); Creatinine, Serum 0.59 mg/dL (0.55-1.02); EST Glomerular Filtration Rate 105 mL/min (>60); Est Glom Filt Rate - Afr Amer 128 mL/min (>60); Estimated Creatinine Clearance 55.39 ml/min; Glucose 107 mg/dL (74-106); Magnesium 1.8 mg/dL (1.6-2.6); Sodium Level 138 mmol/L (136-145)
[2023-08-27] MEDS: Acetaminophen 500 MG Tablet 1000 MG PO ×3 (06:09→23:04)
--- NOTE | 2023-08-27 06:51 | NURSING ---
This nurse entered patient's room this AM for med pass and bladder scan. This nurse encouraged patient to get up to use the restroom to void, then bladder scan. Pt told this nurse she would like to wait until therapy is in this AM since she is an ADL, that way care can be grouped. This nurse shared with patient that the OT time for her ADLs this morning was unknown, and again encouraged her to use the restroom and explained the importance of voiding every so often to avoid retention. Pt verbalized understanding and refused at this time. Try again when therapy is with patient.
--- NOTE | 2023-08-27 07:17 | NURSING ---
Upon voiding trials at , pt voided and overflowed the hat and kept voiding a large amount, post-void was 488ml. This nurse straigh cathed patient, 600ml output.
[2023-08-27 07:37] VITALS: BP 138/68; PULSE 85; RESP 16; TEMP 36.2; O2SAT 93
[2023-08-27] MEDS: Pantoprazole Sodium 40 MG Tablet PO ×2 (08:41→23:05)
[2023-08-27] MEDS: APIXABAN 5 MG TABLET PO ×2 (08:41→23:05)
[2023-08-27] MEDS: Lisinopril 2.5 MG Tablet PO (08:41)
[2023-08-27] MEDS: Cholecalciferol (VIT D3) 25 MCG TABLET (1,000 UNITS) PO (08:41)
[2023-08-27] MEDS: Venlafaxine XR 150 MG Capsule PO (08:41)
[2023-08-27] MEDS: amLODIPine 10 MG Tablet PO (08:41)
[2023-08-27] MEDS: Multivitamins,Therapeutic Tablet 1 TABLET PO (08:41)
[2023-08-27] MEDS: Calcium Carb/Vitamin D 1 TABLET Tablet PO (08:42)
[2023-08-27 12:07] VITALS: BMI 24.5
[2023-08-27] MEDS: Ferrous Sulfate 325 MG Tablet PO (13:14)
[2023-08-27] MEDS: Ascorbic Acid 500 MG Tablet 1000 MG PO (13:14)
[2023-08-27] MEDS: Tamsulosin HCl 0.4 MG Capsule PO (17:22)
[2023-08-27 19:28] VITALS: BP 125/71; PULSE 88; RESP 16; TEMP 36.6; O2SAT 92
[2023-08-27] MEDS: Senna/Docusate Sodium 1 Tablet 2 TABLET PO (23:04)
[2023-08-27] MEDS: Baclofen 10 MG Tablet 5 MG PO (23:06)
[2023-08-28 07:05] VITALS: BP 147/60; PULSE 82; RESP 16; TEMP 37.1; O2SAT 96
[2023-08-28] MEDS: Acetaminophen 500 MG Tablet 1000 MG PO ×3 (07:24→21:45)
[2023-08-28] MEDS: Pantoprazole Sodium 40 MG Tablet PO ×2 (08:40→21:46)
[2023-08-28] MEDS: amLODIPine 10 MG Tablet PO (08:40)
[2023-08-28] MEDS: Multivitamins,Therapeutic Tablet 1 TABLET PO (08:40)
[2023-08-28] MEDS: Venlafaxine XR 150 MG Capsule PO (08:40)
[2023-08-28] MEDS: Lisinopril 2.5 MG Tablet PO ×2 (08:40→12:00)
[2023-08-28] MEDS: Cholecalciferol (VIT D3) 25 MCG TABLET (1,000 UNITS) PO (08:40)
[2023-08-28] MEDS: APIXABAN 5 MG TABLET PO ×2 (08:40→21:46)
[2023-08-28] MEDS: Calcium Carb/Vitamin D 1 TABLET Tablet PO (08:40)
[2023-08-28] MEDS: Senna/Docusate Sodium 1 Tablet 2 TABLET PO ×2 (08:43→21:45)
--- NOTE | 2023-08-28 10:59 | PCM.PROGNOTE ---
Subjective Subjective Afebrile VSS -systolic blood pressure has ranged from 126-155 over the past 72 hours. It is more often than not elevated. Heart rate is within normal limits. Maintaining appropriate oxygen saturation on -92 to 96%. Oral intake - FOOD good FLUIDS good Discussed with nursing -still requiring straight cath at times. Other times she is able to urinate with no significant postvoid residual. Always seems to have a high postvoid residual in the AM. She is on baclofen 5 mg at at bedtime and this is known to cause urinary retention and some but, she was retaining prior to starting Baclofen. Baclofen has helped significantly with the spasms in the RLE. Reviewed the THERAPY notes Medication list reviewed. White blood cell count is mildly decreased at 4.3. Hemoglobin is 11.5, up from 10.5 on 08/20/2023. She has normochromic normocytic indices. Platelets are within normal limits. Sodium is stable at 138 and the potassium is 4.0. BUN is 14 with a stable creatinine at 0.59. BUN/creatinine ratio is elevated at 23.9. Calcium is mildly elevated at 10.2. I suspect this is secondary to immobility. Will place the calcium supplement on hold. Magnesium is 1.8. Duyen has no complaints today. She feels that she can probably straight cath at home as needed. She denies lightheadedness, chest pain, shortness of breath, nausea/vomiting/abdominal pain, dysuria and calf tenderness. Objective Data Objective Data Vital Signs: Vital Signs Temp Pulse Resp BP Pulse Ox O2 Del Method 98.8 F 82 16 147/60 H 96 Room Air 08/28/23 07:05 08/28/23 07:05 08/28/23 07:05 08/28/23 07:05 08/28/23 07:05 08/28/23 07:05 Oxygen Delivery Method Room Air Weight: 143 lb Body Mass Index (BMI) 24.5 Intake & Output: Intake and Output for Last 24 Hours 08/26/23 08/27/23 08/28/23 23:59 23:59 23:59 Intake Total 3130 / 4050 2650 / 2650 560 / 560 Output Total 4775 / 6925 3450 / 3750 1150 / 1150 Balance -1645 / -2875 -800 / -1100 -590 / -590 Lab / Micro Data 08/27/23 04:47 08/27/23 04:47 Micro: Microbiology 08/16/23 20:54 Stool Stool Occult Blood (TENA) - Final Occult Blood Positive 08/14/23 14:30 Urine Catheter - Cline Urine Culture - Final Presumptive E. 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 GI normal to inspection, nondistended, normoactive bowel sounds, soft to palpation and non-tender GI Narrative: No guarding with palpation Extremity no calf tenderness General Extremity: Negative for edema Skin no jaundice Skin Narrative: No rashes. No breakdown. Incisions are intact with no dehiscence and there is no erythema or DC. Rashes: no rashes Assessment & Plan Assessment/Plan (1) Debility: (2) Closed right hip fracture: QUALIFIERS: Encounter type: subsequent encounter Fracture healing: with routine healing Qualified Code(s): S72.001D - Fracture of unspecified part of neck of right femur, subsequent encounter for closed fracture with routine healing (3) History of open reduction and internal fixation (ORIF) procedure: (4) Memory difficulties: (5) Urine retention: (6) Acute cystitis: QUALIFIERS: Hematuria presence: without hematuria Qualified Code(s): N30.00 - Acute cystitis without hematuria (7) Pulmonary embolism during current hospitalization: (8) Muscle spasm: (9) Hypertension: QUALIFIERS: Hypertension type: primary hypertension Qualified Code(s): I10 - Essential (primary) hypertension PLAN: Plan 1. Continue therapy 2. Increase lisinopril to 5 mg daily 3. Continue baclofen. Will have Duyen follow-up with Dr. Johnson from urology and also with Dr. Sharp from neurology. I suspect that the urine retention is due to MS. Nursing is teaching her how to straight cath. I do not think the baclofen is contributing to urine retention as urine retention preexisted her starting on baclofen. She is only taking 5 mg of baclofen and that is just once a day at bedtime. She denies muscle spasms currently. 4. She will be made mod I in her room tomorrow in preparation for discharge home on . Charges/Coding Visit Charges Inpatient E&M: 47519 Subs Hosp L1
[2023-08-28 12:01] VITALS: BP 129/61; PULSE 84
--- NOTE | 2023-08-28 15:52 | CASEMGMT ---
Social Work SW received a fax from [facility] with scheduled first PT appointment on 08/31/2023 at 11AM. [place] provided update to patient. Discharge 08/29 Home with [facility] services. MARIAMA Trinidad
[2023-08-28] MEDS: Tamsulosin HCl 0.4 MG Capsule PO (16:57)
[2023-08-28] MEDS: Baclofen 10 MG Tablet 5 MG PO (21:45)
[2023-08-28 22:00] VITALS: BP 115/55; PULSE 84; RESP 19; TEMP 37.3; O2SAT 94
[2023-08-28 23:00] VITALS: TEMP 37.1
[2023-08-29] MEDS: Acetaminophen 500 MG Tablet 1000 MG PO ×3 (06:33→20:26)
[2023-08-29] MEDS: Lisinopril 5 MG Tablet PO (08:59)
[2023-08-29] MEDS: Multivitamins,Therapeutic Tablet 1 TABLET PO (09:00)
[2023-08-29] MEDS: Pantoprazole Sodium 40 MG Tablet PO ×2 (09:00→20:25)
[2023-08-29] MEDS: Cholecalciferol (VIT D3) 25 MCG TABLET (1,000 UNITS) PO (09:00)
[2023-08-29] MEDS: Calcium Carb/Vitamin D 1 TABLET Tablet PO (09:00)
[2023-08-29] MEDS: amLODIPine 10 MG Tablet PO (09:00)
[2023-08-29] MEDS: Venlafaxine XR 150 MG Capsule PO (09:00)
[2023-08-29] MEDS: APIXABAN 5 MG TABLET PO ×2 (09:00→20:25)
[2023-08-29 10:00] VITALS: BP 151/79; PULSE 85; RESP 18; TEMP 36.8; O2SAT 92
[2023-08-29] MEDS: Ascorbic Acid 500 MG Tablet 1000 MG PO (11:50)
[2023-08-29] MEDS: Ferrous Sulfate 325 MG Tablet PO (11:50)
--- NOTE | 2023-08-29 12:35 | DCINST_ITS ---
Discharge Instructions Diet Discharge Diet: - (low salt/no added salt. ) Activity Discharge Activity: May Not Drive, May Shower (make sure Brant or someone else is with you when getting in and out of the shower for the next 2 weeks. Most falls in the home happen in the bathroom, kendra the shower. ) and Use Walker Weight Bearing Status: Full weight bearing Keep extremity elevated above heart level: Legs Dressing / Incision Call your doctor if your incision/area has: Continuous Slow Oozing, Sudden Increased Bleeding, Increased Pain/ Swelling, Increased Redness, Foul Smelling D ischarge and Swelling at the incision site Call your doctor if you observe: Fever of 101 or Higher, Inability to have a bowel movement, Shortness of breath, Dizziness, Fainting spells, Swelling in the ankles, Chest pain, Increased palpitations (irregular heartbeat), Calf discomfort and Uncontrolled pain Suture Line Care: Avoid Pulling/Pushing and Avoid Pinching/Bending Cleanse incision/area with: Soap & Water Additional Dressing/Incision Instructions:: No dressing needed but if you are more comfortable with something over the incision you can use a dry dressing. Follow Up Care Please Follow Up With: Ariadne Miranda MD When: within 7-10 days of DC. You will also be following up with Dr. Sharp from neurology, Dr. Garcia (to treat osteoporosis), Dr. Rowland (for blood in the stool and hx of Anderson's esophagus) and Dr. Johnson (urology). Test Results: Test results from this visit will be discussed in further detail at your follow- up appointment, if applicable. Pending Tests Upon Discharge: none Discharge Plan Admission Admit Date/Time: 08/12/23 14:40 Primary Reason for Your Visit: Right hip fracture/ORIF Attending Provider: Steff Hua Primary Care Provider: KARINA ISRAEL Instructions Patient Instructions: Multiple Sclerosis, Osteoporosis Exercise, Osteoporosis Bone Loss, ED Cystitis Female Adult Additional Instructions / Restrictions: 1. You are still retaining urine off and on. The nurses have taught you how to catheterize yourself. This causes less risk for infection in the urinary tract than leaving a Cline catheter in. If you have gone 8 hours without urinating then you should cath yourself. If you develop any burning with urination, fevers, night sweats, shaking chills, urinary urgency, urinary frequency, nausea/vomiting or pain in the flanks call your doctor because you may have a urinary tract infection. 2. I suspect the urine retention is related to MS. I also think the spasms and weakness in the R leg and the loss of balance with falls is due to MS. You have an appt to see Dr. Sharp to see if you needed to restart treatment for MS. 3. Go to the bathroom and try to urinate every 3-4 hours during the day. 4. We made an appt for you to see Dr. Johnson. She is a urologist and specializes in treating women. There are alternatives to a Cline catheter for draining the bladder and she can discuss this with you. You will like her, she is very sweet and knowledgeable. 5. You have blood clots in your lungs, called pulmonary emboli or PE's. Because of this you are on a blood thinner called Apixaban (also called Eliquis). You will need to take this medication for 3-6 months. Generally blood clots in the lungs com from a clot in the leg but, you did not have any clots in the deep veins of the legs. Sometimes when you fracture a bone you can get a fat embolism to the lung. This is a small chunk of fat (comes from the bone marrow) and this causes shortness of breath and chest pain and low oxygen. Even though it is different from a blood clot it is treated the same way. Your oxygen has been normal since you have been on rehab and you have not needed any supplemental oxygen. 6. Your BP has been mildly elevated at times......at other times it is well controlled. I have added another BP pill called Lisinopril to help to keep the BP controlled. The BP should be consistently less than 130/80. It may improve when you get home and are less anxious. If you have a BP cuff at home check your BP a couple times a day at different times and keep a record to take to Dr. Miranda or Karina israel at your next visit. 7. you have osteoporosis and this increases risk of fracture if you fall. We are going to have you follow up with Dr. Eduardo Garcia restart treatment for osteoporosis. 8. We checked your stool while you were on rehab and there was blood in the stool. We also checked you iron studies and you are iron deficient. Generally iron deficiency comes from chronic blood loss. You were given Intravenous iron while on rehab and you are being sent home with an iron supplement which you are taking every other day. BUT, we need to find out where you are chronically losing blood. You should discuss this with Dr. Miranda. The most common place women lose blood after menopause is in the GI tract. You may need to have Dr. Rowland look into the upper GI tract and the colon to determine where you are losing blood. 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 Anderson's esophagus is secondary to chronic reflux and this can turn into an esophageal cancer. If it was me I would make an appt to go see Dr. Rowland from gastroenterology. 9. You have done wonderfully in rehab and we all enjoyed having you up here. If you have any questions after you leave rehab please do not hesitate to call me! OFFICE: [phone] CELL: [phone] REHAB NUR[facility] STATION: [phone]. Discharge Orders/Prescriptions Prescriptions: New ascorbic acid (vitamin C) 500 mg Tablet 1,000 mg PO Q48H Qty: 30 0RF Rx Instructions: Take this every other day when you take the iron tablet baclofen 10 mg Tablet 5 mg PO QHS Qty: 30 0RF Rx Instructions: 1/2 tablet at bedtime for muscle spasms ferrous sulfate [FeroSul] 325 mg (65 mg iron) Tablet 325 mg PO Q48H Qty: 30 0RF Rx Instructions: Take this with food and Vitamin C every other day cholecalciferol (vitamin D3) 25 mcg (1,000 unit) Tablet 25 mcg PO DAILY Qty: 30 0RF Eliquis 5 mg Tablet 5 mg PO BID Qty: 60 0RF tramadol 50 mg Tablet 25 mg PO Q6H PRN PRN (Reason: Pain greater than 4) Qty: 10 0RF Rx Instructions: 1/2 to 1 TAB EVERY 6 HOURS NEEDED FOR PAIN > 3 tamsulosin 0.4 mg Capsule 0.4 mg PO DAILY@1730 Qty: 30 0RF Rx Instructions: This treats urine retention lisinopril 5 mg Tablet 5 mg PO DAILY Qty: 30 0RF Continued venlafaxine 150 MG capsule 150 mg PO DAILY pantoprazole 40 MG tablet 40 mg PO BID glucosamine doherty 2KCl-chondroit 1 EACH tablet 1 tab PO BID multivitamin with folic acid 1 TABLET tablet 1 tab PO DAILY calcium carbonate-vitamin D3 1 EACH tablet 1 tab PO DAILY acetaminophen 500 mg Tablet 1,000 mg PO Q8H Qty: 0 0RF amlodipine 10 mg Tablet 10 mg PO DAILY Qty: 0 0RF Changed sennosides-docusate sodium [Stool Softener-Stimulant Laxat] 8.6-50 mg Tablet 1 tab PO BID Qty: 60 0RF Discontinued cholecalciferol (vitamin D3) 1,000 UNIT tablet 1,000 unit PO DAILY gabapentin 100 mg capsule 100 mg PO QHS PRN (Reason: RESTLESS LEGS) Patient Comments: PT STATES TAKES NEEDED FOR RESTLESS LEGS BUT DOESN'T TYPICALLY NEED IT. ascorbic acid (vitamin C) [C-1000] 1,000 mg tablet 1 g PO DAILY bisacodyl 5 mg Tablet,Delayed Release (Dr/Ec) 5 mg PO DAILY PRN (Reason: Constipation) Qty: 0 0RF oxycodone 5 mg Tablet 5 mg PO Q4H PRN PRN (Reason: Pain Score 4-10) Qty: 0 0RF Eliquis 5 mg Tablet 10 mg PO BID Qty: 0 0RF Rx Instructions: 10 mg p.o. twice daily through 08/16/2023 and then transition to 5 mg twice daily Referrals / Follow Up: Lila Chauhan-Neurology [Other] - 09/17/23 1:45 pm (the office will send paperwork to your home and fill out and bring with you to the appt ) Nohelia Johnson MD [Med Staff - Active Staff] - 09/10/23 11:00 am Jai Rowland DO [Med Staff - Active Staff] - 11/09/23 8:30 am (positive occult stool and Don's esophagus ) Eduardo Garcia MD [Med Staff - Courtesy Staff] - (Osteoporosis office will call to set up appointment ) Mahi Wright NP, [facility] [Non-Staff] - 09/04/23 9:20 am (Karina Israel and Dr Miranda unable to be seen until middle september.) Romero Plasencia PA-C [Med Staff - Adv Practice Prof] - 08/31/23 8:30 am (F/u for spittle ) Disposition Disposition (needs filled in before D/C Order can be placed): Home, Self Care
--- NOTE | 2023-08-29 12:50 | CASEMGMT ---
Social Work SW received a call from physician, Dr. Hua requesting for referral for straight cath supplies. SW contacted management to determine ordering process for straight cath supplies. SW obtained script from [facility] to order straight cath supplies. Due to delay in ordering process, SW informed bedside RN that the patient will require supplies for about 1-2weeks to support patient before supplies are delivered by [facility]. Script provided to physician, awaiting completion. SW met with patient and at bedside to discuss discharge. SW reviewed discharge home with outpatient therapy services via [facility]. Patient's first appointment will take place on 08/31/2023 at 11AM. SW discussed physician request for straight cath supplies. Patient informed SW that she has not been straight cathing today, but has used supplies during admission. SW reviewed referral process for straight cath and notified patient that there may be a delay in straight cath supplies being delivered. Patient provided verbal understanding. SW completed discharge assessment. Patient's will provide transportation at discharge. Discharge 08/29 Home with [facility] PT services. MARIAMA Trinidad
[2023-08-29] MEDS: Tamsulosin HCl 0.4 MG Capsule PO (17:10)
[2023-08-29] MEDS: Senna/Docusate Sodium 1 Tablet 2 TABLET PO (20:24)
[2023-08-29] MEDS: Baclofen 10 MG Tablet 5 MG PO (20:26)
[2023-08-29 22:12] VITALS: BP 104/59; PULSE 80; RESP 16; TEMP 36.5; O2SAT 95
[2023-08-30] MEDS: Acetaminophen 500 MG Tablet 1000 MG PO (06:04)
[2023-08-30 08:06] VITALS: BP 127/60; PULSE 83; RESP 16; TEMP 36.6; O2SAT 94
--- NOTE | 2023-08-30 08:15 | RAD_ITS ---
STUDY: X-RAY - RIGHT FEMUR REASON FOR STUDY: Female, 77 years old. Post op right hip fx TECHNIQUE: 4 view(s) of the femur. COMPARISON: Comparison is made with prior study dated August 07, 2023. FINDINGS: The patient is status post open reduction and internal fixation of the right intertrochanteric fracture with intramedullary clif fixation device and compression screw. Satisfactory reduction. RAD/Femur Min 2 Views IMPRESSION: Status post ORIF of the right intertrochanteric fracture. There is good alignment. Electronically Signed: Freddie Gold MD at 9:49 EDT ,
[2023-08-30] MEDS: Multivitamins,Therapeutic Tablet 1 TABLET PO (08:41)
[2023-08-30] MEDS: APIXABAN 5 MG TABLET PO (08:41)
[2023-08-30] MEDS: Venlafaxine XR 150 MG Capsule PO (08:41)
[2023-08-30] MEDS: amLODIPine 10 MG Tablet PO (08:41)
[2023-08-30] MEDS: Cholecalciferol (VIT D3) 25 MCG TABLET (1,000 UNITS) PO (08:42)
[2023-08-30] MEDS: Pantoprazole Sodium 40 MG Tablet PO (08:42)
[2023-08-30] MEDS: Lisinopril 5 MG Tablet PO (08:42)
[2023-08-30] MEDS: Calcium Carb/Vitamin D 1 TABLET Tablet PO (08:42)
--- NOTE | 2023-08-30 09:19 | DS.PCM_ITS ---
Providers Date of Admission: 08/12/23 Date of Discharge: 08/30/23 Primary Care Physician: KARINA SANCHEZ, CONDUCTOR/ENGINEER-C Reason For Visit: HIP FRACTURE Diagnosis Discharge Diagnosis (1) Debility: Status: Acute Code(s): R53.81 - Other malaise (2) Closed right hip fracture: Status: Acute Code(s): S72.001A - Fracture of unspecified part of neck of right femur, initial encounter for closed fracture Qualifiers: Encounter type: subsequent encounter Fracture healing: with routine healing Qualified Code(s): S72.001D - Fracture of unspecified part of neck of right femur, subsequent encounter for closed fracture with routine healing (3) History of open reduction and internal fixation (ORIF) procedure: Status: Acute Code(s): Z98.890 - Other specified postprocedural states Plan: 08/07/23 - R femur intramedullary nail placement by Dr. Ortega. Has appt to follow up with [facility] post discharge. (4) Memory difficulties: Status: Acute Code(s): R41.3 - Other amnesia Plan: Improved with speech therapy. May be related to MS. Has a follow up appt with Dr. Sharp from neurology. (5) Urine retention: Status: Chronic Code(s): R33.9 - Retention of urine, unspecified Plan: Doing better with the addition of Flomax to the drug regimen. I suspect urine retention is related to MS. (6) Acute cystitis: Status: Resolved Code(s): N30.00 - Acute cystitis without hematuria Qualifiers: Hematuria presence: without hematuria Qualified Code(s): N30.00 - Acute cystitis without hematuria Plan: More likely than not due to urine retention. She did not have a Cline prior to coming to rehab. (7) Pulmonary embolism during current hospitalization: Status: Acute Code(s): I26.99 - Other pulmonary embolism without acute cor pulmonale Plan: Venous US's of the LE's were negative. Possible fat emboli. Being discharged on Eliquis 5 mg BID. No longer requiring oxygen supplementation at discharge and denies SOB. Since the emboli were provoked by the fracture and the venous US's were negative would anticoagulate for a total of 3 months. Stool is heme + but, HGB is stable and actually improving. (8) Muscle spasm: Status: Chronic Code(s): M62.838 - Other muscle spasm Plan: I suspect the weakness and muscle spasm in the RLE, cognitive dysfunction, dysequilibrium and urine retention are due to MS. Has an appt to follow up with neurology post discharge. Gabapentin at HS was discontinued because it was not very effective and she was started on Baclofen 5 mg QHS with good results. (9) Hypertension: Status: Chronic Code(s): I10 - Essential (primary) hypertension Qualifiers: Hypertension type: primary hypertension Qualified Code(s): I10 - Essential (primary) hypertension Plan: Systolic was more often than not above goal. Lisinopril 5 mg was added to the drug regimen and the BP was 127/60 on the day of DC. No cough. (10) History of multiple sclerosis: Status: Chronic Code(s): G35 - Multiple sclerosis Plan: Has not been seen by neurology in several years and was not on medication at the time of admission to the hospital. Has had 5 falls in the past month alone. Also with RLE weakness and muscle spasms, urine retention, cognitive dysfunction and dysequilibrium. Will follow up with neurology. 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 (12) Acute on chronic anemia: Status: Acute Code(s): D64.9 - Anemia, unspecified Plan: Acute blood loss on chronic iron deficiency anemia. Had IV Iron Sucrose on rehab and is being discharged on ferrous sulfate 325 mg QOD with Vitamin C 1,000 mg. Stool was heme +. She has seen Dr. Rowland in the past and was diagnosed with Anderson's esophagus. Has not had an EGD since October of 2021. Appt made for follow up with Dr. Rowland. (13) Barretts esophagus: Status: Chronic Code(s): K22.70 - Anderson's esophagus without dysplasia Qualifiers: Anderson's esophagus type: without dysplasia Qualified Code(s): K22.70 - Anderson's esophagus without dysplasia (14) GERD (gastroesophageal reflux disease): Status: Chronic Code(s): K21.9 - Gastro-esophageal reflux disease without esophagitis Qualifiers: Esophagitis presence: esophagitis presence not specified Qualified Code(s): K21.9 - Gastro-esophageal reflux disease without esophagitis Plan: Continue Protonix 40 mg p.o. twice daily. This likely impairs iron absorption. She had Iron Sucrose IV while on rehab and the HGB is improving. Being discharged on oral Iron + Vitamin C but, may not be able to absorb the oral iron even with Vitamin C. Would recheck iron and iron saturation in 3 months and if the iron saturation is < 20% would consider periodic IV iron infusion when she is anemic. (15) Iron deficiency anemia: Status: Acute Code(s): D50.9 - Iron deficiency anemia, unspecified Plan: Heme + stool. Follow up with GI scheduled. (16) Osteoporosis: Status: Chronic Code(s): M81.0 - Age-related osteoporosis without current pathological fracture Plan: Has a follow up appt with Dr. Garcia scheduled to restart treatment for osteoporosis. Will continue with calcium and Vitamin D supplementation and wt bearing exercise. Plan 1. DC home with OP therapy at [facility]. 2. Will follow-up with Dr. Eduardo Garcia for osteoporosis 3. Will follow-up with Dr. Nohelia Johnson for urine retention 4. Will follow-up with Dr. Tien Sharp for multiple sclerosis 5. Follow-up has been scheduled with Rigo Plasencia from orthopedics 6. She has a follow-up appointment with Dr. Rowland for heme positive stools and chronic iron deficiency anemia 7. Will follow-up with Mahi Wright, CRUZ/PCP Medications at Discharge Home Medications glucosamine sulf dipotassium Cl 500 mg-chondroitin sulf 400 mg tablet 1 tab PO BID SUPPLEMENT 10/21/16 pantoprazole 40 mg tablet,delayed release 40 mg PO BID ACID REFLUX 10/21/16 venlafaxine 150 mg capsule,extended release 24 hr 150 mg PO DAILY DEPRESSION 10/21/16 multivitamin with folic acid 400 mcg tablet 1 tab PO DAILY SUPPLEMENT 07/18/18 calcium carbonate 500 mg-vitamin D3 5 mcg (200 unit) tablet 1 tab PO DAILY SUPPLEMENT 07/22/18 acetaminophen 500 mg tablet 1,000 mg (2 x 500 mg) PO Q8H pain #0 tabs 08/12/23 amlodipine 10 mg tablet 10 mg PO DAILY bp #0 tabs 08/12/23 apixaban 5 mg tablet (Eliquis) 5 mg PO BID #60 tabs 08/30/23 ascorbic acid (vitamin C) 500 mg tablet 1,000 mg (2 x 500 mg) PO Q48H #30 tabs 08/30/23 baclofen 10 mg tablet 5 mg (1/2 x 10 mg) PO QHS #30 tabs 08/30/23 cholecalciferol (vitamin D3) 25 mcg (1,000 unit) tablet 25 mcg PO DAILY #30 tabs 08/30/23 ferrous sulfate 325 mg (65 mg iron) tablet (FeroSul) 325 mg PO Q48H #30 tabs 08/30/23 lisinopril 5 mg tablet 5 mg PO DAILY #30 tabs 08/30/23 sennosides 8.6 mg-docusate sodium 50 mg tablet (Stool Softener-Stimulant Laxative) 1 tab PO BID stool softeners #60 tabs 08/30/23 tamsulosin 0.4 mg capsule 0.4 mg PO DAILY@1730 #30 caps 08/30/23 tramadol 50 mg tablet 25 mg (1/2 x 50 mg) PO Q6H PRN PRN Pain greater than 4 #10 tabs 08/30/23 Hospital Course Operations - (Right femur intramedullary nailing on 08/07/[address] Derek Ortega) Procedures None Summary of Care Provided Minutes Spent on Discharge: 45 Hospital Course: DUYEN FRANCISCO, is a 77-year-old F with a past medical history of multiple sclerosis, anxiety/depression, GERD, hiatal hernia, Anderson's esophagus, benign neoplasm of the duodenum, jejunum and ileum, hypertension, osteoporosis, seizure disorder, restless leg and vitamin D deficiency who fell at work on 08/06/2023 and subsequently was unable to bear weight on her right lower extremity. Imaging showed an acute comminuted nondisplaced fracture of the intertrochanteric region of the right femur with cephalad migration of the distal fracture fragments. She was admitted to the hospitalist service and Dr. Ortega from orthopedics was consulted. She was taken to the OR on 08/07/2023 for intramedullary nail placement in the right femur. Postoperative course was remarkable for acute blood loss anemia (stable at the time of discharge) and BL PE's (she denies any hx of DVT/PE in the past). She was started on the starting dose of Eliquis. She was transferred to the acute inpatient rehab unit at [facility] on 08/12/2023 for 3 hours of therapy daily to restore function/independence at or near her level prior to the hip fracture. At the time of admission to rehab Duyen told us that she had fallen at least 5 times in the preceding month. She complained of dysequilibrium and muscle weakness and spasms in the RLE. She was having some cognitive dysfunction with trouble word finding and memory difficulties. She was also retaining urine. She had not seen a neurologist for follow up of MS for quite sometime and had not been on treatment for quite a while. Hemoglobin at presentation to the emergency room was normal at 13.4. On 08/10/2023 it was 8.6. Iron studies were checked and she had a low iron saturation at 13%. She has had iron deficiency in the past. A hemoccult stool was +. She has a known hx of chronic gastroesophageal reflux disease with Anderson's esophagus. She is on Protonix 40 mg twice daily chronically. She has not had a EGD since October 2021. That EGD showed an irregular Z-line, large hiatal hernia and erythematous duodenopathy. Pathology was consistent with Anderson's esophagus. H. pylori was negative. Her last colonoscopy (by Dr. Tyler) was on 07/31/2018 and it was normal. She was given a total of 500 mg of iron sucrose while on acute rehab and her hemoglobin has been improving. Hemoglobin at the time of discharge is 11.2. Duyen had a CTA chest while on the acute side of the hospital and it revealed pulmonary emboli seen in the branches of the right upper lobe pulmonary artery as well as the distal portion of the right pulmonary artery and left lower lobe pulmonary arterial branches. She was started on Eliquis with loading doses. On rehab venous US's of the LE's were ordered and they were negative for VTE. BP was consistently mildly elevated while on rehab. Lisinopril 2.5 mg was added to the amlodipine she had been taking as an OP. BP after several days was still above goal of 130/80 and the dose was increased to 5 mg daily. BP on the day of DC is 127/60 and she had no lightheadedness. She had large post void residuals the first 2 days on rehab. A Cline catheter was inserted and a UA obtained. UA was positive for nitrite and had 25-50 WBCs per high-power field with no RBCs. She was started on Duricef and treated for total of 7 days for E. coli acute cystitis. Following treatment of the UTI voiding trial was done. She continued to retain urine. She was started on Flomax 0.4 mg daily and over the course of the next several days she was able to urinate with only occasional need for straight cath'g. On the day of DC she had not needed catheterization for the preceding few days. She was taught how to straight herself and told if she did not urinate for 8 hours at home she would need to catheterize herself. she was also told to go into the BR and try to urinate every 3-4 hours while awake. An order was written for her to get the supplies needed to straight cath herself at home. An appt was scheduled for her to follow up with Dr. Johnson from urology. Duyen did very well on erehab and prior to DC on 08/30/23 she was grooming herself seated at the sink at [facility]. She was able to dress her upper body at set up for bra and shirt. She is able to don/doff safety socks at standby assist but still requiring assist to get her shoes on. She is supervision/set up for lower body dressing, toileting and toilet transfer. She is able to do 10 sit to stands with the use of her upper extremities in 30 seconds. She has completed the turn up and go test in 31 seconds with a front wheeled walker at [facility]. She is able to ascend/descend 2 platform steps at 6 inches with a front wheeled walker at contact-guard assist. She is ambulated with a front wheeled walker 250 feet on various surfaces and in small spaces at [facility]. Duyen was discharged on 08/30/2023 to home with her Brant who will be able to provide adequate assistance for her. She will have outpatient therapy at [facility]. She has appointment scheduled for her to see Mahi Flores/PCP, Dr. Garcia (to treat osteoporosis), Dr. Sharp (follow for MS), Dr. Johnson (for urine retention) and Dr. Rowland (for heme + stool and to monitor the Anderson's esophagus. She was instructed not to drive and to use the FWW for ambulation. Physical Exam Const alert, oriented x3 and no apparent distress Constitutional Narrative: Ambulating with a front wheel walker in her room at mod I at the time of discharge. Cognitive dysfunction has improved significantly since admission and follow-up with speech therapy. She is no longer having trouble word finding and her short-term memory has improved. General Appearance: cooperative HEENT moist oral mucous membranes Resp normal respiratory effort and clear to auscultation bilaterally Effort and Inspection: able to speak in complete sentences Cardio regular rate, regular rhythm and no gallops Cardio Narrative: She has a systolic MM at the second RICS with radiation to the apex. GI normal to inspection, nondistended, normoactive bowel sounds, soft to palpation and non-tender GI Narrative: No guarding with palpation Extremity no calf tenderness General Extremity: Negative for edema Skin no jaundice Skin Narrative: No rashes. No breakdown. Incisions are intact with no dehiscence and there is no erythema or DC. Rashes: no rashes Neuro CN's II-XII intact bilaterally Neuro Narrative: Moving all extremities. Muscle spasms in the RLE are much better with Baclofen 5 mg at HS. No longer having trouble to word finding. Good safety awareness. Not impulsive. Better short term memory since working with ST. Psych affect normal and denies suicidal ideation Appearance: appropriate Attitude: No agitated Activity / Motor Behavior: Negative for restless Mood & Affect: Negative for depressed or anxious Weight / BMI Weight Weight: 143 lb Body Mass Index (BMI) 24.5 ABG / Lab / Microbiology Data 08/27/23 04:47 08/27/23 04:47 Microbiology: Microbiology 08/16/23 20:54 Stool Stool Occult Blood (TENA) - Final Occult Blood Positive 08/14/23 14:30 Urine Catheter - Cline Urine Culture - Final Presumptive E. coli D/C Instructions Discharge Diet: - (low salt/no added salt. ) Weight Bearing Status: Full weight bearing Keep extremity elevated above heart level: Legs Call your doctor if your incision/area has: Continuous Slow Oozing, Sudden Increased Bleeding, Increased Pain/ Swelling, Increased Redness, Foul Smelling Discharge and Swelling at the incision site Call your doctor if you observe: Fever of 101 or Higher, Inability to have a bowel movement, Shortness of breath, Dizziness, Fainting spells, Swelling in the ankles, Chest pain, Increased palpitations (irregular heartbeat), Calf discomfort and Uncontrolled pain Suture Line Care: Avoid Pulling/Pushing and Avoid Pinching/Bending Cleanse incision/area with: Soap & Water Additional Dressing/Incision Instructions: No dressing needed but if you are more comfortable with something over the incision you can use a dry dressing. Pending Tests Upon Discharge: none Please Follow Up With: Ariadne Miranda MD When: within 7-10 days of DC. You will also be following up with Dr. Sharp from neurology, Dr. Garcia (to treat osteoporosis), Dr. Rowland (for blood in the stool and hx of Anderson's esophagus) and Dr. Johnson (urology). Meaningful Use Info Meaningful Use Meaningful Use Diagnoses (Choose all that apply): None applicable Ischemic Stroke Statin Dosing Therapy Reference: STATIN DOSE THERAPY REFERENCE: * Patients > 75 years receive moderate or high dose statin therapy. * Patients 75 years or YOUNGER should receive HIGH intensity statin dose unless contraindicated. You will be required to document reason for non-treatment if statin daily dose does not meet guidelines. HIGH DOSE STATIN THERAPY DAILY Atorvastatin > than or = to 40 mg Rosuvastatin > than or = to 20 mg Amlodipine + Atorvastatin > than or = to 2.5/40 mg Ezetimibe + Simvastatin 10/80 mg Simvastatin 80mg Discharge Plan Admission Admit Date/Time: 08/12/23 14:40 Primary Reason for Your Visit: Right hip fracture/ORIF Attending Provider: Steff Hua Primary Care Provider: KARINA SANCHEZ Instructions Patient Instructions: Multiple Sclerosis, Osteoporosis Exercise, Osteoporosis Bone Loss, ED Cystitis Female Adult Additional Instructions / Restrictions: 1. You are still retaining urine off and on. The nurses have taught you how to catheterize yourself. This causes less risk for infection in the urinary tract than leaving a Cline catheter in. If you have gone 8 hours without urinating then you should cath yourself. If you develop any burning with urination, fevers, night sweats, shaking chills, urinary urgency, urinary frequency, nausea/vomiting or pain in the flanks call your doctor because you may have a urinary tract infection. 2. I suspect the urine retention is related to MS. I also think the spasms and weakness in the R leg and the loss of balance with falls is due to MS. You have an appt to see Dr. Sharp to see if you needed to restart treatment for MS. 3. Go to the bathroom and try to urinate every 3-4 hours during the day. 4. We made an appt for you to see Dr. Johnosn. She is a urologist and specializes in treating women. There are alternatives to a Cline catheter for draining the bladder and she can discuss this with you. You will like her, she is very sweet and knowledgeable. 5. You have blood clots in your lungs, called pulmonary emboli or PE's. Because of this you are on a blood thinner called Apixaban (also called Eliquis). You will need to take this medication for 3-6 months. Generally blood clots in the lungs com from a clot in the leg but, you did not have any clots in the deep veins of the legs. Sometimes when you fracture a bone you can get a fat embolism to the lung. This is a small chunk of fat (comes from the bone marrow) and this causes shortness of breath and chest pain and low oxygen. Even though it is different from a blood clot it is treated the same way. Your oxygen has been normal since you have been on rehab and you have not needed any supplemental oxygen. 6. Your BP has been mildly elevated at times......at other times it is well controlled. I have added another BP pill called Lisinopril to help to keep the BP controlled. The BP should be consistently less than 130/80. It may improve when you get home and are less anxious. If you have a BP cuff at home check your BP a couple times a day at different times and keep a record to take to Dr. Miranda or Karina sanchez at your next visit. 7. you have osteoporosis and this increases risk of fracture if you fall. We are going to have you follow up with Dr. Eduardo Garcia restart treatment for osteoporosis. 8. We checked your stool while you were on rehab and there was blood in the stool. We also checked you iron studies and you are iron deficient. Generally iron deficiency comes from chronic blood loss. You were given Intravenous iron while on rehab and you are being sent home with an iron supplement which you are taking every other day. BUT, we need to find out where you are chronically losing blood. You should discuss this with Dr. Miranda. The most common place women lose blood after menopause is in the GI tract. You may need to have Dr. Rowland look into the upper GI tract and the colon to determine where you are losing blood. 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 Anderson's esophagus is secondary to chronic reflux and this can turn into an esophageal cancer. If it was me I would make an appt to go see Dr. Rowland from gastroenterology. 9. You have done wonderfully in rehab and we all enjoyed having you up here. If you have any questions after you leave rehab please do not hesitate to call me! OFFICE: [phone] CELL: [phone] REHAB NURSES STATION: [phone]. Discharge Orders/Prescriptions Prescriptions: New ascorbic acid (vitamin C) 500 mg Tablet 1,000 mg PO Q48H Qty: 30 0RF Rx Instructions: Take this every other day when you take the iron tablet baclofen 10 mg Tablet 5 mg PO QHS Qty: 30 0RF Rx Instructions: 1/2 tablet at bedtime for muscle spasms ferrous sulfate [FeroSul] 325 mg (65 mg iron) Tablet 325 mg PO Q48H Qty: 30 0RF Rx Instructions: Take this with food and Vitamin C every other day cholecalciferol (vitamin D3) 25 mcg (1,000 unit) Tablet 25 mcg PO DAILY Qty: 30 0RF Eliquis 5 mg Tablet 5 mg PO BID Qty: 60 0RF tramadol 50 mg Tablet 25 mg PO Q6H PRN PRN (Reason: Pain greater than 4) Qty: 10 0RF Rx Instructions: 1/2 to 1 TAB EVERY 6 HOURS NEEDED FOR PAIN > 3 tamsulosin 0.4 mg Capsule 0.4 mg PO DAILY@1730 Qty: 30 0RF Rx Instructions: This treats urine retention lisinopril 5 mg Tablet 5 mg PO DAILY Qty: 30 0RF Continued venlafaxine 150 MG capsule 150 mg PO DAILY pantoprazole 40 MG tablet 40 mg PO BID glucosamine doherty 2KCl-chondroit 1 EACH tablet 1 tab PO BID multivitamin with folic acid 1 TABLET tablet 1 tab PO DAILY calcium carbonate-vitamin D3 1 EACH tablet 1 tab PO DAILY acetaminophen 500 mg Tablet 1,000 mg PO Q8H Qty: 0 0RF amlodipine 10 mg Tablet 10 mg PO DAILY Qty: 0 0RF Changed sennosides-docusate sodium [Stool Softener-Stimulant Laxat] 8.6-50 mg Tablet 1 tab PO BID Qty: 60 0RF Discontinued cholecalciferol (vitamin D3) 1,000 UNIT tablet 1,000 unit PO DAILY gabapentin 100 mg capsule 100 mg PO QHS PRN (Reason: RESTLESS LEGS) Patient Comments: PT STATES TAKES NEEDED FOR RESTLESS LEGS BUT DOESN'T TYPICALLY NEED IT. ascorbic acid (vitamin C) [C-1000] 1,000 mg tablet 1 g PO DAILY bisacodyl 5 mg Tablet,Delayed Release (Dr/Ec) 5 mg PO DAILY PRN (Reason: Constipation) Qty: 0 0RF oxycodone 5 mg Tablet 5 mg PO Q4H PRN PRN (Reason: Pain Score 4-10) Qty: 0 0RF Eliquis 5 mg Tablet 10 mg PO BID Qty: 0 0RF Rx Instructions: 10 mg p.o. twice daily through 08/16/2023 and then transition to 5 mg twice daily Referrals / Follow Up: Lila Chauhan-Neurology [Other] - 09/17/23 1:45 pm (the office will send paperwork to your home and fill out and bring with you to the appt ) Nohelia Johnson MD [Med Staff - Active Staff] - 09/10/23 11:00 am Jai Rowland DO [Med Staff - Active Staff] - 11/09/23 8:30 am (positive occult stool and Dno's esophagus ) Eduardo Garcia MD [Med Staff - Courtesy Staff] - (Osteoporosis office will call to set up appointment ) Mahi Wright NP, O[facility] [Non-Staff] - 09/04/23 9:20 am (Karina Sanchez and Dr Miranda unable to be seen until middle of September.) Romero Plasencia PA-C [Med Staff - Adv Practice Prof] - 08/31/23 8:30 am (F/u for spittle ) Disposition Disposition (needs filled in before D/C Order can be placed): Home, Self Care Charges/Coding Visit Charges Inpatient E&M: 44371 Disch Hosp >30min
--- NOTE | 2023-08-30 17:23 | CASEMGMT ---
Social Work [facility] Referral was submitted by nursing staff upon completion by physician. Patient was provided straight cath supplies from nursing. [place] contacted Located within [facility] [phone] and [facility] who confirmed receipt of orders for supplies. Orders are currently with physician reviewers. Prema informed A[place]A that a detailed order request will be faxed to Physician within 1-3 business days for signature confirming orders. Dr. Hua informed [place]A that the patient may only require straight cath PRN. Patient was doing well without straight cath overnight. Patient discharge home with outpatient therapy 08/30/2023 MARIAMA Trinidad
== END 2023-08-30 12:10 | disposition home or self-care (01) | DRG 559 ==
PROVIDERS: Admitting Provider Internal Medicine; PCP Nurse Practitioner; Visit Provider Internal Medicine
DX: S72.141D Displaced intertrochanteric fracture of right femur, subsequent encounter for closed fracture with routine healing (principal); I26.99 Other pulmonary embolism without acute cor pulmonale; D62 Acute posthemorrhagic anemia; M87.180 Osteonecrosis due to drugs, jaw; N30.00 Acute cystitis without hematuria; G35 Multiple sclerosis; G40.909 Epilepsy, unspecified, not intractable, without status epilepticus; I10 Essential (primary) hypertension; F32.9 Major depressive disorder, single episode, unspecified; G25.81 Restless legs syndrome; M62.838 Other muscle spasm; G62.9 Polyneuropathy, unspecified; K21.9 Gastro-esophageal reflux disease without esophagitis; E55.9 Vitamin D deficiency, unspecified; W19.XXXD Unspecified fall, subsequent encounter; F41.9 Anxiety disorder, unspecified; Z87.891 Personal history of nicotine dependence; Z87.19 Personal history of other diseases of the digestive system; Z79.899 Other long term (current) drug therapy; T50.995D Adverse effect of other drugs, medicaments and biological substances, subsequent encounter; R29.6 Repeated falls; M81.0 Age-related osteoporosis without current pathological fracture; B96.20 Unspecified Escherichia coli [E. coli] as the cause of diseases classified elsewhere
CPT/HCPCS: 36415; 73552; 80048; 80053; 81001; 82274; 82728; 83036; 83540; 83550; 83735; 84100; 85027; 87086; 87088; 87186; 92507; 92523; 93970; 94668; 97110; 97116; 97129; 97130; 97162; 97166; 97530; 97535; 97802; J7050; A4216; J2916

== ENCOUNTER → 2023-09-12 | Outpatient (CLI) | payer MEDICARE, OTHER, SELFPAY ==
--- NOTE | 2023-09-12 12:26 | US_ITS ---
STUDY: RENAL ULTRASOUND - COMPLETE REASON FOR EXAM: Female, 77 years old. URINARY RETENTION TECHNIQUE: Ultrasound evaluation of the kidneys was performed with real-time and static alvarado-scale imaging. COMPARISON: None. FINDINGS: RIGHT KIDNEY: Normal location of the right kidney, which is normal in size. The right kidney measures 9.4 cm x 4.4 cm x 3.8 cm. There is a normal cortex of the right kidney. The renal cortex measures 1.0 cm. There is no right renal mass or cyst. There are no right renal calculi. There is no right hydronephrosis. DISTAL RIGHT URETER: There is non-visualization of the distal right ureter. There is no demonstrated right ureterovesical junction calculus. There is a visualized right ureteral jet. LEFT KIDNEY: Normal location of the left kidney, which is normal in size. The left kidney measures 9.7 cm x 3.9 cm x 4.3 cm. There is a normal cortex of the left kidney. The renal cortex measures 1.1 cm. There is no left renal mass or cyst. There are no left renal calculi. There is no left hydronephrosis. DISTAL LEFT URETER: There is non-visualization of the distal left ureter. There is no demonstrated left ureterovesical junction calculus. There is a visualized left ureteral jet. BLADDER: The distended urinary bladder has a volume of 571 ml. The empty urinary bladder has a volume of 23 ml. There is a normal wall thickness of the distended urinary bladder. There is no demonstrated mass within the urinary bladder. There are no demonstrated bladder calculi. Incidental note is made of a 1.1 cm x 1.2 cm x 0.9 cm splenic cyst. US/Kidney and Bladder IMPRESSION: Normal ultrasound of the kidneys and urinary bladder. Electronically Signed: Freddie Gold MD at 15:58 EDT ,
== END | disposition home or self-care (01) ==
LOC: US 12:21
PROVIDERS: PCP Nurse Practitioner; Referring Provider Urology; Visit Provider Urology
DX: R33.9 Retention of urine, unspecified (principal)
CPT/HCPCS: 76770

== ENCOUNTER 2024-02-07 11:00 | Outpatient (RCR) | payer OTHER, MEDICARE, SELFPAY ==
--- NOTE | 2023-09-11 14:56 | HP.PTEVAL ---
Patient's Visit Information Visit Information Visit Information: TIAN FRANCISCO is a 77 year old F referred to Physical Therapy by Dr. Steff Hua DO with a diagnosis of Right Hip Fx. Date of Evaluation: 09/11/23 Physical Therapist: Tigist Kapadia DPT Visit Plan Frequency: 2x /Week Duration: 4 Weeks Plan: Focus on LE and core strength/stabilization, proprioception and functional mobility HEP: reviewed current from rehab and encouraged her not to sit for more than 45 min Subjective Subjective: 1997 she was diagnosed with MS- she got to the point where she had no issues- she is starting to have some symptoms again- she started falling again in the last couple of months. The last fall was at the hospital and broke right femur- Dr. Ortega performed an ORIF trochanteric nailing August 12, 2023. She was in rehab and went home on the 29 August. Single floor set up with her - he is able to help- they have one step to get into the home- he helps her get in and gives her a boost- other than that she is able to do ADL's. She uses a FWW all the at this point. Prior to the fall she was using a cane. She has no pain in the hip. She is numb on her whole right side- she feels more a zappy feeling. She goes to the neurologist on Sunday- Dr. Sharp. She feels that she is more limited by strength/endurance. 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 PMHx/Meds: no changes since she left the hospital Objective Objective: Posture: forward head, rounded shoulders- can correct but does not maintain Gait: step to gait pattern with FWW- decreased leslie and stance on the right LE HR/TR: able with UE A Balance see below ROM: WFL Strength: Core: fair minus, Hip: Flexion: 3+/5, Extn: 4/5, Abd: 4-/5, Add: 4/5, Knee: 4+/5 Ankle: 5/5 Flex: HS: moderate, Gastroc: moderate Balance/Special Test Scores Functional Gait Assessment Score: 11 % Disability: 63.3400 Lower Extremity Functional Score: 16 30 Second Chair Rise Test Seconds: 10 Goals Goal 1:: Patient will be I with HEP and progression Goal Time Frame: 6-8 Weeks Goal 2:: Patient will improve her sit to stands in 30 seconds to 13 Goal Time Frame: 6-8 Weeks Goal 3:: Patient will perform a TUG in under 15 seconds with LRD safely Goal Time Frame: 6-8 Weeks Goal 4:: Patient will improve her FGA by 5 points Goal Time Frame: 6-8 Weeks Goal 5:: Patient will asc/desc 8 stairs with 2 HR recip Goal Time Frame: 6-8 Weeks Goal 6:: Patient will report 80% improvement Goal Time Frame: 6-8 Weeks Rehabilitation Potential Physical Therapy Diagnosis: Patient presents with hypomobility- she has decreased functional mobility, LE and core strength/stabilization, proprioception, flex and muscular endurance leading to falls and abnormal gait pattern Rehabilitation Potential: Fair Anticipated Interventions Patient/Client Instruction: Educate patient on: Benefits of Fitness Program Therapeutic Exercise to Include: Strength training, Endurance training, Balance training, Coordination, Agility training, Body mechanics, Postural training, Flexibilty training, Gait and locomotor training, Neuromotor development, Dynamic Lumbar Stabilization and Scapular Strength/Stabilization For the Purpose of:: To improve muscle performance and motor function Text: Thank you for the opportunity to evaluate your patient. For Medicare and Medicare HMO plans, please review the plan of care and approve it. It will need to be FAXED BACK to us at [phone] for Medicare purposes. For Medicare only, by signing this I certify the plan of care. Please let me know if there are questions or concerns regarding this plan of care. Physician Signature: Date:
--- NOTE | 2023-10-08 14:30 | HP.PTREVAL ---
Re-Evaluation Intro: Dr. Steff Hua, DO, It has been my pleasure to treat TIAN FRANCISCO over the last 9 visits for Right Hip Fx. Please see the progress note below for an update on the physical therapy plan of care! Subjective Subjective: Patient reports that she is not there yet. She does not have any pain in the hip- but the knee is sore- she does not get fully straight and its painful. She is using the walker all the time. They have tried to walk with the cane and she is not ready. She feels that she needs to get a membership to continue the strength. Objective Objective/Function: Posture: fair throughout in sitting- poor with gait Gait: straight cane- step to- pt wants to put cane in wrong hand- corrected- verbal cues throughout to look up- one episode of LOB Stairs: asc/desc 8 recip with 2 HR- CGA- no LOB Strength: Knee: 4+/5 Hip: 4/5 throughout Plan Plan Plan: 10/08/23: Continue with POC- focus on ambulation with less restrictive device Focus on LE and core strength/stabilization, proprioception and functional mobility HEP: reviewed current from rehab and encouraged her not to sit for more than 45 min Balance/Gait/Functional tests Balance/Special Test Scores Functional Gait Assessment Score: 11 % Disability: 63.3400 Lower Extremity Functional Score: 16 Tug Test: <20 sec.=mostly independent 30 Second Chair Rise Test Seconds: 10 Goals Goals Goal 1:: Patient will be I with HEP and progression Goal Time Frame: 6-8 Weeks Goal Progress: Progressing Goal 2:: Patient will improve her sit to stands in 30 seconds to 13 Goal Time Frame: 6-8 Weeks Goal Progress: Progressing Goal 3:: Patient will perform a TUG in under 15 seconds with LRD safely Goal Time Frame: 6-8 Weeks Goal Progress: Progressing Goal 4:: Patient will improve her FGA by 5 points Goal Time Frame: 6-8 Weeks Goal Progress: Progressing Goal 5:: Patient will asc/desc 8 stairs with 2 HR recip Goal Time Frame: 6-8 Weeks Goal Progress: Progressing Goal 6:: Patient will report 80% improvement Goal Time Frame: 6-8 Weeks Goal Progress: Progressing Anticipated Interventions Anticipated Interventions Patient/Client Instruction: Educate patient on: Benefits of Fitness Program Therapeutic Exercise to Include: Strength training, Endurance training, Balance training, Coordination, Agility training, Body mechanics, Postural training, Flexibilty training, Gait and locomotor training, Neuromotor development, Dynamic Lumbar Stabilization and Scapular Strength/Stabilization For the Purpose of:: To improve muscle performance and motor function Re-Evaluation Ending Re-evaluation ending: Please do not hesitate to contact me at [phone] by phone or if you have questions or concerns regarding this new plan of care! Sincerely, KASIE RosarioT
--- NOTE | 2023-11-15 12:45 | HP.PTREVAL ---
Re-Evaluation Intro: Dr. Steff Hua, DO, It has been my pleasure to treat TIAN FRANCISCO over the last 20 visits for Right Hip Fx. Please see the progress note below for an update on the physical therapy plan of care! Subjective Subjective: I dont have any pain today. I am stiff. I am back to work now Objective Objective/Function: Pt is I with HEP Pt is still not able to perform a sit to stand transfer without the use of UE's TU sec's FGA= 18/30 Stairs: Pt is able to reciprocally negotiate 10 steps, but requires the use of Bilat. UE's Plan Plan Plan: 11/15/23: Continue with POC 2x's per week for 8 more weeks- focus on ambulation with transition to cane Focus on LE and core strength/stabilization, proprioception and functional mobility HEP: reviewed current from rehab and encouraged her not to sit for more than 45 min Balance/Gait/Functional tests Balance/Special Test Scores Functional Gait Assessment Score: 18 % Disability: 40.0000 Lower Extremity Functional Score: 24 Tug Test: <20 sec.=mostly independent 30 Second Chair Rise Test Seconds: 10 Goals Goals Goal 1:: Patient will be I with HEP and progression Goal Time Frame: 6-8 Weeks Goal Progress: Goal Met Goal 2:: Patient will improve her sit to stands in 30 seconds to 13 Goal Time Frame: 6-8 Weeks Goal Progress: Progressing Goal 3:: Patient will perform a TUG in under 15 seconds with LRD safely Goal Time Frame: 6-8 Weeks Goal Progress: Progressing Goal 4:: Patient will improve her FGA by 5 points Goal Time Frame: 6-8 Weeks Goal Progress: Progressing Goal 5:: Patient will asc/desc 8 stairs with 2 HR recip Goal Time Frame: 6-8 Weeks Goal Progress: Progressing Goal 6:: Patient will report 80% improvement Goal Time Frame: 6-8 Weeks Goal Progress: Progressing Anticipated Interventions Anticipated Interventions Patient/Client Instruction: Educate patient on: Benefits of Fitness Program Therapeutic Exercise to Include: Strength training, Endurance training, Balance training, Coordination, Agility training, Body mechanics, Postural training, Flexibilty training, Gait and locomotor training, Neuromotor development, Dynamic Lumbar Stabilization and Scapular Strength/Stabilization For the Purpose of:: To improve muscle performance and motor function Re-Evaluation Ending Re-evaluation ending: Please do not hesitate to contact me at [phone] by phone or if you have questions or concerns regarding this new plan of care! Sincerely, Basil Marinelli, PT, ATC
--- NOTE | 2024-01-01 10:18 | HP.PTREVAL ---
Re-Evaluation Intro: Dr. Steff Hua, DO, It has been my pleasure to treat TIAN FRANCISCO over the last 27 visits for Right Hip Fx. Please see the progress note below for an update on the physical therapy plan of care! Subjective Subjective: Pt reports she feels like she is improving, but definitely needs more. Pt notes she fell last week at home. Pt reports she is Okay, but realizes her unsteadiness. Objective Objective/Function: Sit to stand: 0 in 30 sec TU.15 sec Stairs: Pt is able to negotiate 10 steps with 2 handrails, one step at a time FGA: Plan Plan Plan: 01/01/24: Continue with POC 2x's per week - focus on transition to gym routine Focus on LE and core strength/stabilization, proprioception and functional mobility Balance/Gait/Functional tests Balance/Special Test Scores Functional Gait Assessment Score: 16 % Disability: 46.6700 Lower Extremity Functional Score: 35 Tug Test: <20 sec.=mostly independent 30 Second Chair Rise Test Seconds: 10 Goals Goals Goal 1:: Patient will be I with HEP and progression Goal Time Frame: 6-8 Weeks Goal Progress: Goal Met Goal 2:: Patient will improve her sit to stands in 30 seconds to 13 Goal Time Frame: 6-8 Weeks Goal Progress: Not Progressing Goal 3:: Patient will perform a TUG in under 15 seconds with LRD safely Goal Time Frame: 6-8 Weeks Goal Progress: Progressing Goal 4:: Patient will improve her FGA by 5 points Goal Time Frame: 6-8 Weeks Goal Progress: Progressing Goal 5:: Patient will asc/desc 8 stairs with 2 HR recip Goal Time Frame: 6-8 Weeks Goal Progress: Progressing Goal 6:: Patient will report 80% improvement Goal Time Frame: 6-8 Weeks Goal Progress: Progressing Anticipated Interventions Anticipated Interventions Patient/Client Instruction: Educate patient on: Benefits of Fitness Program Therapeutic Exercise to Include: Strength training, Endurance training, Balance training, Coordination, Agility training, Body mechanics, Postural training, Flexibilty training, Gait and locomotor training, Neuromotor development, Dynamic Lumbar Stabilization and Scapular Strength/Stabilization For the Purpose of:: To improve muscle performance and motor function Re-Evaluation Ending Re-evaluation ending: Please do not hesitate to contact me at [phone] by phone or if you have questions or concerns regarding this new plan of care! Sincerely, Basil Marinelli, PT, ATC
--- NOTE | 2024-01-18 10:34 | HP.PTREVAL ---
Re-Evaluation Intro: Dr. Steff Hua, DO, It has been my pleasure to treat TIAN FRANCISCO over the last 32 visits for Right Hip Fx. Please see the progress note below for an update on the physical therapy plan of care! 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 No pain. Getting stronger, walks at home without AD, uses wh walker at work and out and about. Has been educated on machines and can continue via [employer] sneakers. . Activities: at home, trouble with vaccuum, not real steady. Has done it but not as easy or fast as it used to be. sleeping OK in chair Fall was from turning and not paying attention. Objective Objective/Function: Imrpoving 30 SSTS, FGA and TUG. Pt pulling up steps with UE and lacks fucnitonal FW weight shift on steps in chair and while walking, hard to step over an object due to poor confidence and lack of weighty shift without holding on to object. new goals and one month POC with fair prognosis Plan Plan Plan: weekly x 4 to ensure doing OK with gym ex(vended today) and work on exercises to progress weight shifting FW and lateral and gain I, and funcitonal steps, wt shifts and gait. Balance/Gait/Functional tests Balance/Special Test Scores Functional Gait Assessment Score: 20 % Disability: 33.3400 Lower Extremity Functional Score: 35 TUG Test Time Seconds: 13 Tug Test: <20 sec.=mostly independent 30 Second Chair Rise Test Seconds: 14 Goals Goals Goal 1:: I apporpriate HEP for weight shifting and balance to add to current machines. FGA to reduce fall risk Goal Time Frame: 2-4 Weeks Goal Progress: NEW GOAL Goal 2:: Patient will improve her sit to stands in 30 seconds to 13 Goal Time Frame: 6-8 Weeks Goal Progress: Goal Met Goal 3:: Patient will perform a TUG in under 15 seconds with LRD safely Goal Time Frame: 6-8 Weeks Goal Progress: Goal Met, no AD Goal 4:: Patient will improve her FGA by 5 points Goal Time Frame: 6-8 Weeks Goal Progress: Goal Met Goal 5:: Patient will asc/desc 8 stairs with 2 HR recip Goal Time Frame: 6-8 Weeks Goal Progress: Goal Met Goal 6:: Patient will report 80% improvement Goal Time Frame: 6-8 Weeks Goal Progress: Goal Met Anticipated Interventions Anticipated Interventions Patient/Client Instruction: Educate patient on: Benefits of Fitness Program Therapeutic Exercise to Include: Strength training, Endurance training, Balance training, Coordination, Agility training, Body mechanics, Postural training, Flexibilty training, Gait and locomotor training, Neuromotor development, Dynamic Lumbar Stabilization and Scapular Strength/Stabilization For the Purpose of:: To improve muscle performance and motor function Re-Evaluation Ending Re-evaluation ending: Please do not hesitate to contact me at [phone] by phone or if you have questions or concerns regarding this new plan of care! Sincerely, Cristobal Lugo, DPT, OCS, CSCS
--- NOTE | 2024-02-14 11:36 | HP.PTDCSUM ---
Discharge Summary D/C summary: It has been my pleasure to treat TIAN FRANCISCO referred by Dr. Steff Hua DO, with the diagnosis of Right Hip Fx for a total of 37 visit(s). Discharge Date: 02/14/24 Please see the following information for a summary of their discharge status. Subjective Subjective: Not done exercises at all in gym, has been doing home exercises.Will see [employer] next week and wants released to the cafe. Using wh walker to get around at work but not needed at home.. No pain. Activities: avoiding gym but knows she needs it and can do it on her own once extravaganza is over. Otherwise activities at home are normal. Sleep is OK. Overall Improvement % Improvement: 100 Objective Objective/Function: Walks without AD I with wide MARGARITA but steady , tends to look down until cued. Steps are reciprocal with two rails. FGA score is +10 from original. 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 Goals Goal 1:: I apporpriate HEP for weight shifting and balance to add to current machines. FGA to reduce fall risk Goal Progress: Goal Met Goal 2:: Patient will improve her sit to stands in 30 seconds to 13 Goal Progress: Goal Met Goal 3:: Patient will perform a TUG in under 15 seconds with LRD safely Goal Progress: Goal Met, no AD Goal 4:: Patient will improve her FGA by 5 points Goal Progress: Goal Met Goal 5:: Patient will asc/desc 8 stairs with 2 HR recip Goal Progress: Goal Met Goal 6:: Patient will report 80% improvement Goal Progress: Goal Met Plan Plan: d/c to HEP/gym D/C Information Discharge Comments: To doctor next week and will seek release to cafe at work. d/c sentence: If there are questions or concerns regarding this patient's physical therapy, please feel free to call me at [phone]. Thank you for the referral of this patient. Sincerely, Cristobal Lugo, DPT, OCS, CSCS Balance/Gait/Functional tests Balance/Special Test Scores Functional Gait Assessment Score: 21 % Disability: 30.0000 Lower Extremity Functional Score: 49 TUG Test Time Seconds: 13 Tug Test: <20 sec.=mostly independent 30 Second Chair Rise Test Seconds: 14 Improvement % Improvement: 100
== END 2024-02-07 19:00 | disposition home or self-care (01) ==
LOC: PT 11:00
PROVIDERS: PCP Nurse Practitioner; Referring Provider Internal Medicine; Visit Provider Internal Medicine
DX: S72.141D Displaced intertrochanteric fracture of right femur, subsequent encounter for closed fracture with routine healing (principal); Z98.890 Other specified postprocedural states
CPT/HCPCS: 97110; 97162; 97530